=== PATIENT | male | born 1950 | race Caucasian/White ===

== ENCOUNTER 2017-06-29 12:26 | Inpatient (IN) | payer MEDICARE, OTHER ==
[2017-06-29] MEDS: ATORVASTATIN CA 10 MG TABLET (FP) PO SCH
[2017-06-29] MEDS ORDERED: SODIUM CHLORIDE 1,000 ML IV STA ×2 (13:36→14:36)
--- NOTE | 2017-06-29 13:41 | PDOC ---
History of Present Illness - General History Source: Patient - History of Present Illness Timing/Duration: other Associated Symptoms: reports: malaise, weakness. denies: chest pain, cough, diaphoresis, fever/chills, headaches, nausea/vomiting, shortness of breath, syncope <NorborneShanika - Last Filed: 06/29/17 19:02> <Ernestina Cardenas - Last Filed: 06/30/17 17:20> - General Chief Complaint: Syncope/Near Syncope Stated Complaint: SYNCOPE Time Seen by Provider: 06/29/17 13:14 Past History - Past Medical History COPD: Yes Diabetes: Yes GI Disorders: Yes (GERD) Disorders: Yes (HYDROCELE;TESTICULAR CYST) HTN: Yes Hypercholesterolemia: Yes - Surgical History Abdominal Surgery: Yes (HERNIA REPAIR X 2) Appendectomy: Yes - Suicide/Smoking/Psychosocial Hx Smoking History: Never smoked Number of Cigarettes Smoked Daily: 5 'Breaking Loose' booklet given: 08/11/15 Hx Alcohol Use: Yes (1-2 BEERS; 3 SHOTS LIQUOR DAILY) Drug/Substance Use Hx: Yes Substance Use Type: Alcohol, Marijuana <Shanika Calzada - Last Filed: 06/29/17 19:02> <Ernestina Cardenas - Last Filed: 06/30/17 17:20> - Past Medical History Allergies/Adverse Reactions: Allergies Allergy/AdvReac Type Severity Reaction Status Date / Time No Known Drug Allergies Allergy Verified 06/29/17 13:22 Home Medications: Ambulatory Orders Albuterol Sulfate Inhaler - [Ventolin Hfa Inhaler -] 1 - 2 inh PO Q4H 08/11/15 Aspirin [Aspirin EC] 81 mg PO DAILY 08/11/15 Fluticasone/Salmeterol [Advair 250-50 Diskus] 1 each IH BID PRN 08/11/15 Lisinopril [Prinivil -] 20 mg PO DAILY 08/11/15 Omeprazole 20 mg PO DAILY 08/11/15 Simvastatin [Zocor -] 20 mg PO HS 08/11/15 Finasteride 5 mg PO DAILY 06/29/17 Lisinopril [Prinivil] 5 mg PO DAILY 06/29/17 Metformin HCl 500 mg PO DAILY 06/29/17 Review of Systems - Review of Systems Constitutional: Yes: Malaise. No: Chills, Fever Respiratory: No: Cough, Shortness of Breath Cardiac (ROS): No: Chest Pain ABD/GI: No: Diarrhea, Nausea, Vomiting : No: Dysuria Neurological: No: Headache, Dizziness <Prabha CalzadaRomán - Last Filed: 06/29/17 19:02> *Physical Exam - Vital Signs Last Vital Signs Temp Pulse Resp BP Pulse Ox 98.8 F 72 16 101/63 99 06/29/17 12:35 06/29/17 12:35 06/29/17 12:35 06/29/17 12:35 06/29/17 12:40 - Physical Exam General Appearance: Yes: Appropriately Dressed. No: Apparent Distress HEENT: positive: Normal Voice Neck: positive: Supple Respiratory/Chest: positive: Lungs Clear, Normal Breath Sounds. negative: Respiratory Distress Cardiovascular: positive: Regular Rate, S1, S2 Gastrointestinal/Abdominal: positive: Soft. negative: Tender Musculoskeletal: negative: CVA Tenderness Extremity: positive: Normal Inspection Integumentary: positive: Dry, Warm Neurologic: positive: Fully Oriented, Alert, Normal Mood/Affect <Prabha CalzadaNashAbeba - Last Filed: 06/29/17 19:02> - Vital Signs Last Vital Signs Temp Pulse Resp BP Pulse Ox 99.9 F H 80 20 121/67 96 06/30/17 14:40 06/30/17 14:40 06/30/17 14:40 06/30/17 14:40 06/29/17 21:00 <Ernestina Cardenas - Last Filed: 06/30/17 17:20> ED Treatment Course - LABORATORY CBC & Chemistry Diagram: 06/29/17 13:36 06/29/17 13:36 - RADIOLOGY Radiology Studies Ordered: Category Date Time Status CHEST X-RAY PORTABLE* [RAD] Stat Radiology 06/29/17 13:14 Ordered <ElsiPrabhaRomán - Last Filed: 06/29/17 19:02> - LABORATORY CBC & Chemistry Diagram: 06/30/17 06:00 06/30/17 06:00 - ADDITIONAL ORDERS Additional order review: 06/29/17 14:10 Blood Culture - Preliminary Blood - Peripheral Venous NO GROWTH OBTAINED AFTER 24 HOURS, INCUBATION TO CONTINUE FOR 4 DAYS. 06/29/17 13:36 Blood Culture - Preliminary Blood - Peripheral Venous NO GROWTH OBTAINED AFTER 24 HOURS, INCUBATION TO CONTINUE FOR 4 DAYS. 06/29/17 14:10 Urine Culture - Final Urine - Urine Clean Catch 06/29/17 14:30 Influenza Types A,B Antigen (KEL) - Final Nasopharyngeal Swab - Final 06/29/17 13:36 RBC 3.51 L D MCV 97.4 H MCHC 33.0 RDW 13.4 MPV 7.2 L Neutrophils % No Result Required. Lymphocytes % No Result Required. - Medications Given in the ED: ED Medications Discontinued Medications Generic Name Dose Route Start Last Admin Trade Name Freq PRN Reason Stop Dose Admin Sodium Chloride 1,000 mls @ 1,000 mls/hr 06/29/17 13:36 06/29/17 13:51 Normal Saline - IV 06/29/17 14:35 1,000 mls/hr ASDIR STA Administration Sodium Chloride 1,000 mls @ 1,000 mls/hr 06/29/17 14:36 06/29/17 14:39 Normal Saline - IV 06/29/17 15:35 1,000 mls/hr ASDIR STA Administration Vancomycin HCl 1,000 mg/ 250 mls @ 250 mls/hr 06/29/17 14:47 06/29/17 15:02 Dextrose IVPB 06/29/17 15:46 250 mls/hr ONCE ONE Administration Protocol Sodium Chloride 1,000 mls @ 100 mls/hr 06/29/17 23:00 06/30/17 01:20 Normal Saline - IV Not Given ASDIR MORRIS Folic Acid 1 mg/ Thiamine HCl 1,000 mls @ 125 mls/hr 06/29/17 20:50 06/29/17 23 :04 100 mg/ Multivitamins/Minerals IVPB 06/30/17 04:49 125 mls/hr 10 ml/ Sodium Chloride ONCE ONE Administration Piperacillin Sod/Tazobactam 50 mls @ 100 mls/hr 06/30/17 00:05 06/30/17 00:26 Sod 3.375 gm/ Dextrose IVPB 06/30/17 00:34 100 mls/hr ONCE ONE Administration Protocol Piperacillin Sod/Tazobactam Sod 3.375 gm 06/29/17 14:47 06/29/17 15:50 Zosyn 3.375gm Ivpb (Pre-Docked) IV 06/29/17 14:48 3.375 gm ONCE ONE Administration Protocol Polyethylene Glycol 17 gm 06/30/17 09:42 06/30/17 10:23 Miralax (For Daily Use) - PO 06/30/17 09:43 Not Given ONCE ONE <Ernestina Cardenas - Last Filed: 06/30/17 17:20> Medical Decision Making - Medical Decision Making 06/29/17 13:57 66 yo M, h/o HTN, COPD, DM, sent in by his PMD, Dr Cordero for abnormal labs. Pt states he had labs drawn in office yesterday and received call this am "that I have big infection in my blood". Pt reports feeling unwell at this time but denies syncope as documented at triage. States he was admitted to [facility] recently for 10 days after c/o generalized body aches. States he was discharged home 3 days ago w/ Tylenol and tramadol but continues to have pain. States work up at [facility] did not reveal etiology of pain. Pt denies uri sxs, f/c CP, sob, abd pain, change in BM, dysuria, PARKER, dizziness or neck stiffness After patient was evaluated, I spoke to Dr. Cordero, who informed me that patient has been admitted twice in the past month to [facility]. Initially was admitted for COPD flare and most recently unclear as to why patient was admitted, but states she saw patient in office yesterday and patient was hypotensive to 80s over 50s and tachycardic to 106 and recommended that patient go to the ER. For unclear reasons, patient did not come in yesterday. M.D. states she contacted pt this am to inform him that his white blood count was 33, 000. Was previously 13. Pt not on steroids. Recommend that I called [facility] to get information regarding recent admission. States when patient admitted today, to go to the hospitalist service See exam Leukocytosis w/ transient hypotension and tachycardia in pmd's office yesterday S/p recent 10 days admission to [facility] (will call for info as pt very poor historian) Pt stable in ED w/ no focal symptoms R/o sepsis -labs -estrada-cx -ekg -cxr -IVF -abx -admission 06/29/17 14:07 06/29/17 14:37 At this point, white count is 23 with lactate of 4.3, chest x-ray read as no acute pathology. UA and influenza still pending at this time. Unclear source of infection at this time. IV fluids in progress with broad-spectrum antibiotics as discussed with ED attending. I have tried calling the ER at [facility] several times in order to get records from pt's recent admission but number either busy, rings without answer or I am placed on hold for extended periods of time. 06/29/17 14:47 06/29/17 14:48 06/29/17 16:51 Rpt lactate 1.8. Pt currently in CT. Of note, ua and influenza neg. Pt to be admitted to hospitalist as d/w Dr Cordero 06/29/17 16:51 06/29/17 18:04 CT neg for acute pathology. Source of sepsis unclear at this time and no e/o meningismus. Pt's only complaint is generalized body aches. Pt remains stable. Will discuss w/ hospitalist and admit 06/29/17 18:16 06/29/17 18:56 06/29/17 19:02 Case discussed with hospitalist and patient admitted <Shanika Calzada - Last Filed: 06/29/17 19:02> *DC/Admit/Observation/Transfer - Discharge Dispostion Admit: Yes <Shanika Calzada - Last Filed: 06/29/17 19:02> - Attestations Physician Attestion: I reviewed the case with the mid-level practitioner and agree with the mid- level practitioner's assessment, diagnosis and disposition. <Ernestina Cardenas - Last Filed: 06/30/17 17:20> Diagnosis at time of Disposition: Sepsis Qualifiers: Sepsis type: sepsis due to unspecified organism Qualified Code(s): A41.9 - Sepsis, unspecified organism - Discharge Dispostion Condition at time of disposition: Fair - Referrals
[2017-06-29 13:45] LABS: MCH 32.1 pg (25.7-33.7); MEAN CELL VOLUME 97.4 fl (80-96); MEAN PLT VOLUME 7.2 fl (7.5-11.1); PLATELET COUNT 529 K/MM3 (134-434); RDW 13.4 % (11.9-15.9); WHITE BLOOD COUNT 23.3 K/mm3 (4.0-10.0)
[2017-06-29 14:16] LABS: ANION GAP 12 (8-16); BILIRUBIN,TOTAL 0.4 mg/dL (0.2-1.0); CALCIUM 9.8 mg/dL (8.5-10.1); CO2 28 mmol/L (21-32); CREATININE 0.9 mg/dL (0.7-1.3); GLUCOSE,RANDOM 171 mg/dL (74-106)
[2017-06-29 14:24] LABS: ALK PHOS 134 U/L (45-117); CPK 26 IU/L (39-308); SGOT/AST 14 U/L (15-37); SGPT/ALT 30 U/L (12-78); TROPONIN I < 0.02 ng/ml (0.00-0.05)
[2017-06-29] MEDS ORDERED: PIPERACILLIN/TAZOB 3.375 GM/50 ML PRE-DOCKED IV ONE (14:47)
[2017-06-29] MEDS ORDERED: VANCOMYCIN 1,000 MG in DEXTROSE 5%-WATER - 250 ML IVPB ONE (14:47)
[2017-06-29 15:12] LABS: URINE APPEARANCE CLEAR; URINE BILIRUBIN 1+ (NEGATIVE); URINE BLOOD NEGATIVE (NEGATIVE); URINE COLOR LT. YELLOW; URINE GLUCOSE (UA) NEGATIVE (NEGATIVE); URINE KETONE NEGATIVE (NEGATIVE); URINE LEUK ESTERASE NEGATIVE (NEGATIVE); URINE NITRITE NEGATIVE (NEGATIVE); URINE PROTEIN NEGATIVE (NEGATIVE); URINE UROBILINOGEN 0.2 mg/dL (0.2-1.0)
[2017-06-29] MEDS ORDERED: VANCOMYCIN 1 GRAM (PRE-DOCKED) 250 ML IVPB ONE (15:18)
[2017-06-29 15:54] LABS: BASOPHIL (MANUAL) 1 % (0-2.0); PLATELET ESTIMATE INCREASED (NORMAL); TOTAL CELLS COUNTED 100
[2017-06-29] MEDS ORDERED: PIPERACILLIN/TAZOB 3.375 GM 50 ML IVPB ONE (15:56)
--- NOTE | 2017-06-29 18:47 | HP ---
CHIEF COMPLAINT: Generalized weakness, fatigue, sweating, body ache PCP:Dr Cordero HISTORY OF PRESENT ILLNESS: 66 yo M, h/o HTN, COPD, asthma,DM2, HLD,prostate cancer? who presented to the ED with 2 weeks history of generalized weakness, body ache, diaphoresis. He was admitted for 12days at [facility] for same symptoms and was discharged with no clear etiology. His PCP sent him to ED today for abnormal lab work that was done yesterday(wbc 33,000). Patient denies any headache, fever, chills, N/V/D/C, he reports diaphoresis, generalized body ache starts with his leg and go all over his body. He denies chest pain, SOB, palpitation, abdominal pain, dysuria, hematuria. ER course was notable for: (1) WBC 23.3, H/H 11.3/34.2, plt 529, LA 4.3 trend to 1.8. (2)IV fluids 2 L NS bolus, Vanco zosyn (3) CT , UA, Blood culture, urine culture pending Recent Travel:No PAST MEDICAL HISTORY:HTN, HLD, DM2, Asthma, COPD,GERD, PAST SURGICAL HISTORY: inguinal hernia Social History: Smokinback/year quit 2 years ago Alcohol: 2-3 lickers multiple time aweek, last drink 20 days ago. Drugs: smoke coccine smoking, no IV drug abuse Family History: Prostate cancer , colon cancer (grandfather, uncle ) Allergies No Known Drug Allergies Allergy (Verified 06/29/17 13:22) HOME MEDICATIONS: Home Medications Medication Instructions Recorded Albuterol Sulfate Inhaler - 1 - 2 inh PO Q4H 08/11/15 [Ventolin Hfa Inhaler -] Aspirin [Aspirin EC] 81 mg PO DAILY 08/11/15 Fluticasone/Salmeterol [Advair 1 each IH BID PRN 08/11/15 250-50 Diskus] Lisinopril [Prinivil -] 20 mg PO DAILY 08/11/15 Omeprazole 20 mg PO DAILY 08/11/15 Simvastatin [Zocor -] 20 mg PO HS 08/11/15 Finasteride 5 mg PO DAILY 06/29/17 Lisinopril [Prinivil] 5 mg PO DAILY 06/29/17 Metformin HCl 500 mg PO DAILY 06/29/17 REVIEW OF SYSTEMS CONSTITUTIONAL: Absent: fever, chills, diaphoresis, generalized weakness, malaise, loss of appetite, weight change HEENT: Absent: rhinorrhea, nasal congestion, throat pain, throat swelling, difficulty swallowing, mouth swelling, ear pain, eye pain, visual changes CARDIOVASCULAR: Absent: chest pain, syncope, palpitations, irregular heart rate, lightheadedness , peripheral edema RESPIRATORY: Absent: cough, shortness of breath, dyspnea with exertion, orthopnea, wheezing, stridor, hemoptysis GASTROINTESTINAL: Absent: abdominal pain, abdominal distension, nausea, vomiting, diarrhea, constipation, melena, hematochezia GENITOURINARY: Absent: dysuria, frequency, urgency, hesitancy, hematuria, flank pain, genital pain MUSCULOSKELETAL: Absent: myalgia, arthralgia, joint swelling, back pain, neck pain SKIN: Absent: rash, itching, pallor HEMATOLOGIC/IMMUNOLOGIC: Absent: easy bleeding, easy bruising, lymphadenopathy, frequent infections ENDOCRINE: Absent: unexplained weight gain, unexplained weight loss, heat intolerance, cold intolerance NEUROLOGIC: Absent: headache, focal weakness or paresthesias, dizziness, unsteady gait, seizure, mental status changes, bladder or bowel incontinence PSYCHIATRIC: Absent: anxiety, depression, suicidal or homicidal ideation, hallucinations. Current Medications Generic Name Dose Route Start Last Admin Trade Name Sheldonq PRN Reason Stop Dose Admin Enoxaparin Sodium 40 mg 06/29/17 20:45 Lovenox - SQ DAILY [facility] Folic Acid 1 mg 06/30/17 10:00 Folic Acid - PO DAILY [facility] Sodium Chloride 1,000 mls @ 100 mls/hr 06/29/17 23:00 Normal Saline - IV ASDIR MORRIS Folic Acid 1 mg/ Thiamine HCl 1,000 mls @ 125 mls/hr 06/29/17 20:50 100 mg/ Multivitamins/Minerals IVPB 06/30/17 04:49 10 ml/ Sodium Chloride ONCE ONE Piperacillin Sod/Tazobactam 50 mls @ 100 mls/hr 06/30/17 00:05 Sod 3.375 gm/ Dextrose IVPB 06/30/17 00:34 ONCE ONE Protocol Insulin Aspart 0 vial 06/29/17 22:00 Novolog Vial Sliding Scale - SQ ACHS [facility] Protocol Thiamine HCl 100 mg 06/30/17 10:00 Vitamin B1 - PO DAILY MORRIS PHYSICAL EXAMINATION Vital Signs - 24 hr 06/29/17 06/29/17 06/29/17 12:35 12:40 14:33 Temperature 98.8 F 98.4 F Pulse Rate 72 Pulse Rate [ 85 Apical] Respiratory 16 16 Rate Blood Pressure 101/63 Blood Pressure 106/70 [Right Arm] O2 Sat by Pulse 99 99 99 Oximetry (%) 06/29/17 06/29/17 15:03 16:00 Temperature 99 F Pulse Rate Pulse Rate [ 84 72 Apical] Respiratory 20 16 Rate Blood Pressure Blood Pressure 105/63 110/72 [Right Arm] O2 Sat by Pulse 97 99 Oximetry (%) GENERAL: Awake, alert, and fully oriented, in no acute distress. HEAD: Normal with no signs of trauma. EYES: sclera icteric, conjunctiva pallor. EARS, Moist mucous membranes. LUNGS: Breath sounds equal, ispiratory wheezes on left side, and no crackles. No accessory muscle use. HEART: distant heart sound,regular rate and rhythm, normal S1 and S2 without murmur, rub or gallop. ABDOMEN: Soft, nontender, not distended, normoactive bowel sounds, no guarding, no rebound. MUSCULOSKELETAL: Normal range of motion at all joints. No bony deformities or tenderness. No CVA tenderness. LOWER EXTREMITIES: 2+ pulses, warm, well-perfused. No calf tenderness. No peripheral edema. NEUROLOGICAL: Normal speech. Normal gait. PSYCHIATRIC: Cooperative. Good eye contact. Appropriate mood and affect. SKIN: Warm, dry, no rashes or lesions noted, normal capillary refill. Laboratory Results - last 24 hr 06/29/17 06/29/17 06/29/17 13:36 13:36 13:36 WBC 23.3 H D RBC 3.51 L D Hgb 11.3 L D Hct 34.2 L D MCV 97.4 H MCH 32.1 MCHC 33.0 RDW 13.4 Plt Count 529 H D MPV 7.2 L Total Counted 100 Neutrophils % No Result Required. Neutrophils % (Manual) 87 H Lymphocytes % No Result Required. Lymphocytes % (Manual) 8 Monocytes % (Manual) 3 L Eosinophils % (Manual) 1 Basophils % (Manual) 1 Platelet Estimate Increased Sodium 137 Potassium 4.5 Chloride 97 L Carbon Dioxide 28 Anion Gap 12 BUN 23 H D Creatinine 0.9 Creat Clearance w eGFR > 60 Random Glucose 171 H D Lactic Acid 4.3 H* Calcium 9.8 Total Bilirubin 0.4 D AST 14 L ALT 30 Alkaline Phosphatase 134 H D Creatine Kinase 26 L Troponin I < 0.02 Total Protein 6.0 L D Albumin 2.0 L D Urine Color Urine Appearance Urine pH Ur Specific [place] Urine Protein Urine Glucose (UA) Urine Ketones Urine Blood Urine Nitrite Urine Bilirubin Urine Urobilinogen 06/29/17 06/29/17 14:10 15:52 WBC RBC Hgb Hct MCV MCH MCHC RDW Plt Count MPV Total Counted Neutrophils % Neutrophils % (Manual) Lymphocytes % Lymphocytes % (Manual) Monocytes % (Manual) Eosinophils % (Manual) Basophils % (Manual) Platelet Estimate Sodium Potassium Chloride Carbon Dioxide Anion Gap BUN Creatinine Creat Clearance w eGFR Random Glucose Lactic Acid 1.8 Calcium Total Bilirubin AST ALT Alkaline Phosphatase Creatine Kinase Troponin I Total Protein Albumin Urine Color Lt. yellow Urine Appearance Clear Urine pH 6.0 Ur Specific [place] 1.015 Urine Protein Negative Urine Glucose (UA) Negative Urine Ketones Negative Urine Blood Negative Urine Nitrite Negative Urine Bilirubin 1+ H Urine Urobilinogen 0.2 CXR on 04/17: No acute pathology CT abd on 04/17: fecal retention but no acute pathology ASSESSMENT/PLAN: 66 yo M, h/o HTN,HLD,DM2 COPD, asthma,prostate cancer? , recent hospitalization , who presented to the ED with 2 weeks history of generalized weakness, body ache, diaphoresis was sent by his PCP due to abnormal lab, he was found to have Leckocytosis of 23.3 and lactic acidosis of 4.3 with hypotension and was admitted for further evaluation. #Leckocytosis with neutrophilic, unspecified with thrombocytosis, likely 2/2 unknown infection vs malignancy (B symptoms ) vs connective tissue disease * WBC 23.3 on admission, H/O weight loss, H/O prostate biopsy * LA 4.3 trend to 1.8 with fluids * does not meet Sepsis criteria ,per SIRS , neither Qsofa criteria * IV fluids NS 2L boluses, vanco/zosyn given in the ED, will continue * repeat CBC, CMP in AM * UA negative * Blood culture, urine culture pending * CXR negative for acute pathology, CT abdomen negative for acute path * Lyme titers , serology for anaplasomis, babesiosis * ID consult * Hemonc consult * PPD to R/o TB * HIV screening , ESR,CRP # Lactic acidosis, corrected, likely 2/2 infection vs metformin vs dehydration * LA 4.3 on admission improved to 1.8 after 2L NS boluses * most likely secondary to dehydration # hypercalcemia with hypoalbuminemia, rigoley 2/2 malignancy vs PTH vs hyperthyroidism vs dehydration * corrected Ca 11.4 on admission * TSH, Parathyroid hormone * malignancy work up * consult hematology * IV fluids NS @100cc/hr * repeat CA in AM , Phosphorus # Normocytic anemia likely 2/2 chronic disease vs low oral intake vs alcoholic * H/H 11.3/34.2 * IRON studies, B12 Floate * Thiamin ,folic acid * repeat CBC in AM * peripheral smear in am to exclude chronic myeloproliferative disorders #Alcohol dependence * Banana bag x 1 * PO folate and thiamine tomorrow # COPD, * duoneb * Albuterol inhaler * 2L O2 NC * # constipation , * fecal incarceration on CT , asymptomatic * start stool softeners # DM2, * on mentformin 500 mg PO at home * Hold metformin * ISS, BGM * monitor * patient education * Diabetic low sodium diet * #HTN, * normotensive * on no medication #HLD , * continue home med lipitor * # prostate ca s/p prostectomy * continue Fenastrid 5 mg po daily * #FEN * F: 2L NS bolus recieved in ED, will give 1 L @ 100 cc/Hr * E:hypercalcemia, will continue hydration * N: low sodium, diabetic diet # Proph: * DVT : Moderate risk, Lovenox 40 SQ daily * GI: Protonix 20 mg PO daily # Dispo : * Orlin to med surg for further eval * will collect medical record [facility] Visit type - Emergency Visit Emergency Visit: Yes ED Registration Date: 06/29/17 Care time: The patient presented to the Emergency Department on the above date and was hospitalized for further evaluation of their emergent condition. - New Patient This patient is new to me today: Yes Date on this admission: 06/30/17 - Critical Care Critical Care patient: No
--- NOTE | 2017-06-29 19:11 | HP ---
CHIEF COMPLAINT: PCP: Dr. Cordero HISTORY OF PRESENT ILLNESS: Briefly, 66 yo M h/o HTN, asthma, COPD not on home O2 and non-steroid dependent , NIDDM sent by his PMD for elevated WBC count. Patient recalls that he's been having intermittent diffuse body aches x 10 days with 20lbs unintentional weight loss within the past few weeks. He was admitted to [facility] for 12 days and discharged 2 days ago but all workups were negative. Yesterday he saw his PMD and had blood work done. Today his PMD informed him of the elevated WBC and instructed him to come in to [facility] ED. He denies fever, chills, sick contact, recent travel, [place] in [place], diarrhea, constipation, chest pain , abd pain, n/v, urinary or bowel symptom. ER course was notable for: (1) Received NS x 2 L and Vanc+zosyn (2) Negative CT, CXR and Urinalysis Recent Travel: Denies PAST MEDICAL HISTORY: As above PAST SURGICAL HISTORY: Testicular hernia repair, Appendectomy, Prostate biospy Social History: Smokinppd, quit 2 yrs ago Alcohol: 2-3 shots of hard liquor, last drink 20 days ago Drugs: Cocaine, last use 2 years, denies IVDU Family History: Non-contributory Allergies No Known Drug Allergies Allergy (Verified 06/29/17 13:22) HOME MEDICATIONS: Home Medications Medication Instructions Recorded Albuterol Sulfate Inhaler - 1 - 2 inh PO Q4H 08/11/15 [Ventolin Hfa Inhaler -] Aspirin [Aspirin EC] 81 mg PO DAILY 08/11/15 Fluticasone/Salmeterol [Advair 1 each IH BID PRN 08/11/15 250-50 Diskus] Lisinopril [Prinivil -] 20 mg PO DAILY 08/11/15 Omeprazole 20 mg PO DAILY 08/11/15 Simvastatin [Zocor -] 20 mg PO HS 08/11/15 Finasteride 5 mg PO DAILY 06/29/17 Lisinopril [Prinivil] 5 mg PO DAILY 06/29/17 Metformin HCl 500 mg PO DAILY 06/29/17 REVIEW OF SYSTEMS CONSTITUTIONAL: diffuse body aches Absent: fever, chills, diaphoresis, generalized weakness, malaise, loss of appetite, weight change HEENT: Absent: rhinorrhea, nasal congestion, throat pain, throat swelling, difficulty swallowing, mouth swelling, ear pain, eye pain, visual changes CARDIOVASCULAR: Absent: chest pain, syncope, palpitations, irregular heart rate, lightheadedness , peripheral edema RESPIRATORY: Absent: cough, shortness of breath, dyspnea with exertion, orthopnea, wheezing, stridor, hemoptysis GASTROINTESTINAL: Absent: abdominal pain, abdominal distension, nausea, vomiting, diarrhea, constipation, melena, hematochezia GENITOURINARY: Absent: dysuria, frequency, urgency, hesitancy, hematuria, flank pain, genital pain MUSCULOSKELETAL: Absent: myalgia, arthralgia, joint swelling, back pain, neck pain SKIN: Absent: rash, itching, pallor HEMATOLOGIC/IMMUNOLOGIC: Absent: easy bleeding, easy bruising, lymphadenopathy, frequent infections ENDOCRINE:unexplained weight loss Absent:, heat intolerance, cold intolerance NEUROLOGIC: headache, Absent: focal weakness or paresthesias, dizziness, unsteady gait, seizure, mental status changes, bladder or bowel incontinence PSYCHIATRIC: Absent: anxiety, depression, suicidal or homicidal ideation, hallucinations. PHYSICAL EXAMINATION Last Vital Signs Temp Pulse Resp BP Pulse Ox 99 F 72 16 110/72 99 06/29/17 16:00 06/29/17 16:00 06/29/17 16:00 06/29/17 16:06/29/17 16:00 GENERAL:AAO x 3, looks appropriate to stated age, laying quietly in bed, speak in full sentences, in no acute distress. NECK: supple without lymphadenopathy LUNGS: CTAB HEART: RRRR, normal S1 and S2 without murmur, rub or gallop. ABDOMEN: Soft, nontender, not distended, normoactive bowel sounds, no guarding, no rebound, no masses . EXTREMITIES: 2+ pulses, warm, well-perfused. No peripheral edema. CBCD WBC 23.3 K/mm3 (4.0-10.0) H D 06/29/17 13:36 RBC 3.51 M/mm3 (4.00-5.60) L D 06/29/17 13:36 Hgb 11.3 GM/dL (11.7-16.9) L D 06/29/17 13:36 Hct 34.2 % (35.4-49) L D 06/29/17 13:36 MCV 97.4 fl (80-96) H 06/29/17 13:36 MCHC 33.0 g/dl (32.0-35.9) 06/29/17 13:36 RDW 13.4 % (11.9-15.9) 06/29/17 13:36 Plt Count 529 K/MM3 (134-434) H D 06/29/17 13:36 MPV 7.2 fl (7.5-11.1) L 06/29/17 13:36 CMP Sodium 137 mmol/L (136-145) 06/29/17 13:36 Potassium 4.5 mmol/L (3.5-5.1) 06/29/17 13:36 Chloride 97 mmol/L (98-107) L 06/29/17 13:36 Carbon Dioxide 28 mmol/L (21-32) 06/29/17 13:36 Anion Gap 12 (8-16) 06/29/17 13:36 BUN 23 mg/dL (7-18) H D 06/29/17 13:36 Creatinine 0.9 mg/dL (0.7-1.3) 06/29/17 13:36 Creat Clearance w eGFR > 60 (>60) 06/29/17 13:36 Calcium 9.8 mg/dL (8.5-10.1) 06/29/17 13:36 Total Bilirubin 0.4 mg/dL (0.2-1.0) D 06/29/17 13:36 AST 14 U/L (15-37) L 06/29/17 13:36 ALT 30 U/L (12-78) 06/29/17 13:36 Alkaline Phosphatase 134 U/L (45-117) H D 06/29/17 13:36 Total Protein 6.0 g/dl (6.4-8.2) L D 06/29/17 13:36 Albumin 2.0 g/dl (3.4-5.0) L D 06/29/17 13:36 Urine Test Results Urine Color Lt. yellow 06/29/17 14:10 Urine Appearance Clear 06/29/17 14:10 Urine pH 6.0 (5.0-8.0) 06/29/17 14:10 Ur Specific [place] 1.015 (1.005-1.025) 06/29/17 14:10 Urine Protein Negative (NEGATIVE) 06/29/17 14:10 Urine Glucose (UA) Negative (NEGATIVE) 06/29/17 14:10 Urine Ketones Negative (NEGATIVE) 06/29/17 14:10 Urine Blood Negative (NEGATIVE) 06/29/17 14:10 Urine Nitrite Negative (NEGATIVE) 06/29/17 14:10 Urine Bilirubin 1+ (NEGATIVE) H 06/29/17 14:10 IMAGING CXR on 04/17: No acute pathology CT abd on 04/17: fecal retention but no acute pathology ASSESSMENT/PLAN: 66 yo M h/o HTN, asthma, COPD not on home O2 and non-steroid dependent, NIDDM admitted for abnormal hematologic findings pending workup. Leukocytosis and Thrombocytosis - Primary vs. secondary (likely) - Primary: ?lymphoma w/ B-symptoms * hemonc consult - Secondary: infection vs. reactive to prostate malignancy * Lyme abs, babesia abs, rapid HIV, erhlichia abs, PPD * Elevated Ca2+ level, unintentional weight loss, hx prostate biopsy Hypercalcemia - Malignancy vs. Hyperthyroidism vs. hyperparathyroidism - Corrected Ca2+ 11.4 - Cont. hydration and monitor - f/u TSH, parathyroid hormone level, and phosphorus Lactic acidosis - Malignancy vs. infection vs. dehydration vs. Metformin - Resolved Macrocytic anemia - Likely 2/2 alcohol use - f/u B12 and folate level Alcohol dependence - Banana bag x 1 - PO folate and thiamine tomorrow COPD and asthma - Stable - Cont. advair and ventolin ?h/o prostate cancer - Cont. finasteride DM - BGM and SSI HTN - Controlled off med HLD - Cont. zocor FEN - IVF 100cc/hr - Hypercalcemia, cont. hydration - DM and Sodium diet Prophylaxis - DVT: lovenox - GI: on home PPI Dispo - Need to obtain past medical record regarding h/o malignancy from PCP - Cont. to monitor on med-surg Ramin Adair [facility] PGY2 Pager: [phone] Visit type - Emergency Visit Emergency Visit: Yes ED Registration Date: 06/29/17 Care time: The patient presented to the Emergency Department on the above date and was hospitalized for further evaluation of their emergent condition. - New Patient This patient is new to me today: Yes Date on this admission: 06/30/17 - Critical Care Critical Care patient: No
--- NOTE | 2017-06-29 19:16 | PN ---
Teaching Attending Note Name of Resident: Ramin Adair ATTENDING PHYSICIAN STATEMENT I saw and evaluated the patient. I reviewed the resident's note and discussed the case with the resident. I agree with the resident's findings and plan as documented. OBJECTIVE: Last Vital Signs Temp Pulse Resp BP Pulse Ox 99 F 72 16 110/72 99 06/29/17 16:00 06/29/17 16:00 06/29/17 16:00 06/29/17 16:00 06/29/17 16:00 ASSESSMENT AND PLAN: The patient is a 66 year old male with a significant past medical history of HTN , HLD, DM2, COPD, ? prostate cancer (? s/p prostatectomy), s/p two admissions to an outside facility within the past month (details unclear), seen by PCP yesterday for complaints of generalized body pain and noted to have mild hypotension with WBC of 33K, now being admitted to inpatient services for leukocytosis and lactic acidosis that resolved in the ED after fluids. He provides a somewhat limited history but reports several weeks of unintentional weight loss, diffuse myalgia, generalized weakness, disphoresis. He does NOT meet diagnostic criteria for sepsis, either by SIRS spectrum or qSOFA. He received 2L of NS in the ED as well as Zosyn/Vanco. He is hemodynamically stable and euvolemic without any overt source of infection #Leukocytosis Neutrophilic leukocytosis Possibly infectious Possibly due to malignancy Source unclear if infectious Must consider tick borne illness given our location, though he has no other risk factors Lack of transaminitis and normal platelets point away from Anaplasmosis/ Babesiosis No stigmata of endocarditis Will continue Vancomycin /Zosyn for now Follow cultures Obtain Lyme titers, serology for anaplasomis, babesiosis HIV test PPD ID consult He is slightly anemic and has a slight thrombocytosis Both are new from last labs at this facility which were in 2015 He is also quite hypoalbuminemic and has had significant weight loss He has hypercalcemia when corrected for hypoalbuminemia These findings are concerning for malignancy Will need old records from PCP in am Will ask lab to examine peripheral smear in am to exclude chronic myeloproliferative disorders Will need malignancy work-up Will consult Heme/Onc #Hypercalcemia Ca 11.4 when corrected for hypoalbuminemia Check TSH, Parathydroid levels Malignancy work-up as above Heme-Onc consult as above Continue rehydration and recheck in am #Lactic acidosis Suspect was Type A due to dehydration It resolved after fluids Doubt Type B but hold Metformin for now See resident note for full details
[2017-06-29] MEDS ORDERED: FOLIC ACID INJECTION - 1 MG, THIAMINE HCL 100 MG, MULTIVIT INJECTION ADULT 10 ML in SOD... IVPB ONE (20:50)
[2017-06-29] MEDS: ENOXAPARIN NA (PORCINE) 40 MG/0.4 ML DISP.SYRIN SQ SCH (22:00)
[2017-06-29] MEDS ORDERED: ALBUTEROL SO4 6.7 GM HFA INHALER IH PRN (22:00)
[2017-06-29] MEDS: INSULIN SLIDING SCALE (NOVOLOG) 1 VIAL SQ SCH ×2 (23:00→23:06)
[2017-06-29] MEDS: SODIUM CHLORIDE 1,000 ML IV SCH (23:05)
[2017-06-30] MEDS ORDERED: PIPERACILLIN/TAZOB 3.375 GM 3.375 GM in DEXTROSE 5%-WATER - 50 ML IVPB ONE (00:05)
[2017-06-30] MEDS ORDERED: DEXTROSE 5%-WATER - 50 ML IVPB ONE (00:14)
[2017-06-30] MEDS ORDERED: PIPERACILLIN/TAZOBACTAM 3.375 GM VIAL IVPB ONE (00:14)
[2017-06-30] MEDS: SODIUM CHLORIDE 1,000 ML IV SCH (01:20)
[2017-06-30 03:29] VITALS: BMI 23.5
[2017-06-30] MEDS: INSULIN SLIDING SCALE (NOVOLOG) 1 VIAL SQ SCH ×4 (06:50→22:14)
[2017-06-30 07:21] LABS: BASOPHIL 0.4 % (0-2.0); EOSINOPHIL 2.1 % (0-4.5); MCH 31.9 pg (25.7-33.7); MCHC 33.1 g/dl (32.0-35.9); MEAN CELL VOLUME 96.4 fl (80-96); PLATELET COUNT 447 K/MM3 (134-434); RDW 13.4 % (11.9-15.9); WHITE BLOOD COUNT 19.5 K/mm3 (4.0-10.0)
[2017-06-30] MEDS: ACETAMINOPHEN 325 MG TABLET (FP) PO PRN ×3 (08:18→21:26)
[2017-06-30 08:26] LABS: ALBUMIN 1.6 g/dl (3.4-5.0); ANION GAP 10 (8-16); BILIRUBIN,TOTAL 0.4 mg/dL (0.2-1.0); CALCIUM 8.5 mg/dL (8.5-10.1); CO2 28 mmol/L (21-32); CREATININE 0.7 mg/dL (0.7-1.3); GLUCOSE,RANDOM 131 mg/dL (74-106); MAGNESIUM 1.8 mg/dL (1.8-2.4); PHOSPHOROUS 2.6 mg/dL (2.5-4.9); SGOT/AST 13 U/L (15-37); SGPT/ALT 23 U/L (12-78)
[2017-06-30 08:34] LABS: THYROID STIMULATING HORMONE 0.62 uIU/ml (0.358-3.74)
[2017-06-30 08:38] LABS: ALK PHOS 121 U/L (45-117)
--- NOTE | 2017-06-30 08:59 | PN ---
Progress Note (short form) - Note Progress Note: ID This 66 year old male from [place] presents from his PMD for elevated WBC count. Known asthma DIDDM prostate surgery in past not feeling ell since beginning of this Jun. Complains of mostly generalized lower extremity body pains intermittent but not joint pains. He denies fevers rash travel headaches or visual complaints. He lives with a female friend and admits to drinking a good bit of alcohol on regular basis. HE has had 2 admissions to [facility] for 12 days and 3 days in Jun with no diagnosis but I have no records currently . He does not say he had an infection or a diagnosis. When he saw his PMD she did CBC and found WBC to be elevated so admitted. Denies couph abd pain HARI or night sweats. Former smoker. CT abd no organomegaly abscess Microbiology 06/29/17 14:30 Nasopharyngeal Swab Influenza Types A,B Antigen (KEL) - Final 06/29/17 14:30 Nasopharyngeal Swab - Final 06/29/17 14:10 Urine - Urine Clean Catch Urine Culture - Final Laboratory Tests 06/29/17 06/29/17 06/29/17 13:36 13:36 14:10 WBC 23.3 H D Hgb 11.3 L D Hct 34.2 L D Plt Count 529 H D Neutrophils % (Manual) 87 H Lymphocytes % (Manual) 8 Monocytes % (Manual) 3 L Eosinophils % (Manual) 1 Basophils % (Manual) 1 Sodium 137 Potassium 4.5 BUN 23 H D Creatinine 0.9 Random Glucose 171 H D AST 14 L ALT 30 Alkaline Phosphatase 134 H D Troponin I < 0.02 Total Protein 6.0 L D Albumin 2.0 L D Urine Bilirubin 1+ H Selected Entries 06/29/17 19:19 Temperature 98.8 F Pulse Rate 81 Respiratory 16 Rate Blood Pressure 114/60 HEENT NO petechiae Dentition intact Neck supple no adenopathy Lung Clear Cor S1 S2 RR no murmur Abd Soft no organomegaly nontender Ext NO CCE NO swelling Assessment Nonspecific complaints of body pain LE unclear etiology. Given the Elevated WBC infection considered though no obvious source and he has no fever. This raises the possibility of a a myeloproliferative disease. Tick related illness would not give this type of CBC profile so unlikely. Will cancel serology for this. Given he looks stable with no fever or symptoms related to infection I would not treat with antibiotics though agree cultures as ordered. It would be important to find out what exactly was done at [facility] over 12 days !! ESR CRP should be ordered with HIV testing. Also observe for sings of alcohol withdrawal. Lastsy hematology evalation with markers for leukemia ? marrow. Lastly could we be dealing wit a connective tissue disease PMR? Problem List - Problems (1) Leukocytosis Code(s): D72.829 - ELEVATED WHITE BLOOD CELL COUNT, UNSPECIFIED
--- NOTE | 2017-06-30 09:44 | PN ---
Progress Note (short form) - Note Progress Note: complaining of diffuse body aches and night sweats. assoc with anorexia and 10 lb weight loss. states he was discharged from [facility] 3 days ago after being there for 2 weeks for the same symptoms. according to him they didnt give him any medication except tylenol and just kept taking his blood. denies going for any test or scans denies taking steroids. states he saw his PMD Dr Cordero who checked his blood and told him to go to the hospital that he had an infection. denies CP, SOB, cough, fever, chills, dysuria, abdominal pain , rashes, swellings, dysphagia or odynophagia. does not walk in heavily wooded areas, no tick bites. pt is a poor historian is unable to confirm if he had prostate cancer however in records reports he has prostate ca s/p prostectomy and has been treated for hypercalcemia in the past. Current Medications Generic Name Dose Route Start Last Admin Trade Name Freq PRN Reason Stop Dose Admin Acetaminophen 650 mg 06/30/17 00:31 06/30/17 08:18 Tylenol - PO 650 mg Q6H PRN Administration FEVER OR PAIN Albuterol Sulfate 1 - 2 puff 06/29/17 22:00 Ventolin Hfa Inhaler - IH Q4H PRN Aspirin 81 mg 06/30/17 10:00 Ecotrin - PO DAILY MORRIS Atorvastatin Calcium 10 mg 06/29/17 22:00 06/29/17 00:00 Lipitor - PO 10 mg HS MORRIS Administration Budesonide/Formoterol Fumarate 2 puff 06/30/17 10:00 Symbicort 80/4.5mcg - IH BID MORRIS Enoxaparin Sodium 40 mg 06/29/17 20:45 06/29/17 22:00 Lovenox - SQ 40 mg DAILY MORRIS Administration Finasteride 5 mg 06/30/17 10:00 Proscar - PO DAILY MORRIS Folic Acid 1 mg 06/30/17 10:00 Folic Acid - PO DAILY MORRIS Sodium Chloride 1,000 mls @ 100 mls/hr 06/29/17 23:00 06/30/17 01:20 Normal Saline - IV Not Given ASDIR MORRIS Insulin Aspart 0 vial 06/29/17 22:00 06/30/17 06:50 Novolog Vial Sliding Scale - SQ Not Given ACHS [facility] Protocol Pantoprazole Sodium 20 mg 06/30/17 10:00 Protonix - PO DAILY [facility] Thiamine HCl 100 mg 06/30/17 10:00 Vitamin B1 - PO DAILY [facility] Last Vital Signs Temp Pulse Resp BP Pulse Ox 98.8 F 76 20 110/65 96 06/30/17 02:46 06/30/17 02:46 06/30/17 02:46 06/30/17 02:46 06/29/17 21:00 General NAD HEENT no oral ulcers, no LN axillae, cervical, or groin, +conjunctival pallor CV S1 S2 RRR no murmur/rub/gallop Lungs CTA B/L no wheezing/rales/rhonchi Abdomen soft NT/ND Extremities no pedal edema no rashes CBCD WBC 19.5 K/mm3 (4.0-10.0) H 06/30/17 06:00 RBC 3.17 M/mm3 (4.00-5.60) L 06/30/17 06:00 Hgb 10.1 GM/dL (11.7-16.9) L D 06/30/17 06:00 Hct 30.6 % (35.4-49) L 06/30/17 06:00 MCV 96.4 fl (80-96) H 06/30/17 06:00 MCHC 33.1 g/dl (32.0-35.9) 06/30/17 06:00 RDW 13.4 % (11.9-15.9) 06/30/17 06:00 Plt Count 447 K/MM3 (134-434) H 06/30/17 06:00 MPV 7.0 fl (7.5-11.1) L 06/30/17 06:00 CMP Sodium 140 mmol/L (136-145) 06/30/17 06:00 Potassium 4.1 mmol/L (3.5-5.1) 06/30/17 06:00 Chloride 102 mmol/L (98-107) 06/30/17 06:00 Carbon Dioxide 28 mmol/L (21-32) 06/30/17 06:00 Anion Gap 10 (8-16) 06/30/17 06:00 BUN 14 mg/dL (7-18) D 06/30/17 06:00 Creatinine 0.7 mg/dL (0.7-1.3) D 06/30/17 06:00 Creat Clearance w eGFR > 60 (>60) 06/30/17 06:00 Calcium 8.5 mg/dL (8.5-10.1) 06/30/17 06:00 Total Bilirubin 0.4 mg/dL (0.2-1.0) 06/30/17 06:00 AST 13 U/L (15-37) L 06/30/17 06:00 ALT 23 U/L (12-78) D 06/30/17 06:00 Alkaline Phosphatase 121 U/L (45-117) H 06/30/17 06:00 Total Protein 5.0 g/dl (6.4-8.2) L 06/30/17 06:00 Albumin 1.6 g/dl (3.4-5.0) L 06/30/17 06:00 A/P 66yo M with PMH HTN, Dyslipidemia, DM, COPD not on home O2, prostate ca s/p prostectomy prompted to the ER by PMD for leukocytosis and complaints of generalized aches 1. Leukocytosis- with vague symptoms of diffuse generalized aches, weight loss. doubtful this is infectious process (no symptoms suggestive of source no fevers) . abdominal CT and CXR negative for infection. UA negative. no risk factors for tick borne illness and labs are not supportive of this. high concern for myeloproliferative disorder or malignancy. unclear of workup done at other facility and paperwork sent to obtain records to see workup already completed and possibly if steroids were given there which can induce leukocytosis. received abx in the ER, which agree with ID to hold at this time. check HIV. TSH WNL. tick borne illness titers pending. Hematology consulted 2. Normocytic anemia- no signs of bleeding. check iron studies. no indication for transfusion 3. Hypercalcemia- Corrected Ca 10.4. improved with hydration. was seen last year for similar labs but nothing was done as appears pt refused. cont to monitor 4. Lactic acidosis- resolved 5. Fecal retention- does not seem symptomatic but indication for CT abdominal pain. seen on ct scan. start stool softeners 6. HTN- normotensive off medications. cont to hold 7. DM- hold oral agents. iss, bgm 8. prostate ca s/p prostectomy 9. DVT ppx- lovenox Visit type - Emergency Visit Emergency Visit: Yes ED Registration Date: 06/29/17 Care time: The patient presented to the Emergency Department on the above date and was hospitalized for further evaluation of their emergent condition. - New Patient This patient is new to me today: Yes Date on this admission: 06/30/17 - Critical Care Critical Care patient: No - Discharge Referral Referred to [facility] Med P.C.: No
--- NOTE | 2017-06-30 09:46 | EKG ---
Test Reason : Blood Pressure : / mmHG Vent. Rate : 092 BPM Atrial Rate : 092 BPM P-R Int : 138 ms QRS Dur : 102 ms QT Int : 348 ms P-R-T Axes : 062 082 049 degrees QTc Int : 430 ms SINUS RHYTHM WITH PREMATURE ATRIAL COMPLEXES OTHERWISE NORMAL ECG Confirmed by MD ABEBY, KEITH ([id number]) on 06/30/2017 9:46:02 AM Referred By: Confirmed By:KEITH POTTER MD
[2017-06-30] MEDS: THIAMINE HCL 100 MG TABLET (FP) PO SCH (10:14)
[2017-06-30] MEDS: ENOXAPARIN NA (PORCINE) 40 MG/0.4 ML DISP.SYRIN SQ SCH (10:14)
[2017-06-30] MEDS: ASPIRIN COATED 81 MG TABLET.EC PO SCH (10:14)
[2017-06-30] MEDS: FINASTERIDE 5 MG TABLET (FP) PO SCH (10:15)
[2017-06-30] MEDS: POLYETHYLENE GLYCOL 3350 119 GM BTL PO ONE ×2 (10:15→10:23)
[2017-06-30] MEDS: FOLIC ACID 1 MG TABLET (FP) PO SCH (10:15)
[2017-06-30] MEDS: PANTOPRAZOLE 20 MG TABLET (FP) PO SCH (10:15)
[2017-06-30] MEDS: BUDESONIDE/FORMETEROL FUMARATE 80/4.5 mcg INHALER IH SCH ×2 (10:18→21:25)
[2017-06-30] MEDS ORDERED: PT OWN MED DRAWER 7, Y5N ONE (10:48)
--- NOTE | 2017-06-30 11:09 | CONSULT ---
Consult Consult Specialty:: hematology/Oncology Reason for Consultation:: Leucocytosis/Thrombocytosis - History of Present Illness History of Present Illness: Chart revised in detail, Patient seen and examined. Mr. Padilla is a 66 year old male h/o HTN, asthma, COPD not on home O2 and non-steroid dependent, NIDDM sent by his PMD for elevated WBC count. He was just discharged from [facility] and as per him he also has seen ( Heme /Onc) there as an inpatient and he has an appt with on Sunday. He was seen by his PMD and was hypotensive, [place] [id number] and was sent to the ER. Presently, he denies any complains. ROS is documented. - History Source History Provided By: Patient, Medical Record - Alcohol/Substance Use Hx Alcohol Use: Yes (1-2 BEERS; 3 SHOTS LIQUOR DAILY) - Smoking History Smoking history: Never smoked Aproximately how many cigarettes per day: 5 Home Medications - Allergies Allergies/Adverse Reactions: Allergies Allergy/AdvReac Type Severity Reaction Status Date / Time No Known Drug Allergies Allergy Verified 06/29/17 13:22 - Home Medications Home Medications: Ambulatory Orders Albuterol Sulfate Inhaler - [Ventolin Hfa Inhaler -] 1 - 2 inh PO Q4H 08/11/15 Aspirin [Aspirin EC] 81 mg PO DAILY 08/11/15 Fluticasone/Salmeterol [Advair 250-50 Diskus] 1 each IH BID PRN 08/11/15 Lisinopril [Prinivil -] 20 mg PO DAILY 08/11/15 Omeprazole 20 mg PO DAILY 08/11/15 Simvastatin [Zocor -] 20 mg PO HS 08/11/15 Finasteride 5 mg PO DAILY 06/29/17 Lisinopril [Prinivil] 5 mg PO DAILY 06/29/17 Metformin HCl 500 mg PO DAILY 06/29/17 Family Disease History - Family Disease History Family History: Denies Review of Systems - Review of Systems Constitutional: reports: Loss of Appetite, Night Sweats, Unintentional Wgt. Loss , Weakness Eyes: denies: Blurred Vision, Double Vision, Recent Change in Vision HENT: denies: Difficult Swallowing, Hearing Loss, Throat Pain, Ringing in Ears Neck: denies: Decreased ROM, Lumps, Pain on Movement, Stiffness Cardiovascular: denies: Chest Pain, Edema, Palpitations, Shortness of Breath Respiratory: denies: Cough, Exercise Intolerance, Hemoptysis, Orthopnea, SOB, SOB on Exertion Gastrointestinal: denies: Abdominal Pain Musculoskeletal: reports: Extremity Pain, Joint Pain, Muscle Pain Neurological: reports: Weakness Hematology/Lymphatic: denies: Easily Bruised, Excessive Bleeding, Swollen Glands Psychiatric: denies: Altered Sleep Pattern, Anxiety, Depression Physical Exam Vital Signs: Vital Signs Temperature 98 F 06/30/17 10:24 Pulse Rate 82 06/30/17 10:24 Respiratory Rate 18 06/30/17 10:24 Blood Pressure 100/65 06/30/17 10:24 O2 Sat by Pulse Oximetry (%) 96 06/29/17 21:00 Constitutional: Yes: No Distress, Calm Eyes: Yes: Conjunctiva Clear, EOM Intact HENT: Yes: Atraumatic, Normocephalic Neck: Yes: Supple Cardiovascular: Yes: Regular Rate and Rhythm Respiratory: Yes: Regular, CTA Bilaterally. No: Accessory Muscle Use Gastrointestinal: Yes: Normal Bowel Sounds, Soft. No: Hepatomegaly, Splenomegaly Musculoskeletal: No: Joint Stiffness, Joint Swelling, Muscle Pain, Muscle Weakness Edema: No Integumentary: No: Jaundice, Petechiae, Venous Stasis Changes Neurological: Yes: Alert, Oriented Psychiatric: Yes: Alert, Oriented Labs: CBC, BMP 06/30/17 06:00 06/30/17 06:00 Imaging - Results Cat Scan: Report Reviewed, Image Reviewed Problem List - Problems (1) Leukocytosis Code(s): D72.829 - ELEVATED WHITE BLOOD CELL COUNT, UNSPECIFIED (2) Thrombocytosis Code(s): D47.3 - ESSENTIAL (HEMORRHAGIC) THROMBOCYTHEMIA (3) Hypercalcemia Code(s): E83.52 - HYPERCALCEMIA (4) Anemia Code(s): D64.9 - ANEMIA, UNSPECIFIED Qualifiers: Anemia type: unspecified type Qualified Code(s): D64.9 - Anemia, unspecified Assessment/Plan Unknown etiology of the leucocytosis/Thrombocytosis ( diff was mostly neutrophils) Primary vs Secondary. for blood work Will need collateral information from [facility] which is underway r/o cryo CT a/p, no acute pathology Molecular tests to be sent on Sunday. ?prostate ca, pt denies, and he also states that he did not undergo a prostatectomy , ?BPH on finasteride will follow d/w
[2017-06-30] MEDS: DOCUSATE SODIUM 100 MG CAPSULE (FP) PO SCH (21:18)
[2017-06-30] MEDS: ATORVASTATIN CA 10 MG TABLET (FP) PO SCH (21:19)
[2017-06-30] MEDS ORDERED: INSULIN (NOVOLOG) ASPART 100 UNITS/ML 10ML VIAL ONE ×2 (21:23→21:39)
[2017-07-01] MEDS: INSULIN SLIDING SCALE (NOVOLOG) 1 VIAL SQ SCH ×4 (06:02→22:05)
[2017-07-01 07:40] LABS: BASOPHIL 0.8 % (0-2.0); EOSINOPHIL 2.6 % (0-4.5); MCH 32.8 pg (25.7-33.7); MEAN CELL VOLUME 96.5 fl (80-96); NEUTROPHILS 77.8 % (42.8-82.8); PLATELET COUNT 500 K/MM3 (134-434); WHITE BLOOD COUNT 17.9 K/mm3 (4.0-10.0)
[2017-07-01] MEDS: ACETAMINOPHEN 325 MG TABLET (FP) PO PRN ×3 (08:11→21:58)
[2017-07-01 08:14] LABS: ALBUMIN 1.4 g/dl (3.4-5.0); ALK PHOS 106 U/L (45-117); ANION GAP 8 (8-16); BILIRUBIN,TOTAL 0.4 mg/dL (0.2-1.0); CALCIUM 8.4 mg/dL (8.5-10.1); CO2 28 mmol/L (21-32); CREATININE 0.6 mg/dL (0.7-1.3); FERRITIN 859.604 ng/ml (16.4-293.9); GLUCOSE,RANDOM 122 mg/dL (74-106); LDH 105 U/L (87-241); SGOT/AST 14 U/L (15-37); SGPT/ALT 22 U/L (12-78); TOT PROT 4.9 g/dl (6.4-8.2)
[2017-07-01] MEDS ORDERED: PT OWN MED DRAWER 7, Y5N ONE (10:02)
[2017-07-01] MEDS: FINASTERIDE 5 MG TABLET (FP) PO SCH (10:05)
[2017-07-01] MEDS: THIAMINE HCL 100 MG TABLET (FP) PO SCH (10:05)
[2017-07-01] MEDS: FOLIC ACID 1 MG TABLET (FP) PO SCH (10:06)
[2017-07-01] MEDS: PANTOPRAZOLE 20 MG TABLET (FP) PO SCH (10:06)
[2017-07-01] MEDS: ASPIRIN COATED 81 MG TABLET.EC PO SCH (10:06)
[2017-07-01] MEDS: ENOXAPARIN NA (PORCINE) 40 MG/0.4 ML DISP.SYRIN SQ SCH (10:06)
[2017-07-01] MEDS: BUDESONIDE/FORMETEROL FUMARATE 80/4.5 mcg INHALER IH SCH ×3 (10:07→21:58)
[2017-07-01 11:01] LABS: HIV 1 & 2 AB NEGATIVE; HIV 1 AGp24 NEGATIVE
--- NOTE | 2017-07-01 12:03 | PN ---
Progress Note (short form) - Note Progress Note: Patient seen and examined. Pt mentioned that he feels well. His pain is well controlled. He has no specific complains. O/E: Constitutional: Yes: No Distress, Calm Eyes: Yes: Conjunctiva Clear, EOM Intact HENT: Yes: Atraumatic, Normocephalic Neck: Yes: Supple Cardiovascular: Yes: Regular Rate and Rhythm Respiratory: Yes: Regular, CTA Bilaterally. No: Accessory Muscle Use Gastrointestinal: Yes: Normal Bowel Sounds, Soft. No: Hepatomegaly, Splenomegaly Musculoskeletal: No: Joint Stiffness, Joint Swelling, Muscle Pain, Muscle Weakness Edema: No Integumentary: No: Jaundice, Petechiae, Venous Stasis Changes Neurological: Yes: Alert, Oriented Psychiatric: Yes: Alert, Oriented Temp Pulse Resp BP Pulse Ox 99.1 F 80 20 114/61 97 07/01/17 09:00 07/01/17 09:00 07/01/17 09:00 07/01/17 09:00 06/30/17 20:40 Current Medications Generic Name Dose Route Start Last Admin Trade Name Freq PRN Reason Stop Dose Admin Acetaminophen 650 mg 06/30/17 00:31 07/01/17 08:11 Tylenol - PO 650 mg Q6H PRN Administration FEVER OR PAIN Albuterol Sulfate 1 - 2 puff 06/29/17 22:00 Ventolin Hfa Inhaler - IH Q4H PRN Aspirin 81 mg 06/30/17 10:00 07/01/17 10:06 Ecotrin - PO 81 mg DAILY [facility] Administration Atorvastatin Calcium 10 mg 06/29/17 22:00 06/30/17 21:19 Lipitor - PO 10 mg HS [facility] Administration Budesonide/Formoterol Fumarate 2 puff 06/30/17 10:00 07/01/17 10:10 Symbicort 80/4.5mcg - IH Not Given BID [facility] Docusate Sodium 300 mg 06/30/17 22:00 06/30/17 21:18 Colace - PO Not Given HS [facility] Enoxaparin Sodium 40 mg 06/29/17 20:45 07/01/17 10:06 Lovenox - SQ 40 mg DAILY [facility] Administration Finasteride 5 mg 06/30/17 10:00 07/01/17 10:05 Proscar - PO 5 mg DAILY [facility] Administration Folic Acid 1 mg 06/30/17 10:00 07/01/17 10:06 Folic Acid - PO 1 mg DAILY [facility] Administration Insulin Aspart 0 vial 06/29/17 22:00 07/01/17 10:57 Novolog Vial Sliding Scale - SQ Not Given ACHS [facility] Protocol Pantoprazole Sodium 20 mg 06/30/17 10:00 07/01/17 10:06 Protonix - PO 20 mg DAILY [facility] Administration Thiamine HCl 100 mg 06/30/17 10:00 07/01/17 10:05 Vitamin B1 - PO 100 mg DAILY [facility] Administration CBC, BMP 07/01/17 06:20 07/01/17 06:20 Assessment/Plan Unknown etiology of the leucocytosis/Thrombocytosis (diff was mostly neutrophils ), not in a acute hematological malignancy states Primary vs Secondary. suspect that it could be a MPD. Out pt work-up recommended, including flow, molecular tests +/_ a bone marrow biopsy ( to be sent from inhouse need to wait until tomorrow). No indication for transfusion for now, No splenomegaly in CT scan . I did call [facility] ER initially, but unable to get in touch with anyone. I am awaiting a call back from Dr.Dav Cardenas at [facility] , Heme/ Onc who is project control officer today to get a summary of the hospitalization. no TLS. Pt mentioned to me that he has an office appt with Dr.Mark Hart tomorrow on . d/w Problem List - Problems (1) Leukocytosis Code(s): D72.829 - ELEVATED WHITE BLOOD CELL COUNT, UNSPECIFIED (2) Thrombocytosis Code(s): D47.3 - ESSENTIAL (HEMORRHAGIC) THROMBOCYTHEMIA (3) Hypercalcemia Code(s): E83.52 - HYPERCALCEMIA (4) Anemia Code(s): D64.9 - ANEMIA, UNSPECIFIED Qualifiers: Anemia type: unspecified type Qualified Code(s): D64.9 - Anemia, unspecified
--- NOTE | 2017-07-01 12:05 | PN ---
Progress Note, Physician History of Present Illness: Awake, alert C/O generalized body pain relieved with tylenol Afebrile WBC trending downward - Current Medication List Current Medications: Active Medications Acetaminophen (Tylenol -) 650 mg PO Q6H PRN PRN Reason: FEVER OR PAIN Last Admin: 07/01/17 08:11 Dose: 650 mg Albuterol Sulfate (Ventolin Hfa Inhaler -) 1 - 2 puff IH Q4H PRN Aspirin (Ecotrin -) 81 mg PO DAILY [facility] Last Admin: 07/01/17 10:06 Dose: 81 mg Atorvastatin Calcium (Lipitor -) 10 mg PO HS [facility] Last Admin: 06/30/17 21:19 Dose: 10 mg Budesonide/Formoterol Fumarate (Symbicort 80/4.5mcg -) 2 puff IH BID [facility] Last Admin: 07/01/17 10:10 Dose: Not Given Docusate Sodium (Colace -) 300 mg PO HS [facility] Last Admin: 06/30/17 21:18 Dose: Not Given Enoxaparin Sodium (Lovenox -) 40 mg SQ DAILY [facility] Last Admin: 07/01/17 10:06 Dose: 40 mg Finasteride (Proscar -) 5 mg PO DAILY [facility] Last Admin: 07/01/17 10:05 Dose: 5 mg Folic Acid (Folic Acid -) 1 mg PO DAILY [facility] Last Admin: 07/01/17 10:06 Dose: 1 mg Insulin Aspart (Novolog Vial Sliding Scale -) 0 vial SQ ACHS [facility] PRN Reason: Protocol Last Admin: 07/01/17 10:57 Dose: Not Given Pantoprazole Sodium (Protonix -) 20 mg PO DAILY [facility] Last Admin: 07/01/17 10:06 Dose: 20 mg Thiamine HCl (Vitamin B1 -) 100 mg PO DAILY [facility] Last Admin: 07/01/17 10:05 Dose: 100 mg - Objective Vital Signs: Vital Signs Temperature 99.1 F 07/01/17 09:00 Pulse Rate 80 07/01/17 09:00 Respiratory Rate 20 07/01/17 09:00 Blood Pressure 114/61 07/01/17 09:00 O2 Sat by Pulse Oximetry (%) 97 06/30/17 20:40 Constitutional: Yes: No Distress Eyes: Yes: Conjunctiva Clear Cardiovascular: Yes: Regular Rate and Rhythm, S1, S2 Respiratory: Yes: CTA Bilaterally Gastrointestinal: Yes: Normal Bowel Sounds, Soft. No: Tenderness Edema: No Labs: CBC, BMP 07/01/17 06:20 07/01/17 06:20 Assessment/Plan Leukocytosis ? source Await cultures and summary of recent [facility] admission Observe off antibiotics
--- NOTE | 2017-07-01 17:27 | PN ---
Physical Exam: SUBJECTIVE: Patient seen and examined OBJECTIVE: Vital Signs Period Temp Pulse Resp BP Sys/Guerrier Pulse Ox Last 24 Hr 98.6 F-102.1 F 74-87 18-20 102-130/51-70 97-97 Neck: Yes: Supple Cardiovascular: Yes: Regular Rate and Rhythm Respiratory: Yes: Regular, CTA Bilaterally. No: Accessory Muscle Use Gastrointestinal: Yes: Normal Bowel Sounds, Soft. No: Hepatomegaly, Splenomegaly Musculoskeletal: No: Joint Stiffness, Joint Swelling, Muscle Pain, Muscle Weakness Edema: No Integumentary: No: Jaundice, Petechiae, Venous Stasis Changes Neurological: Yes: Alert, Oriented Laboratory Results - last 24 hr 06/30/17 07/01/17 07/01/17 21:20 06:01 06:20 WBC 17.9 H RBC 3.02 L Hgb 9.9 L Hct 29.1 L MCV 96.5 H MCH 32.8 MCHC 34.0 RDW 13.0 Plt Count 500 H MPV 7.0 L Neutrophils % 77.8 Lymphocytes % 13.1 Monocytes % 5.7 Eosinophils % 2.6 Basophils % 0.8 Retic Count Sodium Potassium Chloride Carbon Dioxide Anion Gap BUN Creatinine Creat Clearance w eGFR POC Glucometer 179 147 Random Glucose Calcium Ferritin Total Bilirubin AST ALT Alkaline Phosphatase LD Total Total Protein Albumin Vitamin B12 Rheumatoid Factor Direct Antiglob Test 07/01/17 07/01/17 07/01/17 06:20 06:20 06:20 WBC RBC Hgb Hct MCV MCH MCHC RDW Plt Count MPV Neutrophils % Lymphocytes % Monocytes % Eosinophils % Basophils % Retic Count Sodium 137 Potassium 4.1 Chloride 101 Carbon Dioxide 28 Anion Gap 8 BUN 14 Creatinine 0.6 L Creat Clearance w eGFR > 60 POC Glucometer Random Glucose 122 H Calcium 8.4 L Ferritin 859.604 H Total Bilirubin 0.4 AST 14 L ALT 22 Alkaline Phosphatase 106 LD Total 105 Total Protein 4.9 L Albumin 1.4 L Vitamin B12 635 D Rheumatoid Factor < 10.0 Direct Antiglob Test Negative 07/01/17 07/01/17 07/01/17 07:15 10:56 16:07 WBC RBC Hgb Hct MCV MCH MCHC RDW Plt Count MPV Neutrophils % Lymphocytes % Monocytes % Eosinophils % Basophils % Retic Count 1.48 Sodium Potassium Chloride Carbon Dioxide Anion Gap BUN Creatinine Creat Clearance w eGFR POC Glucometer 212 155 Random Glucose Calcium Ferritin Total Bilirubin AST ALT Alkaline Phosphatase LD Total Total Protein Albumin Vitamin B12 Rheumatoid Factor Direct Antiglob Test Active Medications Generic Name Dose Route Start Last Admin Trade Name Josefina PRN Reason Stop Dose Admin Acetaminophen 650 mg 06/30/17 00:31 07/01/17 16:02 Tylenol - PO 650 mg Q6H PRN Administration FEVER OR PAIN Albuterol Sulfate 1 - 2 puff 06/29/17 22:00 Ventolin Hfa Inhaler - IH Q4H PRN Aspirin 81 mg 06/30/17 10:00 07/01/17 10:06 Ecotrin - PO 81 mg DAILY [facility] Administration Atorvastatin Calcium 10 mg 06/29/17 22:00 06/30/17 21:19 Lipitor - PO 10 mg HS [facility] Administration Budesonide/Formoterol Fumarate 2 puff 06/30/17 10:00 07/01/17 10:10 Symbicort 80/4.5mcg - IH Not Given BID [facility] Docusate Sodium 300 mg 06/30/17 22:00 06/30/17 21:18 Colace - PO Not Given HS [facility] Enoxaparin Sodium 40 mg 06/29/17 20:45 07/01/17 10:06 Lovenox - SQ 40 mg DAILY [facility] Administration Finasteride 5 mg 06/30/17 10:00 07/01/17 10:05 Proscar - PO 5 mg DAILY [facility] Administration Folic Acid 1 mg 06/30/17 10:00 07/01/17 10:06 Folic Acid - PO 1 mg DAILY [facility] Administration Insulin Aspart 0 vial 06/29/17 22:00 07/01/17 16:08 Novolog Vial Sliding Scale - SQ Not Given ACHS [facility] Protocol Pantoprazole Sodium 20 mg 06/30/17 10:00 07/01/17 10:06 Protonix - PO 20 mg DAILY [facility] Administration Thiamine HCl 100 mg 06/30/17 10:00 07/01/17 10:05 Vitamin B1 - PO 100 mg DAILY [facility] Administration ASSESSMENT/PLAN: 1. Fatigue, fever ,generalized weakness ,leukocytosis and weight loss - no sourse of infection identified so far . Concern for myeloprolipherative disorder . Discussed with Dr Scott , outpatient follow up with heme/onc for further workup 2. Fever of 102 today - r/o sepsis -CXR -UA -Blood cultures -tylenol - start fluids - will r/o DVT 3. Hypercalcemia- improved Visit type - Emergency Visit Emergency Visit: No - New Patient This patient is new to me today: Yes Date on this admission: 07/01/17 - Critical Care Critical Care patient: No - Discharge Referral Referred to [facility] Med P.C.: No
[2017-07-01] MEDS: DOCUSATE SODIUM 100 MG CAPSULE (FP) PO SCH (21:57)
[2017-07-01] MEDS: ATORVASTATIN CA 10 MG TABLET (FP) PO SCH (21:57)
[2017-07-01] MEDS ORDERED: INSULIN (NOVOLOG) ASPART 100 UNITS/ML 10ML VIAL ONE (22:03)
[2017-07-02] MEDS: ACETAMINOPHEN 325 MG TABLET (FP) PO PRN ×4 (03:59→22:11)
[2017-07-02] MEDS: INSULIN SLIDING SCALE (NOVOLOG) 1 VIAL SQ SCH ×4 (05:59→21:36)
[2017-07-02 09:18] LABS: BASOPHIL 0.7 % (0-2.0); MCH 31.5 pg (25.7-33.7); MCHC 32.4 g/dl (32.0-35.9); MEAN CELL VOLUME 97.3 fl (80-96); MEAN PLT VOLUME 7.1 fl (7.5-11.1); NEUTROPHILS 72.4 % (42.8-82.8); PLATELET COUNT 548 K/MM3 (134-434); RDW 13.8 % (11.9-15.9); WHITE BLOOD COUNT 15.9 K/mm3 (4.0-10.0)
[2017-07-02] MEDS ORDERED: PT OWN MED DRAWER 7, Y5N ONE ×2 (09:39→20:51)
[2017-07-02] MEDS: FOLIC ACID 1 MG TABLET (FP) PO SCH (09:56)
[2017-07-02] MEDS: ENOXAPARIN NA (PORCINE) 40 MG/0.4 ML DISP.SYRIN SQ SCH (09:56)
[2017-07-02] MEDS: PANTOPRAZOLE 20 MG TABLET (FP) PO SCH (09:57)
[2017-07-02] MEDS: ASPIRIN COATED 81 MG TABLET.EC PO SCH (09:57)
[2017-07-02] MEDS: FINASTERIDE 5 MG TABLET (FP) PO SCH (09:58)
[2017-07-02] MEDS: THIAMINE HCL 100 MG TABLET (FP) PO SCH (09:58)
[2017-07-02] MEDS: BUDESONIDE/FORMETEROL FUMARATE 80/4.5 mcg INHALER IH SCH ×2 (09:58→22:14)
--- NOTE | 2017-07-02 11:55 | PN ---
Progress Note, Physician Chief Complaint: ID Patient had fever 102 overnight for first time ! Low grade usually He still complains of severe diffuse upper and lower leg paisn whcih he says goes to his head. Otherwise not acutely ill appearing - Current Medication List Current Medications: Active Medications Acetaminophen (Tylenol -) 650 mg PO Q6H PRN PRN Reason: FEVER OR PAIN Last Admin: 07/02/17 09:56 Dose: 650 mg Albuterol Sulfate (Ventolin Hfa Inhaler -) 1 - 2 puff IH Q4H PRN Aspirin (Ecotrin -) 81 mg PO DAILY [facility] Last Admin: 07/02/17 09:57 Dose: 81 mg Atorvastatin Calcium (Lipitor -) 10 mg PO HS [facility] Last Admin: 07/01/17 21:57 Dose: 10 mg Budesonide/Formoterol Fumarate (Symbicort 80/4.5mcg -) 2 puff IH BID [facility] Last Admin: 07/02/17 09:58 Dose: Not Given Docusate Sodium (Colace -) 300 mg PO HS [facility] Last Admin: 07/01/17 21:57 Dose: 300 mg Enoxaparin Sodium (Lovenox -) 40 mg SQ DAILY [facility] Last Admin: 07/02/17 09:56 Dose: 40 mg Finasteride (Proscar -) 5 mg PO DAILY [facility] Last Admin: 07/02/17 09:58 Dose: 5 mg Folic Acid (Folic Acid -) 1 mg PO DAILY [facility] Last Admin: 07/02/17 09:56 Dose: 1 mg Insulin Aspart (Novolog Vial Sliding Scale -) 0 vial SQ ACHS [facility] PRN Reason: Protocol Last Admin: 07/02/17 05:59 Dose: Not Given Pantoprazole Sodium (Protonix -) 20 mg PO DAILY [facility] Last Admin: 07/02/17 09:57 Dose: 20 mg Thiamine HCl (Vitamin B1 -) 100 mg PO DAILY [facility] Last Admin: 07/02/17 09:58 Dose: 100 mg - Objective Vital Signs: Vital Signs Temperature 99 F 07/02/17 05:37 Pulse Rate 74 07/02/17 05:37 Respiratory Rate 20 07/02/17 05:37 Blood Pressure 103/74 07/02/17 05:37 O2 Sat by Pulse Oximetry (%) 98 07/01/17 20:01 Constitutional: Yes: Well Nourished, No Distress HENT: Yes: WNL, Atraumatic Neck: Yes: WNL, Supple Cardiovascular: Yes: Regular Rate and Rhythm, S1, S2. No: Murmur Respiratory: Yes: WNL, Regular, CTA Bilaterally Gastrointestinal: Yes: WNL, Normal Bowel Sounds, Soft. No: Tenderness Edema: No Labs: CBC, BMP 07/02/17 08:26 07/01/17 06:20 Problem List - Problems (1) Leukocytosis Code(s): D72.829 - ELEVATED WHITE BLOOD CELL COUNT, UNSPECIFIED Assessment/Plan Laboratory Tests 07/01/17 07/01/17 07/01/17 06:20 06:20 06:20 WBC Hgb Hct Plt Count Creat Clearance w eGFR > 60 Ferritin 859.604 H Total Bilirubin 0.4 AST 14 L ALT 22 LD Total 105 Albumin 1.4 L Rheumatoid Factor < 10.0 WILLIAM Screen Pending 07/02/17 08:26 WBC 15.9 H Hgb 10.5 L Hct 32.4 L Plt Count 548 H Creat Clearance w eGFR Ferritin Total Bilirubin AST ALT LD Total Albumin Rheumatoid Factor WILLIAM Screen Assessment Severe pain referable to the muscles in his LE. Fever last night though not toxic looking and cultures no growth. Exam negative. Could he have a collagen disease such as polymyositis causing fever and WBC elevation ??? Note ferritin very high Plan Rheumatology evaluation Dr Chisholm No antibiotics ESR CRP CPK Aldolase U/A complete
[2017-07-02 12:56] LABS: C-REACTIVE PROTEIN 17.8 MG/DL (0.00-0.3)
--- NOTE | 2017-07-02 13:48 | PN ---
Teaching Attending Note Name of Resident: Jonathan Nobles ATTENDING PHYSICIAN STATEMENT I saw and evaluated the patient. I reviewed the resident's note and discussed the case with the resident. I agree with the resident's findings and plan as documented. SUBJECTIVE:c/o PARKER and B/L LE pain. +dipahoresis. denies CP, SOB, chills, night sweats, OBJECTIVE: Last Vital Signs Temp Pulse Resp BP Pulse Ox 99 F 74 20 103/74 98 07/02/17 05:37 07/02/17 05:37 07/02/17 05:37 07/02/17 05:37 07/01/17 20:01 General Diaphoretic Lungs CTA B/L no wheezing/rales/rhonchi ASSESSMENT AND PLAN: 66yo M with PMH HTN, Dyslipidemia, DM, COPD not on home O2, prostate ca s/p prostectomy prompted to the ER by PMD for leukocytosis and complaints of generalized aches 1. Leukocytosis-Tm 102.1. only fever recorded, however leukocytosis improving without any treatment. spoke with ID, whom we called Dr Moisés Hart together and discussed previous workup done and that he had appt today for more labwork. he states that his WBC trended 20-28 with neutrophil predominance and that he has not been treated with abx. he agrees concern for rheumatology workup which he recomended in the past. will consult rheum. will cont to hold abx at this time. sepsis workup sent and negative at this point. doppler negative for DVT. HIV negative. (as per private housing court judge WILLIAM was positive in the past) 2. Normocytic anemia- no signs of bleeding. iron studies pending. no indication for transfusion 3. Hypercalcemia- Corrected Ca 10.4. 4. Lactic acidosis- resolved 5. Fecal retention-no BM. give miralax 6. HTN- normotensive off medications. cont to hold 7. DM- hold oral agents. iss, bgm 8. BPH- on flomax (pt does NOT have hx of prostate ca, had TURP in the past) 9. DVT ppx- lovenox
[2017-07-02 13:56] LABS: URINE APPEARANCE CLEAR; URINE BILIRUBIN NEGATIVE (NEGATIVE); URINE BLOOD NEGATIVE (NEGATIVE); URINE COLOR STRAW; URINE GLUCOSE (UA) NEGATIVE (NEGATIVE); URINE KETONE NEGATIVE (NEGATIVE); URINE LEUK ESTERASE NEGATIVE (NEGATIVE); URINE NITRITE NEGATIVE (NEGATIVE); URINE PROTEIN NEGATIVE (NEGATIVE); URINE UROBILINOGEN NEGATIVE mg/dL (0.2-1.0)
[2017-07-02] MEDS ORDERED: POLYETHYLENE GLYCOL 3350 119 GM BTL PO ONE (14:00)
--- NOTE | 2017-07-02 14:32 | PN ---
Progress Note (short form) - Note Progress Note: Patient seen and examined Denies any symptoms Last Vital Signs Temp Pulse Resp BP Pulse Ox 99 F 72 20 103/74 97 07/02/17 05:37 07/02/17 14:15 07/02/17 05:37 07/02/17 05:37 07/02/17 14:15 Cor: RSR, No murmurs, No gallops Lungs: Clear to P&A Abd: Soft, Normal bowel sounds, No organomegaly Ext:No significant edema Skin: No rashes, Integument intact Abnormal Lab Results 07/01/17 07/02/17 07/02/17 06:20 08:26 08:26 WBC 15.9 H RBC 3.33 L Hgb 10.5 L Hct 32.4 L MCV 97.3 H Plt Count 548 H MPV 7.1 L Iron 10 L TIBC 125 L Iron Saturation 8 L Creatine Kinase 18 L C-Reactive Protein 17.8 H Active Medications Acetaminophen (Tylenol -) 650 mg PO Q6H PRN PRN Reason: FEVER OR PAIN Last Admin: 07/02/17 09:56 Dose: 650 mg Albuterol Sulfate (Ventolin Hfa Inhaler -) 1 - 2 puff IH Q4H PRN Aspirin (Ecotrin -) 81 mg PO DAILY [facility] Last Admin: 07/02/17 09:57 Dose: 81 mg Atorvastatin Calcium (Lipitor -) 10 mg PO HS [facility] Last Admin: 07/01/17 21:57 Dose: 10 mg Budesonide/Formoterol Fumarate (Symbicort 80/4.5mcg -) 2 puff IH BID [facility] Last Admin: 07/02/17 09:58 Dose: Not Given Docusate Sodium (Colace -) 300 mg PO HS [facility] Last Admin: 07/01/17 21:57 Dose: 300 mg Enoxaparin Sodium (Lovenox -) 40 mg SQ DAILY [facility] Last Admin: 07/02/17 09:56 Dose: 40 mg Finasteride (Proscar -) 5 mg PO DAILY [facility] Last Admin: 07/02/17 09:58 Dose: 5 mg Folic Acid (Folic Acid -) 1 mg PO DAILY [facility] Last Admin: 07/02/17 09:56 Dose: 1 mg Insulin Aspart (Novolog Vial Sliding Scale -) 0 vial SQ ACHS [facility] PRN Reason: Protocol Last Admin: 07/02/17 12:05 Dose: Not Given Pantoprazole Sodium (Protonix -) 20 mg PO DAILY [facility] Last Admin: 07/02/17 09:57 Dose: 20 mg Thiamine HCl (Vitamin B1 -) 100 mg PO DAILY [facility] Last Admin: 07/02/17 09:58 Dose: 100 mg A/P 67 y/o patient with fevers/leukocytosis/thrombocytosis Suspect rheumatologic etiology with myalgias flow/JAK2/bcr;abl
--- NOTE | 2017-07-02 19:39 | PN ---
Physical Exam: SUBJECTIVE: Patient seen and examined at bedside. he complains of sweating over night associated with body ache started from his legs and goes up to upper body. He denies cp, sob, abdominal pain, N/V/D/C or any urinary symptoms. OBJECTIVE: Vital Signs Period Temp Pulse Resp BP Sys/Guerrier Pulse Ox Last 24 Hr 98.2 F-99.8 F 72-87 18-80 103-133/58-79 97-98 GENERAL: The patient is awake, alert, and fully oriented, in no acute distress. HEAD: Normal with no signs of trauma. EYES: sclera anicteric, conjunctiva pallor. ENT: moist mucous membranes. NECK: Trachea midline, full range of motion, supple. LUNGS: Breath sounds equal, clear to auscultation bilaterally, no wheezes, no crackles, no accessory muscle use. HEART: Regular rate and rhythm, S1, S2 without murmur, rub or gallop. ABDOMEN: Soft, non tender, non distended, normoactive bowel sounds, no guarding , no rebound tenderness. EXTREMITIES: warm, well-perfused, no edema. NEUROLOGICAL: Cranial nerves II through XII grossly intact. Normal speech, gait not observed. PSYCH: Normal mood, normal affect. SKIN: Warm, dry, no rashes or lesions noted Laboratory Results - last 24 hr 07/01/17 07/01/17 07/01/17 06:20 06:20 22:00 WBC RBC Hgb Hct MCV MCH MCHC RDW Plt Count MPV Neutrophils % Lymphocytes % Monocytes % Eosinophils % Basophils % POC Glucometer 210 Iron 10 L TIBC 125 L Iron Saturation 8 L Creatine Kinase C-Reactive Protein Urine Color Urine Appearance Urine pH Ur Specific [place] Urine Protein Urine Glucose (UA) Urine Ketones Urine Blood Urine Nitrite Urine Bilirubin Urine Urobilinogen Hepatitis C Antibody <0.1 07/02/17 07/02/17 07/02/17 05:19 08:26 08:26 WBC 15.9 H RBC 3.33 L Hgb 10.5 L Hct 32.4 L MCV 97.3 H MCH 31.5 MCHC 32.4 RDW 13.8 Plt Count 548 H MPV 7.1 L Neutrophils % 72.4 Lymphocytes % 17.6 D Monocytes % 7.3 Eosinophils % 2.0 Basophils % 0.7 POC Glucometer 138 Iron TIBC Iron Saturation Creatine Kinase C-Reactive Protein Cancelled Urine Color Urine Appearance Urine pH Ur Specific [place] Urine Protein Urine Glucose (UA) Urine Ketones Urine Blood Urine Nitrite Urine Bilirubin Urine Urobilinogen Hepatitis C Antibody 07/02/17 07/02/17 07/02/17 08:26 11:50 13:00 WBC RBC Hgb Hct MCV MCH MCHC RDW Plt Count MPV Neutrophils % Lymphocytes % Monocytes % Eosinophils % Basophils % POC Glucometer 177 Iron TIBC Iron Saturation Creatine Kinase 18 L C-Reactive Protein 17.8 H Urine Color Straw Urine Appearance Clear Urine pH 6.0 Ur Specific [place] <= 1.005 Urine Protein Negative Urine Glucose (UA) Negative Urine Ketones Negative Urine Blood Negative Urine Nitrite Negative Urine Bilirubin Negative Urine Urobilinogen Negative Hepatitis C Antibody 07/02/17 16:09 WBC RBC Hgb Hct MCV MCH MCHC RDW Plt Count MPV Neutrophils % Lymphocytes % Monocytes % Eosinophils % Basophils % POC Glucometer 180 Iron TIBC Iron Saturation Creatine Kinase C-Reactive Protein Urine Color Urine Appearance Urine pH Ur Specific [place] Urine Protein Urine Glucose (UA) Urine Ketones Urine Blood Urine Nitrite Urine Bilirubin Urine Urobilinogen Hepatitis C Antibody Active Medications Generic Name Dose Route Start Last Admin Trade Name Freq PRN Reason Stop Dose Admin Acetaminophen 650 mg 06/30/17 00:31 07/02/17 16:11 Tylenol - PO 650 mg Q6H PRN Administration FEVER OR PAIN Albuterol Sulfate 1 - 2 puff 06/29/17 22:00 Ventolin Hfa Inhaler - IH Q4H PRN Aspirin 81 mg 06/30/17 10:00 07/02/17 09:57 Ecotrin - PO 81 mg DAILY MORRIS Administration Atorvastatin Calcium 10 mg 06/29/17 22:00 07/01/17 21:57 Lipitor - PO 10 mg HS MORRIS Administration Budesonide/Formoterol Fumarate 2 puff 06/30/17 10:00 07/02/17 09:58 Symbicort 80/4.5mcg - IH Not Given BID MORRIS Docusate Sodium 300 mg 06/30/17 22:00 07/01/17 21:57 Colace - PO 300 mg HS MORRIS Administration Enoxaparin Sodium 40 mg 06/29/17 20:45 07/02/17 09:56 Lovenox - SQ 40 mg DAILY MORRIS Administration Finasteride 5 mg 06/30/17 10:00 07/02/17 09:58 Proscar - PO 5 mg DAILY MORRIS Administration Folic Acid 1 mg 06/30/17 10:00 07/02/17 09:56 Folic Acid - PO 1 mg DAILY MORRIS Administration Insulin Aspart 0 vial 06/29/17 22:00 07/02/17 16:13 Novolog Vial Sliding Scale - SQ Not Given ACHS MORRIS Protocol Pantoprazole Sodium 20 mg 06/30/17 10:00 07/02/17 09:57 Protonix - PO 20 mg DAILY MORRIS Administration Thiamine HCl 100 mg 06/30/17 10:00 07/02/17 09:58 Vitamin B1 - PO 100 mg DAILY MORRIS Administration CBC, BMP 07/02/17 08:26 07/01/17 06:20 ASSESSMENT/PLAN: 66 yo M, h/o HTN,HLD,DM2 COPD, asthma,prostate cancer? , recent hospitalization , who presented to the ED with 2 weeks history of generalized weakness, body ache, diaphoresis was sent by his PCP due to abnormal lab, he was found to have Leckocytosis of 23.3 and lactic acidosis of 4.3 with hypotension and was admitted for further evaluation. #Leckocytosis with neutrophilic, unspecified with thrombocytosis, likely 2/2 unknown infection vs malignancy (B symptoms ) vs connective tissue disease * WBC 23.3 on admission, H/O weight loss, WBC around 20,000 on his base line per DR Pantoja (his plant breeder @ [facility]) * LA 4.3 trend to 1.8 with fluids * does not meet Sepsis criteria ,per SIRS , neither Qsofa criteria * IV fluids NS 2L boluses, vanco/zosyn given in the ED, * repeat CBC, CMP in AM * UA negative * Blood culture, urine culture pending * CXR negative for acute pathology, CT abdomen negative for acute path * Lyme titers , serology for anaplasomis, babesiosis * ID consulted and decide to hold abx * Hemonc consult * Rheumatology consult * PPD to R/o TB * HIV negative , * ESR,CRP * Doppler negative for DVT * # Lactic acidosis, corrected, likely 2/2 infection vs metformin vs dehydration * LA 4.3 on admission improved to 1.8 after 2L NS boluses * most likely secondary to dehydration # hypercalcemia with hypoalbuminemia, aura 2/2 malignancy vs PTH vs hyperthyroidism vs dehydration * corrected Ca 11.4 on admission * TSH, Parathyroid hormone * malignancy work up * consult hematology * IV fluids NS @100cc/hr * repeat CA in AM , Phosphorus # Normocytic anemia likely 2/2 chronic disease vs low oral intake vs alcoholic * H/H 11.3/34.2 * IRON studies, B12 Floate * Thiamin ,folic acid * repeat CBC in AM * peripheral smear in am to exclude chronic myeloproliferative disorders #Alcohol dependence * Banana bag x 1 * PO folate and thiamine tomorrow # COPD, * duoneb * Albuterol inhaler * 2L O2 NC * # constipation , * fecal incarceration on CT , asymptomatic * start stool softeners # DM2, * on Metformin 500 mg PO at home * Hold metformin * ISS, BGM * monitor * patient education * Diabetic low sodium diet * #HTN, * Normotensive * On no medication #HLD , * continue home med Lipitor * # BPH * continue Fenastrid 5 mg po daily * had TURP in the past #FEN * F: 2L NS bolus recieved in ED, will give 1 L @ 100 cc/Hr * E:Hypercalcemia, will continue hydration * N: low sodium, diabetic diet # Proph: * DVT : Moderate risk, Lovenox 40 SQ daily * GI: Protonix 20 mg PO daily # Dispo : * Orlin to med surg for further eval * Visit type - Emergency Visit Emergency Visit: Yes ED Registration Date: 06/29/17 Care time: The patient presented to the Emergency Department on the above date and was hospitalized for further evaluation of their emergent condition. - New Patient This patient is new to me today: No - Critical Care Critical Care patient: No
[2017-07-02] MEDS: DOCUSATE SODIUM 100 MG CAPSULE (FP) PO SCH (22:14)
[2017-07-02] MEDS: ATORVASTATIN CA 10 MG TABLET (FP) PO SCH (22:14)
[2017-07-03 00:06] LABS: PROSTATE SPECIFIC ANTIGEN 0.5 ng/mL (0.0-4.0)
[2017-07-03 00:06] LABS: BABESIA MICROTI ANTIBODY IGG <1:10 (Neg:<1:10)
[2017-07-03] MEDS: ACETAMINOPHEN 325 MG TABLET (FP) PO PRN ×4 (04:12→22:14)
[2017-07-03] MEDS: INSULIN SLIDING SCALE (NOVOLOG) 1 VIAL SQ SCH ×4 (06:00→21:19)
[2017-07-03 08:07] LABS: HEMATOCRIT 29.3 % (37.5-51.0)
[2017-07-03] MEDS: ENOXAPARIN NA (PORCINE) 40 MG/0.4 ML DISP.SYRIN SQ SCH (10:10)
[2017-07-03] MEDS: PANTOPRAZOLE 20 MG TABLET (FP) PO SCH (10:10)
[2017-07-03] MEDS: ASPIRIN COATED 81 MG TABLET.EC PO SCH (10:10)
[2017-07-03] MEDS: FINASTERIDE 5 MG TABLET (FP) PO SCH (10:11)
[2017-07-03] MEDS: THIAMINE HCL 100 MG TABLET (FP) PO SCH (10:12)
[2017-07-03] MEDS: FOLIC ACID 1 MG TABLET (FP) PO SCH (10:12)
[2017-07-03] MEDS: BUDESONIDE/FORMETEROL FUMARATE 80/4.5 mcg INHALER IH SCH ×2 (11:26→22:16)
[2017-07-03 12:12] LABS: MCH 31.6 pg (25.7-33.7); MCHC 32.9 g/dl (32.0-35.9); MEAN CELL VOLUME 96.1 fl (80-96); MEAN PLT VOLUME 7.2 fl (7.5-11.1); PLATELET COUNT 555 K/MM3 (134-434); RDW 13.9 % (11.9-15.9); WHITE BLOOD COUNT 14.3 K/mm3 (4.0-10.0)
[2017-07-03 12:47] LABS: ALBUMIN 1.5 g/dl (3.4-5.0); ANION GAP 8 (8-16); BILIRUBIN,TOTAL 0.2 mg/dL (0.2-1.0); CALCIUM 8.2 mg/dL (8.5-10.1); CO2 28 mmol/L (21-32); CREATININE 0.6 mg/dL (0.7-1.3); GLUCOSE,RANDOM 192 mg/dL (74-106); SGOT/AST 30 U/L (15-37); SGPT/ALT 35 U/L (12-78); TOT PROT 5.1 g/dl (6.4-8.2)
[2017-07-03 12:48] LABS: ALK PHOS 125 U/L (45-117)
--- NOTE | 2017-07-03 15:11 | PN ---
Progress Note (short form) - Note Progress Note: feels the same resting comfortably no fever today still notes leg pains that occur in the afternoon only Vital Signs Period Temp Pulse Resp BP Sys/Guerrier Pulse Ox Last 24 Hr 98.1 F-100.8 F 69-87 18-20 105-132/61-73 96-98 cor-rrr lungs clear abd soft,nt ext no edema no rash CBC, BMP 07/03/17 11:45 07/03/17 11:45 crp-17 HIV negative Microbiology 06/29/17 14:10 Blood - Peripheral Venous Blood Culture - Preliminary NO GROWTH OBTAINED AFTER 96 HOURS, INCUBATION TO CONTINUE FOR 1 DAYS. 06/29/17 13:36 Blood - Peripheral Venous Blood Culture - Preliminary NO GROWTH OBTAINED AFTER 96 HOURS, INCUBATION TO CONTINUE FOR 1 DAYS. 07/01/17 17:20 Urine - Urine Clean Catch Urine Culture - Final NO GROWTH OBTAINED 07/01/17 17:05 Blood - Peripheral Venous Blood Culture - Preliminary NO GROWTH OBTAINED AFTER 24 HOURS, INCUBATION TO CONTINUE FOR 4 DAYS. 07/01/17 16:55 Blood - Peripheral Venous Blood Culture - Preliminary NO GROWTH OBTAINED AFTER 24 HOURS, INCUBATION TO CONTINUE FOR 4 DAYS. 06/30/17 06:00 Blood - Peripheral Venous Blood Parasites Smear (KEL) - Final No growth. 06/29/17 14:10 Urine - Urine Clean Catch Urine Culture - Final 06/29/17 14:30 Nasopharyngeal Swab Influenza Types A,B Antigen (KEL) - Final 06/29/17 14:30 Nasopharyngeal Swab - Final chest ct - no masses, no adenopathy a/p leukocytosis/anemia/thrombocytosis- fevers resolving awaiting rheum evaluation observe off antiibotics
--- NOTE | 2017-07-03 17:37 | PN ---
Progress Note (short form) - Note Progress Note: Patient seen and examined. febrile episodes Walking in hallway O/E: Constitutional: Yes: No Distress, Calm Eyes: Yes: Conjunctiva Clear, EOM Intact HENT: Yes: Atraumatic, Normocephalic Neck: Yes: Supple Cardiovascular: Yes: Regular Rate and Rhythm Respiratory: Yes: Regular, CTA Bilaterally. No: Accessory Muscle Use Gastrointestinal: Yes: Normal Bowel Sounds, Soft. No: Hepatomegaly, Splenomegaly Musculoskeletal: No: Joint Stiffness, Joint Swelling, Muscle Pain, Muscle Weakness Edema: No Integumentary: No: Jaundice, Petechiae, Venous Stasis Changes Neurological: Yes: Alert, Oriented Psychiatric: Yes: Alert, Oriented Last Vital Signs Temp Pulse Resp BP Pulse Ox 98.1 F 69 20 105/64 98 07/03/17 13:53 07/03/17 13:53 07/03/17 13:53 07/03/17 13:53 07/03/17 10:45 CBC, BMP 07/03/17 11:45 07/03/17 11:45 Current Medications Generic Name Dose Route Start Last Admin Trade Name Freq PRN Reason Stop Dose Admin Acetaminophen 650 mg 06/30/17 00:31 07/03/17 16:14 Tylenol - PO 650 mg Q6H PRN Administration FEVER OR PAIN Albuterol Sulfate 1 - 2 puff 06/29/17 22:00 Ventolin Hfa Inhaler - IH Q4H PRN Aspirin 81 mg 06/30/17 10:00 07/03/17 10:10 Ecotrin - PO 81 mg DAILY MORRIS Administration Atorvastatin Calcium 10 mg 06/29/17 22:00 07/02/17 22:14 Lipitor - PO 10 mg HS MORRIS Administration Budesonide/Formoterol Fumarate 2 puff 06/30/17 10:00 07/03/17 11:26 Symbicort 80/4.5mcg - IH 2 puff BID MORRIS Administration Docusate Sodium 300 mg 06/30/17 22:00 07/02/17 22:14 Colace - PO 300 mg HS MORRIS Administration Enoxaparin Sodium 40 mg 06/29/17 20:45 07/03/17 10:10 Lovenox - SQ Not Given DAILY MORRIS Finasteride 5 mg 06/30/17 10:00 07/03/17 10:11 Proscar - PO 5 mg DAILY MORRIS Administration Folic Acid 1 mg 06/30/17 10:00 07/03/17 10:12 Folic Acid - PO 1 mg DAILY MORRIS Administration Insulin Aspart 0 vial 06/29/17 22:00 07/03/17 17:35 Novolog Vial Sliding Scale - SQ 2 units ACHS MORRIS Administration Protocol Pantoprazole Sodium 20 mg 06/30/17 10:00 07/03/17 10:10 Protonix - PO 20 mg DAILY MORRIS Administration Thiamine HCl 100 mg 06/30/17 10:00 07/03/17 10:12 Vitamin B1 - PO 100 mg DAILY MORRIS Administration Assessment/Plan will f.u on rheum eval will f/u on flow/molecular studies ID f/u noted Problem List - Problems (1) Leukocytosis Code(s): D72.829 - ELEVATED WHITE BLOOD CELL COUNT, UNSPECIFIED (2) Thrombocytosis Code(s): D47.3 - ESSENTIAL (HEMORRHAGIC) THROMBOCYTHEMIA (3) Hypercalcemia Code(s): E83.52 - HYPERCALCEMIA (4) Anemia Code(s): D64.9 - ANEMIA, UNSPECIFIED Qualifiers: Qualified Code(s): D64.9 - Anemia, unspecified
--- NOTE | 2017-07-03 17:41 | CONSULT ---
Consult Consult Specialty:: Rheumatology - History of Present Illness History of Present Illness: 66 year old male with history of HTN, COPD, diabetes type II, asthma, hyperlipidemia, prostate cancer? Admitted with episodes of diffuse aches and pains. The patient reports a one month history of episodes of severe aches and pains. The pain is localized to muscles and joints, it is severe, and resolves with Acetaminophen. He reports relapse of the pain every 6 hours and after taking Acetaminophen he is asymptomatic. He denies skin rash, oral ulcers, weakness, shortness of breath or chest pain. He was admitted to [facility] for 10 days and apparently no diagnosis was reached and after discharge he continued having the same symptoms. On 06/29/17 WBC was 23.3 and platelets 529. Today WBC 14.3 and platelets 555. CRP 17.8. Liver function tests and urinalysis were normal. C K was 18. On 07/01/17 T max was 102.1 and today he has not have fever. - History Source History Provided By: Patient, Medical Record Limitations to Obtaining History: No Limitations - Past Medical History Cardio/Vascular: Yes: HTN, Hyperlipdemia Pulmonary: Yes: Asthma, COPD Endocrine: Yes: Diabetes Mellitus - Alcohol/Substance Use Hx Alcohol Use: Yes (1-2 BEERS; 3 SHOTS LIQUOR DAILY) - Smoking History Smoking history: Never smoked Aproximately how many cigarettes per day: 5 Home Medications - Allergies Allergies/Adverse Reactions: Allergies Allergy/AdvReac Type Severity Reaction Status Date / Time No Known Drug Allergies Allergy Verified 06/29/17 13:22 - Home Medications Home Medications: Ambulatory Orders Albuterol Sulfate Inhaler - [Ventolin Hfa Inhaler -] 1 - 2 inh PO Q4H 08/11/15 Aspirin [Aspirin EC] 81 mg PO DAILY 08/11/15 Fluticasone/Salmeterol [Advair 250-50 Diskus] 1 each IH BID PRN 08/11/15 Lisinopril [Prinivil -] 20 mg PO DAILY 08/11/15 Omeprazole 20 mg PO DAILY 08/11/15 Simvastatin [Zocor -] 20 mg PO HS 08/11/15 Finasteride 5 mg PO DAILY 06/29/17 Lisinopril [Prinivil] 5 mg PO DAILY 06/29/17 Metformin HCl 500 mg PO DAILY 06/29/17 Review of Systems - Review of Systems Constitutional: reports: No Symptoms Eyes: reports: No Symptoms HENT: reports: No Symptoms Neck: reports: No Symptoms Cardiovascular: reports: No Symptoms Respiratory: reports: No Symptoms Gastrointestinal: reports: No Symptoms Genitourinary: reports: No Symptoms Musculoskeletal: reports: Other (See HPI) Endocrine: reports: No Symptoms Physical Exam Vital Signs: Vital Signs Temperature 98.1 F 07/03/17 13:53 Pulse Rate 69 07/03/17 13:53 Respiratory Rate 20 07/03/17 13:53 Blood Pressure 105/64 07/03/17 13:53 O2 Sat by Pulse Oximetry (%) 98 07/03/17 10:45 Constitutional: Yes: No Distress Eyes: Yes: WNL HENT: Yes: WNL Neck: Yes: WNL Cardiovascular: Yes: WNL Respiratory: Yes: WNL Gastrointestinal: Yes: WNL Musculoskeletal: Yes: Other (No tender or swollen joints and no tenderness ove fibrositic tender points or muscles. Muscle strength was normal.) Labs: CBC, BMP 07/03/17 11:45 07/03/17 11:45 Laboratory Tests 06/29/17 07/01/17 07/01/17 13:36 06:20 06:20 Retic Count AST 14 L ALT 22 Alkaline Phosphatase 106 LD Total 105 Creatine Kinase 26 L C-Reactive Protein Urine Color Urine Appearance Urine pH Ur Specific [place] Urine Protein Urine Glucose (UA) Urine Ketones Urine Blood Urine Nitrite Urine Bilirubin Urine Urobilinogen Rheumatoid Factor WILLIAM Screen Positive H Hepatitis C Antibody <0.1 07/01/17 07/01/17 07/02/17 06:20 07:15 08:26 Retic Count 1.48 AST ALT Alkaline Phosphatase LD Total Creatine Kinase 18 L C-Reactive Protein 17.8 H Urine Color Urine Appearance Urine pH Ur Specific [place] Urine Protein Urine Glucose (UA) Urine Ketones Urine Blood Urine Nitrite Urine Bilirubin Urine Urobilinogen Rheumatoid Factor < 10.0 WILLIAM Screen Hepatitis C Antibody 07/02/17 13:00 Retic Count AST ALT Alkaline Phosphatase LD Total Creatine Kinase C-Reactive Protein Urine Color Straw Urine Appearance Clear Urine pH 6.0 Ur Specific [place] <= 1.005 Urine Protein Negative Urine Glucose (UA) Negative Urine Ketones Negative Urine Blood Negative Urine Nitrite Negative Urine Bilirubin Negative Urine Urobilinogen Negative Rheumatoid Factor WILLIAM Screen Hepatitis C Antibody Problem List - Problems (1) Myalgia Assessment/Plan: Episodes of diffuse mialgia, intermittent and no inflammatory arthritis or myositis. Etiology to be detemined. It is unlikley to have a connective tissue disease. Plan: ferritin. F/.U hematology Code(s): M79.1 - MYALGIA
--- NOTE | 2017-07-03 18:09 | PN ---
Teaching Attending Note Name of Resident: Jonathan Nobles ATTENDING PHYSICIAN STATEMENT I saw and evaluated the patient. I reviewed the resident's note and discussed the case with the resident. I agree with the resident's findings and plan as documented. SUBJECTIVE: Patient has no complaints. Had temp 100.8 last night. OBJECTIVE: Vital Signs Period Temp Pulse Resp BP Sys/Guerrier Pulse Ox Last 24 Hr 98.1 F-100.8 F 69-87 18-20 105-132/61-73 96-98 HEART: S1S2, RRR LUNGS: Bilateral rhonchi ABDOMEN: Soft, non-tender, non-distended, normal BS EXTREMITIES: No edema Current Medications Generic Name Dose Route Start Last Admin Trade Name Freq PRN Reason Stop Dose Admin Acetaminophen 650 mg 06/30/17 00:31 07/03/17 16:14 Tylenol - PO 650 mg Q6H PRN Administration FEVER OR PAIN Albuterol Sulfate 1 - 2 puff 06/29/17 22:00 Ventolin Hfa Inhaler - IH Q4H PRN Aspirin 81 mg 06/30/17 10:00 07/03/17 10:10 Ecotrin - PO 81 mg DAILY MORRIS Administration Atorvastatin Calcium 10 mg 06/29/17 22:00 07/02/17 22:14 Lipitor - PO 10 mg HS MORRIS Administration Budesonide/Formoterol Fumarate 2 puff 06/30/17 10:00 07/03/17 11:26 Symbicort 80/4.5mcg - IH 2 puff BID MORRIS Administration Docusate Sodium 300 mg 06/30/17 22:00 07/02/17 22:14 Colace - PO 300 mg HS MORRIS Administration Enoxaparin Sodium 40 mg 06/29/17 20:45 07/03/17 10:10 Lovenox - SQ Not Given DAILY MORRIS Finasteride 5 mg 06/30/17 10:00 07/03/17 10:11 Proscar - PO 5 mg DAILY MORRIS Administration Folic Acid 1 mg 06/30/17 10:00 07/03/17 10:12 Folic Acid - PO 1 mg DAILY MORRIS Administration Insulin Aspart 0 vial 06/29/17 22:00 07/03/17 17:35 Novolog Vial Sliding Scale - SQ 2 units ACHS MORRIS Administration Protocol Pantoprazole Sodium 20 mg 06/30/17 10:00 07/03/17 10:10 Protonix - PO 20 mg DAILY MORRIS Administration Thiamine HCl 100 mg 06/30/17 10:00 07/03/17 10:12 Vitamin B1 - PO 100 mg DAILY MORRIS Administration ASSESSMENT AND PLAN: 66yo M with PMH HTN, Dyslipidemia, DM, COPD not on home O2, prostate ca s/p prostectomy prompted to the ER by PMD for leukocytosis and complaints of generalized aches 1. Leukocytosis-Tm 102.1. only fever recorded, however leukocytosis improving without any treatment. spoke with ID, whom we called Dr Moisés Hart together and discussed previous workup done and that he had appt today for more labwork. he states that his WBC trended 20-28 with neutrophil predominance and that he has not been treated with abx. he agrees concern for rheumatology workup which he recomended in the past. will consult rheum. will cont to hold abx at this time. sepsis workup sent and negative at this point. doppler negative for DVT. HIV negative. (as per private sql developer WILLIAM was positive in the past) 2. Normocytic anemia- no signs of bleeding. iron studies pending. no indication for transfusion 3. Hypercalcemia- Corrected Ca 10.4. 4. Lactic acidosis- resolved 5. Fecal retention-no BM. give miralax 6. HTN- normotensive off medications. cont to hold 7. DM- hold oral agents. iss, bgm 8. BPH- on flomax (pt does NOT have hx of prostate ca, had TURP in the past) 9. DVT ppx- lovenox
--- NOTE | 2017-07-03 20:48 | PN ---
Physical Exam: SUBJECTIVE: Patient seen and examined at bedside. he complains of sweating over night associated with body ache started from his legs and goes up to upper body. He denies cp, sob, abdominal pain, N/V/D/C or any urinary symptoms. OBJECTIVE: Vital Signs Period Temp Pulse Resp BP Sys/Guerrier Pulse Ox Last 24 Hr 98.1 F-100.8 F 69-87 18-20 101-132/54-73 96-98 GENERAL: The patient is awake, alert, and fully oriented, in no acute distress. HEAD: Normal with no signs of trauma. EYES: sclera anicteric, conjunctiva pallor. ENT: moist mucous membranes. NECK: Trachea midline, full range of motion, supple. LUNGS: diffuse wheezing on the right lung, wheezes, no crackles, no accessory muscle use. HEART: Regular rate and rhythm, S1, S2 without murmur, rub or gallop. ABDOMEN: Soft, non tender, non distended, normoactive bowel sounds, no guarding , no rebound tenderness. EXTREMITIES: warm, well-perfused, no edema. NEUROLOGICAL: Cranial nerves II through XII grossly intact. Normal speech, gait not observed. PSYCH: Normal mood, normal affect. SKIN: Warm, dry, no rashes or lesions noted Laboratory Results - last 24 hr 06/30/17 06/30/17 07/01/17 06:00 06:00 06:20 WBC RBC Hgb Hct MCV MCH MCHC RDW Plt Count MPV Sodium Potassium Chloride Carbon Dioxide Anion Gap BUN Creatinine Creat Clearance w eGFR POC Glucometer Random Glucose Calcium Iron 10 L TIBC 125 L Iron Saturation 8 L Total Bilirubin Direct Bilirubin AST ALT Alkaline Phosphatase Total Protein Albumin Prostate Specific Ag 0.50 Folate Folate Hemolysate PTH Intact 30 WILLIAM Screen WILLIAM Homogeneous Pattern WILLIAM Nucleolar Pattern WILLIAM Speckled Pattern WILLIAM Centromere Pattern Babesia microti IgG Ab <1:10 Babesia microti IgM Ab <1:10 Lyme Disease IgG/IgM 1.07 H Hepatitis C Antibody 07/01/17 07/02/17 07/03/17 06:20 21:36 05:59 WBC RBC Hgb Hct 29.3 L MCV MCH MCHC RDW Plt Count MPV Sodium Potassium Chloride Carbon Dioxide Anion Gap BUN Creatinine Creat Clearance w eGFR POC Glucometer 161 139 Random Glucose Calcium Iron TIBC Iron Saturation Total Bilirubin Direct Bilirubin AST ALT Alkaline Phosphatase Total Protein Albumin Prostate Specific Ag Folate 1029 Folate Hemolysate 301.4 PTH Intact WILLIAM Screen Positive H WILLIAM Homogeneous Pattern TNP WILLIAM Nucleolar Pattern TNP WILLIAM Speckled Pattern TNP WILLIAM Centromere Pattern TNP Babesia microti IgG Ab Babesia microti IgM Ab Lyme Disease IgG/IgM Hepatitis C Antibody <0.1 07/03/17 07/03/17 07/03/17 11:45 11:45 11:47 WBC 14.3 H RBC 3.10 L Hgb 9.8 L Hct 29.8 L MCV 96.1 H MCH 31.6 MCHC 32.9 RDW 13.9 Plt Count 555 H MPV 7.2 L Sodium 135 L Potassium 4.2 Chloride 99 Carbon Dioxide 28 Anion Gap 8 BUN 14 Creatinine 0.6 L Creat Clearance w eGFR > 60 POC Glucometer 201 Random Glucose 192 H D Calcium 8.2 L Iron TIBC Iron Saturation Total Bilirubin 0.2 D Direct Bilirubin AST 30 D ALT 35 D Alkaline Phosphatase 125 H Total Protein 5.1 L Albumin 1.5 L Prostate Specific Ag Folate Folate Hemolysate PTH Intact WILLIAM Screen WILLIAM Homogeneous Pattern WILLIAM Nucleolar Pattern WILLIAM Speckled Pattern WILLIAM Centromere Pattern Babesia microti IgG Ab Babesia microti IgM Ab Lyme Disease IgG/IgM Hepatitis C Antibody 07/03/17 07/03/17 14:05 17:15 WBC RBC Hgb Hct MCV MCH MCHC RDW Plt Count MPV Sodium Potassium Chloride Carbon Dioxide Anion Gap BUN Creatinine Creat Clearance w eGFR POC Glucometer 199 Random Glucose Calcium Iron TIBC Iron Saturation Total Bilirubin Direct Bilirubin < 0.1 AST ALT Alkaline Phosphatase Total Protein Albumin Prostate Specific Ag Folate Folate Hemolysate PTH Intact WILLIAM Screen WILLIAM Homogeneous Pattern WILLIAM Nucleolar Pattern WILLIAM Speckled Pattern WILLIAM Centromere Pattern Babesia microti IgG Ab Babesia microti IgM Ab Lyme Disease IgG/IgM Hepatitis C Antibody Active Medications Generic Name Dose Route Start Last Admin Trade Name Freq PRN Reason Stop Dose Admin Acetaminophen 650 mg 06/30/17 00:31 07/03/17 16:14 Tylenol - PO 650 mg Q6H PRN Administration FEVER OR PAIN Albuterol Sulfate 1 - 2 puff 06/29/17 22:00 Ventolin Hfa Inhaler - IH Q4H PRN Aspirin 81 mg 06/30/17 10:00 07/03/17 10:10 Ecotrin - PO 81 mg DAILY [facility] Administration Atorvastatin Calcium 10 mg 06/29/17 22:00 07/02/17 22:14 Lipitor - PO 10 mg HS [facility] Administration Budesonide/Formoterol Fumarate 2 puff 06/30/17 10:00 07/03/17 11:26 Symbicort 80/4.5mcg - IH 2 puff BID [facility] Administration Docusate Sodium 300 mg 06/30/17 22:00 07/02/17 22:14 Colace - PO 300 mg HS [facility] Administration Enoxaparin Sodium 40 mg 06/29/17 20:45 07/03/17 10:10 Lovenox - SQ Not Given DAILY [facility] Finasteride 5 mg 06/30/17 10:00 07/03/17 10:11 Proscar - PO 5 mg DAILY [facility] Administration Folic Acid 1 mg 06/30/17 10:00 07/03/17 10:12 Folic Acid - PO 1 mg DAILY [facility] Administration Insulin Aspart 0 vial 06/29/17 22:00 07/03/17 17:35 Novolog Vial Sliding Scale - SQ 2 units ACHS [facility] Administration Protocol Pantoprazole Sodium 20 mg 06/30/17 10:00 07/03/17 10:10 Protonix - PO 20 mg DAILY [facility] Administration Thiamine HCl 100 mg 06/30/17 10:00 07/03/17 10:12 Vitamin B1 - PO 100 mg DAILY [facility] Administration CBC, BMP 07/03/17 11:45 07/03/17 11:45 ASSESSMENT/PLAN: 66 yo M, h/o HTN,HLD,DM2 COPD, asthma,prostate cancer? , recent hospitalization , who presented to the ED with 2 weeks history of generalized weakness, body ache, diaphoresis was sent by his PCP due to abnormal lab, he was found to have Leckocytosis of 23.3 and lactic acidosis of 4.3 with hypotension and was admitted for further evaluation. 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[employer]) * LA 4.3 trend to 1.8 with fluids * does not meet Sepsis criteria ,per SIRS , neither Qsofa criteria * IV fluids NS 2L boluses, vanco/zosyn given in the ED, * repeat CBC, CMP in AM * UA negative * Blood culture, urine culture pending * CXR negative for acute pathology, CT abdomen negative for acute path * Lyme titers , serology for anaplasomis, babesiosis * ID consulted and decide to hold abx * Hemonc consult * Rheumatology consult * PPD to R/o TB * HIV negative , * ESR,CRP * Doppler negative for DVT * Chest CT negative for acute pathology * Total and direct bilirubin ordered # Lactic acidosis, corrected, likely 2/2 infection vs metformin vs dehydration * LA 4.3 on admission improved to 1.8 after 2L NS boluses * most likely secondary to dehydration # hypercalcemia with hypoalbuminemia, likley 2/2 malignancy vs PTH vs hyperthyroidism vs dehydration * corrected Ca 11.4 on admission * TSH, Parathyroid hormone * malignancy work up * consult hematology * IV fluids NS @100cc/hr * repeat CA in AM , Phosphorus # Normocytic anemia likely 2/2 chronic disease vs low oral intake vs alcoholic * H/H 11.3/34.2 * IRON studies, B12 Floate * Thiamin ,folic acid * repeat CBC in AM * peripheral smear in am to exclude chronic myeloproliferative disorders #Alcohol dependence * Banana bag x 1 * PO folate and thiamine tomorrow # COPD, * duoneb * Albuterol inhaler * 2L O2 NC * # constipation , * fecal incarceration on CT , asymptomatic * start stool softeners # DM2, * on Metformin 500 mg PO at home * Hold metformin * ISS, BGM * monitor * patient education * Diabetic low sodium diet * #HTN, * Normotensive * On no medication #HLD , * continue home med Lipitor * # BPH * continue Fenastrid 5 mg po daily * had TURP in the past #FEN * F: 2L NS bolus recieved in ED, will give 1 L @ 100 cc/Hr * E:Hypercalcemia, will continue hydration * N: low sodium, diabetic diet # Proph: * DVT : Moderate risk, Lovenox 40 SQ daily * GI: Protonix 20 mg PO daily # Dispo : * Orlin to med surg for further eval * Visit type - Emergency Visit Emergency Visit: Yes ED Registration Date: 06/29/17 Care time: The patient presented to the Emergency Department on the above date and was hospitalized for further evaluation of their emergent condition. - New Patient This patient is new to me today: No - Critical Care Critical Care patient: No - Discharge Referral Referred to [facility] Med P.C.: No
[2017-07-03] MEDS: ATORVASTATIN CA 10 MG TABLET (FP) PO SCH (21:59)
[2017-07-03] MEDS: DOCUSATE SODIUM 100 MG CAPSULE (FP) PO SCH (21:59)
[2017-07-04 00:06] LABS: A/G RATIO 0.6 (0.7-1.7); ALBUMIN 1.6 g/dL (2.9-4.4); ALPHA-1-GLOBULIN 0.6 g/dL (0.0-0.4); BETA GLOBULIN 0.8 g/dL (0.7-1.3); GAMMA GLOBULIN 0.6 g/dL (0.4-1.8); GLOBULIN, TOTAL 3.1 g/dL (2.2-3.9); HEP B SURFACE AB Non Reactive (.); M-SPIKE Not Observed g/dL (Not Observed); TOTAL PROTEIN 4.7 g/dL (6.0-8.5)
[2017-07-04] MEDS: INSULIN SLIDING SCALE (NOVOLOG) 1 VIAL SQ SCH ×4 (06:13→22:32)
[2017-07-04] MEDS ORDERED: PT OWN MED DRAWER 7, Y5N ONE ×2 (09:02→21:10)
[2017-07-04] MEDS: ACETAMINOPHEN 325 MG TABLET (FP) PO PRN ×3 (09:09→21:25)
[2017-07-04] MEDS: ENOXAPARIN NA (PORCINE) 40 MG/0.4 ML DISP.SYRIN SQ SCH (09:10)
[2017-07-04] MEDS: PANTOPRAZOLE 20 MG TABLET (FP) PO SCH (09:10)
[2017-07-04] MEDS: FINASTERIDE 5 MG TABLET (FP) PO SCH (09:10)
[2017-07-04] MEDS: FOLIC ACID 1 MG TABLET (FP) PO SCH (09:10)
[2017-07-04] MEDS: ASPIRIN COATED 81 MG TABLET.EC PO SCH (09:10)
[2017-07-04] MEDS: THIAMINE HCL 100 MG TABLET (FP) PO SCH (09:10)
--- NOTE | 2017-07-04 10:52 | PN ---
Physical Exam: SUBJECTIVE: Patient seen and examined at bedside. he complains of sweating over night associated with body ache started from his legs and goes up to upper body. He denies cp, sob, abdominal pain, N/V/D/C or any urinary symptoms. Patient is asking to go home. OBJECTIVE: Vital Signs Period Temp Pulse Resp BP Sys/Guerrier Pulse Ox Last 24 Hr 98.1 F-100.2 F 67-77 20-20 101-148/54-72 97-97 GENERAL: The patient is awake, alert, and fully oriented, in no acute distress. HEAD: Normal with no signs of trauma. EYES: sclera anicteric, conjunctiva pallor. ENT: moist mucous membranes. NECK: Trachea midline, full range of motion, supple. LUNGS: clear to auscultation, no wheezes, no crackles, no accessory muscle use. HEART: Regular rate and rhythm, S1, S2 without murmur, rub or gallop. ABDOMEN: Soft, non tender, non distended, normoactive bowel sounds, no guarding , no rebound tenderness. EXTREMITIES: warm, well-perfused, no edema. NEUROLOGICAL: Cranial nerves II through XII grossly intact. Normal speech, gait not observed. PSYCH: Normal mood, normal affect. SKIN: Warm, dry, no rashes or lesions noted Laboratory Results - last 24 hr 06/30/17 06/30/17 07/01/17 06:00 06:00 06:20 WBC RBC Hgb Hct 29.3 L MCV MCH MCHC RDW Plt Count MPV Sodium Potassium Chloride Carbon Dioxide Anion Gap BUN Creatinine Creat Clearance w eGFR POC Glucometer Random Glucose Calcium Total Bilirubin Direct Bilirubin AST ALT Alkaline Phosphatase Serum Total Protein 4.7 L Total Protein Albumin 1.6 L Globulin 3.1 Albumin/Globulin Ratio 0.6 L Apmrz-7-Zoedeglbr 0.6 H Shdqx-7-Suqurumsw 1.1 H Beta Globulins 0.8 Gamma Globulins 0.6 Folate 1029 Folate Hemolysate 301.4 PTH Intact 30 IgG 583 L IgA 261 IgM 57 SMITA M-Jared Not observed SMITA Comments Serum SMITA Interpret WILLIAM Screen Positive H WILLIAM Homogeneous Pattern TNP WILLIAM Nucleolar Pattern TNP WILLIAM Speckled Pattern TNP WILLIAM Centromere Pattern TNP Babesia Performed By No Result Required. Babesia microti IgG Ab <1:10 Babesia microti IgM Ab <1:10 Lyme Disease IgG/IgM 1.07 H Hep A IgM Ab Confirm Negative Hepatitis A Ab Total Positive H Hep Bs Antigen Negative Hep Bs Antibody Non reactive Hep B Core Total Ab Positive H Hepatitis C Antibody <0.1 07/03/17 07/03/17 07/03/17 11:45 11:45 11:47 WBC 14.3 H RBC 3.10 L Hgb 9.8 L Hct 29.8 L MCV 96.1 H MCH 31.6 MCHC 32.9 RDW 13.9 Plt Count 555 H MPV 7.2 L Sodium 135 L Potassium 4.2 Chloride 99 Carbon Dioxide 28 Anion Gap 8 BUN 14 Creatinine 0.6 L Creat Clearance w eGFR > 60 POC Glucometer 201 Random Glucose 192 H D Calcium 8.2 L Total Bilirubin 0.2 D Direct Bilirubin AST 30 D ALT 35 D Alkaline Phosphatase 125 H Serum Total Protein Total Protein 5.1 L Albumin 1.5 L Globulin Albumin/Globulin Ratio Fybvg-9-Zdpnxbwdt Uqlne-0-Wsbslkjab Beta Globulins Gamma Globulins Folate Folate Hemolysate PTH Intact IgG IgA IgM SMITA M-Jared SMITA Comments Serum SMITA Interpret WILLIAM Screen WILLIAM Homogeneous Pattern WILLIAM Nucleolar Pattern WILLIAM Speckled Pattern WILLIAM Centromere Pattern Babesia Performed By Babesia microti IgG Ab Babesia microti IgM Ab Lyme Disease IgG/IgM Hep A IgM Ab Confirm Hepatitis A Ab Total Hep Bs Antigen Hep Bs Antibody Hep B Core Total Ab Hepatitis C Antibody 07/03/17 07/03/17 07/03/17 14:05 17:15 21:18 WBC RBC Hgb Hct MCV MCH MCHC RDW Plt Count MPV Sodium Potassium Chloride Carbon Dioxide Anion Gap BUN Creatinine Creat Clearance w eGFR POC Glucometer 199 217 Random Glucose Calcium Total Bilirubin Direct Bilirubin < 0.1 AST ALT Alkaline Phosphatase Serum Total Protein Total Protein Albumin Globulin Albumin/Globulin Ratio Nsggp-3-Sdpgujtlf Gntth-0-Gyzxnzfvw Beta Globulins Gamma Globulins Folate Folate Hemolysate PTH Intact IgG IgA IgM SMITA M-Jared SMITA Comments Serum SMITA Interpret WILLIAM Screen WILLIAM Homogeneous Pattern WILLIAM Nucleolar Pattern WILLIAM Speckled Pattern WILLIAM Centromere Pattern Babesia Performed By Babesia microti IgG Ab Babesia microti IgM Ab Lyme Disease IgG/IgM Hep A IgM Ab Confirm Hepatitis A Ab Total Hep Bs Antigen Hep Bs Antibody Hep B Core Total Ab Hepatitis C Antibody Active Medications Generic Name Dose Route Start Last Admin Trade Name Freq PRN Reason Stop Dose Admin Acetaminophen 650 mg 06/30/17 00:31 07/04/17 09:09 Tylenol - PO 650 mg Q6H PRN Administration FEVER OR PAIN Albuterol Sulfate 1 - 2 puff 06/29/17 22:00 Ventolin Hfa Inhaler - IH Q4H PRN Aspirin 81 mg 06/30/17 10:00 07/04/17 09:10 Ecotrin - PO 81 mg DAILY [facility] Administration Atorvastatin Calcium 10 mg 06/29/17 22:00 07/03/17 21:59 Lipitor - PO 10 mg HS [facility] Administration Budesonide/Formoterol Fumarate 2 puff 06/30/17 10:00 07/03/17 22:16 Symbicort 80/4.5mcg - IH Not Given BID [facility] Docusate Sodium 300 mg 06/30/17 22:00 07/03/17 21:59 Colace - PO 300 mg HS [facility] Administration Enoxaparin Sodium 40 mg 06/29/17 20:45 07/04/17 09:10 Lovenox - SQ 40 mg DAILY [facility] Administration Finasteride 5 mg 06/30/17 10:00 07/04/17 09:10 Proscar - PO 5 mg DAILY [facility] Administration Folic Acid 1 mg 06/30/17 10:00 07/04/17 09:10 Folic Acid - PO 1 mg DAILY [facility] Administration Insulin Aspart 0 vial 06/29/17 22:00 07/04/17 06:13 Novolog Vial Sliding Scale - SQ Not Given ACHS [facility] Protocol Pantoprazole Sodium 20 mg 06/30/17 10:00 07/04/17 09:10 Protonix - PO 20 mg DAILY [facility] Administration Thiamine HCl 100 mg 06/30/17 10:00 07/04/17 09:10 Vitamin B1 - PO 100 mg DAILY [facility] Administration Microbiology 07/01/17 17:05 Blood - Peripheral Venous Blood Culture - Preliminary NO GROWTH OBTAINED AFTER 48 HOURS, INCUBATION TO CONTINUE FOR 3 DAYS. 07/01/17 16:55 Blood - Peripheral Venous Blood Culture - Preliminary NO GROWTH OBTAINED AFTER 48 HOURS, INCUBATION TO CONTINUE FOR 3 DAYS. 06/29/17 14:10 Blood - Peripheral Venous Blood Culture - Preliminary NO GROWTH OBTAINED AFTER 96 HOURS, INCUBATION TO CONTINUE FOR 1 DAYS. 06/29/17 13:36 Blood - Peripheral Venous Blood Culture - Preliminary NO GROWTH OBTAINED AFTER 96 HOURS, INCUBATION TO CONTINUE FOR 1 DAYS. 07/01/17 17:20 Urine - Urine Clean Catch Urine Culture - Final NO GROWTH OBTAINED 06/30/17 06:00 Blood - Peripheral Venous Blood Parasites Smear (KEL) - Final No growth. 06/29/17 14:10 Urine - Urine Clean Catch Urine Culture - Final 06/29/17 14:30 Nasopharyngeal Swab Influenza Types A,B Antigen (KEL) - Final 06/29/17 14:30 Nasopharyngeal Swab - Final CBC, BMP 07/03/17 11:45 07/03/17 11:45 ASSESSMENT/PLAN: 66 yo M, h/o HTN,HLD,DM2 COPD, asthma,PBH , recent hospitalization, who presented to the ED with 2 weeks history of generalized weakness, body ache, diaphoresis was sent by his PCP due to abnormal lab, he was found to have Leckocytosis of 23.3 and lactic acidosis of 4.3 with hypotension and was admitted for further evaluation. #Leckocytosis with neutrophilic, unspecified with thrombocytosis, likely 2/2 unknown infection vs malignancy (B symptoms ) vs connective tissue disease * WBC 23.3 on admission, trending down to 14.3 * LA 4.3 trend to 1.8 with fluids * does not meet Sepsis criteria ,per SIRS , neither Qsofa criteria * IV fluids NS 2L boluses, vanco/zosyn given in the ED, * repeat CBC, CMP in AM * UA negative * Blood culture, urine culture negative * CXR, negative for acute pathology, CT abdomen negative for acute path * Lyme titers positive IgG, serology for anaplasomis, babesiosis negative * ID consulted and decide to hold abx , unlikely lyme disease,check quant gold * Hemonc consult , bone marrow tomorrow , blood flow shows some small B cell lymphocytosis * Rheumatology consulted: no active connective tissue disease * PPD to R/o TB * HIV negative , * ESR,CRP * Doppler negative for DVT * Chest CT negative for acute pathology * Total and direct bilirubin WNL # Lactic acidosis, corrected, likely 2/2 infection vs metformin vs dehydration * LA 4.3 on admission improved to 1.8 after 2L NS boluses * most likely secondary to dehydration # hypercalcemia with hypoalbuminemia, aura 2/2 malignancy vs PTH vs hyperthyroidism vs dehydration * corrected Ca 11.4 on admission * TSH, Parathyroid hormone, WNL * malignancy work up , bone marrow tomorrow * consult hematology * repeat CA in AM , Phosphorus # Normocytic anemia likely 2/2 chronic disease vs low oral intake vs alcoholic * H/H 11.3/34.2 , today 9.8/29.8 * IRON studies, B12, Folate * Thiamin ,folic acid * repeat CBC in AM * peripheral smear in am to exclude chronic myeloproliferative disorders #Alcohol dependence * Banana bag x 1 * PO folate and thiamine tomorrow # COPD, * duoneb * Albuterol inhaler * 2L O2 NC * # constipation , * fecal impaction on CT , asymptomatic * start stool softeners # DM2, * on Metformin 500 mg PO at home * Hold metformin * ISS, BGM * monitor * patient education * Diabetic low sodium diet * #HTN, * Normotensive * On no medication #HLD , * continue home med Lipitor 10 mg PO SH daily * # BPH * continue Fenastrid 5 mg po daily * had TURP in the past #FEN * F: 2L NS bolus recieved in ED, Hold on fluids now * E:Hypercalcemia, improved with hydration * N: low sodium, diabetic diet # Proph: * DVT : Moderate risk, Lovenox 40 SQ daily * GI: Protonix 20 mg PO daily # Dispo : * Orlin to med surg for further eval * Patient might sign AMA Visit type - Emergency Visit Emergency Visit: Yes ED Registration Date: 06/29/17 Care time: The patient presented to the Emergency Department on the above date and was hospitalized for further evaluation of their emergent condition. - New Patient This patient is new to me today: No - Critical Care Critical Care patient: No
--- NOTE | 2017-07-04 12:49 | PATH ---
Surgical Pathology Report Patient Name: CONRADO FLOR [facility]. Rec. #: [id number] /Age/Gender: 1950 (Age: 67) / M Account: [id number] Location: [facility] MED/SURG Taken: 07/03/2017 Received: 07/03/2017 Reported: 07/04/2017 Physicians: Bernadette Recinos M.D. Specimen(s) Received PERIPHERAL BLOOD Clinical History Increased white blood count, increased platelets Final Diagnosis PERIPHERAL BLOOD: FL[facility] [place] [place] ([id number]) shows the following: INTERPRETATION: Small (2% of total events) clonal B-cell population with nonspecific immunotype is detected, see comment. Slightly left-shifted granulocytes. No increase of myeloblasts. Comment: The significance of the small clonal B-cell population is uncertain. .The differential diagnosis includes monoclonal B-lymphocytosis (MBL) and low-level peripheral blood involvement by a B-cell lymphoproliferative process with nonspecific immunophenotype. Clinical, imaging, and laboratory correlation is essential. Correlation with the results of the molecular studies is needed in order to assess for involvement by a myeloproliferative process. Phenotype: Clonal (Cohoe, moderate-bright) B-cell population with dim-moderate CD19, and bright CD20 and FMC7 expression, negative for CD5, CD10, and CD11c, 2% of total events, is detected. The CD34+ myeloblasts are less than 0.1%. Granulocytes are 81% of total cells and show a slight left shift. Monocytes are 6% of total cells. There is no overt abnormal myeloid antigen expression. .The T-cells (9% of total) show no estrada Tcell antigenic deletion. Additional molecular tests are pending, and a report will follow. Electronically Signed Jonel Dunn M.D. Addendum Reported: 07/10/2017 Addendum Diagnosis Molecular Pathology Reports received from [facility] in [place], [place] ([id number] and [id number]) show the following: BCR/ABL GENE REARRANGEMENT (IS) ANALYSIS RESULTS: NEGATIVE BCR/ABL Major Breakpoints (b2a2 and b3a2): NOT DETECTED BCR/ABL Minor Breakpoint (e1a2): NOT DETECTED INTERPRETATION: No BCR-ABL translocation was detected in this sample. JAK2 [id number] MUTATION ANALYSIS BY PCR RESULTS: Only the wild-type JAK2 sequence was detected. INTERPRETATION: Negative for JAK2 (V617F) mutation Jonel Dunn M.D. Gross Description Received labelled with the patient's name are 2 lavender top tubes and 2 green top tubes of peripheral blood which are forwarded to [facility] for ancillary testing. [facility]2017 [facility]/07/03/2017
--- NOTE | 2017-07-04 15:40 | PN ---
Progress Note (short form) - Note Progress Note: feels the same resting comfortably no fever today reports generalized body pain for last one month no headaches lives with girlfriend Vital Signs Period Temp Pulse Resp BP Sys/Guerrier Pulse Ox Last 24 Hr 97.9 F-100.2 F 67-77 20-20 101-148/54-72 97-97 cor-rrr lungs clear abd soft,nt no rash no joint swellings CBC, BMP 07/03/17 11:45 07/03/17 11:45 [id number] HIV negative Microbiology 06/29/17 14:10 Blood - Peripheral Venous Blood Culture - Final NO GROWTH AFTER 5 DAYS INCUBATION 06/29/17 13:36 Blood - Peripheral Venous Blood Culture - Final NO GROWTH AFTER 5 DAYS INCUBATION 07/01/17 17:05 Blood - Peripheral Venous Blood Culture - Preliminary NO GROWTH OBTAINED AFTER 48 HOURS, INCUBATION TO CONTINUE FOR 3 DAYS. 07/01/17 16:55 Blood - Peripheral Venous Blood Culture - Preliminary NO GROWTH OBTAINED AFTER 48 HOURS, INCUBATION TO CONTINUE FOR 3 DAYS. 07/01/17 17:20 Urine - Urine Clean Catch Urine Culture - Final NO GROWTH OBTAINED 06/30/17 06:00 Blood - Peripheral Venous Blood Parasites Smear (KEL) - Final No growth. 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
[2017-07-04] MEDS: BUDESONIDE/FORMETEROL FUMARATE 80/4.5 mcg INHALER IH SCH ×2 (17:16→21:28)
--- NOTE | 2017-07-04 17:44 | PN ---
Teaching Attending Note Name of Resident: Jonathan Nobles ATTENDING PHYSICIAN STATEMENT I saw and evaluated the patient. I reviewed the resident's note and discussed the case with the resident. I agree with the resident's findings and plan as documented. SUBJECTIVE: OBJECTIVE: Vital Signs Period Temp Pulse Resp BP Sys/Guerrier Pulse Ox Last 24 Hr 97.9 F-99.8 F 67-77 20-20 110-148/57-72 97-97 Current Medications Generic Name Dose Route Start Last Admin Trade Name Freq PRN Reason Stop Dose Admin Acetaminophen 650 mg 06/30/17 00:31 07/04/17 15:20 Tylenol - PO 650 mg Q6H PRN Administration FEVER OR PAIN Albuterol Sulfate 1 - 2 puff 06/29/17 22:00 Ventolin Hfa Inhaler - IH Q4H PRN Aspirin 81 mg 06/30/17 10:00 07/04/17 09:10 Ecotrin - PO 81 mg DAILY [facility] Administration Atorvastatin Calcium 10 mg 06/29/17 22:00 07/03/17 21:59 Lipitor - PO 10 mg HS [facility] Administration Budesonide/Formoterol Fumarate 2 puff 06/30/17 10:00 07/04/17 17:16 Symbicort 80/4.5mcg - IH Not Given BID [facility] Docusate Sodium 300 mg 06/30/17 22:00 07/03/17 21:59 Colace - PO 300 mg HS [facility] Administration Enoxaparin Sodium 40 mg 06/29/17 20:45 07/04/17 09:10 Lovenox - SQ 40 mg DAILY [facility] Administration Finasteride 5 mg 06/30/17 10:00 07/04/17 09:10 Proscar - PO 5 mg DAILY [facility] Administration Folic Acid 1 mg 06/30/17 10:00 07/04/17 09:10 Folic Acid - PO 1 mg DAILY [facility] Administration Insulin Aspart 0 vial 06/29/17 22:00 07/04/17 17:14 Novolog Vial Sliding Scale - SQ 2 units ACHS [facility] Administration Protocol Pantoprazole Sodium 20 mg 06/30/17 10:00 07/04/17 09:10 Protonix - PO 20 mg DAILY [facility] Administration Thiamine HCl 100 mg 06/30/17 10:00 07/04/17 09:10 Vitamin B1 - PO 100 mg DAILY [facility] Administration ASSESSMENT AND PLAN:
[2017-07-04] MEDS: ATORVASTATIN CA 10 MG TABLET (FP) PO SCH (21:26)
[2017-07-04] MEDS: DOCUSATE SODIUM 100 MG CAPSULE (FP) PO SCH (21:26)
[2017-07-04] MEDS ORDERED: INSULIN (NOVOLOG) ASPART 100 UNITS/ML 10ML VIAL ONE (21:30)
[2017-07-05] MEDS: ACETAMINOPHEN 325 MG TABLET (FP) PO PRN ×2 (03:29→09:29)
[2017-07-05] MEDS: INSULIN SLIDING SCALE (NOVOLOG) 1 VIAL SQ SCH ×4 (06:48→22:16)
[2017-07-05 07:26] LABS: BASOPHIL 0.4 % (0-2.0); EOSINOPHIL 3.1 % (0-4.5); MCH 31.1 pg (25.7-33.7); MCHC 32.8 g/dl (32.0-35.9); MEAN CELL VOLUME 94.8 fl (80-96); NEUTROPHILS 75.8 % (42.8-82.8); PLATELET COUNT 693 K/MM3 (134-434); RDW 13.8 % (11.9-15.9); WHITE BLOOD COUNT 16.3 K/mm3 (4.0-10.0)
[2017-07-05 08:01] LABS: ALBUMIN 1.6 g/dl (3.4-5.0); ANION GAP 10 (8-16); CALCIUM 8.8 mg/dL (8.5-10.1); CO2 28 mmol/L (21-32); GLUCOSE,RANDOM 118 mg/dL (74-106); SGPT/ALT 49 U/L (12-78)
[2017-07-05 08:03] LABS: ALK PHOS 147 U/L (45-117); BILIRUBIN,TOTAL 0.3 mg/dL (0.2-1.0); CREATININE 0.6 mg/dL (0.7-1.3); SGOT/AST 33 U/L (15-37); TOT PROT 5.2 g/dl (6.4-8.2)
[2017-07-05] MEDS: ASPIRIN COATED 81 MG TABLET.EC PO SCH (09:35)
[2017-07-05] MEDS: THIAMINE HCL 100 MG TABLET (FP) PO SCH (09:35)
[2017-07-05] MEDS: PANTOPRAZOLE 20 MG TABLET (FP) PO SCH (09:35)
[2017-07-05] MEDS: FOLIC ACID 1 MG TABLET (FP) PO SCH (09:35)
[2017-07-05] MEDS: ENOXAPARIN NA (PORCINE) 40 MG/0.4 ML DISP.SYRIN SQ SCH (09:41)
[2017-07-05] MEDS: BUDESONIDE/FORMETEROL FUMARATE 80/4.5 mcg INHALER IH SCH ×2 (09:41→22:13)
[2017-07-05] MEDS: FINASTERIDE 5 MG TABLET (FP) PO SCH (09:59)
[2017-07-05] MEDS ORDERED: LIDOCAINE HCL 1%, 10 MG/ML (20ML VIAL) ONE (12:40)
--- NOTE | 2017-07-05 13:32 | PN ---
Progress Note, Physician Chief Complaint: ID Patient continues to complain of lower extremity pains on off low grade fevers - Current Medication List Current Medications: Active Medications Acetaminophen (Tylenol -) 650 mg PO Q6H PRN PRN Reason: FEVER OR PAIN Last Admin: 07/05/17 09:29 Dose: 650 mg Albuterol Sulfate (Ventolin Hfa Inhaler -) 1 - 2 puff IH Q4H PRN Aspirin (Ecotrin -) 81 mg PO DAILY [facility] Last Admin: 07/05/17 09:35 Dose: 81 mg Atorvastatin Calcium (Lipitor -) 10 mg PO HS [facility] Last Admin: 07/04/17 21:26 Dose: 10 mg Budesonide/Formoterol Fumarate (Symbicort 80/4.5mcg -) 2 puff IH BID [facility] Last Admin: 07/05/17 09:41 Dose: Not Given Docusate Sodium (Colace -) 300 mg PO HS [facility] Last Admin: 07/04/17 21:26 Dose: 300 mg Enoxaparin Sodium (Lovenox -) 40 mg SQ DAILY [facility] Last Admin: 07/05/17 09:41 Dose: Not Given Finasteride (Proscar -) 5 mg PO DAILY [facility] Last Admin: 07/05/17 09:59 Dose: 5 mg Folic Acid (Folic Acid -) 1 mg PO DAILY [facility] Last Admin: 07/05/17 09:35 Dose: 1 mg Insulin Aspart (Novolog Vial Sliding Scale -) 0 vial SQ ACHS [facility] PRN Reason: Protocol Last Admin: 07/05/17 12:12 Dose: 2 units Pantoprazole Sodium (Protonix -) 20 mg PO DAILY [facility] Last Admin: 07/05/17 09:35 Dose: 20 mg Thiamine HCl (Vitamin B1 -) 100 mg PO DAILY [facility] Last Admin: 07/05/17 09:35 Dose: 100 mg - Objective Vital Signs: Vital Signs Temperature 98.2 F 07/05/17 09:39 Pulse Rate 82 07/05/17 09:39 Respiratory Rate 20 07/05/17 09:39 Blood Pressure 139/78 07/05/17 09:39 O2 Sat by Pulse Oximetry (%) 97 07/04/17 21:00 Constitutional: Yes: No Distress Neck: Yes: WNL, Supple Cardiovascular: Yes: S1, S2. No: Murmur Respiratory: Yes: WNL, Regular, CTA Bilaterally Gastrointestinal: Yes: WNL, Normal Bowel Sounds, Soft. No: Tenderness, Tenderness, Epigastrium Labs: CBC, BMP 07/05/17 06:00 07/05/17 06:00 Problem List - Problems (1) Leukocytosis Code(s): D72.829 - ELEVATED WHITE BLOOD CELL COUNT, UNSPECIFIED Assessment/Plan Microbiology 07/01/17 17:20 Urine - Urine Clean Catch Urine Culture - Final NO GROWTH OBTAINED 06/30/17 06:00 Blood - Peripheral Venous Blood Parasites Smear (KEL) - Final No growth. 06/29/17 14:30 Nasopharyngeal Swab Influenza Types A,B Antigen (KEL) - Final 06/29/17 14:30 Nasopharyngeal Swab - Final 06/29/17 14:10 Urine - Urine Clean Catch Urine Culture - Final 06/29/17 14:10 Blood - Peripheral Venous Blood Culture - Final NO GROWTH AFTER 5 DAYS INCUBATION 06/29/17 13:36 Blood - Peripheral Venous Blood Culture - Final NO GROWTH AFTER 5 DAYS INCUBATION 07/01/17 17:05 Blood - Peripheral Venous Blood Culture - Preliminary NO GROWTH OBTAINED AFTER 72 HOURS, INCUBATION TO CONTINUE FOR 2 DAYS. 07/01/17 16:55 Blood - Peripheral Venous Blood Culture - Preliminary NO GROWTH OBTAINED AFTER 72 HOURS, INCUBATION TO CONTINUE FOR 2 DAYS. Laboratory Tests 06/29/17 07/01/17 07/05/17 10:00 06:20 06:00 WBC 16.3 H Hgb 10.0 L Hct 30.5 L Plt Count 693 H D ESR BUN AST ALT Alkaline Phosphatase Serum Cryoglobulins Pending WILLIAM Screen Positive H HIV 1&2 Antibody Screen Negative HIV P24 Antigen Negative 07/05/17 07/05/17 06:00 06:00 WBC Hgb Hct Plt Count ESR 122 H BUN 13 AST 33 ALT 49 D Alkaline Phosphatase 147 H Serum Cryoglobulins WILLIAM Screen HIV 1&2 Antibody Screen HIV P24 Antigen Assessment Suspect connective tissue disease rather then leukemia Plan Trial of steroids Prednisone 60 mg daily Lyla ROSS
[2017-07-05 14:17] LABS: INR 1.4 (0.82-1.09); PROTHROMBIN TIME (PATIENT) 15.5 SEC (9.98-11.88)
[2017-07-05 14:20] LABS: ACTIVATED PTT 29.2 SECONDS (26.9-34.4)
[2017-07-05] MEDS ORDERED: predniSONE 20 MG TABLET (UD) PO ONE (15:02)
[2017-07-05] MEDS ORDERED: ACETAMINOPHEN 325 MG TABLET (FP) PO ONE ×2 (16:33→16:35)
--- NOTE | 2017-07-05 17:52 | PN ---
Physical Exam: SUBJECTIVE: Patient seen and examined at bedside. no fever,or diaphoresis last night. He denies cp, sob, abdominal pain, N/V/D/C or any urinary symptoms. Patient is asking to go home. OBJECTIVE: Vital Signs Period Temp Pulse Resp BP Sys/Guerrier Pulse Ox Last 24 Hr 98.2 F-99.1 F 71-82 20-20 115-139/61-78 97-98 GENERAL: The patient is awake, alert, and fully oriented, in no acute distress. HEAD: Normal with no signs of trauma. EYES: sclera anicteric, conjunctiva pallor. ENT: moist mucous membranes. NECK: Trachea midline, full range of motion, supple. LUNGS: wheezes on the base of right lung, no crackles, no accessory muscle use. HEART: Regular rate and rhythm, S1, S2 without murmur, rub or gallop. ABDOMEN: Soft, non tender, non distended, normoactive bowel sounds, no guarding , no rebound tenderness. EXTREMITIES: warm, well-perfused, no edema. NEUROLOGICAL: Cranial nerves II through XII grossly intact. Normal speech, gait not observed. PSYCH: Normal mood, normal affect. SKIN: Warm, dry, no rashes or lesions noted Laboratory Results - last 24 hr 07/04/17 07/05/17 07/05/17 21:40 06:00 06:00 WBC 16.3 H RBC 3.22 L Hgb 10.0 L Hct 30.5 L MCV 94.8 MCH 31.1 MCHC 32.8 RDW 13.8 Plt Count 693 H D MPV 7.0 L Neutrophils % 75.8 Lymphocytes % 15.5 Monocytes % 5.2 Eosinophils % 3.1 Basophils % 0.4 ESR PT with INR INR PTT (Actin FS) Sodium 137 Potassium 4.5 Chloride 99 Carbon Dioxide 28 Anion Gap 10 BUN 13 Creatinine 0.6 L Creat Clearance w eGFR > 60 POC Glucometer 194 Random Glucose 118 H D Calcium 8.8 Total Bilirubin 0.3 D AST 33 ALT 49 D Alkaline Phosphatase 147 H Total Protein 5.2 L Albumin 1.6 L RPR Titer 07/05/17 07/05/17 07/05/17 06:00 06:00 06:48 WBC RBC Hgb Hct MCV MCH MCHC RDW Plt Count MPV Neutrophils % Lymphocytes % Monocytes % Eosinophils % Basophils % ESR 122 H PT with INR INR PTT (Actin FS) Sodium Potassium Chloride Carbon Dioxide Anion Gap BUN Creatinine Creat Clearance w eGFR POC Glucometer 133 Random Glucose Calcium Total Bilirubin AST ALT Alkaline Phosphatase Total Protein Albumin RPR Titer Nonreactive 07/05/17 07/05/17 07/05/17 11:56 13:40 16:45 WBC RBC Hgb Hct MCV MCH MCHC RDW Plt Count MPV Neutrophils % Lymphocytes % Monocytes % Eosinophils % Basophils % ESR PT with INR 15.50 H INR 1.40 H D PTT (Actin FS) 29.2 Sodium Potassium Chloride Carbon Dioxide Anion Gap BUN Creatinine Creat Clearance w eGFR POC Glucometer 176 170 Random Glucose Calcium Total Bilirubin AST ALT Alkaline Phosphatase Total Protein Albumin RPR Titer Active Medications Generic Name Dose Route Start Last Admin Trade Name Freq PRN Reason Stop Dose Admin Acetaminophen 650 mg 06/30/17 00:31 07/05/17 09:29 Tylenol - PO 650 mg Q6H PRN Administration FEVER OR PAIN Albuterol Sulfate 1 - 2 puff 06/29/17 22:00 Ventolin Hfa Inhaler - IH Q4H PRN Aspirin 81 mg 06/30/17 10:00 07/05/17 09:35 Ecotrin - PO 81 mg DAILY [facility] Administration Atorvastatin Calcium 10 mg 06/29/17 22:00 07/04/17 21:26 Lipitor - PO 10 mg HS [facility] Administration Budesonide/Formoterol Fumarate 2 puff 06/30/17 10:00 07/05/17 09:41 Symbicort 80/4.5mcg - IH Not Given BID [facility] Docusate Sodium 300 mg 06/30/17 22:00 07/04/17 21:26 Colace - PO 300 mg HS [facility] Administration Enoxaparin Sodium 40 mg 06/29/17 20:45 07/05/17 09:41 Lovenox - SQ Not Given DAILY [facility] Finasteride 5 mg 06/30/17 10:00 07/05/17 09:59 Proscar - PO 5 mg DAILY [facility] Administration Folic Acid 1 mg 06/30/17 10:00 07/05/17 09:35 Folic Acid - PO 1 mg DAILY [facility] Administration Insulin Aspart 0 vial 06/29/17 22:00 07/05/17 16:55 Novolog Vial Sliding Scale - SQ 2 units ACHS [facility] Administration Protocol Pantoprazole Sodium 20 mg 06/30/17 10:00 07/05/17 09:35 Protonix - PO 20 mg DAILY [facility] Administration Prednisone 60 mg 07/06/17 10:00 Deltasone - PO DAILY [facility] Thiamine HCl 100 mg 06/30/17 10:00 07/05/17 09:35 Vitamin B1 - PO 100 mg DAILY [facility] Administration Microbiology 07/01/17 17:05 Blood - Peripheral Venous Blood Culture - Preliminary NO GROWTH OBTAINED AFTER 96 HOURS, INCUBATION TO CONTINUE FOR 1 DAYS. 07/01/17 16:55 Blood - Peripheral Venous Blood Culture - Preliminary NO GROWTH OBTAINED AFTER 96 HOURS, INCUBATION TO CONTINUE FOR 1 DAYS. 06/29/17 14:10 Blood - Peripheral Venous Blood Culture - Final NO GROWTH AFTER 5 DAYS INCUBATION 06/29/17 13:36 Blood - Peripheral Venous Blood Culture - Final NO GROWTH AFTER 5 DAYS INCUBATION 07/01/17 17:20 Urine - Urine Clean Catch Urine Culture - Final NO GROWTH OBTAINED 06/30/17 06:00 Blood - Peripheral Venous Blood Parasites Smear (KEL) - Final No growth. 06/29/17 14:10 Urine - Urine Clean Catch Urine Culture - Final 06/29/17 14:30 Nasopharyngeal Swab Influenza Types A,B Antigen (KEL) - Final 06/29/17 14:30 Nasopharyngeal Swab - Final CBC, BMP 07/05/17 06:00 07/05/17 06:00 ASSESSMENT/PLAN: 66 yo M, h/o HTN,HLD,DM2 COPD, asthma,PBH , recent hospitalization, who presented to the ED with 2 weeks history of generalized weakness, body ache, diaphoresis was sent by his PCP due to abnormal lab, he was found to have Leckocytosis of 23.3 and lactic acidosis of 4.3 with hypotension and was admitted for further evaluation. #Leckocytosis with neutrophilic, unspecified with thrombocytosis, likely 2/2 unknown infection vs malignancy (B symptoms ) vs connective tissue disease * WBC 23.3 on admission, trending down to 16.3 * LA 4.3 trend to 1.8 with fluids * does not meet Sepsis criteria ,per SIRS , neither Qsofa criteria * IV fluids NS 2L boluses, vanco/zosyn given in the ED, * repeat CBC, CMP in AM * UA negative * Blood culture, urine culture negative * CXR, negative for acute pathology, CT abdomen negative for acute path * Lyme titers positive IgG, serology for anaplasomis, babesiosis negative * ID consulted and decide to hold abx , unlikely lyme disease,check quant gold * Will start prednisone 60 mg daily per ID , possible connective tissue disease * Hemonc consult , bone marrow today, blood flow shows some small B cell lymphocytosis * Rheumatology consulted: no active connective tissue disease * PPD to R/o TB * HIV negative , * ESR,CRP * Doppler negative for DVT * Chest CT negative for acute pathology * Total and direct bilirubin WNL # Lactic acidosis, corrected, likely 2/2 infection vs metformin vs dehydration * LA 4.3 on admission improved to 1.8 after 2L NS boluses * most likely secondary to dehydration # hypercalcemia with hypoalbuminemia, likley 2/2 malignancy vs PTH vs hyperthyroidism vs dehydration * corrected Ca 11.4 on admission * TSH, Parathyroid hormone, WNL * malignancy work up , bone marrow done today * consult hematology * repeat CA in AM , Phosphorus # Normocytic anemia likely 2/2 chronic disease vs low oral intake vs alcoholic * H/H 11.3/34.2 , today 08/06.5 * IRON studies, B12, Folate * Thiamin ,folic acid * repeat CBC in AM * peripheral smear in am to exclude chronic myeloproliferative disorders #Alcohol dependence * Banana bag x 1 * PO folate and thiamine tomorrow # COPD, * duoneb * Albuterol inhaler * 2L O2 NC * # constipation , improved * fecal impaction on CT , asymptomatic * start stool softeners # DM2, * on Metformin 500 mg PO at home * Hold metformin * ISS, BGM * monitor * patient education * Diabetic low sodium diet * #HTN, * Normotensive * On no medication #HLD , * continue home med Lipitor 10 mg PO SH daily * # BPH * continue Fenastrid 5 mg po daily * had TURP in the past #FEN * F: 2L NS bolus recieved in ED, Hold on fluids now * E:Hypercalcemia, improved with hydration * N: low sodium, diabetic diet # Proph: * DVT : Moderate risk, Lovenox 40 SQ daily * GI: Protonix 20 mg PO daily # Dispo : * [facility] to med surg for further eval * Patient might sign AMA Visit type - Emergency Visit Emergency Visit: Yes ED Registration Date: 06/29/17 Care time: The patient presented to the Emergency Department on the above date and was hospitalized for further evaluation of their emergent condition. - New Patient This patient is new to me today: No - Critical Care Critical Care patient: No - Discharge Referral Referred to [facility] Med P.C.: No
--- NOTE | 2017-07-05 18:11 | PN ---
Teaching Attending Note Name of Resident: Jonathan Nobles ATTENDING PHYSICIAN STATEMENT I saw and evaluated the patient. I reviewed the resident's note and discussed the case with the resident. I agree with the resident's findings and plan as documented. SUBJECTIVE: OBJECTIVE: Vital Signs Period Temp Pulse Resp BP Sys/Guerrier Pulse Ox Last 24 Hr 98.2 F-99.1 F 71-82 20-20 115-139/61-78 97-98 Current Medications Generic Name Dose Route Start Last Admin Trade Name Freq PRN Reason Stop Dose Admin Acetaminophen 650 mg 06/30/17 00:31 07/05/17 09:29 Tylenol - PO 650 mg Q6H PRN Administration FEVER OR PAIN Albuterol Sulfate 1 - 2 puff 06/29/17 22:00 Ventolin Hfa Inhaler - IH Q4H PRN Aspirin 81 mg 06/30/17 10:00 07/05/17 09:35 Ecotrin - PO 81 mg DAILY [facility] Administration Atorvastatin Calcium 10 mg 06/29/17 22:00 07/04/17 21:26 Lipitor - PO 10 mg HS [facility] Administration Budesonide/Formoterol Fumarate 2 puff 06/30/17 10:00 07/05/17 09:41 Symbicort 80/4.5mcg - IH Not Given BID [facility] Docusate Sodium 300 mg 06/30/17 22:00 07/04/17 21:26 Colace - PO 300 mg HS [facility] Administration Enoxaparin Sodium 40 mg 06/29/17 20:45 07/05/17 09:41 Lovenox - SQ Not Given DAILY [facility] Finasteride 5 mg 06/30/17 10:00 07/05/17 09:59 Proscar - PO 5 mg DAILY [facility] Administration Folic Acid 1 mg 06/30/17 10:00 07/05/17 09:35 Folic Acid - PO 1 mg DAILY [facility] Administration Insulin Aspart 0 vial 06/29/17 22:00 07/05/17 16:55 Novolog Vial Sliding Scale - SQ 2 units ACHS [facility] Administration Protocol Pantoprazole Sodium 20 mg 06/30/17 10:00 07/05/17 09:35 Protonix - PO 20 mg DAILY [facility] Administration Prednisone 60 mg 07/06/17 10:00 Deltasone - PO DAILY [facility] Thiamine HCl 100 mg 06/30/17 10:00 07/05/17 09:35 Vitamin B1 - PO 100 mg DAILY [facility] Administration ASSESSMENT AND PLAN:
[2017-07-05] MEDS: DOCUSATE SODIUM 100 MG CAPSULE (FP) PO SCH (22:13)
[2017-07-05] MEDS: ATORVASTATIN CA 10 MG TABLET (FP) PO SCH (22:13)
--- NOTE | 2017-07-05 22:32 | PN ---
Progress Note (short form) - Note Progress Note: Patient seen and examined. low grade febrile episodes O/E: Constitutional: Yes: No Distress, Calm Eyes: Yes: Conjunctiva Clear, EOM Intact HENT: Yes: Atraumatic, Normocephalic Neck: Yes: Supple Cardiovascular: Yes: Regular Rate and Rhythm Respiratory: Yes: Regular, CTA Bilaterally. No: Accessory Muscle Use Gastrointestinal: Yes: Normal Bowel Sounds, Soft. No: Hepatomegaly, Splenomegaly Musculoskeletal: No: Joint Stiffness, Joint Swelling, Muscle Pain, Muscle Weakness Edema: No Integumentary: No: Jaundice, Petechiae, Venous Stasis Changes Neurological: Yes: Alert, Oriented Psychiatric: Yes: Alert, Oriented Last Vital Signs Temp Pulse Resp BP Pulse Ox 97.2 F L 72 20 129/66 98 07/05/17 19:41 07/05/17 19:41 07/05/17 19:41 07/05/17 19:41 07/05/17 09:00 CBC, BMP 07/05/17 06:00 07/05/17 06:00 Current Medications Generic Name Dose Route Start Last Admin Trade Name Freq PRN Reason Stop Dose Admin Acetaminophen 650 mg 06/30/17 00:31 07/05/17 09:29 Tylenol - PO 650 mg Q6H PRN Administration FEVER OR PAIN Albuterol Sulfate 1 - 2 puff 06/29/17 22:00 Ventolin Hfa Inhaler - IH Q4H PRN Aspirin 81 mg 06/30/17 10:00 07/05/17 09:35 Ecotrin - PO 81 mg DAILY [facility] Administration Atorvastatin Calcium 10 mg 06/29/17 22:00 07/05/17 22:13 Lipitor - PO 10 mg HS [facility] Administration Budesonide/Formoterol Fumarate 2 puff 06/30/17 10:00 07/05/17 22:13 Symbicort 80/4.5mcg - IH Not Given BID [facility] Docusate Sodium 300 mg 06/30/17 22:00 07/05/17 22:13 Colace - PO 300 mg HS [facility] Administration Enoxaparin Sodium 40 mg 06/29/17 20:45 07/05/17 09:41 Lovenox - SQ Not Given DAILY [facility] Finasteride 5 mg 06/30/17 10:00 07/05/17 09:59 Proscar - PO 5 mg DAILY [facility] Administration Folic Acid 1 mg 06/30/17 10:00 07/05/17 09:35 Folic Acid - PO 1 mg DAILY [facility] Administration Insulin Aspart 0 vial 06/29/17 22:00 07/05/17 22:16 Novolog Vial Sliding Scale - SQ 6 units ACHS [facility] Administration Protocol Pantoprazole Sodium 20 mg 06/30/17 10:00 07/05/17 09:35 Protonix - PO 20 mg DAILY [facility] Administration Prednisone 60 mg 07/06/17 10:00 Deltasone - PO DAILY [facility] Thiamine HCl 100 mg 06/30/17 10:00 07/05/17 09:35 Vitamin B1 - PO 100 mg DAILY [facility] Administration Assessment/Plan flow noted Bed side Bone marrow, pt was unable to tolerate, less likely MPD, to complete w/ u will request IR guided. ID f/u noted Trial of steroids hopefully will make him feel better. will follow Problem List - Problems (1) Leukocytosis Code(s): D72.829 - ELEVATED WHITE BLOOD CELL COUNT, UNSPECIFIED (2) Thrombocytosis Code(s): D47.3 - ESSENTIAL (HEMORRHAGIC) THROMBOCYTHEMIA (3) Hypercalcemia Code(s): E83.52 - HYPERCALCEMIA (4) Anemia Code(s): D64.9 - ANEMIA, UNSPECIFIED Qualifiers: Anemia type: unspecified type Qualified Code(s): D64.9 - Anemia, unspecified
[2017-07-06] MEDS: INSULIN SLIDING SCALE (NOVOLOG) 1 VIAL SQ SCH ×2 (06:26→11:14)
[2017-07-06 08:36] LABS: MCH 31.8 pg (25.7-33.7); MCHC 33.8 g/dl (32.0-35.9); MEAN CELL VOLUME 94.3 fl (80-96); MEAN PLT VOLUME 6.9 fl (7.5-11.1); PLATELET COUNT 733 K/MM3 (134-434); RDW 13.7 % (11.9-15.9)
[2017-07-06 09:13] LABS: ANION GAP 9 (8-16); CALCIUM 8.9 mg/dL (8.5-10.1); CO2 29 mmol/L (21-32); CREATININE 0.5 mg/dL (0.7-1.3); GLUCOSE,RANDOM 150 mg/dL (74-106)
[2017-07-06] MEDS: BUDESONIDE/FORMETEROL FUMARATE 80/4.5 mcg INHALER IH SCH (09:14)
[2017-07-06] MEDS: FOLIC ACID 1 MG TABLET (FP) PO SCH (09:14)
[2017-07-06] MEDS: ASPIRIN COATED 81 MG TABLET.EC PO SCH (09:14)
[2017-07-06] MEDS: THIAMINE HCL 100 MG TABLET (FP) PO SCH (09:14)
[2017-07-06] MEDS: FINASTERIDE 5 MG TABLET (FP) PO SCH (09:14)
[2017-07-06] MEDS: PANTOPRAZOLE 20 MG TABLET (FP) PO SCH (09:14)
[2017-07-06] MEDS: ENOXAPARIN NA (PORCINE) 40 MG/0.4 ML DISP.SYRIN SQ SCH (09:17)
[2017-07-06] MEDS ORDERED: predniSONE 20 MG TABLET (UD) PO SCH (10:00)
--- NOTE | 2017-07-06 10:24 | PN ---
Progress Note (short form) - Note Progress Note: Patient seen and examined. feels much better. slept through the night without pain O/E: Constitutional: Yes: No Distress, Calm Eyes: Yes: Conjunctiva Clear, EOM Intact HENT: Yes: Atraumatic, Normocephalic Neck: Yes: Supple Cardiovascular: Yes: Regular Rate and Rhythm Respiratory: Yes: Regular, CTA Bilaterally. No: Accessory Muscle Use Gastrointestinal: Yes: Normal Bowel Sounds, Soft. No: Hepatomegaly, Splenomegaly Musculoskeletal: No: Joint Stiffness, Joint Swelling, Muscle Pain, Muscle Weakness Edema: No Integumentary: No: Jaundice, Petechiae, Venous Stasis Changes Neurological: Yes: Alert, Oriented Psychiatric: Yes: Alert, Oriented CBC, BMP 07/06/17 07:35 07/06/17 07:35 Current Medications Generic Name Dose Route Start Last Admin Trade Name Freq PRN Reason Stop Dose Admin Acetaminophen 650 mg 06/30/17 00:31 07/05/17 09:29 Tylenol - PO 650 mg Q6H PRN Administration FEVER OR PAIN Albuterol Sulfate 1 - 2 puff 06/29/17 22:00 Ventolin Hfa Inhaler - IH Q4H PRN Aspirin 81 mg 06/30/17 10:00 07/06/17 09:14 Ecotrin - PO 81 mg DAILY [facility] Administration Atorvastatin Calcium 10 mg 06/29/17 22:00 07/05/17 22:13 Lipitor - PO 10 mg HS [facility] Administration Budesonide/Formoterol Fumarate 2 puff 06/30/17 10:00 07/06/17 09:14 Symbicort 80/4.5mcg - IH Not Given BID [facility] Docusate Sodium 300 mg 06/30/17 22:00 07/05/17 22:13 Colace - PO 300 mg HS [facility] Administration Enoxaparin Sodium 40 mg 06/29/17 20:45 07/06/17 09:17 Lovenox - SQ Not Given DAILY [facility] Finasteride 5 mg 06/30/17 10:00 07/06/17 09:14 Proscar - PO 5 mg DAILY [facility] Administration Folic Acid 1 mg 06/30/17 10:00 07/06/17 09:14 Folic Acid - PO 1 mg DAILY [facility] Administration Insulin Aspart 0 vial 06/29/17 22:00 07/06/17 06:26 Novolog Vial Sliding Scale - SQ 2 units ACHS [facility] Administration Protocol Pantoprazole Sodium 20 mg 06/30/17 10:00 07/06/17 09:14 Protonix - PO 20 mg DAILY [facility] Administration Prednisone 60 mg 07/06/17 10:00 07/06/17 09:13 Deltasone - PO 60 mg DAILY [facility] Administration Thiamine HCl 100 mg 06/30/17 10:00 07/06/17 09:14 Vitamin B1 - PO 100 mg DAILY [facility] Administration Last Vital Signs Temp Pulse Resp BP Pulse Ox 98.3 F 86 20 123/59 98 07/06/17 06:00 07/06/17 06:00 07/06/17 06:00 07/06/17 06:00 07/05/17 21:00 Assessment/Plan flow noted yesterday I discussed about the IR guided, he agreed. But today am, I went to discuss with him about the procedure to be done downstairs in the IR, he absolutely refused, saying that he feels a lot "better" with the pills , steroids and he does not want any procedures done, have explained about the possibility of malignancy , still he continued to refuse. ID f/u noted Prednsione 60mg , did help him , if reactive, counts likely to come down await molecular studies. Counts stable, Platelets going up primary vs secondary. Explained to the pt if discharged can follow-up in our office or office. Problem List - Problems (1) Leukocytosis Code(s): D72.829 - ELEVATED WHITE BLOOD CELL COUNT, UNSPECIFIED (2) Thrombocytosis Code(s): D47.3 - ESSENTIAL (HEMORRHAGIC) THROMBOCYTHEMIA (3) Hypercalcemia Code(s): E83.52 - HYPERCALCEMIA (4) Anemia Code(s): D64.9 - ANEMIA, UNSPECIFIED Qualifiers: Anemia type: unspecified type Qualified Code(s): D64.9 - Anemia, unspecified
[2017-07-06 10:34] VITALS: TEMP 98.1
[2017-07-06] MEDS ORDERED: INSULIN (NOVOLOG) ASPART 100 UNITS/ML 10ML VIAL ONE (11:13)
--- NOTE | 2017-07-06 14:01 | PN ---
Progress Note, Physician Chief Complaint: ID Dramatic improvement today Afebrile Pains better - Current Medication List Current Medications: Active Medications Acetaminophen (Tylenol -) 650 mg PO Q6H PRN PRN Reason: FEVER OR PAIN Last Admin: 07/05/17 09:29 Dose: 650 mg Albuterol Sulfate (Ventolin Hfa Inhaler -) 1 - 2 puff IH Q4H PRN Aspirin (Ecotrin -) 81 mg PO DAILY [facility] Last Admin: 07/06/17 09:14 Dose: 81 mg Atorvastatin Calcium (Lipitor -) 10 mg PO HS [facility] Last Admin: 07/05/17 22:13 Dose: 10 mg Budesonide/Formoterol Fumarate (Symbicort 80/4.5mcg -) 2 puff IH BID [facility] Last Admin: 07/06/17 09:14 Dose: Not Given Docusate Sodium (Colace -) 300 mg PO HS [facility] Last Admin: 07/05/17 22:13 Dose: 300 mg Enoxaparin Sodium (Lovenox -) 40 mg SQ DAILY [facility] Last Admin: 07/06/17 09:17 Dose: Not Given Finasteride (Proscar -) 5 mg PO DAILY [facility] Last Admin: 07/06/17 09:14 Dose: 5 mg Folic Acid (Folic Acid -) 1 mg PO DAILY [facility] Last Admin: 07/06/17 09:14 Dose: 1 mg Insulin Aspart (Novolog Vial Sliding Scale -) 0 vial SQ ACHS [facility] PRN Reason: Protocol Last Admin: 07/06/17 11:14 Dose: 4 units Pantoprazole Sodium (Protonix -) 20 mg PO DAILY [facility] Last Admin: 07/06/17 09:14 Dose: 20 mg Prednisone (Deltasone -) 60 mg PO DAILY [facility] Last Admin: 07/06/17 09:13 Dose: 60 mg Thiamine HCl (Vitamin B1 -) 100 mg PO DAILY [facility] Last Admin: 07/06/17 09:14 Dose: 100 mg - Objective Vital Signs: Vital Signs Temperature 98.1 F 07/06/17 09:00 Pulse Rate 71 07/06/17 11:05 Respiratory Rate 20 07/06/17 09:00 Blood Pressure 117/56 07/06/17 09:00 O2 Sat by Pulse Oximetry (%) 95 07/06/17 11:05 Constitutional: Yes: Well Nourished, No Distress Eyes: Yes: WNL, Conjunctiva Clear HENT: Yes: WNL, Atraumatic Neck: Yes: WNL, Supple Cardiovascular: Yes: Regular Rate and Rhythm, S1, S2. No: Murmur Respiratory: Yes: WNL, Regular, CTA Bilaterally Gastrointestinal: Yes: WNL, Normal Bowel Sounds, Soft. No: Tenderness, Tenderness, Epigastrium Edema: No Labs: CBC, BMP 07/06/17 07:35 07/06/17 07:35 INR, PTT INR 1.40 (0.82-1.09) H D 07/05/17 13:40 Problem List - Problems (1) Leukocytosis Code(s): D72.829 - ELEVATED WHITE BLOOD CELL COUNT, UNSPECIFIED Assessment/Plan Laboratory Tests 07/01/17 07/05/17 07/06/17 06:20 06:00 07:35 WBC 16.0 H Hgb 9.6 L Hct 28.5 L Plt Count 733 H ESR 122 H BUN Creatinine WILLIAM Screen Positive H 07/06/17 07:35 WBC Hgb Hct Plt Count ESR BUN 20 H D Creatinine 0.5 L WILLIAM Screen Assessment Suspect vasculitis WILLIAM positive Dramatic improvement on steroids Plan Discharge Prednisone 60mg daily with taper in office in a weeks Discussed with Dr Chisholm who will see him as well outpt ORder antiDS RONDA Arita MD
[2017-07-06 14:32] VITALS: BP 114/73; PULSE 68
--- NOTE | 2017-07-06 17:15 | PN ---
Teaching Attending Note Name of Resident: Jonathan Nobles ATTENDING PHYSICIAN STATEMENT I saw and evaluated the patient. I reviewed the resident's note and discussed the case with the resident. I agree with the resident's findings and plan as documented. SUBJECTIVE: OBJECTIVE: Vital Signs Period Temp Pulse Resp BP Sys/Guerrier Pulse Ox Last 24 Hr 97.2 F-98.3 F 68-86 18-20 108-129/56-73 95-98 ASSESSMENT AND PLAN:
--- NOTE | 2017-07-07 09:28 | DS ---
Physical Exam: SUBJECTIVE: Patient seen and examined at bedside. No acute events over night. denies fever, chills, diaphoresis, N/V/D/C. He is started on Prednisone 60 mg PO and he is feeling much better, plan to discharge home with another 5 days steroids and follow up with his PCP within 5 days. OBJECTIVE: Vital Signs Period Temp Pulse Resp BP Sys/Guerrier Pulse Ox Last 24 Hr 98.1 F 68-71 18 114/73 95 PHYSICAL EXAM GENERAL: The patient is awake, alert, and fully oriented, in no acute distress. HEAD: Normal with no signs of trauma. EYES: sclera anicteric, conjunctiva clear. ENT: moist mucous membranes. NECK: Trachea midline, full range of motion, supple. LUNGS: Breath sounds equal, clear to auscultation bilaterally, no wheezes, no crackles, no accessory muscle use. HEART: Regular rate and rhythm, S1, S2 without murmur, rub or gallop. ABDOMEN: Soft, nontender, nondistended, normoactive bowel sounds, no guarding. EXTREMITIES: warm, well-perfused, no edema. NEUROLOGICAL: Normal speech, gait not observed. PSYCH: Normal mood, normal affect. SKIN: Warm, dry,, no rashes or lesions noted. LABS Laboratory Results - last 24 hr 07/05/17 07/06/17 06:00 11:09 POC Glucometer 215 Aldolase 6.0 CBC, BMP 07/06/17 07:35 07/06/17 07:35 HOSPITAL COURSE: Date of Admission:06/29/17 Date of Discharge: 07/07/17 Mr Padilla is a 66 yo M, h/o HTN, HLD, DM2, COPD/asthma, BPH s/p TURP, alcohol dependence (given empiric folate/thiamine on admission), who presented with 2 weeks of generalized weakness, night sweats and body aches (normal CK) and fever , recent hospitalization with similar complaints and negative work-up after 10 days hospitalization, presents to our ED 4 days after discharge with identical complaints after lab work from PCP's office showed a WBC of 33k and lactate of 4.3. He was admitted for further evaluation with both WBC count (33k outpt--> 23k on admission-->16k at discharge) and lactate (4.3-->1.8) improving with hydration therapy alone (though he did receive one time dose vanc/zosyn in ED). Urine, sputum and blood cultures, HIV/RPR negative, Hep A/B immune, CXR and CT chest/abdomen unrevealing for cause of symptoms. ID was consulted and other than +IgG lyme titers and pending qunatiferon gold, infectious work up included anaplasmosis and babesiosis was negative. Given concern for autoimmune/ rheumatologic condition (+WILLIAM, ESR >100, CRP 17.8) rheumatology was consulted and did not feel the patient had active connective tissue disease but given continued symptoms with negative infectious work-up plan for empiric 7day prednisone trial, first 2 doses given in house with plan for outpatient follow up. LE Dopplers were negative for DVT as cause of fever. Hematology was also consulted and attempt at bone marrow biopsy unsuccessful given patient intolerance and reattempt under IR guidance refused by patient, but a blood flow was notable for some amount B cell lymphocytosis with low suspicious for myeloproliferative disorder but still a consideration for which outpt follow up is recommended. The patient was also noted to have hypercalcemia 11.4, corrected for hypoalbumenia with normal TSH and parathyroid hormone levels, with improvement in level to wnl after hydration. Patient had constipation and high stool burden on imaging with symptomatic improvement after initiation of bowel regimen. He was found to have normocytic anemia (MCV 94) with normal B12/folate. He was discharged to complete 7 day course of prednisone with plan to follow up with PCP, rheumatology and hematology. Pending labs at time of discharge- dsDNA , WILLIAM subtypes, TB quantiferon Minutes to complete discharge: 30 Discharge Summary Reason For Visit: SEPSIS Condition: Stable - Instructions Diet, Activity, Other Instructions: Please take prednisone 60 mg once daily for 5 days. Please follow up with your primary care physichian within 5 days. Please follow up with Dr Hart within a week. Please resume your home medicine as prescribed please increase your daily activity as tolerated please make sure you move your bowel daily Please take tylenol 650 mg for fever as needed. Please follow up with Dr. Chisholm, a gro[employer] superintendent, to continue to monitor you. if you develop fever, chills, or your symptoms worsen come back to emergency department Referrals: Morgan Chisholm MD [Staff Physician] - Georgia Haynes MD [Primary Care Provider] - 1 Week Greg Hart MD [Staff Physician] - 1 Week Disposition: HOME - Home Medications Comprehensive Discharge Medication List: Ambulatory Orders Albuterol Sulfate Inhaler - [Ventolin Hfa Inhaler -] 1 - 2 inh PO Q4H 08/11/15 Aspirin [Aspirin EC] 81 mg PO DAILY 08/11/15 Fluticasone/Salmeterol [Advair 250-50 Diskus] 1 each IH BID PRN 08/11/15 Lisinopril [Prinivil -] 20 mg PO DAILY 08/11/15 Omeprazole 20 mg PO DAILY 08/11/15 Simvastatin [Zocor -] 20 mg PO HS 08/11/15 Finasteride 5 mg PO DAILY 06/29/17 Lisinopril [Prinivil] 5 mg PO DAILY 06/29/17 Metformin HCl 500 mg PO DAILY 06/29/17 Acetaminophen [Tylenol .Regular Strength -] 650 mg PO Q6H PRN #30 tablet Folic Acid - 1 mg PO DAILY #30 tablet 07/06/17 Prednisone [Deltasone -] 60 mg PO DAILY #5 tablet 07/06/17 Thiamine HCl [Vitamin B1 -] 100 mg PO DAILY #30 tablet 07/06/17 This patient is new to me today: No Emergency Visit: Yes ED Registration Date: 06/29/17 Care time: The patient presented to the Emergency Department on the above date and was hospitalized for further evaluation of their emergent condition. Critical Care patient: No - Discharge Referral Referred to [facility] No
[2017-07-07 14:11] LABS: QFT TB AG - NIL VALUE 0.04 IU/mL (.); QUANT MITOGEN VALUE 3.77 IU/mL (.); QUANT NIL VALUE 0.04 IU/mL (.); QUANT TB AG VALUE 0.08 IU/mL (.); QUANTIFERON GOLD Negative (Negative)
== END 2017-07-06 15:44 | disposition home or self-care (01) | DRG 546 ==
LOC: JER 12:26 → JERBED 19:19 → J7W 21:57
PROVIDERS: ADMIT Internal Medicine; ATTEND Internal Medicine
DX: I77.6 Arteritis, unspecified (principal); E87.2 Acidosis; D72.829 Elevated white blood cell count, unspecified; E83.52 Hypercalcemia; E88.09 Other disorders of plasma-protein metabolism, not elsewhere classified; D64.9 Anemia, unspecified; F10.20 Alcohol dependence, uncomplicated; J44.9 Chronic obstructive pulmonary disease, unspecified; K59.00 Constipation, unspecified; E11.9 Type 2 diabetes mellitus without complications; I10 Essential (primary) hypertension; E78.5 Hyperlipidemia, unspecified; Z85.46 Personal history of malignant neoplasm of prostate; N40.0 Benign prostatic hyperplasia without lower urinary tract symptoms; D47.3 Essential (hemorrhagic) thrombocythemia; M79.1 Myalgia
CPT/HCPCS: 36415; 71010-TC; 71250-TC; 74177-TC; 80048; 80053; 81003; 82085; 82248; 82595; 82607; 82728; 82746; 82747; 82784; 83540; 83550; 83605; 83615; 83735; 83970; 84100; 84153; 84155; 84165; 84443; 84484; 85014; 85025; 85027; 85044; 85610; 85651; 85730; 86038; 86140; 86225; 86334; 86431; 86480; 86593; 86666; 86704; 86706; 86708; 86753; 86803; 86880; 87040; 87086; 87207; 87340; 87389; 87804; 88300-TC; 93005; 93010; 93306-TC; 93970-TC; 99285-25

== ENCOUNTER 2017-07-30 09:32 | Inpatient (IN) | payer MEDICARE, OTHER ==
[2017-07-30] MEDS ORDERED: SODIUM CHLORIDE 1,000 ML IV STA (11:01)
[2017-07-30] MEDS ORDERED: ACETAMINOPHEN 1000 MG/100 ML VIAL (NON FORMULARY) IVPB ONE (11:01)
[2017-07-30 11:02] LABS: MCHC 33.9 g/dl (32.0-35.9); MEAN CELL VOLUME 88.5 fl (80-96); MEAN PLT VOLUME 6.6 fl (7.5-11.1); PLATELET COUNT 462 K/MM3 (134-434); RDW 15.7 % (11.9-15.9); WHITE BLOOD COUNT 21.4 K/mm3 (4.0-10.0)
[2017-07-30] MEDS ORDERED: ACETAMINOPHEN INJECTION 100 ML IVPB ONE (11:02)
[2017-07-30 11:05] LABS: URINE APPEARANCE CLOUDY; URINE BILIRUBIN NEGATIVE (NEGATIVE); URINE BLOOD 2+ (NEGATIVE); URINE COLOR DKYELLOW; URINE GLUCOSE (UA) NEGATIVE (NEGATIVE); URINE KETONE NEGATIVE (NEGATIVE); URINE NITRITE NEGATIVE (NEGATIVE); URINE UROBILINOGEN NEGATIVE mg/dL (0.2-1.0)
[2017-07-30 11:07] LABS: URINE PROTEIN 2+ (NEGATIVE)
[2017-07-30 11:16] LABS: INR 1.24 (0.82-1.09)
[2017-07-30 11:23] LABS: URINE HYALINE CAST 20 /lpf; URINE MUCUS RARE; URINE RBC 43 /hpf (0-3); URINE WBC 1453 /hpf (3-5)
[2017-07-30 11:26] LABS: ALBUMIN 2.3 g/dl (3.4-5.0); ALK PHOS 110 U/L (45-117); ANION GAP 14 (8-16); BILIRUBIN,TOTAL 0.3 mg/dL (0.2-1.0); C-REACTIVE PROTEIN 15.2 MG/DL (0.00-0.3); CALCIUM 8.7 mg/dL (8.5-10.1); CO2 25 mmol/L (21-32); CREATININE 1.2 mg/dL (0.7-1.3); GLUCOSE,RANDOM 257 mg/dL (74-106); SGOT/AST 11 U/L (15-37); SGPT/ALT 23 U/L (12-78); TOT PROT 6.2 g/dl (6.4-8.2)
[2017-07-30 11:27] LABS: MYELOCYTE 1 % (0-2); PLATELET ESTIMATE ADEQUATE (NORMAL); REACTIVE LYMPHOCYTES 1 % (0-80); TOTAL CELLS COUNTED 100
[2017-07-30 11:29] LABS: CPK 13 IU/L (39-308); TROPONIN I < 0.02 ng/ml (0.00-0.05)
--- NOTE | 2017-07-30 11:39 | PDOC ---
History of Present Illness - History of Present Illness Initial Comments: 07/30/17 11:32 "67 y/o M with a PMHx of DM, COPD, HTN, HLD, BPH presents to the ED with low abdominal and testicular pain for 2 days. Patient reports the pain is constant and rates it a 10/10, radiating from his L testicle to his abdomen. Pt notes swelling in his scrotum as well as white discharge in his urine and increased urinary frequency. He also reports associated subjective fever, chills. He also reports that he has had generalized pain and weakness for the past 2 months, for which he was admitted a month ago, 06/29/17, and found to have elevated WBCs. Pt was diagnosed with vasculitis and discharged on prednisone taper, which he is currently taking. Pt also reports that 2 weeks ago, he had a "prostate procedure" done by his urologist. He denies dysuria, hematuria. He denies nausea, vomiting, diarrhea, constipation. He denies dizziness, LOC. Denies SOB, cough. PCP: Dr. Georgia Giraldo Urologist: Dr. Elizabeth Lennon SHx: former smoker, former alcoholic (last drink was 2 months ago) " <Lorne De La Torre - Last Filed: 07/30/17 13:36> <Johnna Bose - Last Filed: 07/30/17 14:29> - General Chief Complaint: Chest Pain Stated Complaint: CHEST PAIN/Abd pain/leg pain Time Seen by Provider: 07/30/17 09:47 Past History - Past Medical History Anemia: No COPD: Yes Diabetes: Yes GI Disorders: Yes (GERD) Disorders: Yes (HYDROCELE;TESTICULAR CYST) HTN: Yes Hypercholesterolemia: Yes - Surgical History Abdominal Surgery: Yes (HERNIA REPAIR X 2) Appendectomy: Yes - Suicide/Smoking/Psychosocial Hx Smoking History: Never smoked Have you smoked in the past 12 months: No Number of Cigarettes Smoked Daily: 5 If you are a former smoker, when did you quit?: 2014 Information on smoking cessation initiated: No 'Breaking Loose' booklet given: 08/11/15 Hx Alcohol Use: No Drug/Substance Use Hx: No Substance Use Type: None <Lorne De La Torre - Last Filed: 07/30/17 13:36> <Johnna Bose - Last Filed: 07/30/17 14:29> - Past Medical History Allergies/Adverse Reactions: Allergies Allergy/AdvReac Type Severity Reaction Status Date / Time No Known Drug Allergies Allergy Verified 07/30/17 09:39 Home Medications: Ambulatory Orders Albuterol Sulfate Inhaler - [Ventolin Hfa Inhaler -] 1 - 2 inh PO Q4H 08/11/15 Aspirin [Aspirin EC] 81 mg PO DAILY 08/11/15 Fluticasone/Salmeterol [Advair 250-50 Diskus] 1 each IH BID PRN 08/11/15 Omeprazole 20 mg PO DAILY 08/11/15 Simvastatin [Zocor -] 20 mg PO HS 08/11/15 Finasteride 5 mg PO DAILY 06/29/17 Lisinopril [Prinivil] 5 mg PO DAILY 06/29/17 Metformin HCl 500 mg PO DAILY 06/29/17 Acetaminophen [Tylenol .Regular Strength -] 650 mg PO Q6H PRN #30 tablet Folic Acid - 1 mg PO DAILY #30 tablet 07/06/17 Thiamine HCl [Vitamin B1 -] 100 mg PO DAILY #30 tablet 07/06/17 Prednisone [Deltasone -] 40 mg PO DAILY 07/30/17 Review of Systems - Review of Systems Comments:: 07/30/17 11:39 "GENERAL/CONSTITUTIONAL: (+) fever, chills, weakness, generalized pain HEAD, EYES, EARS, NOSE AND THROAT: No change in vision. No ear pain or discharge. No sore throat. CARDIOVASCULAR: (+) chest pain. No shortness of breath. RESPIRATORY: No cough, wheezing, or hemoptysis. GASTROINTESTINAL: (+) low abdominal pain. No nausea, vomiting, diarrhea or constipation. GENITOURINARY: (+) testicular pain, white discharge in urine. No dysuria, frequency. MUSCULOSKELETAL: No joint or muscle swelling or pain. No neck or back pain. SKIN: No rash NEUROLOGIC:No vertigo, loss of consciousness, or change in strength/sensation. ENDOCRINE: No increased thirst. No abnormal weight change. HEMATOLOGIC/LYMPHATIC: No anemia, easy bleeding, or history of blood clots. ALLERGIC/IMMUNOLOGIC: No hives or skin allergy." <Lorne De La Torre - Last Filed: 07/30/17 13:36> *Physical Exam - Vital Signs Last Vital Signs Temp Pulse Resp BP Pulse Ox 103.2 F H 96 H 20 106/74 95 07/30/17 11:00 07/30/17 11:00 07/30/17 11:00 07/30/17 11:00 07/30/17 11:00 - Physical Exam Comments: 07/30/17 11:40 "GENERAL: Awake, alert, and fully oriented, in no acute distress HEAD: No signs of trauma EYES: PERRLA, EOMI, sclera anicteric, conjunctiva clear ENT: Auricles normal inspection, hearing grossly normal, nares patent, oropharynx clear without exudates. Moist mucosa NECK: Nontender, no stepoffs, Normal ROM, supple, no lymphadenopathy, JVD, or masses LUNGS: Breath sounds equal, clear to auscultation bilaterally. No wheezes, and no crackles HEART: Regular rate and rhythm, normal S1 and S2, no murmurs, rubs or gallops ABDOMEN: Soft, nontender, normoactive bowel sounds. No guarding, no rebound. No masses : L scrotal swelling and tenderness, no erythema, no necrosis, no fluctuance EXTREMITIES: Normal range of motion, no edema. No clubbing or cyanosis. No cords, erythema, or tenderness NEUROLOGICAL: Cranial nerves II through XII intact. 5/5 strength and sensation in all extremities, Normal speech, normal gait SKIN: Warm, Dry, normal turgor, no rashes or lesions noted. " <Lorne De La Torre - Last Filed: 07/30/17 13:36> - Vital Signs Last Vital Signs Temp Pulse Resp BP Pulse Ox 103.2 F H 96 H 20 106/74 95 07/30/17 11:00 07/30/17 11:00 07/30/17 11:00 07/30/17 11:00 07/30/17 12:36 <Johnna Bose - Last Filed: 07/30/17 14:29> ED Treatment Course - LABORATORY CBC & Chemistry Diagram: 07/30/17 10:48 07/30/17 10:48 - ADDITIONAL ORDERS Additional order review: Laboratory Results 07/30/17 07/30/17 07/30/17 10:48 10:48 10:48 PT with INR 14.00 H INR 1.24 H PTT (Actin FS) 27.0 Sodium 131 L Potassium 4.5 Chloride 92 L Carbon Dioxide 25 Anion Gap 14 BUN 28 H D Creatinine 1.2 D Creat Clearance w eGFR > 60 Random Glucose 257 H D Calcium 8.7 Total Bilirubin 0.3 AST 11 L D ALT 23 D Alkaline Phosphatase 110 D Creatine Kinase 13 L Troponin I < 0.02 C-Reactive Protein 15.2 H D Total Protein 6.2 L Albumin 2.3 L D Urine Color Urine Appearance Urine pH Urine Protein Urine Glucose (UA) Urine Ketones Urine Blood Urine Nitrite Urine Bilirubin Urine Urobilinogen Urine RBC Urine WBC Ur Epithelial Cells Hyaline Casts Urine Mucus 07/30/17 10:48 PT with INR INR PTT (Actin FS) Sodium Potassium Chloride Carbon Dioxide Anion Gap BUN Creatinine Creat Clearance w eGFR Random Glucose Calcium Total Bilirubin AST ALT Alkaline Phosphatase Creatine Kinase Troponin I C-Reactive Protein Total Protein Albumin Urine Color Dkyellow Urine Appearance Cloudy Urine pH 5.0 Urine Protein 2+ H Urine Glucose (UA) Negative Urine Ketones Negative Urine Blood 2+ H Urine Nitrite Negative Urine Bilirubin Negative Urine Urobilinogen Negative Urine RBC 43 Urine WBC 1453 Ur Epithelial Cells Rare Hyaline Casts 20 Urine Mucus Rare 07/30/17 10:48 RBC 3.48 L MCV 88.5 MCHC 33.9 RDW 15.7 D MPV 6.6 L Neutrophils % No Result Required. Lymphocytes % No Result Required. - RADIOLOGY Radiology Studies Ordered: Category Date Time Status CHEST PA & LAT [RAD] Stat Radiology 07/30/17 10:35 Ordered ABDOMEN US [US] Stat Ultrasound 07/30/17 10:43 Ordered SCROTUM AND CONTENTS US [US] Stat Ultrasound 07/30/17 10:32 Ordered - Medications Given in the ED: ED Medications Discontinued Medications Generic Name Dose Route Start Last Admin Trade Name Josefina PRN Reason Stop Dose Admin Acetaminophen 1,000 mg 07/30/17 11:01 07/30/17 11:04 Ofirmev Injection - IVPB 07/30/17 11:02 1,000 mg ONCE ONE Administration <Ou,Lorne - Last Filed: 07/30/17 13:36> - LABORATORY CBC & Chemistry Diagram: 07/30/17 10:48 07/30/17 10:48 - ADDITIONAL ORDERS Additional order review: Laboratory Results 07/30/17 07/30/17 07/30/17 10:48 10:48 10:48 PT with INR 14.00 H INR 1.24 H PTT (Actin FS) 27.0 Sodium Potassium Chloride Carbon Dioxide Anion Gap BUN Creatinine Creat Clearance w eGFR Random Glucose Lactic Acid 2.8 H* Calcium Total Bilirubin AST ALT Alkaline Phosphatase Creatine Kinase Troponin I C-Reactive Protein Total Protein Albumin Urine Color Urine Appearance Urine pH Urine Protein Urine Glucose (UA) Urine Ketones Urine Blood Urine Nitrite Urine Bilirubin Urine Urobilinogen Urine RBC Urine WBC Ur Epithelial Cells Hyaline Casts Urine Mucus Blood Type O POSITIVE Antibody Screen Negative 07/30/17 07/30/17 07/30/17 10:48 10:48 10:48 PT with INR INR PTT (Actin FS) Sodium 131 L Potassium 4.5 Chloride 92 L Carbon Dioxide 25 Anion Gap 14 BUN 28 H D Creatinine 1.2 D Creat Clearance w eGFR > 60 Random Glucose 257 H D Lactic Acid Calcium 8.7 Total Bilirubin 0.3 AST 11 L D ALT 23 D Alkaline Phosphatase 110 D Creatine Kinase 13 L Troponin I < 0.02 C-Reactive Protein 15.2 H D Total Protein 6.2 L Albumin 2.3 L D Urine Color Dkyellow Urine Appearance Cloudy Urine pH 5.0 Urine Protein 2+ H Urine Glucose (UA) Negative Urine Ketones Negative Urine Blood 2+ H Urine Nitrite Negative Urine Bilirubin Negative Urine Urobilinogen Negative Urine RBC 43 Urine WBC 1453 Ur Epithelial Cells Rare Hyaline Casts 20 Urine Mucus Rare Blood Type Antibody Screen 07/30/17 10:48 RBC 3.48 L MCV 88.5 MCHC 33.9 RDW 15.7 D MPV 6.6 L Neutrophils % No Result Required. Lymphocytes % No Result Required. - RADIOLOGY Radiograph Interpretation: 07/30/17 13:23 Scrotal US reported by Dr. Taqueria Olson Impression: On the current exam a small to moderate left hydrocele is identified. A small left hydrocele was noted on a prior ultrasound study of 10/26. There has been interval resolution of a small right hydrocele. 0.7 cm right epididymal head cyst. This cyst appears diminished in size since the prior study. 07/30/17 13:28 Abdominal US reported by Dr. 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 The gallbladder is moderately contracted which may be physiologic in nature versus secondary to chronic cholecystitis. If clinically indicated correlate with two-week follow- up sonography. There is no obvious evidence of cholelithiasis allowing for limiting gallbladder contraction. No definite biliary tract dilatation is noted. Diffuse hepatic steatosis is seen. 07/30/17 14:28 Chest X-Ray reported by Dr. Doug Martell Impression: Unremarkable examination without evidence of acute lung disease. - Medications Given in the ED: ED Medications Discontinued Medications Generic Name Dose Route Start Last Admin Trade Name Sheldonq PRN Reason Stop Dose Admin Acetaminophen 1,000 mg 07/30/17 11:01 07/30/17 11:04 Ofirmev Injection - IVPB 07/30/17 11:02 1,000 mg ONCE ONE Administration Sodium Chloride 1,000 mls @ 1,000 mls/hr 07/30/17 11:01 07/30/17 11:04 Normal Saline - IV 07/30/17 12:00 1,000 mls/hr ASDIR STA Administration Ceftriaxone Sodium 1 gm/ 50 mls @ 100 mls/hr 07/30/17 11:46 07/30/17 12:01 Dextrose IVPB 07/30/17 12:15 100 mls/hr ONCE ONE Administration <Johnna Bose - Last Filed: 07/30/17 14:29> Medical Decision Making - Medical Decision Making 07/30/17 11:40 67 M with fevers, scrotal pain x 4 days. Pt with fever and tachycardia here. Concerning for sepsis. Possible urinary source given h/o BPH. Pt with no prostate tenderness to suggest prostatitis. Pt with benign abdominal exam. Pt's reported abdominal pain likely referred from scrotum. - Labs, cultures - CXR, UA - Scrotal US - IVF, tylenol - Abx 07/30/17 13:37 CBC,CMP WBC 21.4 K/mm3 (4.0-10.0) H D 07/30/17 10:48 RBC 3.48 M/mm3 (4.00-5.60) L 07/30/17 10:48 Hgb 10.4 GM/dL (11.7-16.9) L 07/30/17 10:48 Hct 30.8 % (35.4-49) L 07/30/17 10:48 MCV 88.5 fl (80-96) 07/30/17 10:48 MCH 30.0 pg (25.7-33.7) 07/30/17 10:48 MCHC 33.9 g/dl (32.0-35.9) 07/30/17 10:48 RDW 15.7 % (11.9-15.9) D 07/30/17 10:48 Plt Count 462 K/MM3 (134-434) H D 07/30/17 10:48 MPV 6.6 fl (7.5-11.1) L 07/30/17 10:48 Total Counted 100 07/30/17 10:48 Neutrophils % No Result Required. 07/30/17 10:48 Neutrophils % (Manual) 86 % (42.8-82.8) H 07/30/17 10:48 Lymphocytes % No Result Required. 07/30/17 10:48 Lymphocytes % (Manual) 9 % (8-40) 07/30/17 10:48 Monocytes % (Manual) 3 % (3.8-10.2) L 07/30/17 10:48 Myelocytes % (Man) 1 % (0-2) 07/30/17 10:48 Platelet Estimate Adequate (NORMAL) 07/30/17 10:48 ESR 122 mm/hr (0-20) H 07/30/17 10:48 Sodium 131 mmol/L (136-145) L 07/30/17 10:48 Potassium 4.5 mmol/L (3.5-5.1) 07/30/17 10:48 Chloride 92 mmol/L (98-107) L 07/30/17 10:48 Carbon Dioxide 25 mmol/L (21-32) 07/30/17 10:48 Anion Gap 14 (8-16) 07/30/17 10:48 BUN 28 mg/dL (7-18) H D 07/30/17 10:48 Creatinine 1.2 mg/dL (0.7-1.3) D 07/30/17 10:48 Creat Clearance w eGFR > 60 (>60) 07/30/17 10:48 Random Glucose 257 mg/dL (74-106) H D 07/30/17 10:48 Lactic Acid 2.8 mmol/L (0.4-2.0) H* 07/30/17 10:48 Calcium 8.7 mg/dL (8.5-10.1) 07/30/17 10:48 Total Bilirubin 0.3 mg/dL (0.2-1.0) 07/30/17 10:48 AST 11 U/L (15-37) L D 07/30/17 10:48 ALT 23 U/L (12-78) D 07/30/17 10:48 Alkaline Phosphatase 110 U/L (45-117) D 07/30/17 10:48 Creatine Kinase 13 IU/L (39-308) L 07/30/17 10:48 Troponin I < 0.02 ng/ml (0.00-0.05) 07/30/17 10:48 C-Reactive Protein 15.2 MG/DL (0.00-0.3) H D 07/30/17 10:48 Total Protein 6.2 g/dl (6.4-8.2) L 07/30/17 10:48 Albumin 2.3 g/dl (3.4-5.0) L D 07/30/17 10:48 Scrotal ultrasound shows hydrocele, seen on prior ultrasound Pt with UTI and slight lactic acidosis 2.8 Pt covered with ceftriaxone, cultures drawn and sent Will admit to hospital for sepsis 2/2 UTI. Case discussed in detail with admitting physician including history, physical exam and ancillary studies. Admitting physician has assumed care for the patient and will follow all pending diagnostics and complete the evaluation and treatment. <Lorne De La Torre - Last Filed: 07/30/17 13:36> - Medical Decision Making 07/30/17 13:[address] Elizabeth Lennon [phone]. 07/30/17 13:[address] Blanco [phone]. <Johnna Bose - Last Filed: 07/30/17 14:29> *DC/Admit/Observation/Transfer - Discharge Dispostion Admit: Yes - Attestations Physician Attestion: 07/30/17 13:39 I, Dr. Lorne De La Torre MD, attest that this document has been prepared under my direction and personally reviewed by me in its entirety. I further attest, that it accurately reflects all work, treatment, procedures and medical decision -making performed by me. <Lorne De La Torre - Last Filed: 07/30/17 13:36> <Johnna Bose - Last Filed: 07/30/17 14:29> Diagnosis at time of Disposition: Sepsis, UTI (urinary tract infection)
[2017-07-30] MEDS ORDERED: CEFTRIAXONE 1 GM in DEXTROSE 5%-WATER - 50 ML IVPB ONE (11:46)
[2017-07-30] MEDS ORDERED: CEFTRIAXONE 50 ML ONE (11:55)
[2017-07-30 15:13] VITALS: BMI 22.4
--- NOTE | 2017-07-30 17:48 | HP ---
Admitting History and Physical - Primary Care Physician PCP: Sofia Blanco - Admission History of Present Illness: "67 y/o M with a PMHx of DM, COPD, HTN, HLD, BPH presents to the ED with low abdominal and testicular pain for 2 days. Patient reports the pain is constant and rates it a 10/10, radiating from his L testicle to his abdomen. Pt notes swelling in his scrotum as well as white discharge in his urine and increased urinary frequency. He also reports associated subjective fever, chills. He also reports that he has had generalized pain and weakness for the past 2 months, for which he was admitted a month ago, 06/29/17, and found to have elevated WBCs. Pt was diagnosed with vasculitis and discharged on prednisone taper, which he is currently taking. Pt also reports that 2 weeks ago, he had a "prostate procedure" done by his urologist. PCP: Dr. Georgia [facility] Urologist: Dr. Elizabeth Lennon " - Past Medical History Cardiovascular: Yes: HTN, Hyperlipdemia Pulmonary: Yes: Asthma, COPD Endocrine: Yes: Diabetes Mellitus - Smoking History Smoking history: Never smoked Have you smoked in the past 12 months: No Aproximately how many cigarettes per day: 5 If you are a former smoker, when did you quit?: 2014 - Alcohol/Substance Use Hx Alcohol Use: No Home Medications - Allergies Allergies/Adverse Reactions: Allergies Allergy/AdvReac Type Severity Reaction Status Date / Time No Known Drug Allergies Allergy Verified 07/30/17 09:39 - Home Medications Home Medications: Ambulatory Orders Albuterol Sulfate Inhaler - [Ventolin Hfa Inhaler -] 1 - 2 inh PO Q4H 08/11/15 Aspirin [Aspirin EC] 81 mg PO DAILY 08/11/15 Fluticasone/Salmeterol [Advair 250-50 Diskus] 1 each IH BID PRN 08/11/15 Omeprazole 20 mg PO DAILY 08/11/15 Simvastatin [Zocor -] 20 mg PO HS 08/11/15 Finasteride 5 mg PO DAILY 06/29/17 Lisinopril [Prinivil] 5 mg PO DAILY 06/29/17 Metformin HCl 500 mg PO DAILY 06/29/17 Acetaminophen [Tylenol .Regular Strength -] 650 mg PO Q6H PRN #30 tablet Folic Acid - 1 mg PO DAILY #30 tablet 07/06/17 Thiamine HCl [Vitamin B1 -] 100 mg PO DAILY #30 tablet 07/06/17 Prednisone [Deltasone -] 40 mg PO DAILY 07/30/17 Physical Examination Vital Signs: Vital Signs Temperature 97.7 F 07/30/17 15:18 Pulse Rate 75 07/30/17 15:18 Respiratory Rate 18 07/30/17 15:18 Blood Pressure 113/63 07/30/17 15:18 O2 Sat by Pulse Oximetry (%) 97 07/30/17 15:27 Constitutional: Yes: No Distress HENT: Yes: Atraumatic Neck: Yes: Supple Cardiovascular: Yes: Regular Rate and Rhythm Respiratory: Yes: CTA Bilaterally Gastrointestinal: Yes: Normal Bowel Sounds Extremities: Yes: WNL Edema: No Neurological: Yes: Alert, Oriented Problem List - Problems (1) Sepsis Code(s): A41.9 - SEPSIS, UNSPECIFIED ORGANISM (2) UTI (urinary tract infection) Code(s): N39.0 - URINARY TRACT INFECTION, SITE NOT SPECIFIED Assessment/Plan Laboratory Tests 07/30/17 07/30/17 07/30/17 10:48 10:48 10:48 WBC 21.4 H D RBC 3.48 L Hgb 10.4 L Hct 30.8 L MCV 88.5 MCH 30.0 MCHC 33.9 RDW 15.7 D Plt Count 462 H D MPV 6.6 L Total Counted 100 Neutrophils % No Result Required. Neutrophils % (Manual) 86 H Lymphocytes % No Result Required. Lymphocytes % (Manual) 9 Monocytes % (Manual) 3 L Myelocytes % (Man) 1 Platelet Estimate Adequate ESR PT with INR INR PTT (Actin FS) Sodium 131 L Potassium 4.5 Chloride 92 L Carbon Dioxide 25 Anion Gap 14 BUN 28 H D Creatinine 1.2 D Creat Clearance w eGFR > 60 Random Glucose 257 H D Lactic Acid Calcium 8.7 Total Bilirubin 0.3 AST 11 L D ALT 23 D Alkaline Phosphatase 110 D Creatine Kinase Troponin I C-Reactive Protein 15.2 H D Total Protein 6.2 L Albumin 2.3 L D Urine Color Dkyellow Urine Appearance Cloudy Urine pH 5.0 Urine Protein 2+ H Urine Glucose (UA) Negative Urine Ketones Negative Urine Blood 2+ H Urine Nitrite Negative Urine Bilirubin Negative Urine Urobilinogen Negative Urine RBC 43 Urine WBC 1453 Ur Epithelial Cells Rare Hyaline Casts 20 Urine Mucus Rare Blood Type Antibody Screen 07/30/17 07/30/17 07/30/17 10:48 10:48 10:48 WBC RBC Hgb Hct MCV MCH MCHC RDW Plt Count MPV Total Counted Neutrophils % Neutrophils % (Manual) Lymphocytes % Lymphocytes % (Manual) Monocytes % (Manual) Myelocytes % (Man) Platelet Estimate ESR PT with INR 14.00 H INR 1.24 H PTT (Actin FS) 27.0 Sodium Potassium Chloride Carbon Dioxide Anion Gap BUN Creatinine Creat Clearance w eGFR Random Glucose Lactic Acid 2.8 H* Calcium Total Bilirubin AST ALT Alkaline Phosphatase Creatine Kinase 13 L Troponin I < 0.02 C-Reactive Protein Total Protein Albumin Urine Color Urine Appearance Urine pH Urine Protein Urine Glucose (UA) Urine Ketones Urine Blood Urine Nitrite Urine Bilirubin Urine Urobilinogen Urine RBC Urine WBC Ur Epithelial Cells Hyaline Casts Urine Mucus Blood Type Antibody Screen 07/30/17 07/30/17 07/30/17 10:48 10:48 13:29 WBC RBC Hgb Hct MCV MCH MCHC RDW Plt Count MPV Total Counted Neutrophils % Neutrophils % (Manual) Lymphocytes % Lymphocytes % (Manual) Monocytes % (Manual) Myelocytes % (Man) Platelet Estimate ESR 122 H PT with INR INR PTT (Actin FS) Sodium Potassium Chloride Carbon Dioxide Anion Gap BUN Creatinine Creat Clearance w eGFR Random Glucose Lactic Acid 1.5 Calcium Total Bilirubin AST ALT Alkaline Phosphatase Creatine Kinase Troponin I C-Reactive Protein Total Protein Albumin Urine Color Urine Appearance Urine pH Urine Protein Urine Glucose (UA) Urine Ketones Urine Blood Urine Nitrite Urine Bilirubin Urine Urobilinogen Urine RBC Urine WBC Ur Epithelial Cells Hyaline Casts Urine Mucus Blood Type O POSITIVE Antibody Screen Negative Active Medications Generic Name Dose Route Start Last Admin Trade Name Freq PRN Reason Stop Dose Admin Aspirin 81 mg 07/31/17 10:00 Ecotrin - PO DAILY [facility] Atorvastatin Calcium 10 mg 07/30/17 22:00 07/30/17 21:13 Lipitor - PO 10 mg HS [facility] Administration Budesonide/Formoterol Fumarate 2 puff 07/30/17 22:00 07/30/17 21:13 Symbicort 80/4.5mcg - IH Not Given BID [facility] Diphenhydramine HCl 25 mg 07/30/17 22:43 Benadryl - PO HS PRN Finasteride 5 mg 10/24/17 10:00 Proscar - PO DAILY [facility] Folic Acid 1 mg 07/31/17 10:00 Folic Acid - PO DAILY [facility] Lisinopril 5 mg 07/31/17 10:00 Prinivil PO DAILY [facility] Metformin HCl 500 mg 07/31/17 07:00 Glucophage - PO DAILY@0700 [facility] Pantoprazole Sodium 20 mg 07/31/17 10:00 Protonix - PO DAILY [facility] Prednisone 40 mg 07/31/17 10:00 Deltasone - PO DAILY [facility] Thiamine HCl 100 mg 07/31/17 10:00 Vitamin B1 - PO DAILY [facility]
[2017-07-30 20:02] LABS: URINE LEUK ESTERASE 3+ (NEGATIVE)
[2017-07-30] MEDS: BUDESONIDE/FORMETEROL FUMARATE 80/4.5 mcg INHALER IH SCH (21:13)
[2017-07-30] MEDS: ATORVASTATIN CA 10 MG TABLET (FP) PO SCH (21:13)
[2017-07-30] MEDS ORDERED: diphenhydrAMINE HCL 25 MG CAPSULE (FP) PO PRN (22:43)
[2017-07-30] MEDS ORDERED: ACETAMINOPHEN 325 MG TABLET (FP) PO PRN (23:07)
[2017-07-31] MEDS ORDERED: metFORMIN HCL 500 MG TABLET (FP) PO SCH (07:00)
[2017-07-31 07:34] LABS: BASOPHIL 0.2 % (0-2.0); EOSINOPHIL 0.1 % (0-4.5); MCH 29.7 pg (25.7-33.7); MCHC 33.5 g/dl (32.0-35.9); MEAN CELL VOLUME 88.6 fl (80-96); MEAN PLT VOLUME 6.7 fl (7.5-11.1); NEUTROPHILS 79.1 % (42.8-82.8); PLATELET COUNT 406 K/MM3 (134-434); RDW 15.8 % (11.9-15.9); WHITE BLOOD COUNT 20.4 K/mm3 (4.0-10.0)
[2017-07-31 08:00] LABS: ALBUMIN 2.1 g/dl (3.4-5.0); ANION GAP 10 (8-16); CALCIUM 9.2 mg/dL (8.5-10.1); CO2 28 mmol/L (21-32); GLUCOSE,RANDOM 138 mg/dL (74-106); SGOT/AST 10 U/L (15-37); SGPT/ALT 22 U/L (12-78)
[2017-07-31 08:02] LABS: ALK PHOS 88 U/L (45-117); BILIRUBIN,TOTAL 0.5 mg/dL (0.2-1.0); CREATININE 0.8 mg/dL (0.7-1.3); TOT PROT 5.9 g/dl (6.4-8.2)
[2017-07-31] MEDS: ASPIRIN COATED 81 MG TABLET.EC PO SCH (09:28)
[2017-07-31] MEDS: FINASTERIDE 5 MG TABLET (FP) PO SCH (09:28)
[2017-07-31] MEDS: THIAMINE HCL 100 MG TABLET (FP) PO SCH (09:28)
[2017-07-31] MEDS: PANTOPRAZOLE 20 MG TABLET (FP) PO SCH (09:28)
[2017-07-31] MEDS: FOLIC ACID 1 MG TABLET (FP) PO SCH (09:28)
[2017-07-31] MEDS: LISINOPRIL 5 MG TABLET (FP) PO SCH (09:28)
[2017-07-31] MEDS: BUDESONIDE/FORMETEROL FUMARATE 80/4.5 mcg INHALER IH SCH ×2 (09:30→22:50)
[2017-07-31] MEDS ORDERED: predniSONE 20 MG TABLET (UD) PO SCH (10:00)
--- NOTE | 2017-07-31 15:19 | CON.ID ---
Consult Consult Specialty:: infectious diseases Referred by:: dr Blanco Reason for Consultation:: fever,pain left testes - History of Present Illness Chief Complaint: fever,left testicular pain History of Present Illness: 67 y/o M with a PMHx of DM, COPD, HTN, HLD, BPH presents admitted because of low abdominal and testicular pain for 2 days. Patient reports the pain is constant and rates it a 10/10, radiating from his L testicle to his abdomen. swelling in his scrotum as well as whitish discharge in his urine and increased urinary frequency. reports fever, chills.but does not the temp He also reports that he has had generalized pain and weakness for the past 2 months , for which he was admitted a month ago, 06/29/17, and found to have elevated WBCs. Pt was diagnosed with vasculitis and discharged on prednisone taper, which he is currently taking. recent prostatic procedure done - History Source History Provided By: Patient, Transfer Record Limitations to Obtaining History: Language Barrier - Past Medical History Cardio/Vascular: Yes: HTN, Hyperlipdemia Pulmonary: Yes: Asthma, COPD Endocrine: Yes: Diabetes Mellitus - Alcohol/Substance Use Hx Alcohol Use: No - Smoking History Smoking history: Never smoked Have you smoked in the past 12 months: No Aproximately how many cigarettes per day: 5 If you are a former smoker, when did you quit?: 2014 Home Medications - Allergies Allergies/Adverse Reactions: Allergies Allergy/AdvReac Type Severity Reaction Status Date / Time No Known Drug Allergies Allergy Verified 07/30/17 09:39 - Home Medications Home Medications: Ambulatory Orders Albuterol Sulfate Inhaler - [Ventolin Hfa Inhaler -] 1 - 2 inh PO Q4H 08/11/15 Aspirin [Aspirin EC] 81 mg PO DAILY 08/11/15 Fluticasone/Salmeterol [Advair 250-50 Diskus] 1 each IH BID PRN 08/11/15 Omeprazole 20 mg PO DAILY 08/11/15 Simvastatin [Zocor -] 20 mg PO HS 08/11/15 Finasteride 5 mg PO DAILY 06/29/17 Lisinopril [Prinivil] 5 mg PO DAILY 06/29/17 Metformin HCl 500 mg PO DAILY 06/29/17 Acetaminophen [Tylenol .Regular Strength -] 650 mg PO Q6H PRN #30 tablet Folic Acid - 1 mg PO DAILY #30 tablet 07/06/17 Thiamine HCl [Vitamin B1 -] 100 mg PO DAILY #30 tablet 07/06/17 Prednisone [Deltasone -] 40 mg PO DAILY 07/30/17 Review of Systems - Review of Systems Constitutional: reports: Chills, Fever Eyes: reports: No Symptoms HENT: reports: No Symptoms Neck: reports: No Symptoms Cardiovascular: reports: No Symptoms Respiratory: reports: No Symptoms Gastrointestinal: reports: No Symptoms Genitourinary: reports: Discharge, Dysuria, Frequency, Testicular Pain Musculoskeletal: reports: No Symptoms Integumentary: reports: No Symptoms Neurological: reports: No Symptoms Endocrine: reports: No Symptoms Hematology/Lymphatic: reports: No Symptoms Psychiatric: reports: No Symptoms Physical Exam Vital Signs: Vital Signs Temperature 98.6 F 07/31/17 14:08 Pulse Rate 77 07/31/17 14:08 Respiratory Rate 20 07/31/17 14:08 Blood Pressure 121/66 07/31/17 14:08 O2 Sat by Pulse Oximetry (%) 97 07/31/17 09:00 Constitutional: Yes: Well Nourished, Calm, Mild Distress Eyes: Yes: Conjunctiva Clear Neck: Yes: Supple, Trachea Midline Cardiovascular: Yes: Regular Rate and Rhythm Respiratory: Yes: Regular, CTA Bilaterally Gastrointestinal: Yes: Normal Bowel Sounds, Soft Renal/: Yes: Other (left testicular pain). No: CVA Tenderness - Left, CVA Tenderness - Right, Hematuria Musculoskeletal: Yes: WNL Extremities: Yes: WNL Neurological: Yes: Alert, Oriented Psychiatric: Yes: Alert, Oriented Labs: CBC, BMP 07/31/17 06:30 07/31/17 06:30 Imaging - Results Chest X-ray: Report Reviewed, Image Reviewed Ultrasound: Report Reviewed, Image Reviewed Assessment/Plan patient with uti and testicular pain wioth dysuria probably due to uti admitted with leukocytosis and sepsis now looking better i am also worried patient could have been having prostatitis Problem List - Problems (1) Sepsis Code(s): A41.9 - SEPSIS, UNSPECIFIED ORGANISM (2) UTI (urinary tract infection) Code(s): N39.0 - URINARY TRACT INFECTION, SITE NOT SPECIFIED 3 prostatitis 4 lactic acidosis plan await for identification of the bacteria will start patient on abx close watch rest as per primary if pain increases will repeat u/s
[2017-07-31] MEDS: PIPERACILLIN/TAZOB 3.375 GM 50 ML IVPB SCH (16:25)
--- NOTE | 2017-07-31 16:38 | PN ---
Progress Note, Physician History of Present Illness: STABLE - Current Medication List Current Medications: Active Medications Acetaminophen (Tylenol -) 650 mg PO Q6H PRN PRN Reason: FEVER OR PAIN Aspirin (Ecotrin -) 81 mg PO DAILY [facility] Last Admin: 07/31/17 09:28 Dose: 81 mg Atorvastatin Calcium (Lipitor -) 10 mg PO HS [facility] Last Admin: 07/30/17 21:13 Dose: 10 mg Budesonide/Formoterol Fumarate (Symbicort 80/4.5mcg -) 2 puff IH BID [facility] Last Admin: 07/31/17 09:30 Dose: 2 puff Diphenhydramine HCl (Benadryl -) 25 mg PO HS PRN Last Admin: 07/31/17 02:10 Dose: 25 mg Finasteride (Proscar -) 5 mg PO DAILY [facility] Last Admin: 07/31/17 09:28 Dose: 5 mg Folic Acid (Folic Acid -) 1 mg PO DAILY [facility] Last Admin: 07/31/17 09:28 Dose: 1 mg Piperacillin/Tazobactam/Dextrose (Zosyn 3.375gm Ivpb (Premix)) 50 mls @ 100 mls /hr IVPB Q8H-IV [facility] PRN Reason: Protocol Last Admin: 07/31/17 16:25 Dose: 100 mls/hr Lisinopril (Prinivil) 5 mg PO DAILY [facility] Last Admin: 07/31/17 09:28 Dose: 5 mg Metformin HCl (Glucophage -) 500 mg PO DAILY@0700 [facility] Last Admin: 07/31/17 06:13 Dose: 500 mg Pantoprazole Sodium (Protonix -) 20 mg PO DAILY [facility] Last Admin: 07/31/17 09:28 Dose: 20 mg Prednisone (Deltasone -) 40 mg PO DAILY [facility] Last Admin: 07/31/17 09:30 Dose: 40 mg Thiamine HCl (Vitamin B1 -) 100 mg PO DAILY [facility] Last Admin: 07/31/17 09:28 Dose: 100 mg - Objective Vital Signs: Vital Signs Temperature 98.6 F 07/31/17 14:08 Pulse Rate 77 07/31/17 14:08 Respiratory Rate 20 07/31/17 14:08 Blood Pressure 121/66 07/31/17 14:08 O2 Sat by Pulse Oximetry (%) 97 07/31/17 09:00 Constitutional: Yes: No Distress HENT: Yes: Atraumatic Neck: Yes: Supple Cardiovascular: Yes: Regular Rate and Rhythm Respiratory: Yes: CTA Bilaterally Gastrointestinal: Yes: Normal Bowel Sounds Extremities: Yes: WNL Neurological: Yes: Alert, Oriented Labs: CBC, BMP 07/31/17 06:30 07/31/17 06:30 INR, PTT INR 1.24 (0.82-1.09) H 07/30/17 10:48 Problem List - Problems (1) Sepsis Assessment/Plan: iv abx cx p Code(s): A41.9 - SEPSIS, UNSPECIFIED ORGANISM (2) UTI (urinary tract infection) Assessment/Plan: gram negative rods Code(s): N39.0 - URINARY TRACT INFECTION, SITE NOT SPECIFIED (3) Acute epididymitis Assessment/Plan: ON ABX Code(s): N45.1 - EPIDIDYMITIS (4) Prostatitis Assessment/Plan: ON ABX Code(s): N41.9 - INFLAMMATORY DISEASE OF PROSTATE, UNSPECIFIED
[2017-07-31] MEDS: metFORMIN HCL 500 MG TABLET (FP) PO SCH (17:39)
[2017-07-31] MEDS: ATORVASTATIN CA 10 MG TABLET (FP) PO SCH (21:14)
[2017-07-31] MEDS ORDERED: PT OWN MED DRAWER 7, Y5N ONE (23:18)
[2017-08-01] MEDS: PIPERACILLIN/TAZOB 3.375 GM 50 ML IVPB SCH ×3 (01:17→17:10)
[2017-08-01] MEDS: metFORMIN HCL 500 MG TABLET (FP) PO SCH ×2 (06:12→17:10)
[2017-08-01] MEDS ORDERED: PT OWN MED DRAWER 7, Y5N ONE (10:11)
[2017-08-01] MEDS: predniSONE 20 MG TABLET (UD) PO SCH (10:17)
[2017-08-01] MEDS: BUDESONIDE/FORMETEROL FUMARATE 80/4.5 mcg INHALER IH SCH ×3 (10:17→21:16)
[2017-08-01] MEDS: ASPIRIN COATED 81 MG TABLET.EC PO SCH (10:17)
[2017-08-01] MEDS: FINASTERIDE 5 MG TABLET (FP) PO SCH (10:17)
[2017-08-01] MEDS: FOLIC ACID 1 MG TABLET (FP) PO SCH (10:17)
[2017-08-01] MEDS: PANTOPRAZOLE 20 MG TABLET (FP) PO SCH (10:17)
[2017-08-01] MEDS: LISINOPRIL 5 MG TABLET (FP) PO SCH (10:17)
[2017-08-01] MEDS: THIAMINE HCL 100 MG TABLET (FP) PO SCH (10:17)
--- NOTE | 2017-08-01 17:25 | CON.GU ---
Consult Consult Specialty:: Urology Referred by:: Bella Reason for Consultation:: Urinart Tract Infection - History Source History Provided By: Patient Limitations to Obtaining History: No Limitations - Past Medical History Cardio/Vascular: Yes: HTN, Hyperlipdemia Pulmonary: Yes: Asthma, COPD Endocrine: Yes: Diabetes Mellitus - Alcohol/Substance Use Hx Alcohol Use: No - Smoking History Smoking history: Never smoked Have you smoked in the past 12 months: No Aproximately how many cigarettes per day: 5 If you are a former smoker, when did you quit?: 2014 Home Medications - Allergies Allergies/Adverse Reactions: Allergies Allergy/AdvReac Type Severity Reaction Status Date / Time No Known Drug Allergies Allergy Verified 07/30/17 09:39 - Home Medications Home Medications: Ambulatory Orders Albuterol Sulfate Inhaler - [Ventolin Hfa Inhaler -] 1 - 2 inh PO Q4H 08/11/15 Aspirin [Aspirin EC] 81 mg PO DAILY 08/11/15 Fluticasone/Salmeterol [Advair 250-50 Diskus] 1 each IH BID PRN 08/11/15 Omeprazole 20 mg PO DAILY 08/11/15 Simvastatin [Zocor -] 20 mg PO HS 08/11/15 Finasteride 5 mg PO DAILY 06/29/17 Lisinopril [Prinivil] 5 mg PO DAILY 06/29/17 Metformin HCl 500 mg PO DAILY 06/29/17 Acetaminophen [Tylenol .Regular Strength -] 650 mg PO Q6H PRN #30 tablet Folic Acid - 1 mg PO DAILY #30 tablet 07/06/17 Thiamine HCl [Vitamin B1 -] 100 mg PO DAILY #30 tablet 07/06/17 Prednisone [Deltasone -] 40 mg PO DAILY 07/30/17 Physical Exam- Vital Signs: Vital Signs Temperature 97.8 F 08/01/17 15:07 Pulse Rate 71 08/01/17 15:07 Respiratory Rate 20 08/01/17 15:07 Blood Pressure 88/58 08/01/17 15:07 O2 Sat by Pulse Oximetry (%) 97 08/01/17 09:00 Labs: CBC, BMP 07/31/17 06:30 07/31/17 06:30 Assessment/Plan 67 Year old recently had urodynamic procedure in the office, subsequently developed fever, chills, dysuria and frequency. Pt also developed left testicular pain rediating to LLQ. He is feeling somewhat better with iv fluids and antibiotics. O/E mild left epididymo orchitis. Awaiting cultures. Pt is able to urinate. Bladder is not distended. Dionisio. Close observation. I testicular pain persists, will do scrotal sono. Will follow with you Thank you Nancy Hameed for Elizabeth Lennon MD
--- NOTE | 2017-08-01 17:41 | PN ---
Progress Note, Physician - Current Medication List Current Medications: Active Medications Acetaminophen (Tylenol -) 650 mg PO Q6H PRN PRN Reason: FEVER OR PAIN Aspirin (Ecotrin -) 81 mg PO DAILY [facility] Last Admin: 08/01/17 10:17 Dose: 81 mg Atorvastatin Calcium (Lipitor -) 10 mg PO HS [facility] Last Admin: 07/31/17 21:14 Dose: 10 mg Budesonide/Formoterol Fumarate (Symbicort 80/4.5mcg -) 2 puff IH BID [facility] Last Admin: 08/01/17 10:23 Dose: Not Given Diphenhydramine HCl (Benadryl -) 25 mg PO HS PRN Last Admin: 07/31/17 02:10 Dose: 25 mg Finasteride (Proscar -) 5 mg PO DAILY [facility] Last Admin: 08/01/17 10:17 Dose: 5 mg Folic Acid (Folic Acid -) 1 mg PO DAILY [facility] Last Admin: 08/01/17 10:17 Dose: 1 mg Piperacillin/Tazobactam/Dextrose (Zosyn 3.375gm Ivpb (Premix)) 50 mls @ 100 mls /hr IVPB Q8H-IV [facility] PRN Reason: Protocol Last Admin: 08/01/17 17:10 Dose: 100 mls/hr Lisinopril (Prinivil) 5 mg PO DAILY [facility] Last Admin: 08/01/17 10:17 Dose: 5 mg Metformin HCl (Glucophage -) 500 mg PO BIDAC [facility] Last Admin: 08/01/17 17:10 Dose: 500 mg Pantoprazole Sodium (Protonix -) 20 mg PO DAILY [facility] Last Admin: 08/01/17 10:17 Dose: 20 mg Prednisone (Deltasone -) 30 mg PO DAILY [facility] Last Admin: 08/01/17 10:17 Dose: 30 mg Thiamine HCl (Vitamin B1 -) 100 mg PO DAILY [facility] Last Admin: 08/01/17 10:17 Dose: 100 mg - Objective Vital Signs: Vital Signs Temperature 97.8 F 08/01/17 15:07 Pulse Rate 71 08/01/17 15:07 Respiratory Rate 20 08/01/17 15:07 Blood Pressure 88/58 08/01/17 15:07 O2 Sat by Pulse Oximetry (%) 97 08/01/17 09:00 Constitutional: Yes: No Distress HENT: Yes: Atraumatic Neck: Yes: Supple Cardiovascular: Yes: Regular Rate and Rhythm Respiratory: Yes: CTA Bilaterally Gastrointestinal: Yes: Normal Bowel Sounds Extremities: Yes: WNL Neurological: Yes: Alert, Oriented Labs: CBC, BMP 07/31/17 06:30 07/31/17 06:30 INR, PTT INR 1.24 (0.82-1.09) H 07/30/17 10:48 Problem List - Problems (1) Sepsis Assessment/Plan: iv abx cx p Code(s): A41.9 - SEPSIS, UNSPECIFIED ORGANISM (2) UTI (urinary tract infection) Assessment/Plan: gram negative rods...ecoli Code(s): N39.0 - URINARY TRACT INFECTION, SITE NOT SPECIFIED (3) Acute epididymitis Assessment/Plan: ON ABX Code(s): N45.1 - EPIDIDYMITIS (4) Prostatitis Assessment/Plan: ON ABX Code(s): N41.9 - INFLAMMATORY DISEASE OF PROSTATE, UNSPECIFIED
[2017-08-01] MEDS: ATORVASTATIN CA 10 MG TABLET (FP) PO SCH (21:16)
[2017-08-02] MEDS: PIPERACILLIN/TAZOB 3.375 GM 50 ML IVPB SCH ×2 (02:04→09:54)
[2017-08-02] MEDS: metFORMIN HCL 500 MG TABLET (FP) PO SCH ×2 (06:09→17:11)
[2017-08-02] MEDS: ASPIRIN COATED 81 MG TABLET.EC PO SCH (09:54)
[2017-08-02] MEDS: predniSONE 20 MG TABLET (UD) PO SCH (09:54)
[2017-08-02] MEDS: THIAMINE HCL 100 MG TABLET (FP) PO SCH (09:54)
[2017-08-02] MEDS: PANTOPRAZOLE 20 MG TABLET (FP) PO SCH (09:55)
[2017-08-02] MEDS: BUDESONIDE/FORMETEROL FUMARATE 80/4.5 mcg INHALER IH SCH ×2 (09:55→21:33)
[2017-08-02] MEDS: FINASTERIDE 5 MG TABLET (FP) PO SCH (09:55)
[2017-08-02] MEDS: FOLIC ACID 1 MG TABLET (FP) PO SCH (09:55)
[2017-08-02] MEDS: LISINOPRIL 5 MG TABLET (FP) PO SCH (09:55)
--- NOTE | 2017-08-02 11:16 | PN ---
Progress Note (short form) - Note Progress Note: PT IMPROVING ON ABX AFEBRILE VSS COTINUE ABX WILL FOLLOW
--- NOTE | 2017-08-02 15:10 | PN ---
Progress Note, Physician History of Present Illness: stable no new issues improving pain better - Current Medication List Current Medications: Active Medications Acetaminophen (Tylenol -) 650 mg PO Q6H PRN PRN Reason: FEVER OR PAIN Aspirin (Ecotrin -) 81 mg PO DAILY [facility] Last Admin: 08/02/17 09:54 Dose: 81 mg Atorvastatin Calcium (Lipitor -) 10 mg PO HS [facility] Last Admin: 08/01/17 21:16 Dose: 10 mg Budesonide/Formoterol Fumarate (Symbicort 80/4.5mcg -) 2 puff IH BID [facility] Last Admin: 08/02/17 09:55 Dose: Not Given Diphenhydramine HCl (Benadryl -) 25 mg PO HS PRN Last Admin: 07/31/17 02:10 Dose: 25 mg Finasteride (Proscar -) 5 mg PO DAILY [facility] Last Admin: 08/02/17 09:55 Dose: 5 mg Folic Acid (Folic Acid -) 1 mg PO DAILY [facility] Last Admin: 08/02/17 09:55 Dose: 1 mg Piperacillin/Tazobactam/Dextrose (Zosyn 3.375gm Ivpb (Premix)) 50 mls @ 100 mls /hr IVPB Q8H-IV [facility] PRN Reason: Protocol Last Admin: 08/02/17 09:54 Dose: 100 mls/hr Lisinopril (Prinivil) 5 mg PO DAILY [facility] Last Admin: 08/02/17 09:55 Dose: 5 mg Metformin HCl (Glucophage -) 500 mg PO BIDAC [facility] Last Admin: 08/02/17 06:09 Dose: 500 mg Pantoprazole Sodium (Protonix -) 20 mg PO DAILY [facility] Last Admin: 08/02/17 09:55 Dose: 20 mg Prednisone (Deltasone -) 30 mg PO DAILY [facility] Last Admin: 08/02/17 09:54 Dose: 30 mg Thiamine HCl (Vitamin B1 -) 100 mg PO DAILY [facility] Last Admin: 08/02/17 09:54 Dose: 100 mg - Objective Vital Signs: Vital Signs Temperature 98.2 F 08/02/17 14:05 Pulse Rate 75 08/02/17 14:05 Respiratory Rate 20 08/02/17 14:05 Blood Pressure 106/61 08/02/17 14:05 O2 Sat by Pulse Oximetry (%) 98 08/02/17 09:00 Constitutional: Yes: No Distress, Calm Cardiovascular: Yes: Regular Rate and Rhythm Respiratory: Yes: Regular, CTA Bilaterally Gastrointestinal: Yes: Normal Bowel Sounds Genitourinary: Yes: Other (testicular swellig better) Musculoskeletal: Yes: WNL Extremities: Yes: WNL Labs: CBC, BMP 07/31/17 06:30 07/31/17 06:30 INR, PTT INR 1.24 (0.82-1.09) H 07/30/17 10:48 Assessment/Plan patient with uti and testicular pain wioth dysuria probably due to uti admitted with leukocytosis and sepsis now looking better i am also worried patient could have been having prostatitis Problem List - Problems (1) Sepsis Code(s): A41.9 - SEPSIS, UNSPECIFIED ORGANISM (2) UTI (urinary tract infection) Code(s): N39.0 - URINARY TRACT INFECTION, SITE NOT SPECIFIED 3 prostatitis 4 lactic acidosis plan bacteria and sensitivities noted will switch him to ceftriaxone urology note noted rest as per primary
[2017-08-02] MEDS: CEFTRIAXONE 1 G/50 ML PREMIX 50 ML IVPB SCH (17:11)
--- NOTE | 2017-08-02 19:36 | PN ---
Progress Note, Physician History of Present Illness: STABLE - Current Medication List Current Medications: Active Medications Acetaminophen (Tylenol -) 650 mg PO Q6H PRN PRN Reason: FEVER OR PAIN Aspirin (Ecotrin -) 81 mg PO DAILY [facility] Last Admin: 08/02/17 09:54 Dose: 81 mg Atorvastatin Calcium (Lipitor -) 10 mg PO HS [facility] Last Admin: 08/01/17 21:16 Dose: 10 mg Budesonide/Formoterol Fumarate (Symbicort 80/4.5mcg -) 2 puff IH BID [facility] Last Admin: 08/02/17 09:55 Dose: Not Given Diphenhydramine HCl (Benadryl -) 25 mg PO HS PRN Last Admin: 07/31/17 02:10 Dose: 25 mg Finasteride (Proscar -) 5 mg PO DAILY [facility] Last Admin: 08/02/17 09:55 Dose: 5 mg Folic Acid (Folic Acid -) 1 mg PO DAILY [facility] Last Admin: 08/02/17 09:55 Dose: 1 mg CEFTRIAXONE 1 G/50 ML PREMIX (Ceftriaxone 1 Gm-D5w Bag) 50 mls @ 100 mls/hr IVPB DAILY [facility] Last Admin: 08/02/17 17:11 Dose: 100 mls/hr Lisinopril (Prinivil) 5 mg PO DAILY [facility] Last Admin: 08/02/17 09:55 Dose: 5 mg Metformin HCl (Glucophage -) 500 mg PO BIDAC [facility] Last Admin: 08/02/17 17:11 Dose: 500 mg Pantoprazole Sodium (Protonix -) 20 mg PO DAILY [facility] Last Admin: 08/02/17 09:55 Dose: 20 mg Prednisone (Deltasone -) 30 mg PO DAILY [facility] Last Admin: 08/02/17 09:54 Dose: 30 mg Thiamine HCl (Vitamin B1 -) 100 mg PO DAILY [facility] Last Admin: 08/02/17 09:54 Dose: 100 mg - Objective Vital Signs: Vital Signs Temperature 98.3 F 08/02/17 18:00 Pulse Rate 69 08/02/17 18:00 Respiratory Rate 20 08/02/17 18:00 Blood Pressure 107/67 08/02/17 18:00 O2 Sat by Pulse Oximetry (%) 98 08/02/17 09:00 Constitutional: Yes: No Distress HENT: Yes: Atraumatic Neck: Yes: Supple Cardiovascular: Yes: Regular Rate and Rhythm Respiratory: Yes: CTA Bilaterally Gastrointestinal: Yes: Normal Bowel Sounds Extremities: Yes: WNL Neurological: Yes: Alert, Oriented Labs: CBC, BMP 07/31/17 06:30 07/31/17 06:30 INR, PTT INR 1.24 (0.82-1.09) H 07/30/17 10:48 Problem List - Problems (1) Sepsis Assessment/Plan: iv abx cx p Code(s): A41.9 - SEPSIS, UNSPECIFIED ORGANISM (2) UTI (urinary tract infection) Assessment/Plan: gram negative rods Code(s): N39.0 - URINARY TRACT INFECTION, SITE NOT SPECIFIED (3) Acute epididymitis Assessment/Plan: ON ABX Code(s): N45.1 - EPIDIDYMITIS (4) Prostatitis Assessment/Plan: ON ABX Code(s): N41.9 - INFLAMMATORY DISEASE OF PROSTATE, UNSPECIFIED Assessment/Plan NEED TO KNOW HOW MANY MORE DAYS OF IV ABX WHICH PO ABX TO SWITCH AND FOR HOW MANY DAYS
[2017-08-02] MEDS: ATORVASTATIN CA 10 MG TABLET (FP) PO SCH (21:33)
[2017-08-03] MEDS: metFORMIN HCL 500 MG TABLET (FP) PO SCH (06:28)
[2017-08-03] MEDS: FINASTERIDE 5 MG TABLET (FP) PO SCH (10:43)
[2017-08-03] MEDS: LISINOPRIL 5 MG TABLET (FP) PO SCH (10:43)
[2017-08-03] MEDS: CEFTRIAXONE 1 G/50 ML PREMIX 50 ML IVPB SCH (10:43)
[2017-08-03] MEDS: BUDESONIDE/FORMETEROL FUMARATE 80/4.5 mcg INHALER IH SCH ×2 (10:44→10:47)
[2017-08-03] MEDS: predniSONE 20 MG TABLET (UD) PO SCH (10:44)
[2017-08-03] MEDS: THIAMINE HCL 100 MG TABLET (FP) PO SCH (10:44)
[2017-08-03] MEDS: PANTOPRAZOLE 20 MG TABLET (FP) PO SCH (10:44)
[2017-08-03] MEDS: ASPIRIN COATED 81 MG TABLET.EC PO SCH (10:44)
[2017-08-03] MEDS: FOLIC ACID 1 MG TABLET (FP) PO SCH (10:44)
[2017-08-03 13:56] VITALS: BP 107/70; PULSE 75; TEMP 98.1
--- NOTE | 2017-08-03 14:22 | PN ---
Progress Note, Physician History of Present Illness: feels good no issues - Current Medication List Current Medications: Active Medications Acetaminophen (Tylenol -) 650 mg PO Q6H PRN PRN Reason: FEVER OR PAIN Aspirin (Ecotrin -) 81 mg PO DAILY [facility] Last Admin: 08/03/17 10:44 Dose: 81 mg Atorvastatin Calcium (Lipitor -) 10 mg PO HS [facility] Last Admin: 08/02/17 21:33 Dose: 10 mg Budesonide/Formoterol Fumarate (Symbicort 80/4.5mcg -) 2 puff IH BID [facility] Last Admin: 08/03/17 10:47 Dose: Not Given Diphenhydramine HCl (Benadryl -) 25 mg PO HS PRN Last Admin: 07/31/17 02:10 Dose: 25 mg Finasteride (Proscar -) 5 mg PO DAILY [facility] Last Admin: 08/03/17 10:43 Dose: 5 mg Folic Acid (Folic Acid -) 1 mg PO DAILY [facility] Last Admin: 08/03/17 10:44 Dose: 1 mg CEFTRIAXONE 1 G/50 ML PREMIX (Ceftriaxone 1 Gm-D5w Bag) 50 mls @ 100 mls/hr IVPB DAILY [facility] Last Admin: 08/03/17 10:43 Dose: 100 mls/hr Lisinopril (Prinivil) 5 mg PO DAILY [facility] Last Admin: 08/03/17 10:43 Dose: 5 mg Metformin HCl (Glucophage -) 500 mg PO BIDAC [facility] Last Admin: 08/03/17 06:28 Dose: 500 mg Pantoprazole Sodium (Protonix -) 20 mg PO DAILY [facility] Last Admin: 08/03/17 10:44 Dose: 20 mg Prednisone (Deltasone -) 30 mg PO DAILY [facility] Last Admin: 08/03/17 10:44 Dose: 30 mg Thiamine HCl (Vitamin B1 -) 100 mg PO DAILY [facility] Last Admin: 08/03/17 10:44 Dose: 100 mg - Objective Vital Signs: Vital Signs Temperature 98.1 F 08/03/17 13:55 Pulse Rate 75 08/03/17 13:55 Respiratory Rate 20 08/03/17 13:55 Blood Pressure 107/70 08/03/17 13:55 O2 Sat by Pulse Oximetry (%) 97 08/02/17 21:00 Constitutional: Yes: No Distress, Calm Cardiovascular: Yes: Regular Rate and Rhythm Respiratory: Yes: Regular, CTA Bilaterally Gastrointestinal: Yes: Normal Bowel Sounds, Soft Genitourinary: Yes: Other (swelling of the testicle better) Musculoskeletal: Yes: WNL Extremities: Yes: WNL Neurological: Yes: Alert, Oriented Psychiatric: Yes: Alert, Oriented Labs: CBC, BMP 07/31/17 06:30 07/31/17 06:30 INR, PTT INR 1.24 (0.82-1.09) H 07/30/17 10:48 Assessment/Plan patient with uti and testicular pain wioth dysuria probably due to uti admitted with leukocytosis and sepsis now looking better i am also worried patient could have been having prostatitis Problem List - Problems (1) Sepsis Code(s): A41.9 - SEPSIS, UNSPECIFIED ORGANISM (2) UTI (urinary tract infection) Code(s): N39.0 - URINARY TRACT INFECTION, SITE NOT SPECIFIED 3 prostatitis 4 lactic acidosis plan bacteria and sensitivities noted will switch to oral abx if patient discharged to switch to oral levaquin 750 mg daily for 10 days
--- NOTE | 2017-08-03 14:26 | DS ---
Physical Examination Vital Signs: Vital Signs Temperature 98.1 F 08/03/17 13:55 Pulse Rate 75 08/03/17 13:55 Respiratory Rate 20 08/03/17 13:55 Blood Pressure 107/70 08/03/17 13:55 O2 Sat by Pulse Oximetry (%) 97 08/02/17 21:00 Constitutional: Yes: No Distress HENT: Yes: Atraumatic Neck: Yes: Supple Cardiovascular: Yes: Regular Rate and Rhythm Respiratory: Yes: CTA Bilaterally Gastrointestinal: Yes: Normal Bowel Sounds Extremities: Yes: WNL Neurological: Yes: Alert, Oriented Labs: CBC, BMP 07/31/17 06:30 07/31/17 06:30 Discharge Summary Reason For Visit: UTI,SEPSIS Current Active Problems Acute epididymitis (Acute) Prostatitis (Acute) Sepsis (Acute) UTI (urinary tract infection) (Acute) - Instructions Referrals: Georgia Haynes MD [Primary Care Provider] - - Home Medications Comprehensive Discharge Medication List: Ambulatory Orders Albuterol Sulfate Inhaler - [Ventolin HFA Inhaler -] 1 - 2 inh PO Q4H 08/11/15 Aspirin [Aspirin EC] 81 mg PO DAILY 08/11/15 Fluticasone/Salmeterol [Advair 250-50 Diskus] 1 each IH BID PRN 08/11/15 Omeprazole 20 mg PO DAILY 08/11/15 Simvastatin [Zocor -] 20 mg PO HS 08/11/15 Finasteride 5 mg PO DAILY 06/29/17 Lisinopril [Prinivil] 5 mg PO DAILY 06/29/17 Metformin HCl 500 mg PO DAILY 06/29/17 Acetaminophen [Tylenol .Regular Strength -] 650 mg PO Q6H PRN #30 tablet Folic Acid - 1 mg PO DAILY #30 tablet 07/06/17 Thiamine HCl [Vitamin B1 -] 100 mg PO DAILY #30 tablet 07/06/17 Prednisone [Deltasone -] 40 mg PO DAILY 07/30/17 Levofloxacin [Levaquin] 750 mg PO DAILY #10 tab 08/03/17 dc home fu pmd/id 1 week
[2017-08-03] MEDS ORDERED: LEVOFLOXACIN 250 MG TABLET (FP) PO SCH (15:00)
[2017-08-03 15:20] LABS: MCH 29.4 pg (25.7-33.7); MCHC 33.6 g/dl (32.0-35.9); MEAN CELL VOLUME 87.6 fl (80-96); MEAN PLT VOLUME 7.2 fl (7.5-11.1); PLATELET COUNT 477 K/MM3 (134-434); RDW 15.9 % (11.9-15.9); WHITE BLOOD COUNT 20.1 K/mm3 (4.0-10.0)
[2017-08-03 15:46] LABS: ALBUMIN 2.2 g/dl (3.4-5.0); ANION GAP 6 (8-16); BILIRUBIN,TOTAL 0.1 mg/dL (0.2-1.0); CALCIUM 9.3 mg/dL (8.5-10.1); CO2 31 mmol/L (21-32); CREATININE 0.8 mg/dL (0.7-1.3); GLUCOSE,RANDOM 219 mg/dL (74-106); SGOT/AST 10 U/L (15-37); SGPT/ALT 32 U/L (12-78); TOT PROT 5.9 g/dl (6.4-8.2)
[2017-08-03 15:47] LABS: ALK PHOS 91 U/L (45-117)
[2017-08-03 20:11] LABS: PLATELET ESTIMATE SLT INCREASED (NORMAL); TOTAL CELLS COUNTED 100
[2017-08-03 20:12] LABS: PROMYELOCYTE 1 % (0-2)
[2017-08-03 20:23] LABS: HYPOCHROMIA 1+
[2017-08-03 20:24] LABS: MICROCYTOSIS 1+
--- NOTE | 2017-08-05 09:09 | EKG ---
Test Reason : Blood Pressure : / mmHG Vent. Rate : 090 BPM Atrial Rate : 090 BPM P-R Int : 134 ms QRS Dur : 100 ms QT Int : 332 ms P-R-T Axes : 059 087 067 degrees QTc Int : 406 ms NORMAL SINUS RHYTHM NORMAL ECG WHEN COMPARED WITH ECG OF 30-JUL-2017 09:40, ST NO LONGER DEPRESSED IN INFERIOR LEADS Confirmed by EMILY GARLAND MD ([id number]) on 08/05/2017 9:08:40 AM Referred By: Confirmed By:EMILY GARLAND MD
--- NOTE | 2017-08-05 09:09 | EKG ---
Test Reason : Blood Pressure : / mmHG Vent. Rate : 117 BPM Atrial Rate : 117 BPM P-R Int : 124 ms QRS Dur : 096 ms QT Int : 292 ms P-R-T Axes : 076 090 027 degrees QTc Int : 407 ms SINUS TACHYCARDIA POSSIBLE LEFT ATRIAL ENLARGEMENT RIGHTWARD AXIS NONSPECIFIC ST ABNORMALITY ABNORMAL ECG WHEN COMPARED WITH ECG OF 29-JUN-2017 12:48, PREMATURE ATRIAL COMPLEXES ARE NO LONGER PRESENT Confirmed by DADA ROSS, EMILY ([id number]) on 08/05/2017 9:08:35 AM Referred By: Confirmed By:EMILY GARLAND MD
== END 2017-08-03 16:55 | disposition home or self-care (01) | DRG 862 ==
LOC: JER 09:32 → JERBED 13:39 → J7W 14:50
PROVIDERS: ADMIT Internal Medicine; ATTEND Internal Medicine
DX: T81.4XXA Infection following a procedure, initial encounter (principal); A41.89 Other specified sepsis; N39.0 Urinary tract infection, site not specified; E87.2 Acidosis; B96.29 Other Escherichia coli [E. coli] as the cause of diseases classified elsewhere; E11.9 Type 2 diabetes mellitus without complications; J44.9 Chronic obstructive pulmonary disease, unspecified; I10 Essential (primary) hypertension; E78.5 Hyperlipidemia, unspecified; N40.0 Benign prostatic hyperplasia without lower urinary tract symptoms; K21.9 Gastro-esophageal reflux disease without esophagitis; N44.2 Benign cyst of testis; N43.2 Other hydrocele; R00.0 Tachycardia, unspecified; N41.8 Other inflammatory diseases of prostate; N45.1 Epididymitis; Y83.8 Other surgical procedures as the cause of abnormal reaction of the patient, or of later complication, without mention of misadventure at the time of the procedure; Y92.89 Other specified places as the place of occurrence of the external cause
CPT/HCPCS: 36415; 71020-TC; 76700-TC; 76870-TC; 80053; 81003; 81015; 82550; 83605; 84484; 85025; 85610; 85651; 85730; 86140; 86850; 86900; 86901; 87040; 87086; 87186; 93005; 93010; 99285-25

== ENCOUNTER 2017-09-14 10:13 | Inpatient (IN) | payer MEDICARE, OTHER ==
[2017-09-14 10:18] VITALS: BMI 22.3
[2017-09-14] MEDS ORDERED: MAG HYDROX/AL HYDROX/SIMETH 355 ML ORAL.SUSP PO ONE (11:03)
[2017-09-14] MEDS ORDERED: SODIUM CHLORIDE 1,000 ML IV STA (11:03)
--- NOTE | 2017-09-14 11:07 | PDOC ---
History of Present Illness - General Chief Complaint: Pain, Acute Stated Complaint: ABD PAIN Time Seen by Provider: 09/14/17 10:40 History Source: Patient - History of Present Illness Timing/Duration: reports: constant Abdominal Pain Onset Location: reports: LUQ Past History - Past Medical History Allergies/Adverse Reactions: Allergies Allergy/AdvReac Type Severity Reaction Status Date / Time No Known Drug Allergies Allergy Verified 09/14/17 10:17 Home Medications: Ambulatory Orders Albuterol Sulfate Inhaler - [Ventolin HFA Inhaler -] 1 - 2 inh PO Q4H 08/11/15 Aspirin [Aspirin EC] 81 mg PO DAILY 08/11/15 Fluticasone/Salmeterol [Advair 250-50 Diskus] 1 each IH BID PRN 08/11/15 Omeprazole 20 mg PO DAILY 08/11/15 Simvastatin [Zocor -] 20 mg PO HS 08/11/15 Finasteride 5 mg PO DAILY 06/29/17 Lisinopril [Prinivil] 5 mg PO DAILY 06/29/17 Metformin HCl 500 mg PO DAILY 06/29/17 Acetaminophen [Tylenol .Regular Strength -] 650 mg PO Q6H PRN #30 tablet Folic Acid - 1 mg PO DAILY #30 tablet 07/06/17 Thiamine HCl [Vitamin B1 -] 100 mg PO DAILY #30 tablet 07/06/17 Prednisone [Deltasone -] 40 mg PO DAILY 07/30/17 Anemia: No COPD: No Diabetes: Yes GI Disorders: Yes (GERD) Disorders: Yes (HYDROCELE;TESTICULAR CYST) HTN: Yes Hypercholesterolemia: Yes - Surgical History Abdominal Surgery: Yes (HERNIA REPAIR X 2) Appendectomy: Yes (UNSURE) Cholecystectomy: Yes (UNSURE) - Suicide/Smoking/Psychosocial Hx Smoking History: Never smoked Have you smoked in the past 12 months: No Number of Cigarettes Smoked Daily: 5 If you are a former smoker, when did you quit?: 2014 'Breaking Loose' booklet given: 08/11/15 Hx Alcohol Use: Yes (DAILY, BACARDI) Drug/Substance Use Hx: No Substance Use Type: None Review of Systems - Review of Systems Constitutional: No: Chills, Fever Respiratory: No: Shortness of Breath Cardiac (ROS): No: Chest Pain ABD/GI: Yes: Abdominal cramping. No: Constipated, Diarrhea, Nausea, Vomiting : No: Flank Pain, Hematuria *Physical Exam - Vital Signs Last Vital Signs Temp Pulse Resp BP Pulse Ox 98.1 F 114 H 18 131/88 97 09/14/17 10:15 09/14/17 10:15 09/14/17 10:15 09/14/17 10:15 09/14/17 10:15 - Physical Exam General Appearance: Yes: Appropriately Dressed. No: Apparent Distress HEENT: positive: Normal Voice Neck: positive: Supple Respiratory/Chest: positive: Lungs Clear, Normal Breath Sounds. negative: Respiratory Distress Cardiovascular: positive: Regular Rate, S1, S2 Gastrointestinal/Abdominal: positive: Tender (minimal ttp to epigastrium and LUQ , no ttp to RUQ, no CVAT), Soft Heart Score/ECG Review - ECG Intrepretation Comment:: 09/14/17 11:48 Twelve-lead EKG was performed and reviewed by me. There is normal sinus rhythm with a normal rate. The axis is normal. The intervals are normal. There are no ST or T wave abnormalities. Impression: Normal twelve-lead EKG ED Treatment Course - LABORATORY CBC & Chemistry Diagram: 09/14/17 11:00 09/14/17 11:00 Medical Decision Making - Medical Decision Making 09/14/17 11:05 67 yo h/o HTN, HLD, DM, COPD, BPH, urosepsis, resents with LUQ pain that started 3 days ago. Unable to describe, but severe and constant and possibly worsening with food. No history of similar pain. No change in bowel movements , dysuria, hematuria, nausea, vomiting, fever or chills See exam Upper abd pain Tachy w/ ttp to epigastrium/LUQ Possibly gastritis/GERD, less likely biliary, cardiac or renal colic -GI cocktail -labs/ekg -?CT 09/14/17 11:45 Wbc 17, rest of labs unremarkable. Will scan pt at this time 09/14/17 13:06 CT read as "segmental splenic infarction, likely acute w/ adjacent perisplenic fat stranding", may be arterial or venous. Grossly patent vein. Pt stable at present. Will c/w general surgery as per d/w ED attg 09/14/17 13:[address] Marie of surgery. States no acute intervention except for observation at this time. Agrees with admission for workup 09/14/17 13:38 Case discussed with hospitalist and patient admitted *DC/Admit/Observation/Transfer Diagnosis at time of Disposition: Splenic infarction, LUQ pain - Discharge Dispostion Condition at time of disposition: Fair Admit: Yes - Referrals Referrals: Georgia Haynes MD [Primary Care Provider] - - Patient Instructions - Post Discharge Activity
[2017-09-14] MEDS ORDERED: MAG HYDROX/AL HYDROX/SIMETH 30 ML UNIT-DOSE CUP ONE (11:08)
[2017-09-14] MEDS ORDERED: FAMOTIDINE IV 20 MG/12 ML VIAL IVPUSH ONE (11:08)
[2017-09-14 11:25] LABS: BASOPHIL 0.6 % (0-2.0); EOSINOPHIL 0.9 % (0-4.5); MCH 27.9 pg (25.7-33.7); MCHC 32.1 g/dl (32.0-35.9); NEUTROPHILS 71.2 % (42.8-82.8); PLATELET COUNT 570 K/MM3 (134-434); RDW 17.2 % (11.9-15.9); WHITE BLOOD COUNT 17.1 K/mm3 (4.0-10.0)
[2017-09-14 11:31] LABS: ALBUMIN 2.8 g/dl (3.4-5.0); ALK PHOS 64 U/L (45-117); ANION GAP 7 (8-16); BILIRUBIN,TOTAL 0.2 mg/dL (0.2-1.0); CALCIUM 9.6 mg/dL (8.5-10.1); CO2 29 mmol/L (21-32); CREATININE 0.8 mg/dL (0.7-1.3); GLUCOSE,RANDOM 105 mg/dL (74-106); SGOT/AST 11 U/L (15-37); SGPT/ALT 19 U/L (12-78); TOT PROT 6.6 g/dl (6.4-8.2)
[2017-09-14 11:42] LABS: CPK 24 IU/L (39-308); TROPONIN I < 0.02 ng/ml (0.00-0.05)
[2017-09-14 12:06] LABS: URINE APPEARANCE CLEAR; URINE BILIRUBIN NEGATIVE (NEGATIVE); URINE BLOOD NEGATIVE (NEGATIVE); URINE COLOR LTYELLOW; URINE GLUCOSE (UA) NEGATIVE (NEGATIVE); URINE KETONE NEGATIVE (NEGATIVE); URINE LEUK ESTERASE NEGATIVE (NEGATIVE); URINE NITRITE NEGATIVE (NEGATIVE); URINE PROTEIN NEGATIVE (NEGATIVE); URINE UROBILINOGEN NEGATIVE mg/dL (0.2-1.0)
[2017-09-14] MEDS ORDERED: morphine CARPU-JECT 4 MG/1 ML DISP.SYRIN IVPUSH ONE (13:08)
[2017-09-14] MEDS ORDERED: morphine SULFATE 4 MG/ML VIAL ONE (13:26)
[2017-09-14] MEDS ORDERED: ALBUTEROL SO4 2.5/IPRATROPIUM 0.5 INH SOL 3 ML VIAL.NEB. NEB PRN (15:07)
[2017-09-14] MEDS: SODIUM CHLORIDE 1,000 ML IV SCH (15:42)
--- NOTE | 2017-09-14 15:43 | HP ---
CHIEF COMPLAINT: LUQ abdominal pain PCP: Dr. Georgia Haynes HISTORY OF PRESENT ILLNESS: Patient is a 67 year old male with a significant PMHx of HTN, HLD, NIDDMII, COPD , BPH, and GERD who presents today complaining of 3-4 day history of Left upper abdominal pain. Patient reports the pain is sharp, non-radiating, and constant in nature. The pain progressively worsened in the past 24 hours, which prompted this hospital visit. Patient states the pain is worse when he coughs or when he lays on the left side of his body. He reports no alleviating factors. Patient denies any changes to his diet. He denies any diarrhea, constipation, or hematuria. Patient denies a recent history of injury, falls, or trauma. Patient states he had a colonoscopy done one month ago and that it was "normal." Patient denies any chronic NSAID use. Otherwise, patient denies fever, chills, nausea, vomiting, chest pain, palpitations, shortness of breath, night sweats, throat pain, ear pain. Patient denies being around sick patients. Patient denies any history of blood clots, recent immobilization, or history of travel ER course was notable for: (1) CT revealed Splenic infarct (2) Bolus of IV NS given (3) GI cocktail of maalox and Pepcid given Recent Travel: Denies PAST MEDICAL HISTORY: HTN, HLD, NIDDMII, COPD, BPH, and GERD PAST SURGICAL HISTORY: Hernia Repair x2 Social History: Smoking: Former smoker. Quit 2 years ago. Smoked 1 PPD every 3 days for 50 years Alcohol: Quit drinking over 4 months ago. Reports having Liquor 4 times a week. Drugs: Marijuana every day Family History: Denies any family history of blood disorders Allergies: No Known Drug Allergies Allergy (Verified 09/14/17 10:17) HOME MEDICATIONS: Home Medications Medication Instructions Recorded Albuterol Sulfate Inhaler - 1 - 2 inh PO Q4H PRN 08/11/15 [Ventolin HFA Inhaler -] Aspirin [Aspirin EC] 81 mg PO DAILY 08/11/15 Fluticasone/Salmeterol [Advair 1 each IH BID 08/11/15 250-50 Diskus] Omeprazole 20 mg PO DAILY 08/11/15 Simvastatin [Zocor -] 20 mg PO HS 08/11/15 Finasteride 5 mg PO DAILY 06/29/17 Lisinopril [Prinivil] 5 mg PO DAILY 06/29/17 Metformin HCl 500 mg PO DAILY 06/29/17 Tadalafil [Cialis] 5 mg PO DAILY 09/14/17 REVIEW OF SYSTEMS CONSTITUTIONAL: Absent: fever, chills, diaphoresis, generalized weakness, malaise, loss of appetite, weight change HEENT: Absent: rhinorrhea, nasal congestion, throat pain, throat swelling, difficulty swallowing, mouth swelling, ear pain, eye pain, visual changes CARDIOVASCULAR: Absent: chest pain, syncope, palpitations, irregular heart rate, lightheadedness , peripheral edema RESPIRATORY: Absent: cough, shortness of breath, dyspnea with exertion, orthopnea, wheezing, stridor, hemoptysis GASTROINTESTINAL: LUQ abdominal pain Absent: abdominal distension, nausea, vomiting, diarrhea, constipation, melena, hematochezia GENITOURINARY: Absent: dysuria, frequency, urgency, hesitancy, hematuria, flank pain, genital pain MUSCULOSKELETAL: Absent: myalgia, arthralgia, joint swelling, back pain, neck pain SKIN: Absent: rash, itching, pallor HEMATOLOGIC/IMMUNOLOGIC: Absent: easy bleeding, easy bruising, lymphadenopathy, frequent infections ENDOCRINE: Absent: unexplained weight gain, unexplained weight loss, heat intolerance, cold intolerance NEUROLOGIC: Absent: headache, focal weakness or paresthesias, dizziness, unsteady gait, seizure, mental status changes, bladder or bowel incontinence PSYCHIATRIC: Absent: anxiety, depression, suicidal or homicidal ideation, hallucinations. PHYSICAL EXAMINATION Vital Signs - 24 hr 09/14/17 09/14/17 10:15 11:48 Temperature 98.1 F 98.8 F Pulse Rate 114 H Pulse Rate [ 86 Right Radial] Respiratory 18 16 Rate Blood Pressure 131/88 Blood Pressure 115/64 [Left Arm] O2 Sat by Pulse 97 96 Oximetry (%) GENERAL: Awake, alert, and fully oriented, in no acute distress. HEAD: Normal with no signs of trauma. EYES: Pupils equal, round and reactive to light, extraocular movements intact, sclera icteric. EARS, NOSE, THROAT: Oropharynx clear without exudates. Moist mucous membranes. NECK: Normal range of motion, supple without lymphadenopathy, JVD, or masses. LUNGS: Breath sounds equal, clear to auscultation bilaterally. No wheezes, and no crackles. No accessory muscle use. HEART: Distant heart sounds throughout with normal S1 and S2 without murmur, rub or gallop. CHEST: Pectus Excavatum with Xiphoid process bulging ABDOMEN: Soft, nondistended, normoactive bowel sounds, tenderness upon palpation of LUQ with no guarding, no rebound, no masses. No hepatomegaly or splenomegaly. MUSCULOSKELETAL: Normal range of motion at all joints. No CVA tenderness. UPPER EXTREMITIES: No peripheral edema. LOWER EXTREMITIES:No peripheral edema. NEUROLOGICAL: Cranial nerves II-XII intact. Normal speech. Motor strength 5/5 throughout. Sensory Intact PSYCHIATRIC: Cooperative. Good eye contact. Appropriate mood and affect. SKIN: Warm, dry, normal turgor, no rashes or lesions noted, normal capillary refill. Laboratory Results - last 24 hr 09/14/17 09/14/17 09/14/17 11:00 11:00 11:20 WBC 17.1 H RBC 3.78 L Hgb 10.6 L Hct 32.9 L MCV 87.0 MCH 27.9 MCHC 32.1 RDW 17.2 H Plt Count 570 H MPV 7.0 L Neutrophils % 71.2 Lymphocytes % 19.2 D Monocytes % 8.1 Eosinophils % 0.9 D Basophils % 0.6 Sodium 137 Potassium 4.7 Chloride 101 Carbon Dioxide 29 Anion Gap 7 L BUN 11 D Creatinine 0.8 Creat Clearance w eGFR > 60 Random Glucose 105 D Lactic Acid Calcium 9.6 Total Bilirubin 0.2 D AST 11 L ALT 19 D Alkaline Phosphatase 64 D Creatine Kinase 24 L Cancelled Troponin I < 0.02 Cancelled Total Protein 6.6 Albumin 2.8 L D Lipase 100 Urine Color Urine Appearance Urine pH Ur Specific [place] Urine Protein Urine Glucose (UA) Urine Ketones Urine Blood Urine Nitrite Urine Bilirubin Urine Urobilinogen 09/14/17 09/14/17 11:40 11:57 WBC RBC Hgb Hct MCV MCH MCHC RDW Plt Count MPV Neutrophils % Lymphocytes % Monocytes % Eosinophils % Basophils % Sodium Potassium Chloride Carbon Dioxide Anion Gap BUN Creatinine Creat Clearance w eGFR Random Glucose Lactic Acid 0.9 Calcium Total Bilirubin AST ALT Alkaline Phosphatase Creatine Kinase Troponin I Total Protein Albumin Lipase Urine Color L[place] Urine Appearance Clear Urine pH 7.0 D Ur Specific [place] 1.009 Urine Protein Negative Urine Glucose (UA) Negative Urine Ketones Negative Urine Blood Negative Urine Nitrite Negative Urine Bilirubin Negative Urine Urobilinogen Negative IMAGES CT Abdomen/Pelvis (09/14/17): The liver is normal in size and contour. Subcentimeter hypodensities in the gallbladder fossa are unchanged from prior, too small to characterize. The gallbladder is not pathologically distended. There is mild gallbladder wall thickening. There is no intrahepatic or extrahepatic biliary ductal dilatation. The pancreas is unremarkable. Normal size spleen. There are segmental wedge-shaped areas of hypoattenuation within the inferior and superior spleen, with adjacent reactive perinephric fat stranding. There is no mass in the adrenal glands. Normal size kidneys with symmetric enhancement. There is no hydroureteronephrosis. Normal caliber abdominal aorta with at least moderate calcific atherosclerosis including the major branch vessels. There is prominent calcification with some stenosis in the proximal superior mesenteric artery. There are no pathologically enlarged retroperitoneal lymph nodes by size criteria. No dilated loops of large or small bowel to suggest obstruction. Status post appendectomy. There is no definite bowel wall thickening. No evidence of acute diverticulitis. There is no free intraperitoneal air or ascites. Urinary bladder is unremarkable. The prostate gland is not enlarged, containing coarse central calcifications which are nonspecific. There is a moderate to large sized left inguinal hernia containing fat and small volume of fluid. No acute fracture in the visualized osseous structures. Subcentimeter sclerotic lesion in the left iliac crest, medial wall of the left acetabulum and left inferior pubic ramus are most likely an enostosis. There are degenerative changes in the spine. IMPRESSION: Segmental splenic infarctions, likely acute, with adjacent perisplenic fat stranding. These may be arterial or venous. Grossly patent splenic vein. ASSESSMENT/PLAN: Patient is a 67 year old male who presented with LUQ abdominal pain and CT revealed Splenic Infarct. Patient admitted for further monitoring and management. Splenic Infarct -Rule out malignancy/Leukemia/Lymphoma or thromboembolic state -Likely Possible Myeloproliferative disorder due to the chronic Leukocytosis and Thrombocytosis since 2014 and in Myeloproliferative disorders you would expect to have chronic leukocytosis and thrombocytosis with no monocytic or lymohocytic predominance. Will do a myeloproliferative disorder work up to rule out CML, Polycythemia vera, essential thrombocytosis, Myelofibrosis. -Hematology/Oncology consult placed and spoke to Dr. Fleming -Will order BCR ABLE to r/o CML and JAK2 as well to find out clonality -Will also order Flow cytometry, LDH, and Uric acid -Will order CRP and ESR -Stat order of PT/PTT and once PT/PTT returns will begin Heparin Drip without Bolus, once PMHx of no bleeding disorders is confirmed. -Monospot test to rule out EBV -Will place cardiology consult due to CT findings of moderate calcified atherosclerosis including the major branch vessels of aorta as well as prominent calcifications with some stenosis in the proximal superior mesenteric artery. -Will monitor patient on Telemetry to rule out any arrhythmias that might have caused an embolism. -Will continue to monitor CBC -Thrombophilia workup, as per Heme/onco. Will order Antithrombin, Anti- phospholipid antibodies, Factor V leiden, Factor VIII level, Lupus anticoagulant , Prothrombin gene mutation, Protein C&S (Will not order now as patient is in an acute phase) -Pain control with Morphine 2mg Q4H PRN -NPO -Hydration with IV NS @75mls/hr Anemia of Chronic Disease -Hemoglobin of 10.6 but has been around baseline in the past year -Iron studies done 06/2017 confirmed anemia of chronic disease -Folate and B12 wnl -Continue to monitor CBC -Transfuse <7 Thrombocytosis with Leukocytosis -Possibly due to Myeloproliferative disorder -Will order a workup as mentioned above -Will continue to monitor CBC HyperCalcemia corrected w/ Albumin -10.6 but has elevated baseline. Suspicious for malignancy -On IV NS -Will continue to monitor HTN-Controlled -Will resume home medication Lisinopril 5mg daily -Continue to monitor BP NIDDMII -BGM -ISS -A1C ordered HLD -Will order Lipid panel -Continue Simvastatin 20mg daily COPD -In no acute exacerbation -Continue Symbicort 1 puff daily -DuoNeb 1 amp Q4H PRN -02 as needed -Maintain 02 saturation >90% BPH -Continue Finasteride 5mg daily F/E/N -IV NS @75mls/hr -Electrolytes wnl -NPO Prophylaxis -High risk. Will begin Heparin drip for DVT -PPI for GI Disposition -Full code -Will need an extensive workup and possible procedure for splenic infarct. Will require inpatient for at least another day Visit type - Emergency Visit Emergency Visit: Yes ED Registration Date: 09/14/17 Care time: The patient presented to the Emergency Department on the above date and was hospitalized for further evaluation of their emergent condition. - New Patient This patient is new to me today: Yes Date on this admission: 09/14/17 - Critical Care Critical Care patient: No
--- NOTE | 2017-09-14 16:32 | EKG ---
Test Reason : Blood Pressure : / mmHG Vent. Rate : 087 BPM Atrial Rate : 087 BPM P-R Int : 142 ms QRS Dur : 100 ms QT Int : 350 ms P-R-T Axes : 073 087 066 degrees QTc Int : 421 ms NORMAL SINUS RHYTHM NORMAL ECG WHEN COMPARED WITH ECG OF 30-JUL-2017 11:11, NO SIGNIFICANT CHANGE WAS FOUND Confirmed by MD ABBEY, KEITH ([id number]) on 09/14/2017 4:32:10 PM Referred By: Confirmed By:KEITH POTTER MD
[2017-09-14] MEDS: FINASTERIDE 5 MG TABLET (FP) PO SCH ×2 (16:39→16:45)
[2017-09-14] MEDS: PANTOPRAZOLE 20 MG TABLET (FP) PO SCH ×2 (16:39→16:46)
[2017-09-14] MEDS: LISINOPRIL 5 MG TABLET (FP) PO SCH ×2 (16:39→16:43)
[2017-09-14] MEDS: INSULIN SLIDING SCALE (NOVOLOG) 1 VIAL SQ SCH ×2 (16:40→21:24)
--- NOTE | 2017-09-14 18:51 | PN ---
Teaching Attending Note Name of Resident: Edwardo Harding ATTENDING PHYSICIAN STATEMENT I saw and evaluated the patient. I reviewed the resident's note and discussed the case with the resident. I agree with the resident's findings and plan as documented. SUBJECTIVE: Patient is comfortable with no acute distress, no shortness of breath, presented to ED for having LUQ pain x 3 days. As per patient , was given oral antibiotic doesn't recall the name of the medication; for urinary issues as per patient. OBJECTIVE: Vital Signs Temperature 98.8 F 09/14/17 16:18 Pulse Rate 86 09/14/17 16:18 Respiratory Rate 18 09/14/17 16:18 Blood Pressure 138/78 09/14/17 16:18 O2 Sat by Pulse Oximetry (%) 97 09/14/17 16:52 CBCD WBC 17.1 K/mm3 (4.0-10.0) H 09/14/17 11:00 RBC 3.78 M/mm3 (4.00-5.60) L 09/14/17 11:00 Hgb 10.6 GM/dL (11.7-16.9) L 09/14/17 11:00 Hct 32.9 % (35.4-49) L 09/14/17 11:00 MCV 87.0 fl (80-96) 09/14/17 11:00 MCHC 32.1 g/dl (32.0-35.9) 09/14/17 11:00 RDW 17.2 % (11.9-15.9) H 09/14/17 11:00 Plt Count 570 K/MM3 (134-434) H 09/14/17 11:00 MPV 7.0 fl (7.5-11.1) L 09/14/17 11:00 CMP Sodium 137 mmol/L (136-145) 09/14/17 11:00 Potassium 4.7 mmol/L (3.5-5.1) 09/14/17 11:00 Chloride 101 mmol/L (98-107) 09/14/17 11:00 Carbon Dioxide 29 mmol/L (21-32) 09/14/17 11:00 Anion Gap 7 (8-16) L 09/14/17 11:00 BUN 11 mg/dL (7-18) D 09/14/17 11:00 Creatinine 0.8 mg/dL (0.7-1.3) 09/14/17 11:00 Creat Clearance w eGFR > 60 (>60) 09/14/17 11:00 Random Glucose 105 mg/dL (74-106) D 09/14/17 11:00 Calcium 9.6 mg/dL (8.5-10.1) 09/14/17 11:00 Total Bilirubin 0.2 mg/dL (0.2-1.0) D 09/14/17 11:00 AST 11 U/L (15-37) L 09/14/17 11:00 ALT 19 U/L (12-78) D 09/14/17 11:00 Alkaline Phosphatase 64 U/L (45-117) D 09/14/17 11:00 Total Protein 6.6 g/dl (6.4-8.2) 09/14/17 11:00 Albumin 2.8 g/dl (3.4-5.0) L D 09/14/17 11:00 CARDIAC ENZYMES Creatine Kinase Cancelled 09/14/17 11:20 Troponin I Cancelled 09/14/17 11:20 Current Medications Generic Name Dose Route Start Last Admin Trade Name Freq PRN Reason Stop Dose Admin Albuterol/Ipratropium 1 amp 09/14/17 15:07 Duoneb - NEB Q4H PRN SHORTNESS OF BREATH Aspirin 81 mg 09/15/17 10:00 Ecotrin - PO DAILY [facility] Atorvastatin Calcium 10 mg 09/14/17 22:00 Lipitor - PO HS [facility] Budesonide/Formoterol Fumarate 2 puff 09/14/17 22:00 Symbicort 80/4.5mcg - IH BID [facility] Finasteride 5 mg 09/14/17 15:15 09/14/17 16:45 Proscar - PO Not Given DAILY [facility] Heparin Sodium (Porcine) 5,000 unit 09/14/17 22:00 Heparin - SQ TID [facility] Sodium Chloride 1,000 mls @ 75 mls/hr 09/14/17 14:45 09/14/17 15:42 Normal Saline - IV 75 mls/hr ASDIR [facility] Administration Insulin Aspart 1 vial 09/14/17 16:30 09/14/17 16:40 Novolog Vial Sliding Scale - SQ Not Given ACHS [facility] Protocol Lisinopril 5 mg 09/14/17 15:15 09/14/17 16:43 Prinivil PO Not Given DAILY [facility] Morphine Sulfate 2 mg 09/14/17 14:42 Morphine Sulfate IVPUSH Q4H PRN PAIN Pantoprazole Sodium 20 mg 09/14/17 15:15 09/14/17 16:46 Protonix - PO Not Given DAILY [facility] Home Medications Medication Instructions Recorded Albuterol Sulfate Inhaler - 1 - 2 inh PO Q4H PRN 08/11/15 [Ventolin HFA Inhaler -] Aspirin [Aspirin EC] 81 mg PO DAILY 08/11/15 Fluticasone/Salmeterol [Advair 1 each IH BID 08/11/15 250-50 Diskus] Omeprazole 20 mg PO DAILY 08/11/15 Simvastatin [Zocor -] 20 mg PO HS 08/11/15 Finasteride 5 mg PO DAILY 06/29/17 Lisinopril [Prinivil] 5 mg PO DAILY 06/29/17 Metformin HCl 500 mg PO DAILY 06/29/17 Tadalafil [Cialis] 5 mg PO DAILY 09/14/17 PE: LUQ pain rest of PE as per resident's notes. ASSESSMENT AND PLAN: Patient is a 67 year old male who presented with LUQ abdominal pain and CT revealed Splenic Infarct. Patient admitted for further monitoring and management. #Acute Splenic Infarct r/o Hypercoagulable state, cardioembolic event, splenic embolism , malignancy, EBV. will place the patient heparin drip. monitor in tele. for possible arryhtmia . TTE to access valvular function/leak, possible ZEUS to r/o embolic event as per cardio #Thrombocytosis with Leukocytosis r/o malignancy will get hem/onc to see the patient. # HTN-Controlled continue home meds # T2DM on ss with coverage # HLD continue meds. # COPD stable at this time # BPH/erectile dysfunction DVt Px: heparin drip
--- NOTE | 2017-09-14 18:56 | CON.CARD ---
Consult Consult Specialty:: Cardiology Referred by:: Dr. Fleming heme/onc Reason for Consultation:: LUQ pain - History of Present Illness Chief Complaint: LUQ pain History of Present Illness: 67 yo h/o HTN, HLD, DM, COPD, BPH, urosepsis, presented with LUQ pain for 4 days referable to splenic infarcts. He denies chest pain, dyspnea , near or true syncope, orthopnea, PND or LE edema. - History Source History Provided By: Patient Limitations to Obtaining History: No Limitations - Past Medical History Cardio/Vascular: Yes: HTN, Hyperlipdemia Pulmonary: Yes: Asthma, COPD Endocrine: Yes: Diabetes Mellitus - Alcohol/Substance Use Hx Alcohol Use: Yes (DAILY, BACARDI) - Smoking History Smoking history: Never smoked Have you smoked in the past 12 months: No Aproximately how many cigarettes per day: 0 If you are a former smoker, when did you quit?: 2014 Home Medications - Allergies Allergies/Adverse Reactions: Allergies Allergy/AdvReac Type Severity Reaction Status Date / Time No Known Drug Allergies Allergy Verified 09/14/17 10:17 - Home Medications Home Medications: Ambulatory Orders Albuterol Sulfate Inhaler - [Ventolin HFA Inhaler -] 1 - 2 inh PO Q4H PRN Aspirin [Aspirin EC] 81 mg PO DAILY 08/11/15 Fluticasone/Salmeterol [Advair 250-50 Diskus] 1 each IH BID 08/11/15 Omeprazole 20 mg PO DAILY 08/11/15 Simvastatin [Zocor -] 20 mg PO HS 08/11/15 Finasteride 5 mg PO DAILY 06/29/17 Lisinopril [Prinivil] 5 mg PO DAILY 06/29/17 Metformin HCl 500 mg PO DAILY 06/29/17 Tadalafil [Cialis] 5 mg PO DAILY 09/14/17 Vital Signs: Vital Signs Temperature 98.8 F 09/14/17 16:18 Pulse Rate 86 09/14/17 16:18 Respiratory Rate 18 09/14/17 16:18 Blood Pressure 138/78 09/14/17 16:18 O2 Sat by Pulse Oximetry (%) 97 09/14/17 16:52 Constitutional: Yes: No Distress, Calm, Thin Neck: Yes: Supple Respiratory: Yes: Regular, CTA Bilaterally Gastrointestinal: Yes: Soft, Hypoactive Bowel Sounds, Tenderness (LUQ) Cardiovascular: Yes: Regular Rate and Rhythm JVD: No Carotid Bruit: No Heart Sounds: Yes: S1, S2 Edema: No - Other Data Labs, Other Data: CBC, BMP 09/14/17 11:00 09/14/17 11:00 Troponin, BNP 09/14/17 09/14/17 11:00 11:20 Troponin I < 0.02 Cancelled Troponin, BNP 09/14/17 09/14/17 11:00 11:20 Troponin I < 0.02 Cancelled NSR @ 87 Ejection Fraction %: LVEF > or = 40 % Imaging - Results Cat Scan: Report Reviewed (CT read as "segmental splenic infarction, likely acute w/ adjacent perisplenic fat stranding", may be arterial or venous. Grossly patent vein. Pt stable at present.) Assessment/Plan 1. Splenic infarct, r/o splenic embolism, hypercoagulable states, cardioembolic etiologies, heme malignancies 2. Hypertension 3. Hyperlipidemia 4. Type 2 DM 5. Erectile dysfunction P:1. residential monitor r/o PAF 2. TTE to assess ventricular and valve fxn, may require ZEUS to r/o cardioembolic etiology 3. Hypercoagulable w/u, consider heparin gtt->coumadin per INR 4. Continue ASA 81 qd, Zocor 20 qhs, lisinopril 5 qd 5. Thank you for consultative opportunity
[2017-09-14 19:15] LABS: URINE LEUK ESTERASE Negative (NEGATIVE)
[2017-09-14 19:35] LABS: INR 1.2 (0.82-1.09); PROTHROMBIN TIME (PATIENT) 13.6 SEC (9.98-11.88)
[2017-09-14 19:38] LABS: ACTIVATED PTT 28.7 SECONDS (26.9-34.4)
[2017-09-14 20:01] LABS: CHOLESTEROL 106 mg/dL (50-200)
[2017-09-14] MEDS: morphine SULFATE 4 MG/ML VIAL IVPUSH PRN (20:24)
[2017-09-14] MEDS: HEPARIN - 25,000 UNIT in SODIUM CHLORIDE 495 ML IV SCH (21:22)
--- NOTE | 2017-09-14 21:35 | CONSULT ---
Consult - text type - Consultation Consultation Note: Patient is a 67 year old male with a significant PMHx of HTN, HLD, NIDDMII, COPD , BPH, and GERD who presents today complaining of 3-4 day history of Left upper abdominal pain. Patient reports the pain is sharp, non-radiating, and constant in nature. The pain progressively worsened in the past 24 hours, which prompted this hospital visit. Patient states the pain is worse when he coughs or when he lays on the left side of his body. He reports no alleviating factors. Patient denies any changes to his diet. He denies any diarrhea, constipation, or hematuria. Patient denies a recent history of injury, falls, or trauma. Patient states he had a colonoscopy done one month ago and that it was "normal." Patient denies any chronic NSAID use. Otherwise, patient denies fever, chills, nausea, vomiting, chest pain, palpitations, shortness of breath, night sweats, throat pain, ear pain. Patient denies being around sick patients. Patient denies any history of blood clots, recent immobilization, or history of travel PAST MEDICAL HISTORY: HTN, HLD, NIDDMII, COPD, BPH, and GERD Recent admission for myositis--got w/u for rheumatologic and myeloproliferative disorder Was on a short course of steroids PAST SURGICAL HISTORY: Hernia Repair x2 Social History: Smoking: Former smoker. Quit 2 years ago. Smoked 1 PPD every 3 days for 50 years Alcohol: Quit drinking over 4 months ago. Reports having Liquor 4 times a week. Drugs: Marijuana every day Family History: Denies any family history of blood disorders Allergies: No Known Drug Allergies Allergy (Verified 09/14/17 10:17) HOME MEDICATIONS: Home Medications Medication Instructions Recorded Albuterol Sulfate Inhaler - 1 - 2 inh PO Q4H PRN 08/11/15 [Ventolin HFA Inhaler -] Aspirin [Aspirin EC] 81 mg PO DAILY 08/11/15 Fluticasone/Salmeterol [Advair 1 each IH BID 08/11/15 250-50 Diskus] Omeprazole 20 mg PO DAILY 08/11/15 Simvastatin [Zocor -] 20 mg PO HS 08/11/15 Finasteride 5 mg PO DAILY 06/29/17 Lisinopril [Prinivil] 5 mg PO DAILY 06/29/17 Metformin HCl 500 mg PO DAILY 06/29/17 Tadalafil [Cialis] 5 mg PO DAILY 09/14/17 PHYSICAL EXAMINATION Last Vital Signs Temp Pulse Resp BP Pulse Ox 98.5 F 80 20 113/65 95 09/15/17 05:39 09/15/17 05:39 09/15/17 05:39 09/15/17 05:39 09/14/17 21:00 Cor: RSR, No murmurs, No gallops Lungs: Clear to P&A Abd: Soft, Normal bowel sounds, No organomegaly Ext:No significant edema Laboratory Results - last 24 hr 09/14/17 09/14/17 09/14/17 11:00 11:00 11:20 WBC 17.1 H RBC 3.78 L Hgb 10.6 L Hct 32.9 L MCV 87.0 MCH 27.9 MCHC 32.1 RDW 17.2 H Plt Count 570 H MPV 7.0 L Neutrophils % 71.2 Lymphocytes % 19.2 D Monocytes % 8.1 Eosinophils % 0.9 D Basophils % 0.6 Sodium 137 Potassium 4.7 Chloride 101 Carbon Dioxide 29 Anion Gap 7 L BUN 11 D Creatinine 0.8 Creat Clearance w eGFR > 60 Random Glucose 105 D Lactic Acid Calcium 9.6 Total Bilirubin 0.2 D AST 11 L ALT 19 D Alkaline Phosphatase 64 D Creatine Kinase 24 L Cancelled Troponin I < 0.02 Cancelled Total Protein 6.6 Albumin 2.8 L D Lipase 100 Urine Color Urine Appearance Urine pH Ur Specific [place] Urine Protein Urine Glucose (UA) Urine Ketones Urine Blood Urine Nitrite Urine Bilirubin Urine Urobilinogen 09/14/17 09/14/17 11:40 11:57 WBC RBC Hgb Hct MCV MCH MCHC RDW Plt Count MPV Neutrophils % Lymphocytes % Monocytes % Eosinophils % Basophils % Sodium Potassium Chloride Carbon Dioxide Anion Gap BUN Creatinine Creat Clearance w eGFR Random Glucose Lactic Acid 0.9 Calcium Total Bilirubin AST ALT Alkaline Phosphatase Creatine Kinase Troponin I Total Protein Albumin Lipase Urine Color Ltyellow Urine Appearance Clear Urine pH 7.0 D Ur Specific [place] 1.009 Urine Protein Negative Urine Glucose (UA) Negative Urine Ketones Negative Urine Blood Negative Urine Nitrite Negative Urine Bilirubin Negative Urine Urobilinogen Negative IMAGES CT Abdomen/Pelvis (09/14/17): The liver is normal in size and contour. Subcentimeter hypodensities in the gallbladder fossa are unchanged from prior, too small to characterize. The gallbladder is not pathologically distended. There is mild gallbladder wall thickening. There is no intrahepatic or extrahepatic biliary ductal dilatation. The pancreas is unremarkable. Normal size spleen. There are segmental wedge-shaped areas of hypoattenuation within the inferior and superior spleen, with adjacent reactive perinephric fat stranding. There is no mass in the adrenal glands. Normal size kidneys with symmetric enhancement. There is no hydroureteronephrosis. Normal caliber abdominal aorta with at least moderate calcific atherosclerosis including the major branch vessels. There is prominent calcification with some stenosis in the proximal superior mesenteric artery. There are no pathologically enlarged retroperitoneal lymph nodes by size criteria. No dilated loops of large or small bowel to suggest obstruction. Status post appendectomy. There is no definite bowel wall thickening. No evidence of acute diverticulitis. There is no free intraperitoneal air or ascites. Urinary bladder is unremarkable. The prostate gland is not enlarged, containing coarse central calcifications which are nonspecific. There is a moderate to large sized left inguinal hernia containing fat and small volume of fluid. No acute fracture in the visualized osseous structures. Subcentimeter sclerotic lesion in the left iliac crest, medial wall of the left acetabulum and left inferior pubic ramus are most likely an enostosis. There are degenerative changes in the spine. IMPRESSION: Segmental splenic infarctions, likely acute, with adjacent perisplenic fat stranding. These may be arterial or venous. Grossly patent splenic vein. ASSESSMENT/PLAN: Patient is a 67 year old male who presented with LUQ abdominal pain and CT revealed Splenic Infarcts Leukocytosis/Thrombocytosis: JAK2 and bcr;abl neg. in 06/24 ? atypical MPD will chek jak2 exon12/CALR/MPL mutations will consider bmbx flow with nonspecific monoclonal B cells ? lymphoproliferative Check thrombophilia w/u Cardiology consult to r/o cardioembolic source heparin drip without bolus--? switch to NOAC
[2017-09-14] MEDS: ATORVASTATIN CA 10 MG TABLET (FP) PO SCH (21:44)
[2017-09-14] MEDS ORDERED: HEPARIN NA (PORCINE) 5,000 UNITS/ML 1ML VIAL SQ SCH (22:00)
[2017-09-14] MEDS ORDERED: FAMOTIDINE IV 20 MG/12 ML VIAL IVPUSH SCH (22:00)
[2017-09-14] MEDS: BUDESONIDE/FORMETEROL FUMARATE 80/4.5 mcg INHALER IH SCH (22:20)
[2017-09-14 22:23] LABS: C-REACTIVE PROTEIN 8.7 MG/DL (0.00-0.3)
[2017-09-15] MEDS: HEPARIN NA (PORCINE) 5,000 UNITS/ML 1ML VIAL IVPUSH PRN (03:48)
[2017-09-15] MEDS: HEPARIN - 25,000 UNIT in SODIUM CHLORIDE 495 ML IV SCH ×2 (03:50→22:07)
[2017-09-15] MEDS: INSULIN SLIDING SCALE (NOVOLOG) 1 VIAL SQ SCH ×4 (06:19→22:24)
[2017-09-15] MEDS: SODIUM CHLORIDE 1,000 ML IV SCH ×3 (06:19→20:30)
[2017-09-15 07:50] LABS: MCH 28.5 pg (25.7-33.7); MCHC 32.8 g/dl (32.0-35.9); MEAN PLT VOLUME 7.1 fl (7.5-11.1); PLATELET COUNT 497 K/MM3 (134-434); RDW 16.9 % (11.9-15.9); WHITE BLOOD COUNT 14.9 K/mm3 (4.0-10.0)
[2017-09-15 08:28] LABS: ALBUMIN 2.5 g/dl (3.4-5.0); ALK PHOS 57 U/L (45-117); ANION GAP 8 (8-16); BILIRUBIN,TOTAL 0.4 mg/dL (0.2-1.0); CALCIUM 9.3 mg/dL (8.5-10.1); CO2 30 mmol/L (21-32); CREATININE 0.8 mg/dL (0.7-1.3); GLUCOSE,RANDOM 95 mg/dL (74-106); MAGNESIUM 1.9 mg/dL (1.8-2.4); PHOSPHOROUS 3.3 mg/dL (2.5-4.9); SGOT/AST 10 U/L (15-37); SGPT/ALT 14 U/L (12-78); TOT PROT 5.8 g/dl (6.4-8.2)
--- NOTE | 2017-09-15 08:46 | PN ---
Progress Note, Physician History of Present Illness: Continued LUQ discomfort, dobie man w/o PAF. - Current Medication List Current Medications: Active Medications Albuterol/Ipratropium (Duoneb -) 1 amp NEB Q4H PRN PRN Reason: SHORTNESS OF BREATH Aspirin (Ecotrin -) 81 mg PO DAILY [facility] Atorvastatin Calcium (Lipitor -) 10 mg PO HS [facility] Last Admin: 09/14/17 21:44 Dose: 10 mg Budesonide/Formoterol Fumarate (Symbicort 80/4.5mcg -) 2 puff IH BID [facility] Last Admin: 09/14/17 22:20 Dose: Not Given Finasteride (Proscar -) 5 mg PO DAILY [facility] Last Admin: 09/14/17 16:45 Dose: Not Given Heparin Sodium (Porcine) (Heparin -) 5,000 unit IVPUSH PRN PRN Last Admin: 09/15/17 03:48 Dose: 5,000 unit Heparin Sodium (Porcine) (Heparin -) 1,000 unit IVPUSH PRN PRN Sodium Chloride (Normal Saline -) 1,000 mls @ 75 mls/hr IV ASDIR [facility] Last Admin: 09/15/17 06:19 Dose: 75 mls/hr Heparin Sodium (Porcine) 25, (000 unit/ Sodium Chloride) 500 mls @ 16 mls/hr IV TITR [facility]; 800 UNIT/HR PRN Reason: Protocol Last Admin: 09/15/17 03:50 Dose: 950 unit/hr, 19 mls/hr Insulin Aspart (Novolog Vial Sliding Scale -) 1 vial SQ ACHS [facility] PRN Reason: Protocol Last Admin: 09/15/17 06:19 Dose: Not Given Lisinopril (Prinivil) 5 mg PO DAILY [facility] Last Admin: 09/14/17 16:43 Dose: Not Given Morphine Sulfate (Morphine Sulfate) 2 mg IVPUSH Q4H PRN PRN Reason: PAIN Last Admin: 09/14/17 20:24 Dose: 2 mg Pantoprazole Sodium (Protonix -) 20 mg PO DAILY [facility] Last Admin: 09/14/17 16:46 Dose: Not Given - Objective Vital Signs: Vital Signs Temperature 98.5 F 09/15/17 05:39 Pulse Rate 80 09/15/17 05:39 Respiratory Rate 20 09/15/17 05:39 Blood Pressure 113/65 09/15/17 05:39 O2 Sat by Pulse Oximetry (%) 95 09/14/17 21:00 Constitutional: Yes: No Distress, Calm Neck: Yes: Supple Cardiovascular: Yes: Regular Rate and Rhythm Respiratory: Yes: Regular, CTA Bilaterally Gastrointestinal: Yes: Normal Bowel Sounds, Soft, Tenderness (LUQ) Edema: No Labs: CBC, BMP 09/15/17 05:45 INR, PTT INR 1.20 (0.82-1.09) H 09/14/17 18:00 - ....Imaging EKG: Report Reviewed (Tele: SR occ [facility]) Problem List - Problems (1) Hypertension Code(s): I10 - ESSENTIAL (PRIMARY) HYPERTENSION Qualifiers: Hypertension type: essential hypertension Qualified Code(s): I10 - Essential (primary) hypertension (2) Hyperlipidemia Code(s): E78.5 - HYPERLIPIDEMIA, UNSPECIFIED Qualifiers: Hyperlipidemia type: pure hypercholesterolemia Qualified Code(s): E78.00 - Pure hypercholesterolemia, unspecified; E78.0 - Pure hypercholesterolemia (3) LUQ pain Code(s): R10.12 - LEFT UPPER QUADRANT PAIN (4) Splenic infarction Code(s): D73.5 - INFARCTION OF SPLEEN (5) Leukocytosis Code(s): D72.829 - ELEVATED WHITE BLOOD CELL COUNT, UNSPECIFIED Qualifiers: Leukocytosis type: unspecified Qualified Code(s): D72.829 - Elevated white blood cell count, unspecified (6) Thrombocytosis Code(s): D47.3 - ESSENTIAL (HEMORRHAGIC) THROMBOCYTHEMIA Assessment/Plan 1. Splenic infarct, r/o splenic embolism, hypercoagulable states, cardioembolic etiologies, heme malignancies 2. Hypertension 3. Hyperlipidemia 4. Type 2 DM 5. Erectile dysfunction 6. Leukocytosis/Thrombocytosis ? 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 TTE to assess ventricular and valve fxn, may require ZEUS to r/o cardioembolic etiology 3. Hypercoagulable w/u, consider heparin gtt->coumadin per INR 4. Continue ASA 81 qd, Lipitor 10 qhs, lisinopril 5 qd 5. Consideration for bone marrow biopsy
[2017-09-15] MEDS: ASPIRIN COATED 81 MG TABLET.EC PO SCH (09:29)
[2017-09-15] MEDS: FINASTERIDE 5 MG TABLET (FP) PO SCH (09:29)
[2017-09-15] MEDS: LISINOPRIL 5 MG TABLET (FP) PO SCH (09:29)
[2017-09-15] MEDS: PANTOPRAZOLE 20 MG TABLET (FP) PO SCH (09:30)
[2017-09-15] MEDS: BUDESONIDE/FORMETEROL FUMARATE 80/4.5 mcg INHALER IH SCH ×3 (09:31→22:24)
[2017-09-15] MEDS: morphine SULFATE 4 MG/ML VIAL IVPUSH PRN ×2 (09:31→22:05)
--- NOTE | 2017-09-15 10:31 | PN ---
Physical Exam: SUBJECTIVE: Patient seen and examined Patient has mild LUQ pain, better than before. No nausea or vomiting, no shortness of breath. OBJECTIVE: Vital Signs Temperature 98.5 F 09/15/17 05:39 Pulse Rate 80 09/15/17 05:39 Respiratory Rate 20 09/15/17 05:39 Blood Pressure 113/65 09/15/17 05:39 O2 Sat by Pulse Oximetry (%) 95 09/14/17 21:00 GENERAL: The patient is awake, alert, and fully oriented, in no acute distress. HEAD: Normal with no signs of trauma. EYES: PERRL, extraocular movements intact, sclera anicteric, conjunctiva clear. ENT: Ears normal, oropharynx clear without exudates, moist mucous membranes. NECK: Trachea midline, full range of motion, supple. LUNGS: Breath sounds equal, clear to auscultation bilaterally, no wheezes, no crackles, no accessory muscle use. HEART: Regular rate and rhythm, S1, S2 without murmur, rub or gallop. ABDOMEN: Soft, mild tenderness LUQ , nondistended, normoactive bowel sounds, no guarding, no rebound, no hepatosplenomegaly, no masses. EXTREMITIES: 2+ pulses, warm, well-perfused, no edema. NEUROLOGICAL: Cranial nerves II through XII grossly intact. Normal speech, gait not observed. PSYCH: Normal mood, normal affect. SKIN: Warm, dry, normal turgor, no rashes or lesions noted CBCD WBC 14.9 K/mm3 (4.0-10.0) H 09/15/17 05:45 RBC 3.37 M/mm3 (4.00-5.60) L 09/15/17 05:45 Hgb 9.6 GM/dL (11.7-16.9) L 09/15/17 05:45 Hct 29.3 % (35.4-49) L 09/15/17 05:45 MCV 87.0 fl (80-96) 09/15/17 05:45 MCHC 32.8 g/dl (32.0-35.9) 09/15/17 05:45 RDW 16.9 % (11.9-15.9) H 09/15/17 05:45 Plt Count 497 K/MM3 (134-434) H 09/15/17 05:45 MPV 7.1 fl (7.5-11.1) L 09/15/17 05:45 CMP Sodium 140 mmol/L (136-145) 09/15/17 05:45 Potassium 4.4 mmol/L (3.5-5.1) 09/15/17 05:45 Chloride 102 mmol/L (98-107) 09/15/17 05:45 Carbon Dioxide 30 mmol/L (21-32) 09/15/17 05:45 Anion Gap 8 (8-16) 09/15/17 05:45 BUN 9 mg/dL (7-18) 09/15/17 05:45 Creatinine 0.8 mg/dL (0.7-1.3) 09/15/17 05:45 Creat Clearance w eGFR > 60 (>60) 09/15/17 05:45 Random Glucose 95 mg/dL (74-106) 09/15/17 05:45 Calcium 9.3 mg/dL (8.5-10.1) 09/15/17 05:45 Total Bilirubin 0.4 mg/dL (0.2-1.0) D 09/15/17 05:45 AST 10 U/L (15-37) L 09/15/17 05:45 ALT 14 U/L (12-78) D 09/15/17 05:45 Alkaline Phosphatase 57 U/L (45-117) 09/15/17 05:45 Total Protein 5.8 g/dl (6.4-8.2) L 09/15/17 05:45 Albumin 2.5 g/dl (3.4-5.0) L 09/15/17 05:45 CARDIAC ENZYMES Creatine Kinase Cancelled 09/14/17 11:20 Troponin I Cancelled 09/14/17 11:20 Home Medication List Medication Instructions Recorded Confirmed Type Albuterol Sulfate Inhaler - 1 - 2 inh PO Q4H PRN 08/11/15 09/14/17 History [Ventolin HFA Inhaler -] Aspirin [Aspirin EC] 81 mg PO DAILY 08/11/15 09/14/17 History Fluticasone/Salmeterol [Advair 1 each IH BID 08/11/15 09/14/17 History 250-50 Diskus] Omeprazole 20 mg PO DAILY 08/11/15 09/14/17 History Simvastatin [Zocor -] 20 mg PO HS 08/11/15 09/14/17 History Finasteride 5 mg PO DAILY 06/29/17 09/14/17 History Lisinopril [Prinivil] 5 mg PO DAILY 06/29/17 09/14/17 History Metformin HCl 500 mg PO DAILY 06/29/17 09/14/17 History Tadalafil [Cialis] 5 mg PO DAILY 09/14/17 09/14/17 History Active Medications Generic Name Dose Route Start Last Admin Trade Name Freq PRN Reason Stop Dose Admin Albuterol/Ipratropium 1 amp 09/14/17 15:07 Duoneb - NEB Q4H PRN SHORTNESS OF BREATH Aspirin 81 mg 09/15/17 10:00 09/15/17 09:29 Ecotrin - PO 81 mg DAILY [facility] Administration Atorvastatin Calcium 10 mg 09/14/17 22:00 09/14/17 21:44 Lipitor - PO 10 mg HS [facility] Administration Budesonide/Formoterol Fumarate 2 puff 09/14/17 22:00 09/15/17 09:31 Symbicort 80/4.5mcg - IH 2 puff BID [facility] Administration Finasteride 5 mg 09/14/17 15:15 09/15/17 09:29 Proscar - PO 5 mg DAILY [facility] Administration Heparin Sodium (Porcine) 5,000 unit 09/15/17 03:44 09/15/17 03:48 Heparin - IVPUSH 5,000 unit PRN PRN Administration Heparin Sodium (Porcine) 1,000 unit 09/15/17 03:44 Heparin - IVPUSH PRN PRN Sodium Chloride 1,000 mls @ 75 mls/hr 09/14/17 14:45 09/15/17 06:19 Normal Saline - IV 75 mls/hr ASDIR [facility] Administration Heparin Sodium (Porcine) 25, 500 mls @ 16 mls/hr 09/14/17 20:15 09/15/17 03: 50 000 unit/ Sodium Chloride IV 950 unit/hr TITR [facility] 19 mls/hr Protocol Administration 800 UNIT/HR Insulin Aspart 1 vial 09/14/17 16:30 09/15/17 06:19 Novolog Vial Sliding Scale - SQ Not Given ACHS [facility] Protocol Lisinopril 5 mg 09/14/17 15:15 09/15/17 09:29 Prinivil PO 5 mg DAILY [facility] Administration Morphine Sulfate 2 mg 09/14/17 14:42 09/15/17 09:31 Morphine Sulfate IVPUSH 2 mg Q4H PRN Administration PAIN Pantoprazole Sodium 20 mg 09/14/17 15:15 09/15/17 09:30 Protonix - PO 20 mg DAILY [facility] Administration Laboratory Tests 09/15/17 09/15/17 09/15/17 05:45 05:45 05:45 Factor V Leiden Pending Factor V Leiden Comment Pending [id number] Ab Pending Beta-2-GPI IgM Ab Pending Anti-Cardiolipin IgG Ab Pending Anti-Cardiolipin IgA Ab Pending Anti-Cardiolipin IgM Ab Pending Prothrombin [id number] Mut Pending Factor II DNA Comment Pending ASSESSMENT/PLAN: Patient is a 67 year old male who presented with LUQ abdominal pain and CT revealed Splenic Infarct. Patient admitted for further monitoring and management. #Acute Splenic Infarct r/o Hypercoagulable state work up is pending as above , cardioembolic event, splenic embolism , malignancy, EBV. continue Heparin drip. and aspirin, monitor in tele. for possible arryhtmia . TTE to access valvular function/leak, possible ZEUS to r/o embolic event as per cardio #Thrombocytosis with Leukocytosis r/o malignancy ; hem/onc on the case for further evaluation. # HTN-Controlled continue home meds # T2DM on ss with coverage # HLD continue meds. # COPD stable at this time # BPH/erectile dysfunction DVt Px: heparin drip Visit type - Emergency Visit Emergency Visit: Yes ED Registration Date: 09/14/17 Care time: The patient presented to the Emergency Department on the above date and was hospitalized for further evaluation of their emergent condition. - New Patient This patient is new to me today: No - Critical Care Critical Care patient: No
[2017-09-15] MEDS ORDERED: GLYCERIN 1 RECTAL SUPPOSITORY, ADULT RC ONE (21:21)
[2017-09-15] MEDS ORDERED: PT OWN MED DRAWER 7, Y5N ONE (21:48)
[2017-09-15] MEDS: ATORVASTATIN CA 10 MG TABLET (FP) PO SCH (22:06)
--- NOTE | 2017-09-15 22:10 | PN ---
Progress Note (short form) - Note Progress Note: Patient jessica nd examined Denies any complaints AFVSS Cor: RSR, No murmurs, No gallops Lungs: Clear to P&A Abd: Soft, Normal bowel sounds, No organomegaly Ext:No significant edema Abnormal Lab Results 09/14/17 09/15/17 09/15/17 18:00 05:45 05:45 WBC 14.9 H RBC 3.37 L Hgb 9.6 L Hct 29.3 L RDW 16.9 H Plt Count 497 H MPV 7.1 L PTT (Actin FS) Hemoglobin A1c % 6.7 H AST 10 L Total Protein 5.8 L Albumin 2.5 L 09/15/17 09:42 WBC RBC Hgb Hct RDW Plt Count MPV PTT (Actin FS) 51.6 H D Hemoglobin A1c % AST Total Protein Albumin Active Medications Albuterol/Ipratropium (Duoneb -) 1 amp NEB Q4H PRN PRN Reason: SHORTNESS OF BREATH Last Admin: 09/15/17 17:56 Dose: 1 amp Aspirin (Ecotrin -) 81 mg PO DAILY [facility] Last Admin: 09/15/17 09:29 Dose: 81 mg Atorvastatin Calcium (Lipitor -) 10 mg PO HS [facility] Last Admin: 09/15/17 22:06 Dose: 10 mg Budesonide/Formoterol Fumarate (Symbicort 80/4.5mcg -) 2 puff IH BID [facility] Last Admin: 09/15/17 22:24 Dose: Not Given Finasteride (Proscar -) 5 mg PO DAILY [facility] Last Admin: 09/15/17 09:29 Dose: 5 mg Heparin Sodium (Porcine) (Heparin -) 5,000 unit IVPUSH PRN PRN Last Admin: 09/15/17 03:48 Dose: 5,000 unit Heparin Sodium (Porcine) (Heparin -) 1,000 unit IVPUSH PRN PRN Sodium Chloride (Normal Saline -) 1,000 mls @ 75 mls/hr IV ASDIR [facility] Last Admin: 09/15/17 20:30 Dose: 75 mls/hr Heparin Sodium (Porcine) 25, (000 unit/ Sodium Chloride) 500 mls @ 16 mls/hr IV TITR [facility]; 800 UNIT/HR PRN Reason: Protocol Last Admin: 09/15/17 22:07 Dose: 950 unit/hr, 19 mls/hr Insulin Aspart (Novolog Vial Sliding Scale -) 1 vial SQ ACHS [facility] PRN Reason: Protocol Last Admin: 09/15/17 22:24 Dose: Not Given Lisinopril (Prinivil) 5 mg PO DAILY [facility] Last Admin: 09/15/17 09:29 Dose: 5 mg Morphine Sulfate (Morphine Sulfate) 2 mg IVPUSH Q4H PRN PRN Reason: PAIN Last Admin: 09/15/17 22:05 Dose: 2 mg Pantoprazole Sodium (Protonix -) 20 mg PO DAILY [facility] Last Admin: 09/15/17 09:30 Dose: 20 mg A/P 67 y/o patient with leukocytosis/thrombocytosis/splenic infarcts On heparin drip appreciate cardiology consult await thrombophilia w/u refusing bone marrow biopsy
[2017-09-16] MEDS: INSULIN SLIDING SCALE (NOVOLOG) 1 VIAL SQ SCH ×4 (06:42→22:46)
--- NOTE | 2017-09-16 07:14 | PN ---
Physical Exam: SUBJECTIVE: Patient seen and examined by me this AM - No major overnight events. Complaining only of LUQ pain. Good appetite, energy , sleep. BM last night, normal. - Denies any fever, chills, SOB, CP, palps, cough, N/V, dysuria or diarrhea. Endorses some mild chronic constipation. - Still on heparin gtt. Awaiting echo results OBJECTIVE: Vital Signs Intake & Output 09/13/17 09/14/17 09/15/17 09/16/17 23:59 23:59 23:59 23:59 Intake Total 340 1779 Output Total 750 3020 Balance -410 -1241 Weight 60.781 kg Period Temp Pulse Resp BP Sys/Guerrier Pulse Ox Last 24 Hr 98.1 F-98.7 F 75-88 18-20 106-143/63-85 94-95 GENERAL: The patient is awake, alert, and fully oriented, in no acute distress. HEAD: Normal with no signs of trauma. Alopecia EYES: PERRL, extraocular movements intact, sclera anicteric, conjunctiva clear. No ptosis. ENT: Ears normal, nares patent, oropharynx clear without exudates, moist mucous membranes. Poor dentition. NECK: Trachea midline, full range of motion, supple. LUNGS: Decreased at bases, no wheezes, no crackles, no accessory muscle use. HEART: Regular rate and rhythm, S1, S2 without murmur, rub or gallop. ABDOMEN: Pain on light and deep palpation in LUQ, no pain in any other quadrant. Otherwise soft, nondistended, normoactive bowel sounds, no guarding, no rebound, no other masses. Negative murphys, negative cullens and loco calvo signs Upper EXTREMITIES: 2+ pulses, warm, well-perfused, no edema. 5/5 strength, 1+ biceps reflexes. Lower EXTREMITIES: 2+ pulses, wwp, no edema. 1+ patellar reflexes, 5/5 strength. Exostosis in R patellar tendon. NEUROLOGICAL: Cranial nerves II through XII grossly intact. Normal speech, gait not observed. Psych: Normal affect, good mood Laboratory Results - last 24 hr CBC, BMP CBC, BMP 09/16/17 05:48 09/15/17 05:45 09/15/17 05:45 09/14/17 09/15/17 09/15/17 18:00 05:45 05:45 WBC 14.9 H RBC 3.37 L Hgb 9.6 L Hct 29.3 L MCV 87.0 MCH 28.5 MCHC 32.8 RDW 16.9 H Plt Count 497 H MPV 7.1 L PTT (Actin FS) Sodium 140 Potassium 4.4 Chloride 102 Carbon Dioxide 30 Anion Gap 8 BUN 9 Creatinine 0.8 Creat Clearance w eGFR > 60 POC Glucometer Random Glucose 95 Hemoglobin A1c % 6.7 H Calcium 9.3 Phosphorus 3.3 D Magnesium 1.9 Total Bilirubin 0.4 D AST 10 L ALT 14 D Alkaline Phosphatase 57 Total Protein 5.8 L Albumin 2.5 L 09/15/17 09/15/17 09/15/17 09:42 11:36 17:03 WBC RBC Hgb Hct MCV MCH MCHC RDW Plt Count MPV PTT (Actin FS) 51.6 H D Sodium Potassium Chloride Carbon Dioxide Anion Gap BUN Creatinine Creat Clearance w eGFR POC Glucometer 147 139 Random Glucose Hemoglobin A1c % Calcium Phosphorus Magnesium Total Bilirubin AST ALT Alkaline Phosphatase Total Protein Albumin 09/15/17 09/16/17 22:09 06:40 WBC RBC Hgb Hct MCV MCH MCHC RDW Plt Count MPV PTT (Actin FS) Sodium Potassium Chloride Carbon Dioxide Anion Gap BUN Creatinine Creat Clearance w eGFR POC Glucometer 136 111 Random Glucose Hemoglobin A1c % Calcium Phosphorus Magnesium Total Bilirubin AST ALT Alkaline Phosphatase Total Protein Albumin Active Medications Generic Name Dose Route Start Last Admin Trade Name Freq PRN Reason Stop Dose Admin Albuterol/Ipratropium 1 amp 09/14/17 15:07 09/15/17 17:56 Duoneb - NEB 1 amp Q4H PRN Administration SHORTNESS OF BREATH Aspirin 81 mg 09/15/17 10:00 09/15/17 09:29 Ecotrin - PO 81 mg DAILY [facility] Administration Atorvastatin Calcium 10 mg 09/14/17 22:00 09/15/17 22:06 Lipitor - PO 10 mg HS [facility] Administration Budesonide/Formoterol Fumarate 2 puff 09/14/17 22:00 09/15/17 22:24 Symbicort 80/4.5mcg - IH Not Given BID [facility] Docusate Sodium 100 mg 09/16/17 10:00 Colace - PO BID M[facility] Finasteride 5 mg 09/14/17 15:15 09/15/17 09:29 Proscar - PO 5 mg DAILY [facility] Administration Heparin Sodium (Porcine) 5,000 unit 09/15/17 03:44 09/15/17 03:48 Heparin - IVPUSH 5,000 unit PRN PRN Administration Heparin Sodium (Porcine) 1,000 unit 09/15/17 03:44 Heparin - IVPUSH PRN PRN Sodium Chloride 1,000 mls @ 75 mls/hr 09/14/17 14:45 09/15/17 20:30 Normal Saline - IV 75 mls/hr ASDIR [facility] Administration Heparin Sodium (Porcine) 25, 500 mls @ 16 mls/hr 09/14/17 20:15 09/15/17 22: 07 000 unit/ Sodium Chloride IV 950 unit/hr TITR [facility] 19 mls/hr Protocol Administration 800 UNIT/HR Insulin Aspart 1 vial 09/14/17 16:30 09/16/17 06:42 Novolog Vial Sliding Scale - SQ Not Given ACHS [facility] Protocol Lisinopril 5 mg 09/14/17 15:15 09/15/17 09:29 Prinivil PO 5 mg DAILY [facility] Administration Pantoprazole Sodium 20 mg 09/14/17 15:15 09/15/17 09:30 Protonix - PO 20 mg DAILY [facility] Administration No recent micro EKG 09/14 - NSR, 87, NAD, QTC 421, no twi or st abnormalities Imaging: CT abdomen/pelvis 09/14 - Segmental splenic infarctions, likely acute, with adjacent perisplenic fat stranding. These may be arterial or venous. Grossly patent splenic vein. Please correlate clinically ASSESSMENT/PLAN: 67 yo man w/ pmh of HTN, HLD, DM2, COPD, BPH (s/p TURP), alcohol abuse who presented w/ LUQ pain, now with CT confirmed splenic infarct. Pt is hemodynamically stable, with a downtrending WBC and stable Hgb. He is currently on a heparin gtt w/ bridge to coumadin per heme/onc, pending thrombophilia work- up. #Splenic infarct - CT confirmed. Pt stil with LUQ pain - Heme/onc consulted. Recs appreciated. - Cardiology following. F/u recs. - Heparin gtt - F/u coumadin or noacs for jail AC per heme/onc - F/u thrombophilia panel - monospot - F/u echo results - ASA 81mg - Morphine 1mg q4 prn for pain control #Anemia of Chronic Disease - Folate/b12 normal. HgB 9.6 -> 9.2 today. Baseline ~ 10. Confirmed ACD on 06/24 - Daily cbc. Monitor H/H - Transfuse at <7 - ESR 80 #Thrombocytosis - WBC downtrending 14.9 -> 13.4 today. Plts downtrending 497 -> 444 09/16 - Heme/onc consulted. Will f/u recs - Pt refusing BM biopsy - Trend daily cbcs #HTN - Lisinopril 5mg (home med) - monitor BP #DM2 - BG well controlled since admission - ISS - BGM ACHS - F/u A1c #COPD - Satting >95% on RA. no respiratory symptoms. -Duonebs q4h prn - symbicort 2 puff BID #HLD - f/u lipid panel - Atorvastatin 10mg daily HS #BPH - Finasteride 5mg po daily #PPX Heparin gtt protonix 20mg daily #FEN Fluids: PO hydration Electrolyte: daily bmps Nutrition: Diabetic diet Plan discussed with attending, Dr. Radha Harding, PGY1 Visit type - Emergency Visit Emergency Visit: Yes ED Registration Date: 09/14/17 Care time: The patient presented to the Emergency Department on the above date and was hospitalized for further evaluation of their emergent condition. - New Patient This patient is new to me today: No - Critical Care Critical Care patient: No
[2017-09-16 07:41] LABS: MCHC 32.6 g/dl (32.0-35.9); PLATELET COUNT 444 K/MM3 (134-434); RDW 16.9 % (11.9-15.9); WHITE BLOOD COUNT 13.4 K/mm3 (4.0-10.0)
[2017-09-16 08:12] LABS: ALBUMIN 2.2 g/dl (3.4-5.0); ANION GAP 6 (8-16); CALCIUM 8.5 mg/dL (8.5-10.1); CO2 28 mmol/L (21-32); GLUCOSE,RANDOM 103 mg/dL (74-106); MAGNESIUM 1.9 mg/dL (1.8-2.4); PHOSPHOROUS 3.1 mg/dL (2.5-4.9); SGOT/AST 12 U/L (15-37)
[2017-09-16 08:15] LABS: ALK PHOS 139 U/L (45-117); BILIRUBIN,TOTAL 0.2 mg/dL (0.2-1.0); CREATININE 0.7 mg/dL (0.7-1.3); SGPT/ALT 19 U/L (12-78); TOT PROT 5.4 g/dl (6.4-8.2)
[2017-09-16] MEDS ORDERED: PT OWN MED DRAWER 7, Y5N ONE ×2 (08:49→22:19)
[2017-09-16] MEDS: HEPARIN NA (PORCINE) 5,000 UNITS/ML 1ML VIAL IVPUSH PRN (09:00)
[2017-09-16] MEDS: DOCUSATE SODIUM 100 MG CAPSULE (FP) PO SCH ×2 (09:00→22:38)
[2017-09-16] MEDS: LISINOPRIL 5 MG TABLET (FP) PO SCH (09:00)
[2017-09-16] MEDS: HEPARIN - 25,000 UNIT in SODIUM CHLORIDE 495 ML IV SCH (09:00)
[2017-09-16] MEDS: PANTOPRAZOLE 20 MG TABLET (FP) PO SCH (09:00)
[2017-09-16] MEDS: FINASTERIDE 5 MG TABLET (FP) PO SCH (09:00)
[2017-09-16] MEDS: ASPIRIN COATED 81 MG TABLET.EC PO SCH (09:00)
[2017-09-16] MEDS: BUDESONIDE/FORMETEROL FUMARATE 80/4.5 mcg INHALER IH SCH ×2 (10:00→22:33)
--- NOTE | 2017-09-16 14:05 | PN ---
Teaching Attending Note Name of Resident: Edwardo Harding ATTENDING PHYSICIAN STATEMENT I saw and evaluated the patient. I reviewed the resident's note and discussed the case with the resident. I agree with the resident's findings and plan as documented. SUBJECTIVE: Patient feels better, no acute distress, pain is better, improved tremendously. OBJECTIVE: Vital Signs Temperature 98.6 F 09/16/17 05:55 Pulse Rate 75 09/16/17 05:55 Respiratory Rate 20 09/16/17 05:55 Blood Pressure 143/65 09/16/17 05:55 O2 Sat by Pulse Oximetry (%) 95 09/15/17 21:00 CBCD WBC 13.4 K/mm3 (4.0-10.0) H 09/16/17 05:48 RBC 3.30 M/mm3 (4.00-5.60) L 09/16/17 05:48 Hgb 9.2 GM/dL (11.7-16.9) L 09/16/17 05:48 Hct 28.4 % (35.4-49) L 09/16/17 05:48 MCV 86.0 fl (80-96) 09/16/17 05:48 MCHC 32.6 g/dl (32.0-35.9) 09/16/17 05:48 RDW 16.9 % (11.9-15.9) H 09/16/17 05:48 Plt Count 444 K/MM3 (134-434) H 09/16/17 05:48 MPV 7.0 fl (7.5-11.1) L 09/16/17 05:48 CMP Sodium 138 mmol/L (136-145) 09/16/17 05:48 Potassium 4.2 mmol/L (3.5-5.1) 09/16/17 05:48 Chloride 104 mmol/L (98-107) 09/16/17 05:48 Carbon Dioxide 28 mmol/L (21-32) 09/16/17 05:48 Anion Gap 6 (8-16) L 09/16/17 05:48 BUN 9 mg/dL (7-18) 09/16/17 05:48 Creatinine 0.7 mg/dL (0.7-1.3) 09/16/17 05:48 Creat Clearance w eGFR > 60 (>60) 09/16/17 05:48 Random Glucose 103 mg/dL (74-106) 09/16/17 05:48 Calcium 8.5 mg/dL (8.5-10.1) 09/16/17 05:48 Total Bilirubin 0.2 mg/dL (0.2-1.0) D 09/16/17 05:48 AST 12 U/L (15-37) L 09/16/17 05:48 ALT 19 U/L (12-78) D 09/16/17 05:48 Alkaline Phosphatase 139 U/L (45-117) H D 09/16/17 05:48 Total Protein 5.4 g/dl (6.4-8.2) L 09/16/17 05:48 Albumin 2.2 g/dl (3.4-5.0) L 09/16/17 05:48 CARDIAC ENZYMES Creatine Kinase Cancelled 09/14/17 11:20 Troponin I Cancelled 09/14/17 11:20 Current Medications Generic Name Dose Route Start Last Admin Trade Name Freq PRN Reason Stop Dose Admin Albuterol/Ipratropium 1 amp 09/14/17 15:07 09/15/17 17:56 Duoneb - NEB 1 amp Q4H PRN Administration SHORTNESS OF BREATH Aspirin 81 mg 09/15/17 10:00 09/16/17 09:00 Ecotrin - PO 81 mg DAILY [facility] Administration Atorvastatin Calcium 10 mg 09/14/17 22:00 09/15/17 22:06 Lipitor - PO 10 mg HS [facility] Administration Budesonide/Formoterol Fumarate 2 puff 09/14/17 22:00 09/16/17 10:00 Symbicort 80/4.5mcg - IH Not Given BID [facility] Docusate Sodium 100 mg 09/16/17 10:00 09/16/17 09:00 Colace - PO 100 mg BID M[facility] Administration Finasteride 5 mg 09/14/17 15:15 09/16/17 09:00 Proscar - PO 5 mg DAILY [facility] Administration Heparin Sodium (Porcine) 5,000 unit 09/15/17 03:44 09/16/17 09:00 Heparin - IVPUSH 5,000 unit PRN PRN Administration Heparin Sodium (Porcine) 1,000 unit 09/15/17 03:44 Heparin - IVPUSH PRN PRN Sodium Chloride 1,000 mls @ 75 mls/hr 09/14/17 14:45 09/15/17 20:30 Normal Saline - IV 75 mls/hr ASDIR [facility] Administration Heparin Sodium (Porcine) 25, 500 mls @ 16 mls/hr 09/14/17 20:15 09/16/17 09: 00 000 unit/ Sodium Chloride IV 1,100 unit/hr TITR [facility] 22 mls/hr Protocol Administration 800 UNIT/HR Insulin Aspart 1 vial 09/14/17 16:30 09/16/17 12:26 Novolog Vial Sliding Scale - SQ Not Given ACHS [facility] Protocol Lisinopril 5 mg 09/14/17 15:15 09/16/17 09:00 Prinivil PO 5 mg DAILY [facility] Administration Morphine Sulfate 1 mg 09/16/17 09:00 Morphine Sulfate IVPUSH Q4H PRN PAIN Pantoprazole Sodium 20 mg 09/14/17 15:15 09/16/17 09:00 Protonix - PO 20 mg DAILY [facility] Administration Home Medications Medication Instructions Recorded Albuterol Sulfate Inhaler - 1 - 2 inh PO Q4H PRN 08/11/15 [Ventolin HFA Inhaler -] Aspirin [Aspirin EC] 81 mg PO DAILY 08/11/15 Fluticasone/Salmeterol [Advair 1 each IH BID 08/11/15 250-50 Diskus] Omeprazole 20 mg PO DAILY 08/11/15 Simvastatin [Zocor -] 20 mg PO HS 08/11/15 Finasteride 5 mg PO DAILY 06/29/17 Lisinopril [Prinivil] 5 mg PO DAILY 06/29/17 Metformin HCl 500 mg PO DAILY 06/29/17 Tadalafil [Cialis] 5 mg PO DAILY 09/14/17 Laboratory Tests 09/15/17 09/15/17 09/15/17 05:45 05:45 05:45 Factor V Leiden Pending Factor V Leiden Comment Pending Ukez-0-Cbagwloxvqil Ab Pending Beta-2-GPI IgM Ab Pending Anti-Cardiolipin IgG Ab Pending Anti-Cardiolipin IgA Ab Pending Anti-Cardiolipin IgM Ab Pending Prothrombin [id number] Mut Pending Factor II DNA Comment Pending PE: per resident's note. ASSESSMENT AND PLAN: Patient is a 67 year old male who presented with LUQ abdominal pain and CT revealed Splenic Infarct. Patient admitted for further monitoring and management. #Acute Splenic Infarct ; Hypercoagulable work up is pending as above , r/o cardioembolic event, splenic embolism , malignancy, EBV. continue Heparin drip. and aspirin, monitor in tele. for possible arrythmia . TTE to access valvular leak, possible ZEUS to r/o embolic event as per cardio. #Thrombocytosis with Leukocytosis r/o malignancy ; hem/onc on the case for further evaluation and management. # HTN-Controlled continue home meds # T2DM on ss with coverage # HLD continue meds. # COPD stable at this time # BPH/erectile dysfunction DVt Px: heparin drip
[2017-09-16] MEDS: SODIUM CHLORIDE 1,000 ML IV SCH ×2 (16:00→22:38)
[2017-09-16] MEDS: morphine SULFATE 4 MG/ML VIAL IVPUSH PRN (16:31)
--- NOTE | 2017-09-16 18:18 | PN ---
Progress Note (short form) - Note Progress Note: Patient jessica nd examined Denies any complaints Last Vital Signs Temp Pulse Resp BP Pulse Ox 100 F H 79 20 126/79 94 L 09/16/17 14:15 09/16/17 14:15 09/16/17 14:15 09/16/17 14:15 09/16/17 09:00 Cor: RSR, No murmurs, No gallops Lungs: Clear to P&A Abd: Soft, Normal bowel sounds, No organomegaly Ext:No significant edema Abnormal Lab Results 09/16/17 09/16/17 09/16/17 05:48 05:48 14:50 WBC 13.4 H RBC 3.30 L Hgb 9.2 L Hct 28.4 L RDW 16.9 H Plt Count 444 H MPV 7.0 L PTT (Actin FS) 46.5 H D Anion Gap 6 L AST 12 L Alkaline Phosphatase 139 H D Total Protein 5.4 L Albumin 2.2 L Active Medications Generic Name Dose Route Start Last Admin Trade Name Freq PRN Reason Stop Dose Admin Albuterol/Ipratropium 1 amp 09/14/17 15:07 09/15/17 17:56 Duoneb - NEB 1 amp Q4H PRN Administration SHORTNESS OF BREATH Aspirin 81 mg 09/15/17 10:00 09/16/17 09:00 Ecotrin - PO 81 mg DAILY M[facility] Administration Atorvastatin Calcium 10 mg 09/14/17 22:00 09/15/17 22:06 Lipitor - PO 10 mg HS M[facility] Administration Budesonide/Formoterol Fumarate 2 puff 09/14/17 22:00 09/16/17 10:00 Symbicort 80/4.5mcg - IH Not Given BID M[facility] Docusate Sodium 100 mg 09/16/17 10:00 09/16/17 09:00 Colace - PO 100 mg BID M[facility] Administration Finasteride 5 mg 09/14/17 15:15 09/16/17 09:00 Proscar - PO 5 mg DAILY [facility] Administration Heparin Sodium (Porcine) 5,000 unit 09/15/17 03:44 09/16/17 09:00 Heparin - IVPUSH 5,000 unit PRN PRN Administration Heparin Sodium (Porcine) 1,000 unit 09/15/17 03:44 Heparin - IVPUSH PRN PRN Sodium Chloride 1,000 mls @ 75 mls/hr 09/14/17 14:45 09/15/17 20:30 Normal Saline - IV 75 mls/hr ASDIR M[facility]RIS Administration Heparin Sodium (Porcine) 25, 500 mls @ 16 mls/hr 09/14/17 20:15 09/16/17 09: 00 000 unit/ Sodium Chloride IV 1,100 unit/hr TITR M[facility] 22 mls/hr Protocol Administration 800 UNIT/HR Insulin Aspart 1 vial 09/14/17 16:30 09/16/17 16:41 Novolog Vial Sliding Scale - SQ Not Given ACHS [facility] Protocol Lisinopril 5 mg 09/14/17 15:15 09/16/17 09:00 Prinivil PO 5 mg DAILY [facility] Administration Morphine Sulfate 1 mg 09/16/17 09:00 09/16/17 16:31 Morphine Sulfate IVPUSH 1 mg Q4H PRN Administration PAIN Pantoprazole Sodium 20 mg 09/14/17 15:15 09/16/17 09:00 Protonix - PO 20 mg DAILY M[facility] Administration A/P 67 y/o patient with leukocytosis/thrombocytosis/splenic infarcts On heparin drip appreciate cardiology consult await thrombophilia w/u refusing bone marrow biopsy
[2017-09-16] MEDS: ATORVASTATIN CA 10 MG TABLET (FP) PO SCH (22:38)
[2017-09-17] MEDS: INSULIN SLIDING SCALE (NOVOLOG) 1 VIAL SQ SCH ×4 (06:12→22:01)
[2017-09-17 07:16] LABS: MCH 27.6 pg (25.7-33.7); MCHC 32.4 g/dl (32.0-35.9); MEAN CELL VOLUME 85.5 fl (80-96); MEAN PLT VOLUME 6.9 fl (7.5-11.1); PLATELET COUNT 486 K/MM3 (134-434); RDW 16.8 % (11.9-15.9); WHITE BLOOD COUNT 13.7 K/mm3 (4.0-10.0)
[2017-09-17 07:59] LABS: ALBUMIN 2.4 g/dl (3.4-5.0); ALK PHOS 106 U/L (45-117); ANION GAP 8 (8-16); BILIRUBIN,TOTAL 0.3 mg/dL (0.2-1.0); CALCIUM 9.5 mg/dL (8.5-10.1); CO2 28 mmol/L (21-32); CREATININE 0.7 mg/dL (0.7-1.3); GLUCOSE,RANDOM 96 mg/dL (74-106); SGOT/AST 10 U/L (15-37); SGPT/ALT 18 U/L (12-78); TOT PROT 5.7 g/dl (6.4-8.2)
--- NOTE | 2017-09-17 08:32 | PN ---
Teaching Attending Note Name of Resident: Edwardo Harding ATTENDING PHYSICIAN STATEMENT I saw and evaluated the patient. I reviewed the resident's note and discussed the case with the resident. I agree with the resident's findings and plan as documented. SUBJECTIVE: Patient is feeling better with no acute distress, No shortness, continue to have mild LUQ pain. OBJECTIVE: Vital Signs Temperature 98.2 F 09/17/17 06:00 Pulse Rate 79 09/17/17 06:00 Respiratory Rate 20 09/17/17 06:00 Blood Pressure 137/77 09/17/17 06:00 O2 Sat by Pulse Oximetry (%) 95 09/16/17 20:40 CBCD WBC 13.7 K/mm3 (4.0-10.0) H 09/17/17 05:28 RBC 3.51 M/mm3 (4.00-5.60) L 09/17/17 05:28 Hgb 9.7 GM/dL (11.7-16.9) L 09/17/17 05:28 Hct 30.0 % (35.4-49) L 09/17/17 05:28 MCV 85.5 fl (80-96) 09/17/17 05:28 MCHC 32.4 g/dl (32.0-35.9) 09/17/17 05:28 RDW 16.8 % (11.9-15.9) H 09/17/17 05:28 Plt Count 486 K/MM3 (134-434) H 09/17/17 05:28 MPV 6.9 fl (7.5-11.1) L 09/17/17 05:28 CMP Sodium 138 mmol/L (136-145) 09/17/17 05:28 Potassium 4.3 mmol/L (3.5-5.1) 09/17/17 05:28 Chloride 102 mmol/L (98-107) 09/17/17 05:28 Carbon Dioxide 28 mmol/L (21-32) 09/17/17 05:28 Anion Gap 8 (8-16) 09/17/17 05:28 BUN 8 mg/dL (7-18) 09/17/17 05:28 Creatinine 0.7 mg/dL (0.7-1.3) 09/17/17 05:28 Creat Clearance w eGFR > 60 (>60) 09/17/17 05:28 Random Glucose 96 mg/dL (74-106) 09/17/17 05:28 Calcium 9.5 mg/dL (8.5-10.1) 09/17/17 05:28 Total Bilirubin 0.3 mg/dL (0.2-1.0) D 09/17/17 05:28 AST 10 U/L (15-37) L 09/17/17 05:28 ALT 18 U/L (12-78) 09/17/17 05:28 Alkaline Phosphatase 106 U/L (45-117) D 09/17/17 05:28 Total Protein 5.7 g/dl (6.4-8.2) L 09/17/17 05:28 Albumin 2.4 g/dl (3.4-5.0) L 09/17/17 05:28 CARDIAC ENZYMES Creatine Kinase Cancelled 09/14/17 11:20 Troponin I Cancelled 09/14/17 11:20 Current Medications Generic Name Dose Route Start Last Admin Trade Name Freq PRN Reason Stop Dose Admin Albuterol/Ipratropium 1 amp 09/14/17 15:07 09/15/17 17:56 Duoneb - NEB 1 amp Q4H PRN Administration SHORTNESS OF BREATH Aspirin 81 mg 09/15/17 10:00 09/16/17 09:00 Ecotrin - PO 81 mg DAILY [facility] Administration Atorvastatin Calcium 10 mg 09/14/17 22:00 09/16/17 22:38 Lipitor - PO 10 mg HS [facility] Administration Budesonide/Formoterol Fumarate 2 puff 09/14/17 22:00 09/16/17 22:33 Symbicort 80/4.5mcg - IH Not Given BID M[facility] Docusate Sodium 100 mg 09/16/17 10:00 09/16/17 22:38 Colace - PO 100 mg BID [facility] Administration Finasteride 5 mg 09/14/17 15:15 09/16/17 09:00 Proscar - PO 5 mg DAILY [facility] Administration Heparin Sodium (Porcine) 5,000 unit 09/15/17 03:44 09/16/17 09:00 Heparin - IVPUSH 5,000 unit PRN PRN Administration Heparin Sodium (Porcine) 1,000 unit 09/15/17 03:44 Heparin - IVPUSH PRN PRN Sodium Chloride 1,000 mls @ 75 mls/hr 09/14/17 14:45 09/16/17 22:38 Normal Saline - IV 75 mls/hr ASDIR [facility] Administration Heparin Sodium (Porcine) 25, 500 mls @ 16 mls/hr 09/14/17 20:15 09/16/17 22: 38 000 unit/ Sodium Chloride IV 1,100 unit/hr TITR [facility] 22 mls/hr Protocol Titration 800 UNIT/HR Insulin Aspart 1 vial 09/14/17 16:30 09/17/17 06:12 Novolog Vial Sliding Scale - SQ Not Given ACHS [facility] Protocol Lisinopril 5 mg 09/14/17 15:15 09/16/17 09:00 Prinivil PO 5 mg DAILY M[facility] Administration Morphine Sulfate 1 mg 09/16/17 09:00 09/16/17 16:31 Morphine Sulfate IVPUSH 1 mg Q4H PRN Administration PAIN Pantoprazole Sodium 20 mg 09/14/17 15:15 09/16/17 09:00 Protonix - PO 20 mg DAILY M[facility] Administration Home Medications Medication Instructions Recorded Albuterol Sulfate Inhaler - 1 - 2 inh PO Q4H PRN 08/11/15 [Ventolin HFA Inhaler -] Aspirin [Aspirin EC] 81 mg PO DAILY 08/11/15 Fluticasone/Salmeterol [Advair 1 each IH BID 08/11/15 250-50 Diskus] Omeprazole 20 mg PO DAILY 08/11/15 Simvastatin [Zocor -] 20 mg PO HS 08/11/15 Finasteride 5 mg PO DAILY 06/29/17 Lisinopril [Prinivil] 5 mg PO DAILY 06/29/17 Metformin HCl 500 mg PO DAILY 06/29/17 Tadalafil [Cialis] 5 mg PO DAILY 09/14/17 Laboratory Tests 09/14/17 09/15/17 09/15/17 11:00 05:45 05:45 WBC 17.1 H 14.9 H Plt Count 570 H 497 H Factor V Leiden Factor V Leiden Comment [id number] Ab Pending Beta-2-GPI IgM Ab Pending Anti-Cardiolipin IgG Ab Pending Anti-Cardiolipin IgA Ab Pending Anti-Cardiolipin IgM Ab Pending Prothrombin [id number] Mut Factor II DNA Comment 09/15/17 09/15/17 09/16/17 05:45 05:45 05:48 WBC 13.4 H Plt Count 444 H Factor V Leiden Pending Factor V Leiden Comment Pending [id number] Ab Beta-2-GPI IgM Ab Anti-Cardiolipin IgG Ab Anti-Cardiolipin IgA Ab Anti-Cardiolipin IgM Ab Prothrombin [id number] Mut Pending Factor II DNA Comment Pending 09/17/17 05:28 WBC 13.7 H Plt Count 486 H Factor V Leiden Factor V Leiden Comment [id number] Ab Beta-2-GPI IgM Ab Anti-Cardiolipin IgG Ab Anti-Cardiolipin IgA Ab Anti-Cardiolipin IgM Ab Prothrombin [id number] Mut Factor II DNA Comment PE: per resident's note. RUQ: mild LUQ tenderness improving ASSESSMENT AND PLAN: Patient is a 67 year old male who presented with LUQ abdominal pain and CT revealed Splenic Infarct. Patient admitted for further monitoring and management. #Acute Splenic Infarct ; Hypercoagulable work up is pending as above ,ON IV heparin bridging with Coumadin, can't give Noac since not recommended for Splenic Infarct. r/o cardioembolic event: echo is negative , r/o malignancy, EBV. monitor in tele. for possible patient is having arrythmia . TTE: mild aortic sclerosis, mild mitral valve thickening, no pericardial effusion, no significant valvular disease, LV function Normal.[place] tart the patient on Coumadin 5mg with Pt/INR daily. #Thrombocytosis with Leukocytosis r/o malignancy ; hem/onc on the case for further evaluation and management. Improving. will continue to monitor # HTN-Controlled continue home meds # T2DM on ss with coverage # HLD continue meds. # COPD stable at this time # BPH/erectile dysfunction DVt Px: heparin drip/coumdin
[2017-09-17] MEDS ORDERED: PT OWN MED DRAWER 7, Y5N ONE (09:41)
[2017-09-17] MEDS: FINASTERIDE 5 MG TABLET (FP) PO SCH (10:38)
[2017-09-17] MEDS: DOCUSATE SODIUM 100 MG CAPSULE (FP) PO SCH ×2 (10:38→21:51)
[2017-09-17] MEDS: ASPIRIN COATED 81 MG TABLET.EC PO SCH (10:38)
[2017-09-17] MEDS: PANTOPRAZOLE 20 MG TABLET (FP) PO SCH (10:38)
[2017-09-17] MEDS: HEPARIN - 25,000 UNIT in SODIUM CHLORIDE 495 ML IV SCH ×2 (10:38→18:04)
[2017-09-17] MEDS: LISINOPRIL 5 MG TABLET (FP) PO SCH (10:38)
[2017-09-17] MEDS: HEPARIN NA (PORCINE) 5,000 UNITS/ML 1ML VIAL IVPUSH PRN ×2 (10:38→18:04)
[2017-09-17] MEDS: BUDESONIDE/FORMETEROL FUMARATE 80/4.5 mcg INHALER IH SCH ×2 (10:43→21:51)
--- NOTE | 2017-09-17 10:52 | PN ---
Progress Note, Physician Chief Complaint: Not in distress History of Present Illness: Patient was seen and examined. Awake and alert. Chart was reviewed Denies chest pain, SOB or palpitations - Current Medication List Current Medications: Active Medications Albuterol/Ipratropium (Duoneb -) 1 amp NEB Q4H PRN PRN Reason: SHORTNESS OF BREATH Last Admin: 09/15/17 17:56 Dose: 1 amp Aspirin (Ecotrin -) 81 mg PO DAILY [facility] Last Admin: 09/17/17 10:38 Dose: 81 mg Atorvastatin Calcium (Lipitor -) 10 mg PO HS [facility] Last Admin: 09/16/17 22:38 Dose: 10 mg Budesonide/Formoterol Fumarate (Symbicort 80/4.5mcg -) 2 puff IH BID [facility] Last Admin: 09/17/17 10:43 Dose: Not Given Docusate Sodium (Colace -) 100 mg PO BID [facility] Last Admin: 09/17/17 10:38 Dose: 100 mg Finasteride (Proscar -) 5 mg PO DAILY [facility] Last Admin: 09/17/17 10:38 Dose: 5 mg Heparin Sodium (Porcine) (Heparin -) 5,000 unit IVPUSH PRN PRN Last Admin: 09/17/17 10:38 Dose: 5,000 unit Heparin Sodium (Porcine) (Heparin -) 1,000 unit IVPUSH PRN PRN Sodium Chloride (Normal Saline -) 1,000 mls @ 75 mls/hr IV [facility] Last Admin: 09/16/17 22:38 Dose: 75 mls/hr Heparin Sodium (Porcine) 25, (000 unit/ Sodium Chloride) 500 mls @ 16 mls/hr IV TITR [facility]; 800 UNIT/HR PRN Reason: Protocol Last Admin: 09/17/17 10:38 Dose: 1,250 unit/hr, 25 mls/hr Insulin Aspart (Novolog Vial Sliding Scale -) 1 vial SQ ACHS [facility] PRN Reason: Protocol Last Admin: 09/17/17 06:12 Dose: Not Given Lisinopril (Prinivil) 5 mg PO DAILY [facility] Last Admin: 09/17/17 10:38 Dose: 5 mg Morphine Sulfate (Morphine Sulfate) 1 mg IVPUSH Q4H PRN PRN Reason: PAIN Last Admin: 09/16/17 16:31 Dose: 1 mg Pantoprazole Sodium (Protonix -) 20 mg PO DAILY [facility] Last Admin: 09/17/17 10:38 Dose: 20 mg Warfarin Sodium (Coumadin -) 5 mg PO DAILY@1800 [facility] - Objective Vital Signs: Vital Signs Temperature 98 F 09/17/17 09:57 Pulse Rate 80 09/17/17 09:57 Respiratory Rate 18 09/17/17 09:57 Blood Pressure 128/70 09/17/17 09:57 O2 Sat by Pulse Oximetry (%) 95 09/16/17 20:40 Neck: Yes: Supple Cardiovascular: Yes: Regular Rate and Rhythm, S1, S2 Respiratory: Yes: CTA Bilaterally Gastrointestinal: Yes: Normal Bowel Sounds, Soft. No: Tenderness Edema: No Additional Findings/Remarks: - Review of Systems Constitutional: denies: Weakness. denies: Chills, Fever Cardiovascular: denies: Shortness of Breath, denies: Chest Pain, Palpitations Respiratory: denies: SOB, denies: Cough, Hemoptysis, Orthopnea, PND Gastrointestinal: denies: Abdominal Pain, Constipation, Diarrhea, Melena, Nausea , Rectal Bleeding, Vomiting Musculoskeletal: denies: Joint Pain Neurological: denies: Weakness. denies: Confusion, Dizziness, Headache, Seizure , Syncope Labs: CBC, BMP 09/17/17 05:28 09/17/17 05:28 INR, PTT INR 1.20 (0.82-1.09) H 09/14/17 18:00 Problem List - Problems (1) LUQ pain Code(s): R10.12 - LEFT UPPER QUADRANT PAIN (2) Splenic infarction Code(s): D73.5 - INFARCTION OF SPLEEN (3) Thrombocytosis Code(s): D47.3 - ESSENTIAL (HEMORRHAGIC) THROMBOCYTHEMIA (4) Hyperlipidemia Code(s): E78.5 - HYPERLIPIDEMIA, UNSPECIFIED Qualifiers: Hyperlipidemia type: pure hypercholesterolemia Qualified Code(s): E78.00 - Pure hypercholesterolemia, unspecified; E78.0 - Pure hypercholesterolemia (5) Anemia Code(s): D64.9 - ANEMIA, UNSPECIFIED Qualifiers: Anemia type: unspecified type Qualified Code(s): D64.9 - Anemia, unspecified (6) HTN (hypertension) Code(s): I10 - ESSENTIAL (PRIMARY) HYPERTENSION Qualifiers: Hypertension type: essential hypertension Qualified Code(s): I10 - Essential (primary) hypertension (7) Hypercholesterolemia Code(s): E78.00 - PURE HYPERCHOLESTEROLEMIA, UNSPECIFIED (8) Diabetes mellitus Code(s): E11.9 - TYPE 2 DIABETES MELLITUS WITHOUT COMPLICATIONS Qualifiers: Diabetes mellitus type: type 2 Diabetes mellitus complication status: without complication Diabetes mellitus nursing home insulin use: without terminal computer operator use Qualified Code(s): E11.9 - Type 2 diabetes mellitus without complications Assessment/Plan 1. Splenic infarct, r/o splenic embolism, hypercoagulable states, cardioembolic etiologies, hematologic malignancies, etiology to be determined 2. Hypertension 3. Hyperlipidemia 4. Type 2 DM 5. Erectile dysfunction 6. Leukocytosis/Thrombocytosis ? 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 school lunch monitor r/o PAF- so far no evidence 2. Transthoracic echocardiography to assess LV/RV and valvular function. ZEUS may be needed to rule out source of emboli 3. Hypercoagulable work up, consider Heparin drip and Coumadin per INR 4. Continue ASA 81 qd, Lipitor 10 qhs, Lisinopril 5 qd 5. Consideration for bone marrow biopsy Further plans are to follow Tonny Palacio MD
[2017-09-17] MEDS ORDERED: LACTULOSE 20 GM/30 ML UDC (FOR ORAL USE ONLY) PO ONE (11:18)
--- NOTE | 2017-09-17 11:42 | PN ---
Physical Exam: SUBJECTIVE: Patient seen and examined by me this AM - Pain in LUQ much improved. No BM since yesterday AM. Good appetite. No other complains. No major overnight events. - Still on hep gtt. Plan to start Coumadin tonight per cardiology recs. PCP contacted, left message regarding outpt INR monitoring - Denies fever/chills, PARKER/dizziness, CP, sob, cough, N/V, dysuria, bruises, rashes or new neuro symptoms. OBJECTIVE: Vital Signs Intake & Output 09/14/17 09/15/17 09/16/17 09/17/17 23:59 23:59 23:59 23:59 Intake Total 340 1779 1689 260 Output Total 750 3020 3600 1100 Balance -410 -1241 -1911 -840 Weight 60.781 kg Period Temp Pulse Resp BP Sys/Guerrier Pulse Ox Last 24 Hr 98 F-100 F 77-80 18-20 126-147/65-79 94-95 GENERAL: A&Ox3, NAD, laying in bed HEAD: NCAT. Alopecia EYES: PERRL, extraocular movements intact, sclera anicteric, conjunctiva clear. No ptosis. ENT: Ears normal, nares patent, oropharynx clear without exudates, moist mucous membranes. Poor dentition. NECK: Trachea midline, full range of motion, supple. LUNGS: Bibasilar crackles R>L, no wheezes or rhonchi no accessory muscle use. HEART: Regular rate and rhythm, S1, S2 without murmur, rub or gallop. ABDOMEN: Pain on light and deep palpation in LUQ, subcostal. Otherwise soft, nondistended, normoactive bowel sounds, no guarding, no rebound, no other masses. Negative murphys, negative cullens and loco calvo signs Upper EXTREMITIES: 2+ pulses, warm, well-perfused, no edema. 5/5 strength, 2+ biceps reflexes. Lower EXTREMITIES: 2+ pulses, wwp, no edema. 1+ patellar reflexes, 5/5 strength. Exostosis in R patellar tendon. NEUROLOGICAL: Cranial nerves II through XII grossly intact. Normal speech, gait not observed. Psych: Normal affect, good mood Laboratory Results - last 24 hr CBC, BMP 09/17/17 05:28 09/17/17 05:28 09/16/17 09/16/1717 11:43 14:50 16:36 WBC RBC Hgb Hct MCV MCH MCHC RDW Plt Count MPV PTT (Actin FS) 46.5 H D Sodium Potassium Chloride Carbon Dioxide Anion Gap BUN Creatinine Creat Clearance w eGFR POC Glucometer 124 105 Random Glucose Calcium Total Bilirubin AST ALT Alkaline Phosphatase Total Protein Albumin 09/16/17 09/17/17 09/17/17 22:46 05:28 05:28 WBC 13.7 H RBC 3.51 L Hgb 9.7 L Hct 30.0 L MCV 85.5 MCH 27.6 MCHC 32.4 RDW 16.8 H Plt Count 486 H MPV 6.9 L PTT (Actin FS) 40.0 H Sodium Potassium Chloride Carbon Dioxide Anion Gap BUN Creatinine Creat Clearance w eGFR POC Glucometer 154 Random Glucose Calcium Total Bilirubin AST ALT Alkaline Phosphatase Total Protein Albumin 09/17/17 09/17/17 05:28 05:42 WBC RBC Hgb Hct MCV MCH MCHC RDW Plt Count MPV PTT (Actin FS) Sodium 138 Potassium 4.3 Chloride 102 Carbon Dioxide 28 Anion Gap 8 BUN 8 Creatinine 0.7 Creat Clearance w eGFR > 60 POC Glucometer 109 Random Glucose 96 Calcium 9.5 Total Bilirubin 0.3 D AST 10 L ALT 18 Alkaline Phosphatase 106 D Total Protein 5.7 L Albumin 2.4 L Active Medications Generic Name Dose Route Start Last Admin Trade Name Freq PRN Reason Stop Dose Admin Albuterol/Ipratropium 1 amp 09/14/17 15:07 09/15/17 17:56 Duoneb - NEB 1 amp Q4H PRN Administration SHORTNESS OF BREATH Aspirin 81 mg 09/15/17 10:00 09/17/17 10:38 Ecotrin - PO 81 mg DAILY [facility] Administration Atorvastatin Calcium 10 mg 09/14/17 22:00 09/16/17 22:38 Lipitor - PO 10 mg HS [facility] Administration Budesonide/Formoterol Fumarate 2 puff 09/14/17 22:00 09/17/17 10:43 Symbicort 80/4.5mcg - IH Not Given BID [facility] Docusate Sodium 100 mg 09/16/17 10:00 09/17/17 10:38 Colace - PO 100 mg BID [facility] Administration Finasteride 5 mg 09/14/17 15:15 09/17/17 10:38 Proscar - PO 5 mg DAILY [facility] Administration Heparin Sodium (Porcine) 5,000 unit 09/15/17 03:44 09/17/17 10:38 Heparin - IVPUSH 5,000 unit PRN PRN Administration Heparin Sodium (Porcine) 1,000 unit 09/15/17 03:44 Heparin - IVPUSH PRN PRN Sodium Chloride 1,000 mls @ 75 mls/hr 09/14/17 14:45 09/16/17 22:38 Normal Saline - IV 75 mls/hr [facility] Administration Heparin Sodium (Porcine) 25, 500 mls @ 16 mls/hr 09/14/17 20:15 09/17/17 10: 38 000 unit/ Sodium Chloride IV 1,250 unit/hr TITR [facility] 25 mls/hr Protocol Administration 800 UNIT/HR Insulin Aspart 1 vial 09/14/17 16:30 09/17/17 06:12 Novolog Vial Sliding Scale - SQ Not Given ACHS [facility] Protocol Lactulose 20 gm 09/17/17 11:18 Cephulac (Oral Use) PO 09/17/17 11:19 ONCE ONE Lisinopril 5 mg 09/14/17 15:15 09/17/17 10:38 Prinivil PO 5 mg DAILY [facility] Administration Morphine Sulfate 1 mg 09/16/17 09:00 09/16/17 16:31 Morphine Sulfate IVPUSH 1 mg Q4H PRN Administration PAIN Pantoprazole Sodium 20 mg 09/14/17 15:15 09/17/17 10:38 Protonix - PO 20 mg DAILY [facility] Administration Warfarin Sodium 5 mg 09/17/17 18:00 Coumadin - PO DAILY@1800 [facility] No recent micro EKG 09/14 - NSR, 87, NAD, QTC 421, no twi or st abnormalities Imaging: CT abdomen/pelvis 09/14 - Segmental splenic infarctions, likely acute, with adjacent perisplenic fat stranding. These may be arterial or venous. Grossly patent splenic vein. Please correlate clinically ASSESSMENT/PLAN: 67 yo man w/ pmh of HTN, HLD, DM2, COPD, BPH (s/p TURP), alcohol abuse who presented w/ LUQ pain, now with CT confirmed splenic infarct. Pt is hemodynamically stable, with a downtrending WBC and stable Hgb. He is currently on a heparin gtt w/ bridge to coumadin per heme/onc and cardiology, undergoing thrombophilia w/u by heme/onc. Pt LUQ pain is much improved, WBC stable at 13.7. Will start on coumadin tonight. #Splenic infarct - CT confirmed. LUQ improving - Heme/onc consulted. Recs appreciated. - Cardiology following. F/u recs. - Heparin gtt - Will start on coumadin 5mg tonight. f/u AM INR - thrombophilia panel pending - f/u Monoscreen - F/u echo results - ASA 81mg - Percocet 5/325 for pain control per home meds #Anemia of Chronic Disease - Folate/b12 normal. HgB 9.6 -> 9.2 today. Baseline ~ 10. Confirmed ACD on 06/24 - Daily cbc. Monitor H/H - Transfuse at <7 - ESR 80 #Thrombocytosis - WBC 13.7 today, stable. Plts downtrending 444->486 09/17 - Heme/onc consulted. Will f/u recs - Pt refusing BM biopsy - Trend daily cbcs #HTN - Lisinopril 5mg (home med) - monitor BP #DM2 - BG well controlled since admission - ISS - BGM ACHS - F/u A1c #COPD - Satting >95% on RA. no respiratory symptoms. -Duonebs q4h prn - symbicort 2 puff BID #HLD - f/u lipid panel - Atorvastatin 10mg daily HS #BPH - Finasteride 5mg po daily #Constipation - Lactulose 20mg once #PPX Heparin gtt protonix 20mg daily #FEN Fluids: PO hydration Electrolyte: daily bmps Nutrition: Diabetic diet Plan discussed with attending, Dr. Radha Harding, PGY1 Visit type - Emergency Visit Emergency Visit: Yes ED Registration Date: 09/14/17 Care time: The patient presented to the Emergency Department on the above date and was hospitalized for further evaluation of their emergent condition. - New Patient This patient is new to me today: No - Critical Care Critical Care patient: No
[2017-09-17 12:30] LABS: INR 1.19 (0.82-1.09); PROTHROMBIN TIME (PATIENT) 13.4 SEC (9.98-11.88)
[2017-09-17] MEDS: SODIUM CHLORIDE 1,000 ML IV SCH (17:02)
[2017-09-17] MEDS: WARFARIN NA 5 MG TABLET (UD) PO SCH (17:05)
[2017-09-17] MEDS: morphine SULFATE 4 MG/ML VIAL IVPUSH PRN ×2 (17:08→21:52)
[2017-09-17] MEDS ORDERED: INSULIN (NOVOLOG) ASPART 100 UNITS/ML 10ML VIAL ONE (21:48)
[2017-09-17] MEDS: ATORVASTATIN CA 10 MG TABLET (FP) PO SCH (21:51)
--- NOTE | 2017-09-17 22:19 | PN ---
Progress Note (short form) - Note Progress Note: Patient jessica nd examined Denies any complaints Last Vital Signs Temp Pulse Resp BP Pulse Ox 97.4 F L 74 20 124/68 96 09/17/17 20:58 09/17/17 20:58 09/17/17 20:58 09/17/17 20:58 09/17/17 20:56 Cor: RSR, No murmurs, No gallops Lungs: Clear to P&A Abd: Soft, Normal bowel sounds, No organomegaly Ext:No significant edema Abnormal Lab Results 09/17/17 09/17/17 09/17/17 05:28 05:28 05:28 WBC 13.7 H RBC 3.51 L Hgb 9.7 L Hct 30.0 L RDW 16.8 H Plt Count 486 H MPV 6.9 L PT with INR INR PTT (Actin FS) 40.0 H AST 10 L Total Protein 5.7 L Albumin 2.4 L 09/17/17 09/17/17 05:30 16:00 WBC RBC Hgb Hct RDW Plt Count MPV PT with INR 13.40 H INR 1.19 H PTT (Actin FS) 41.6 H AST Total Protein Albumin Active Medications Albuterol/Ipratropium (Duoneb -) 1 amp NEB Q4H PRN PRN Reason: SHORTNESS OF BREATH Last Admin: 09/15/17 17:56 Dose: 1 amp Aspirin (Ecotrin -) 81 mg PO DAILY [facility] Last Admin: 09/17/17 10:38 Dose: 81 mg Atorvastatin Calcium (Lipitor -) 10 mg PO HS [facility] Last Admin: 09/17/17 21:51 Dose: 10 mg Budesonide/Formoterol Fumarate (Symbicort 80/4.5mcg -) 2 puff IH BID [facility] Last Admin: 09/17/17 21:51 Dose: Not Given Docusate Sodium (Colace -) 100 mg PO BID [facility] Last Admin: 09/17/17 21:51 Dose: 100 mg Finasteride (Proscar -) 5 mg PO DAILY [facility] Last Admin: 09/17/17 10:38 Dose: 5 mg Heparin Sodium (Porcine) (Heparin -) 5,000 unit IVPUSH PRN PRN Last Admin: 09/17/17 10:38 Dose: 5,000 unit Heparin Sodium (Porcine) (Heparin -) 1,000 unit IVPUSH PRN PRN Last Admin: 09/17/17 18:04 Dose: 1,000 unit Heparin Sodium (Porcine) 25, (000 unit/ Sodium Chloride) 500 mls @ 16 mls/hr IV TITR [facility]; 800 UNIT/HR PRN Reason: Protocol Last Admin: 09/17/17 18:04 Dose: 1,350 unit/hr, 27 mls/hr Insulin Aspart (Novolog Vial Sliding Scale -) 1 vial SQ ACHS [facility] PRN Reason: Protocol Last Admin: 09/17/17 22:01 Dose: Not Given Lisinopril (Prinivil) 5 mg PO DAILY [facility] Last Admin: 09/17/17 10:38 Dose: 5 mg Morphine Sulfate (Morphine Sulfate) 1 mg IVPUSH Q4H PRN PRN Reason: PAIN Last Admin: 09/17/17 21:52 Dose: 1 mg Pantoprazole Sodium (Protonix -) 20 mg PO DAILY [facility] Last Admin: 09/17/17 10:38 Dose: 20 mg Warfarin Sodium (Coumadin -) 5 mg PO DAILY@1800 [facility] Last Admin: 09/17/17 17:05 Dose: 5 mg A/P 67 y/o patient with leukocytosis/thrombocytosis/splenic infarcts On heparin drip appreciate cardiology consult await thrombophilia w/u refusing bone marrow biopsy d/c iv fluids getting bridged to coumadin
[2017-09-18] MEDS: HEPARIN NA (PORCINE) 5,000 UNITS/ML 1ML VIAL IVPUSH PRN (02:00)
[2017-09-18] MEDS: INSULIN SLIDING SCALE (NOVOLOG) 1 VIAL SQ SCH ×4 (06:20→22:33)
--- NOTE | 2017-09-18 06:27 | PN ---
Physical Exam: SUBJECTIVE: Patient seen and examined by me this AM - No major overnight events. Pain still complaining of LUQ pain with moderate pain control. Endorses multiple bowel movements yesterday. Denies any PARKER/ dizziness, fevers/chills, CP, SOB, cough, N/V, peripheral edema, diarrhea, melena, hematochezia or dysuria. - Started on coumadin yesterday evening per cardiology recs. Attempted to contact PCP Dr. Cordero on whether she will be able to monitor INR as outpt. Will reach out again today. - Will f/u with heme/onc team about thrombocytosis. OBJECTIVE: Vital Signs Intake & Output 09/15/17 09/16/17 09/17/17 09/18/17 23:59 23:59 23:59 23:59 Intake Total 1779 1689 260 Output Total 3020 3600 1900 Balance -1241 -1911 -1640 Period Temp Pulse Resp BP Sys/Guerrier Pulse Ox Last 24 Hr 97.4 F-98.8 F 74-87 18-20 118-149/68-76 94-96 GENERAL: A&Ox3, NAD, laying in bed HEAD: NCAT. Alopecia. EYES: PERRL, extraocular movements intact, sclera anicteric, conjunctiva clear. No ptosis. ENT: Ears normal, nares patent, oropharynx clear without exudates, moist mucous membranes. Poor dentition. NECK: Trachea midline, full range of motion, supple. LUNGS: Trace crackles at bases, no wheezes or rhonchi, no accessory muscle use. HEART: Regular rate and rhythm, S1, S2 without murmur, rub or gallop. ABDOMEN: Pain on light and deep palpation in LUQ. Nontender in all other quadrants. Soft, nondistended, normoactive bowel sounds, no rebound, no other masses. Negative murphys, negative cullens and loco calvo signs Upper EXTREMITIES: 2+ pulses, warm, well-perfused, no edema. 5/5 strength, 2+ biceps reflexes. Lower EXTREMITIES: 2+ pulses, wwp, no edema. 1+ patellar reflexes, 5/5 strength. Exostosis in R patellar tendon. NEUROLOGICAL: Cranial nerves II through XII grossly intact. Normal speech, gait not observed. Psych: Normal affect, good mood Laboratory Results - last 24 hr CBC, BMP 09/18/17 05:05 09/18/17 05:05 09/15/17 09/17/17 09/17/17 05:45 05:28 05:28 WBC 13.7 H RBC 3.51 L Hgb 9.7 L Hct 30.0 L MCV 85.5 MCH 27.6 MCHC 32.4 RDW 16.8 H Plt Count 486 H MPV 6.9 L PT with INR INR PTT (Actin FS) 40.0 H Sodium Potassium Chloride Carbon Dioxide Anion Gap BUN Creatinine Creat Clearance w eGFR POC Glucometer Random Glucose Calcium Total Bilirubin AST ALT Alkaline Phosphatase Total Protein Albumin Anti-Cardiolipin IgG Ab <9 Anti-Cardiolipin IgA Ab 17 H Anti-Cardiolipin IgM Ab <9 09/17/17 09/17/17 09/17/17 05:28 05:30 11:45 WBC RBC Hgb Hct MCV MCH MCHC RDW Plt Count MPV PT with INR 13.40 H INR 1.19 H PTT (Actin FS) Sodium 138 Potassium 4.3 Chloride 102 Carbon Dioxide 28 Anion Gap 8 BUN 8 Creatinine 0.7 Creat Clearance w eGFR > 60 POC Glucometer 139 Random Glucose 96 Calcium 9.5 Total Bilirubin 0.3 D AST 10 L ALT 18 Alkaline Phosphatase 106 D Total Protein 5.7 L Albumin 2.4 L Anti-Cardiolipin IgG Ab Anti-Cardiolipin IgA Ab Anti-Cardiolipin IgM Ab 09/17/17 09/17/17 09/17/17 16:00 16:49 22:00 WBC RBC Hgb Hct MCV MCH MCHC RDW Plt Count MPV PT with INR INR PTT (Actin FS) 41.6 H Sodium Potassium Chloride Carbon Dioxide Anion Gap BUN Creatinine Creat Clearance w eGFR POC Glucometer 154 123 Random Glucose Calcium Total Bilirubin AST ALT Alkaline Phosphatase Total Protein Albumin Anti-Cardiolipin IgG Ab Anti-Cardiolipin IgA Ab Anti-Cardiolipin IgM Ab 09/18/17 09/18/17 09/18/17 01:00 01:00 05:58 WBC RBC Hgb Hct MCV MCH MCHC RDW Plt Count MPV PT with INR INR PTT (Actin FS) 41.8 H Cancelled Sodium Potassium Chloride Carbon Dioxide Anion Gap BUN Creatinine Creat Clearance w eGFR POC Glucometer 116 Random Glucose Calcium Total Bilirubin AST ALT Alkaline Phosphatase Total Protein Albumin Anti-Cardiolipin IgG Ab Anti-Cardiolipin IgA Ab Anti-Cardiolipin IgM Ab Active Medications Generic Name Dose Route Start Last Admin Trade Name Freq PRN Reason Stop Dose Admin Albuterol/Ipratropium 1 amp 09/14/17 15:07 09/15/17 17:56 Duoneb - NEB 1 amp Q4H PRN Administration SHORTNESS OF BREATH Aspirin 81 mg 09/15/17 10:00 09/17/17 10:38 Ecotrin - PO 81 mg DAILY [facility] Administration Atorvastatin Calcium 10 mg 09/14/17 22:00 09/17/17 21:51 Lipitor - PO 10 mg HS [facility] Administration Budesonide/Formoterol Fumarate 2 puff 09/14/17 22:00 09/17/17 21:51 Symbicort 80/4.5mcg - IH Not Given BID [facility] Docusate Sodium 100 mg 09/16/17 10:00 09/17/17 21:51 Colace - PO 100 mg BID [facility] Administration Finasteride 5 mg 09/14/17 15:15 09/17/17 10:38 Proscar - PO 5 mg DAILY [facility] Administration Heparin Sodium (Porcine) 5,000 unit 09/15/17 03:44 09/17/17 10:38 Heparin - IVPUSH 5,000 unit PRN PRN Administration Heparin Sodium (Porcine) 1,000 unit 09/15/17 03:44 09/18/17 02:00 Heparin - IVPUSH 1,000 unit PRN PRN Administration Heparin Sodium (Porcine) 25, 500 mls @ 16 mls/hr 09/14/17 20:15 09/18/17 02: 00 000 unit/ Sodium Chloride IV 1,450 unit/hr TITR [facility] 29 mls/hr Protocol Titration 800 UNIT/HR Insulin Aspart 1 vial 09/14/17 16:30 09/18/17 06:20 Novolog Vial Sliding Scale - SQ Not Given ACHS [facility] Protocol Lisinopril 5 mg 09/14/17 15:15 09/17/17 10:38 Prinivil PO 5 mg DAILY [facility] Administration Morphine Sulfate 1 mg 09/16/17 09:00 09/17/17 21:52 Morphine Sulfate IVPUSH 1 mg Q4H PRN Administration PAIN Pantoprazole Sodium 20 mg 09/14/17 15:15 09/17/17 10:38 Protonix - PO 20 mg DAILY [facility] Administration Warfarin Sodium 5 mg 09/17/17 18:00 09/17/17 17:05 Coumadin - PO 5 mg DAILY@1800 [facility] Administration No micro EKG 09/14 - NSR, 87, NAD, QTC 421, no twi or st abnormalities Imaging: CT abdomen/pelvis 09/14 - Segmental splenic infarctions, likely acute, with adjacent perisplenic fat stranding. These may be arterial or venous. Grossly patent splenic vein. Please correlate clinically Echo 09/17 - Normal LV function, mild MR. no residual clot. ASSESSMENT/PLAN: 67 yo man w/ pmh of HTN, HLD, DM2, COPD, BPH (s/p TURP), alcohol abuse who presented w/ LUQ pain, now with CT confirmed splenic infarct. Pt is remains hemodynamically stable, w/ uptrending WBC and platelets. Still refusing bone marrow biopsy. Still on a heparin gtt, start on coumadin yesterday per heme/onc and cardiology. Undergoing thrombophilia w/u by heme/onc. LUQ pain is much improved and well controlled with current pain regimen. Will require outpt INR monitoring. #Splenic infarct - CT confirmed. LUQ improving pain well controlled on current regimen - Heme/onc consulted. Recs appreciated. - Cardiology following. F/u recs. - Still w/ Heparin gtt - Started on coumadin yesterday 5mg. AM INR 1.24 - Thrombophilia panel pending - Anti-cardiolipin IgG, IgM normal. IgA elevated 17. - Monoscreen negative - Echo negative for residual clot - ASA 81mg - Morphine 1mg q4h prn for pain control - Multiple attempts made to contact PCP, Dr. Cordero, for outpt INR monitoring #Anemia of Chronic Disease - Folate/b12 normal. HgB stable, 9.9 today. Baseline ~10. Confirmed ACD on 06/24 - Daily cbc. Monitor H/H - Transfuse at <7 - ESR 80 #Thrombocytosis/leukocytosis - WBC 13.7-> 14.1 today, stable. Plts continue uptrending 486 -> 531 09/18 - Heme/onc consulted. Will f/u recs - Pt refusing BM biopsy again today. - Trend daily cbcs #HTN - Lisinopril 5mg (home med) - monitor BP #DM2 - BG well controlled since admission - ISS - BGM ACHS - F/u A1c #COPD - Satting >95% on RA. no respiratory symptoms. -Duonebs q4h prn - symbicort 2 puff BID #HLD - f/u lipid panel - Atorvastatin 10mg daily HS #BPH - Finasteride 5mg po daily #Constipation - Lactulose 20mg once #PPX Heparin gtt protonix 20mg daily #FEN Fluids: PO hydration Electrolyte: daily bmps Nutrition: Diabetic diet Plan discussed with attending, Dr. Radha Harding, PGY1 Visit type - Emergency Visit Emergency Visit: Yes ED Registration Date: 09/14/17 Care time: The patient presented to the Emergency Department on the above date and was hospitalized for further evaluation of their emergent condition. - New Patient This patient is new to me today: No - Critical Care Critical Care patient: No
[2017-09-18 07:21] LABS: MCH 27.9 pg (25.7-33.7); MCHC 32.3 g/dl (32.0-35.9); MEAN CELL VOLUME 86.3 fl (80-96); MEAN PLT VOLUME 7.1 fl (7.5-11.1); PLATELET COUNT 531 K/MM3 (134-434); WHITE BLOOD COUNT 14.1 K/mm3 (4.0-10.0)
[2017-09-18 08:02] LABS: ALBUMIN 2.4 g/dl (3.4-5.0); ALK PHOS 87 U/L (45-117); ANION GAP 8 (8-16); BILIRUBIN,TOTAL 0.2 mg/dL (0.2-1.0); CALCIUM 9.4 mg/dL (8.5-10.1); CO2 28 mmol/L (21-32); CREATININE 0.7 mg/dL (0.7-1.3); GLUCOSE,RANDOM 97 mg/dL (74-106); SGOT/AST 10 U/L (15-37); SGPT/ALT 18 U/L (12-78); TOT PROT 5.9 g/dl (6.4-8.2)
[2017-09-18 08:34] LABS: INR 1.24 (0.82-1.09)
[2017-09-18] MEDS: LISINOPRIL 5 MG TABLET (FP) PO SCH (09:11)
[2017-09-18] MEDS: ASPIRIN COATED 81 MG TABLET.EC PO SCH (09:11)
[2017-09-18] MEDS: BUDESONIDE/FORMETEROL FUMARATE 80/4.5 mcg INHALER IH SCH ×2 (09:11→22:02)
[2017-09-18] MEDS: PANTOPRAZOLE 20 MG TABLET (FP) PO SCH (09:11)
[2017-09-18] MEDS: DOCUSATE SODIUM 100 MG CAPSULE (FP) PO SCH ×2 (09:11→22:34)
[2017-09-18] MEDS: FINASTERIDE 5 MG TABLET (FP) PO SCH (09:11)
--- NOTE | 2017-09-18 10:48 | PN ---
Progress Note, Physician Chief Complaint: Not in distress History of Present Illness: Patient was seen and examined. Awake and alert. Chart was reviewed Denies chest pain, SOB or palpitations - Current Medication List Current Medications: Active Medications Albuterol/Ipratropium (Duoneb -) 1 amp NEB Q4H PRN PRN Reason: SHORTNESS OF BREATH Last Admin: 09/15/17 17:56 Dose: 1 amp Aspirin (Ecotrin -) 81 mg PO DAILY [facility] Last Admin: 09/18/17 09:11 Dose: 81 mg Atorvastatin Calcium (Lipitor -) 10 mg PO HS [facility] Last Admin: 09/17/17 21:51 Dose: 10 mg Budesonide/Formoterol Fumarate (Symbicort 80/4.5mcg -) 2 puff IH BID [facility] Last Admin: 09/18/17 09:11 Dose: Not Given Docusate Sodium (Colace -) 100 mg PO BID [facility] Last Admin: 09/18/17 09:11 Dose: 100 mg Finasteride (Proscar -) 5 mg PO DAILY [facility] Last Admin: 09/18/17 09:11 Dose: 5 mg Heparin Sodium (Porcine) (Heparin -) 5,000 unit IVPUSH PRN PRN Last Admin: 09/17/17 10:38 Dose: 5,000 unit Heparin Sodium (Porcine) (Heparin -) 1,000 unit IVPUSH PRN PRN Last Admin: 09/18/17 02:00 Dose: 1,000 unit Heparin Sodium (Porcine) 25, (000 unit/ Sodium Chloride) 500 mls @ 16 mls/hr IV TITR [facility]; 800 UNIT/HR PRN Reason: Protocol Last Titration: 09/18/17 02:00 Dose: 1,450 unit/hr, 29 mls/hr Insulin Aspart (Novolog Vial Sliding Scale -) 1 vial SQ ACHS [facility] PRN Reason: Protocol Last Admin: 09/18/17 06:20 Dose: Not Given Lisinopril (Prinivil) 5 mg PO DAILY [facility] Last Admin: 09/18/17 09:11 Dose: 5 mg Morphine Sulfate (Morphine Sulfate) 1 mg IVPUSH Q4H PRN PRN Reason: PAIN Last Admin: 09/17/17 21:52 Dose: 1 mg Pantoprazole Sodium (Protonix -) 20 mg PO DAILY [facility] Last Admin: 09/18/17 09:11 Dose: 20 mg Warfarin Sodium (Coumadin -) 5 mg PO DAILY@1800 [facility] Last Admin: 09/17/17 17:05 Dose: 5 mg - Objective Vital Signs: Vital Signs Temperature 98.7 F 09/18/17 06:00 Pulse Rate 77 09/18/17 06:00 Respiratory Rate 20 09/18/17 06:00 Blood Pressure 127/69 09/18/17 06:00 O2 Sat by Pulse Oximetry (%) 96 09/17/17 20:56 Eyes: Yes: PERRL HENT: Yes: Atraumatic Neck: Yes: Supple Cardiovascular: Yes: Regular Rate and Rhythm, S1, S2. No: Murmur Respiratory: Yes: CTA Bilaterally Gastrointestinal: Yes: Normal Bowel Sounds, Soft, Tenderness (LUQ slight tenderness) Edema: No Additional Findings/Remarks: - Review of Systems Constitutional: denies: Weakness. denies: Chills, Fever Cardiovascular: denies: Shortness of Breath, denies: Chest Pain, Palpitations Respiratory: denies: SOB, denies: Cough, Hemoptysis, Orthopnea, PND Gastrointestinal: denies: Abdominal Pain, Constipation, Diarrhea, Melena, Nausea , Rectal Bleeding, Vomiting Musculoskeletal: denies: Joint Pain Neurological: denies: Weakness. denies: Confusion, Dizziness, Headache, Seizure , Syncope Labs: CBC, BMP 09/18/17 05:05 09/18/17 05:05 INR, PTT INR 1.24 (0.82-1.09) H 09/18/17 08:00 Problem List - Problems (1) LUQ pain Code(s): R10.12 - LEFT UPPER QUADRANT PAIN (2) Splenic infarction Code(s): D73.5 - INFARCTION OF SPLEEN (3) Thrombocytosis Code(s): D47.3 - ESSENTIAL (HEMORRHAGIC) THROMBOCYTHEMIA (4) Hyperlipidemia Code(s): E78.5 - HYPERLIPIDEMIA, UNSPECIFIED Qualifiers: Hyperlipidemia type: pure hypercholesterolemia Qualified Code(s): E78.00 - Pure hypercholesterolemia, unspecified; E78.0 - Pure hypercholesterolemia (5) Anemia Code(s): D64.9 - ANEMIA, UNSPECIFIED Qualifiers: Anemia type: unspecified type Qualified Code(s): D64.9 - Anemia, unspecified (6) HTN (hypertension) Code(s): I10 - ESSENTIAL (PRIMARY) HYPERTENSION Qualifiers: Hypertension type: essential hypertension Qualified Code(s): I10 - Essential (primary) hypertension (7) Hypercholesterolemia Code(s): E78.00 - PURE HYPERCHOLESTEROLEMIA, UNSPECIFIED (8) Diabetes mellitus Code(s): E11.9 - TYPE 2 DIABETES MELLITUS WITHOUT COMPLICATIONS Qualifiers: Diabetes mellitus type: type 2 Diabetes mellitus complication status: without complication Diabetes mellitus chcf insulin 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 Splenic infarct, r/o splenic embolism, hypercoagulable states, cardioembolic etiologies, hematologic malignancies, etiology to be determined 2. Hypertension 3. Hyperlipidemia 4. Type 2 DM 5. Erectile dysfunction 6. Leukocytosis/Thrombocytosis ? 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 Transthoracic echocardiography reviewed - normal LV systolic function and no valvular regurgitations 3. Hypercoagulable work up, consider Heparin drip and Coumadin per INR 4. Continue ASA 81 qd, Lipitor 10 qhs, Lisinopril 5 qd 5. Continue management as per Hematology Further plans are to follow Tonny Palacio MD
[2017-09-18 11:10] LABS: INR 1.33 (0.82-1.09)
[2017-09-18] MEDS: HEPARIN - 25,000 UNIT in SODIUM CHLORIDE 495 ML IV SCH (11:25)
--- NOTE | 2017-09-18 15:58 | PN ---
Progress Note (short form) - Note Progress Note: Patient seen and examined Denies any complaints multimedia services coordinator used Last Vital Signs Temp Pulse Resp BP Pulse Ox 99.7 F H 88 20 114/67 96 09/18/17 14:15 09/18/17 14:15 09/18/17 14:15 09/18/17 14:15 09/17/17 20:56 Cor: RSR, No murmurs, No gallops Lungs: Clear to P&A Abd: Soft, Normal bowel sounds, No organomegaly Ext:No significant edema CBC, BMP 09/18/17 05:05 09/18/17 05:05 Current Medications Generic Name Dose Route Start Last Admin Trade Name Freq PRN Reason Stop Dose Admin Albuterol/Ipratropium 1 amp 09/14/17 15:07 09/15/17 17:56 Duoneb - NEB 1 amp Q4H PRN Administration SHORTNESS OF BREATH Aspirin 81 mg 09/15/17 10:00 09/18/17 09:11 Ecotrin - PO 81 mg DAILY [facility] Administration Atorvastatin Calcium 10 mg 09/14/17 22:00 09/17/17 21:51 Lipitor - PO 10 mg HS [facility] Administration Budesonide/Formoterol Fumarate 2 puff 09/14/17 22:00 09/18/17 09:11 Symbicort 80/4.5mcg - IH Not Given BID [facility] Docusate Sodium 100 mg 09/16/17 10:00 09/18/17 09:11 Colace - PO 100 mg BID [facility] Administration Finasteride 5 mg 09/14/17 15:15 09/18/17 09:11 Proscar - PO 5 mg DAILY [facility] Administration Heparin Sodium (Porcine) 5,000 unit 09/15/17 03:44 09/17/17 10:38 Heparin - IVPUSH 5,000 unit PRN PRN Administration Heparin Sodium (Porcine) 1,000 unit 09/15/17 03:44 09/18/17 02:00 Heparin - IVPUSH 1,000 unit PRN PRN Administration Heparin Sodium (Porcine) 25, 500 mls @ 16 mls/hr 09/14/17 20:15 09/18/17 11: 25 000 unit/ Sodium Chloride IV 1,450 unit/hr TITR [facility] 29 mls/hr Protocol Administration 800 UNIT/HR Insulin Aspart 1 vial 09/14/17 16:30 09/18/17 11:29 Novolog Vial Sliding Scale - SQ Not Given ACHS [facility] Protocol Lisinopril 5 mg 09/14/17 15:15 09/18/17 09:11 Prinivil PO 5 mg DAILY [facility] Administration Morphine Sulfate 1 mg 09/16/17 09:00 09/17/17 21:52 Morphine Sulfate IVPUSH 1 mg Q4H PRN Administration PAIN Pantoprazole Sodium 20 mg 09/14/17 15:15 09/18/17 09:11 Protonix - PO 20 mg DAILY [facility] Administration Warfarin Sodium 5 mg 09/17/17 18:00 09/17/17 17:05 Coumadin - PO 5 mg DAILY@1800 [facility] Administration 67 y/o patient with leukocytosis/thrombocytosis/splenic infarcts, can not r/o MPN/MPD On heparin drip appreciate cardiology consult await thrombophilia w/u continues to refuse bone marrow biopsy getting bridged to coumadin 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
[2017-09-18 16:30] LABS: BETA-2-GLYCOPROTEIN I IGA <9 (0-25)
[2017-09-18] MEDS: WARFARIN NA 5 MG TABLET (UD) PO SCH (17:06)
[2017-09-18] MEDS: ATORVASTATIN CA 10 MG TABLET (FP) PO SCH (22:31)
--- NOTE | 2017-09-18 23:55 | PN ---
Teaching Attending Note Name of Resident: Edwardo Harding ATTENDING PHYSICIAN STATEMENT I saw and evaluated the patient. I reviewed the resident's note and discussed the case with the resident. I agree with the resident's findings and plan as documented. SUBJECTIVE: Patient has no further pain. no fever or chills OBJECTIVE: Vital Signs Temperature 98.8 F 09/18/17 18:00 Pulse Rate 77 09/18/17 18:00 Respiratory Rate 19 09/18/17 18:00 Blood Pressure 129/65 09/18/17 18:00 O2 Sat by Pulse Oximetry (%) 96 09/17/17 20:56 CBCD WBC 14.1 K/mm3 (4.0-10.0) H 09/18/17 05:05 RBC 3.53 M/mm3 (4.00-5.60) L 09/18/17 05:05 Hgb 9.9 GM/dL (11.7-16.9) L 09/18/17 05:05 Hct 30.5 % (35.4-49) L 09/18/17 05:05 MCV 86.3 fl (80-96) 09/18/17 05:05 MCHC 32.3 g/dl (32.0-35.9) 09/18/17 05:05 RDW 17.0 % (11.9-15.9) H 09/18/17 05:05 Plt Count 531 K/MM3 (134-434) H 09/18/17 05:05 MPV 7.1 fl (7.5-11.1) L 09/18/17 05:05 CMP Sodium 137 mmol/L (136-145) 09/18/17 05:05 Potassium 4.4 mmol/L (3.5-5.1) 09/18/17 05:05 Chloride 101 mmol/L (98-107) 09/18/17 05:05 Carbon Dioxide 28 mmol/L (21-32) 09/18/17 05:05 Anion Gap 8 (8-16) 09/18/17 05:05 BUN 11 mg/dL (7-18) D 09/18/17 05:05 Creatinine 0.7 mg/dL (0.7-1.3) 09/18/17 05:05 Creat Clearance w eGFR > 60 (>60) 09/18/17 05:05 Random Glucose 97 mg/dL (74-106) 09/18/17 05:05 Calcium 9.4 mg/dL (8.5-10.1) 09/18/17 05:05 Total Bilirubin 0.2 mg/dL (0.2-1.0) D 09/18/17 05:05 AST 10 U/L (15-37) L 09/18/17 05:05 ALT 18 U/L (12-78) 09/18/17 05:05 Alkaline Phosphatase 87 U/L (45-117) 09/18/17 05:05 Total Protein 5.9 g/dl (6.4-8.2) L 09/18/17 05:05 Albumin 2.4 g/dl (3.4-5.0) L 09/18/17 05:05 CARDIAC ENZYMES Creatine Kinase Cancelled 09/14/17 11:20 Troponin I Cancelled 09/14/17 11:20 Current Medications Generic Name Dose Route Start Last Admin Trade Name Freq PRN Reason Stop Dose Admin Albuterol/Ipratropium 1 amp 09/14/17 15:07 09/15/17 17:56 Duoneb - NEB 1 amp Q4H PRN Administration SHORTNESS OF BREATH Aspirin 81 mg 09/15/17 10:00 09/18/17 09:11 Ecotrin - PO 81 mg DAILY [facility] Administration Atorvastatin Calcium 10 mg 09/14/17 22:00 09/18/17 22:31 Lipitor - PO 10 mg HS [facility] Administration Budesonide/Formoterol Fumarate 2 puff 09/14/17 22:00 09/18/17 22:02 Symbicort 80/4.5mcg - IH Not Given BID [facility] Docusate Sodium 100 mg 09/16/17 10:00 09/18/17 22:34 Colace - PO 100 mg BID [facility] Administration Finasteride 5 mg 09/14/17 15:15 09/18/17 09:11 Proscar - PO 5 mg DAILY [facility] Administration Heparin Sodium (Porcine) 5,000 unit 09/15/17 03:44 09/17/17 10:38 Heparin - IVPUSH 5,000 unit PRN PRN Administration Heparin Sodium (Porcine) 1,000 unit 09/15/17 03:44 09/18/17 02:00 Heparin - IVPUSH 1,000 unit PRN PRN Administration Heparin Sodium (Porcine) 25, 500 mls @ 16 mls/hr 09/14/17 20:15 09/18/17 11: 25 000 unit/ Sodium Chloride IV 1,450 unit/hr TITR [facility] 29 mls/hr Protocol Administration 800 UNIT/HR Insulin Aspart 1 vial 09/14/17 16:30 09/18/17 22:33 Novolog Vial Sliding Scale - SQ 2 units ACHS [facility] Administration Protocol Lisinopril 5 mg 09/14/17 15:15 09/18/17 09:11 Prinivil PO 5 mg DAILY [facility] Administration Morphine Sulfate 1 mg 09/16/17 09:00 09/17/17 21:52 Morphine Sulfate IVPUSH 1 mg Q4H PRN Administration PAIN Pantoprazole Sodium 20 mg 09/14/17 15:15 09/18/17 09:11 Protonix - PO 20 mg DAILY [facility] Administration Warfarin Sodium 5 mg 09/17/17 18:00 09/18/17 17:06 Coumadin - PO 5 mg DAILY@1800 [facility] Administration Home Medications Medication Instructions Recorded Albuterol Sulfate Inhaler - 1 - 2 inh PO Q4H PRN 08/11/15 [Ventolin HFA Inhaler -] Aspirin [Aspirin EC] 81 mg PO DAILY 08/11/15 Fluticasone/Salmeterol [Advair 1 each IH BID 08/11/15 250-50 Diskus] Omeprazole 20 mg PO DAILY 08/11/15 Simvastatin [Zocor -] 20 mg PO HS 08/11/15 Finasteride 5 mg PO DAILY 06/29/17 Lisinopril [Prinivil] 5 mg PO DAILY 06/29/17 Metformin HCl 500 mg PO DAILY 06/29/17 Tadalafil [Cialis] 5 mg PO DAILY 09/14/17 Laboratory Tests 09/14/17 09/15/17 09/15/17 11:00 05:45 05:45 WBC 17.1 H 14.9 H Plt Count 570 H 497 H Factor V Leiden Factor V Leiden Comment Kxcs-1-Blarfngolxed Ab Pending Beta-2-GPI IgM Ab Pending Anti-Cardiolipin IgG Ab Pending Anti-Cardiolipin IgA Ab Pending Anti-Cardiolipin IgM Ab Pending Prothrombin [id number] Mut Factor II DNA Comment 09/15/17 09/15/17 09/16/17 05:45 05:45 05:48 WBC 13.4 H Plt Count 444 H Factor V Leiden Pending Factor V Leiden Comment Pending Kzxi-8-Diducerbsgvj Ab Beta-2-GPI IgM Ab Anti-Cardiolipin IgG Ab Anti-Cardiolipin IgA Ab Anti-Cardiolipin IgM Ab Prothrombin [id number] Mut Pending Factor II DNA Comment Pending 09/17/17 05:28 WBC 13.7 H Plt Count 486 H Factor V Leiden Factor V Leiden Comment Xmpb-8-Rptbatcsyndu Ab Beta-2-GPI IgM Ab Anti-Cardiolipin IgG Ab Anti-Cardiolipin IgA Ab Anti-Cardiolipin IgM Ab Prothrombin [id number] Mut Factor II DNA Comment PE: per resident's note. LUQ: no tenderness improved ASSESSMENT AND PLAN: Patient is a 67 year old male who presented with LUQ abdominal pain and CT revealed Splenic Infarct. Patient admitted for further monitoring and management. #Acute Splenic Infarct ; Hypercoagulable work up is pending as above ,ON IV heparin bridging with Coumadin, can't give Noac since not recommended for Splenic Infarct. r/o cardioembolic event: echo is negative , r/o malignancy, EBV. monitor in tele. for possible patient is having arrythmia . TTE: mild aortic sclerosis, mild mitral valve thickening, no pericardial effusion, no significant valvular disease, LV function Normal. On Coumadin 5mg with Pt/INR daily. follow INR #Thrombocytosis with Leukocytosis r/o malignancy ; hem/onc on the case for further evaluation and management. will continue to monitor # HTN-Controlled continue home meds # T2DM on ss with coverage # HLD continue meds. # COPD stable at this time # BPH/erectile dysfunction DVt Px: heparin drip/coumdin once INR therapeutic can go home
--- NOTE | 2017-09-19 06:01 | PN ---
Physical Exam: SUBJECTIVE: Patient seen and examined by me this AM - No major overnight events. Pt no longer complaining of LUQ pain. Anxious about being discharged. counseled on importance of finishing his heparin to coumadin bridge. - Denies any fever/chills, PARKER/lightheadness, CP, SOB, cough, N/V, abdominal pain , dysuria, diarrhea, or new neuro symptoms. - Dr. Cordero's office contacted regarding outpt INR monitoring. was informed by nursing staff that this is a service they offer. OBJECTIVE: Vital Signs Intake & Output 09/16/17 09/17/17 09/18/17 09/19/17 23:59 23:59 23:59 23:59 Intake Total 1689 260 330 330 Output Total 3600 1900 700 Balance -1911 -1640 -370 330 Period Temp Pulse Resp BP Sys/Guerrier Pulse Ox Last 24 Hr 97.6 F-99.7 F 74-88 19-20 107-129/58-67 95 GENERAL: A&Ox3, NAD, laying in bed HEAD: NCAT. Alopecia EYES: PERRL, extraocular movements intact, sclera anicteric, conjunctiva clear. No ptosis. ENT: Ears normal, nares patent, oropharynx clear without exudates, moist mucous membranes. Poor dentition. NECK: Trachea midline, full range of motion, supple. LUNGS: Bibasilar crackles, no wheezes or rhonchi no accessory muscle use. HEART: Regular rate and rhythm, S1, S2 without murmur, rub or gallop. pectus excavatum noted, mild ABDOMEN: No longer pain to light or deep palpation in LUQ. Soft, nondistended, normoactive bowel sounds, no guarding, no rebound, no other masses. Negative murphys, negative cullens and loco calvo signs Upper EXTREMITIES: 2+ pulses, warm, well-perfused, no edema. 5/5 strength, 2+ biceps reflexes. Lower EXTREMITIES: 2+ pulses, wwp, no edema. 1+ patellar reflexes, 5/5 strength. Exostosis in R patellar tendon. NEUROLOGICAL: Cranial nerves II through XII grossly intact. Normal speech, gait not observed. Psych: Normal affect, good mood Laboratory Results - last 24 hr CBC, BMP CBC, BMP 09/19/17 06:45 09/18/17 05:05 09/18/17 05:05 09/15/17 09/18/17 09/18/17 05:45 05:05 05:05 WBC 14.1 H RBC 3.53 L Hgb 9.9 L Hct 30.5 L MCV 86.3 MCH 27.9 MCHC 32.3 RDW 17.0 H Plt Count 531 H MPV 7.1 L PT with INR INR PTT (Actin FS) 60.4 H D Sodium Potassium Chloride Carbon Dioxide Anion Gap BUN Creatinine Creat Clearance w eGFR POC Glucometer Random Glucose Calcium Total Bilirubin AST ALT Alkaline Phosphatase Total Protein Albumin Hvpp-4-Ryeqglcosbwo <9 Mbxt-1-Idrxuiyiujnx Ab <9 Beta-2-GPI IgM Ab <9 Monoscreen 09/18/17 09/18/17 09/18/17 05:05 05:58 06:30 WBC RBC Hgb Hct MCV MCH MCHC RDW Plt Count MPV PT with INR INR PTT (Actin FS) Sodium 137 Potassium 4.4 Chloride 101 Carbon Dioxide 28 Anion Gap 8 BUN 11 D Creatinine 0.7 Creat Clearance w eGFR > 60 POC Glucometer 116 Random Glucose 97 Calcium 9.4 Total Bilirubin 0.2 D AST 10 L ALT 18 Alkaline Phosphatase 87 Total Protein 5.9 L Albumin 2.4 L Zrue-7-Hyespnrwrsav Glbu-8-Sbgyahaxnrsg Ab Beta-2-GPI IgM Ab Monoscreen Negative 09/18/17 09/18/17 09/18/17 08:00 08:00 09:35 WBC RBC Hgb Hct MCV MCH MCHC RDW Plt Count MPV PT with INR 14.00 H 15.00 H INR 1.24 H 1.33 H PTT (Actin FS) 53.5 H Sodium Potassium Chloride Carbon Dioxide Anion Gap BUN Creatinine Creat Clearance w eGFR POC Glucometer Random Glucose Calcium Total Bilirubin AST ALT Alkaline Phosphatase Total Protein Albumin Whly-3-Lwqsnwymuxdj Yihq-3-Djkzdpsuqzvk Ab Beta-2-GPI IgM Ab Monoscreen 09/18/17 09/18/17 09/18/17 11:28 16:31 22:33 WBC RBC Hgb Hct MCV MCH MCHC RDW Plt Count MPV PT with INR INR PTT (Actin FS) Sodium Potassium Chloride Carbon Dioxide Anion Gap BUN Creatinine Creat Clearance w eGFR POC Glucometer 146 128 152 Random Glucose Calcium Total Bilirubin AST ALT Alkaline Phosphatase Total Protein Albumin Boqj-9-Bvpctuvchqct Wlin-4-Vncppyhaiumf Ab Beta-2-GPI IgM Ab Monoscreen Active Medications Generic Name Dose Route Start Last Admin Trade Name Freq PRN Reason Stop Dose Admin Albuterol/Ipratropium 1 amp 09/14/17 15:07 09/15/17 17:56 Duoneb - NEB 1 amp Q4H PRN Administration SHORTNESS OF BREATH Aspirin 81 mg 09/15/17 10:00 09/18/17 09:11 Ecotrin - PO 81 mg DAILY [facility] Administration Atorvastatin Calcium 10 mg 09/14/17 22:00 09/18/17 22:31 Lipitor - PO 10 mg HS [facility] Administration Budesonide/Formoterol Fumarate 2 puff 09/14/17 22:00 09/18/17 22:02 Symbicort 80/4.5mcg - IH Not Given BID [facility] Docusate Sodium 100 mg 09/16/17 10:00 09/18/17 22:34 Colace - PO 100 mg BID [facility] Administration Finasteride 5 mg 09/14/17 15:15 09/18/17 09:11 Proscar - PO 5 mg DAILY [facility] Administration Heparin Sodium (Porcine) 5,000 unit 09/15/17 03:44 09/17/17 10:38 Heparin - IVPUSH 5,000 unit PRN PRN Administration Heparin Sodium (Porcine) 1,000 unit 09/15/17 03:44 09/18/17 02:00 Heparin - IVPUSH 1,000 unit PRN PRN Administration Heparin Sodium (Porcine) 25, 500 mls @ 16 mls/hr 09/14/17 20:15 09/18/17 11: 25 000 unit/ Sodium Chloride IV 1,450 unit/hr TITR [facility] 29 mls/hr Protocol Administration 800 UNIT/HR Insulin Aspart 1 vial 09/14/17 16:30 09/18/17 22:33 Novolog Vial Sliding Scale - SQ 2 units ACHS [facility] Administration Protocol Lisinopril 5 mg 09/14/17 15:15 09/18/17 09:11 Prinivil PO 5 mg DAILY [facility] Administration Morphine Sulfate 1 mg 09/16/17 09:00 09/17/17 21:52 Morphine Sulfate IVPUSH 1 mg Q4H PRN Administration PAIN Pantoprazole Sodium 20 mg 09/14/17 15:15 09/18/17 09:11 Protonix - PO 20 mg DAILY [facility] Administration Warfarin Sodium 5 mg 09/17/17 18:00 09/18/17 17:06 Coumadin - PO 5 mg DAILY@1800 [facility] Administration No micro Tele reviewed. No Abnormalities. EKG 09/14 - NSR, 87, NAD, QTC 421, no twi or st abnormalities Imaging: CT abdomen/pelvis 09/14 - Segmental splenic infarctions, likely acute, with adjacent perisplenic fat stranding. These may be arterial or venous. Grossly patent splenic vein. Please correlate clinically Echo 09/17 - Normal LV function, mild MR. no residual clot. ASSESSMENT/PLAN: 67 yo man w/ pmh of HTN, HLD, DM2, COPD, BPH (s/p TURP), alcohol abuse who presented w/ LUQ pain, now with CT confirmed splenic infarct. Pt is hemodynamically stable, no longer complaining of pain in LUQ. Pt still on heparin to coumadin bridge, INR 1.74 this AM. Plan for discharge on coumadin per cardiology/heme recs w/ outpt INR monitoring w/ his PCP, Dr. Cordero. Still with thrombocytosis, leukocystosis, both uptrending, refused bm bx. #Splenic infarct - CT confirmed. LUQ improving pain well controlled on current regimen - Heme/onc consulted. Recs appreciated. - Cardiology following. F/u recs. - Still w/ Heparin gtt - Started on coumadin 09/17 5mg. AM INR 1.74. repeat tomorrow. - Thrombophilia panel pending, negative so far - Anti-cardiolipin IgG, IgM normal. IgA elevated 17. - Monoscreen negative - Echo negative for residual clot - ASA 81mg - d/c morphine IV - Multiple attempts made to contact PCP, Dr. Cordero, for outpt INR monitoring #Anemia of Chronic Disease - Folate/b12 normal. HgB stable, 10.7 today. Baseline ~10. Confirmed ACD on 06/24 - Daily cbc. Monitor H/H - Transfuse at <7 - ESR 80 #Thrombocytosis/leukocytosis - WBC 14.1 -> 15.3 today, stable. Plts continue uptrending 531 -> 567 09/19 - Heme/onc consulted. Will f/u recs - Pt refusing BM biopsy - Trend daily cbcs #HTN - Lisinopril 5mg (home med) - monitor BP #DM2 - BG well controlled since admission - ISS - BGM ACHS - F/u A1c #COPD - Satting >95% on RA. no respiratory symptoms. -Duonebs q4h prn - d/c symbicort. switched to advair #HLD - f/u lipid panel - Atorvastatin 10mg daily HS #BPH - Finasteride 5mg po daily #Constipation - Monitor BMs #PPX Heparin gtt, coumadin protonix 20mg daily #FEN Fluids: PO hydration Electrolyte: daily bmps Nutrition: Diabetic diet Plan discussed with attending, Dr. Richa Harding, PGY1 Visit type - Emergency Visit Emergency Visit: Yes ED Registration Date: 09/14/17 Care time: The patient presented to the Emergency Department on the above date and was hospitalized for further evaluation of their emergent condition. - New Patient This patient is new to me today: No - Critical Care Critical Care patient: No
[2017-09-19] MEDS: INSULIN SLIDING SCALE (NOVOLOG) 1 VIAL SQ SCH ×4 (06:03→23:17)
[2017-09-19] MEDS ORDERED: INSULIN (NOVOLOG) ASPART 100 UNITS/ML 10ML VIAL ONE (07:00)
[2017-09-19 08:26] LABS: MCH 28.2 pg (25.7-33.7); MEAN CELL VOLUME 85.6 fl (80-96); MEAN PLT VOLUME 6.9 fl (7.5-11.1); PLATELET COUNT 567 K/MM3 (134-434); RDW 17.3 % (11.9-15.9); WHITE BLOOD COUNT 15.3 K/mm3 (4.0-10.0)
[2017-09-19 09:36] LABS: ALBUMIN 2.7 g/dl (3.4-5.0); ALK PHOS 85 U/L (45-117); ANION GAP 10 (8-16); BILIRUBIN,TOTAL 0.2 mg/dL (0.2-1.0); CALCIUM 9.5 mg/dL (8.5-10.1); CO2 27 mmol/L (21-32); CREATININE 0.7 mg/dL (0.7-1.3); GLUCOSE,RANDOM 99 mg/dL (74-106); SGOT/AST 12 U/L (15-37); SGPT/ALT 24 U/L (12-78); TOT PROT 6.4 g/dl (6.4-8.2)
[2017-09-19 10:03] LABS: INR 1.74 (0.82-1.09); PROTHROMBIN TIME (PATIENT) 19.7 SEC (9.98-11.88)
[2017-09-19] MEDS: HEPARIN - 25,000 UNIT in SODIUM CHLORIDE 495 ML IV SCH (10:05)
--- NOTE | 2017-09-19 10:05 | PN ---
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 - Current Medication List Current Medications: Active Medications Albuterol/Ipratropium (Duoneb -) 1 amp NEB Q4H PRN PRN Reason: SHORTNESS OF BREATH Last Admin: 09/15/17 17:56 Dose: 1 amp Aspirin (Ecotrin -) 81 mg PO DAILY [facility] Last Admin: 09/18/17 09:11 Dose: 81 mg Atorvastatin Calcium (Lipitor -) 10 mg PO HS [facility] Last Admin: 09/18/17 22:31 Dose: 10 mg Budesonide/Formoterol Fumarate (Symbicort 80/4.5mcg -) 2 puff IH BID [facility] Last Admin: 09/18/17 22:02 Dose: Not Given Docusate Sodium (Colace -) 100 mg PO BID [facility] Last Admin: 09/18/17 22:34 Dose: 100 mg Finasteride (Proscar -) 5 mg PO DAILY [facility] Last Admin: 09/18/17 09:11 Dose: 5 mg Heparin Sodium (Porcine) (Heparin -) 5,000 unit IVPUSH PRN PRN Last Admin: 09/17/17 10:38 Dose: 5,000 unit Heparin Sodium (Porcine) (Heparin -) 1,000 unit IVPUSH PRN PRN Last Admin: 09/18/17 02:00 Dose: 1,000 unit Heparin Sodium (Porcine) 25, (000 unit/ Sodium Chloride) 500 mls @ 16 mls/hr IV TITR [facility]; 800 UNIT/HR PRN Reason: Protocol Last Titration: 09/19/17 06:15 Dose: 1,450 unit/hr, 29 mls/hr Insulin Aspart (Novolog Vial Sliding Scale -) 1 vial SQ ACHS [facility] PRN Reason: Protocol Last Admin: 09/19/17 06:03 Dose: Not Given Lisinopril (Prinivil) 5 mg PO DAILY [facility] Last Admin: 09/18/17 09:11 Dose: 5 mg Morphine Sulfate (Morphine Sulfate) 1 mg IVPUSH Q4H PRN PRN Reason: PAIN Last Admin: 09/17/17 21:52 Dose: 1 mg Pantoprazole Sodium (Protonix -) 20 mg PO DAILY [facility] Last Admin: 09/18/17 09:11 Dose: 20 mg Warfarin Sodium (Coumadin -) 5 mg PO DAILY@1800 [facility] Last Admin: 09/18/17 17:06 Dose: 5 mg - Objective Vital Signs: Vital Signs Temperature 98.4 F 09/19/17 08:00 Pulse Rate 75 09/19/17 08:00 Respiratory Rate 16 09/19/17 08:00 Blood Pressure 108/66 09/19/17 08:00 O2 Sat by Pulse Oximetry (%) 95 09/18/17 21:00 Constitutional: Yes: No Distress, Calm Neck: Yes: Supple Cardiovascular: Yes: Regular Rate and Rhythm Respiratory: Yes: Regular, Diminished Gastrointestinal: Yes: Normal Bowel Sounds, Soft Edema: No Labs: CBC, BMP 09/19/17 06:45 09/19/17 06:45 INR, PTT INR 1.33 (0.82-1.09) H 09/18/17 09:35 - ....Imaging EKG: Report Reviewed (Tele: SR w/o PAF) Problem List - Problems (1) Hypertension Code(s): I10 - ESSENTIAL (PRIMARY) HYPERTENSION Qualifiers: Hypertension type: essential hypertension Qualified Code(s): I10 - Essential (primary) hypertension (2) Hyperlipidemia Code(s): E78.5 - HYPERLIPIDEMIA, UNSPECIFIED Qualifiers: Hyperlipidemia type: pure hypercholesterolemia Qualified Code(s): E78.00 - Pure hypercholesterolemia, unspecified; E78.0 - Pure hypercholesterolemia (3) LUQ pain Code(s): R10.12 - LEFT UPPER QUADRANT PAIN (4) Splenic infarction Code(s): D73.5 - INFARCTION OF SPLEEN (5) Leukocytosis Code(s): D72.829 - ELEVATED WHITE BLOOD CELL COUNT, UNSPECIFIED Qualifiers: Leukocytosis type: unspecified Qualified Code(s): D72.829 - Elevated white blood cell count, unspecified (6) Thrombocytosis Code(s): D47.3 - ESSENTIAL (HEMORRHAGIC) THROMBOCYTHEMIA Assessment/Plan 1. Splenic infarct, r/o splenic embolism, hypercoagulable states, cardioembolic etiologies, hematologic malignancies, etiology to be determined with subtherapeutic INR 2. Hypertension 3. Hyperlipidemia 4. Type 2 DM 5. Erectile dysfunction 6. Leukocytosis/Thrombocytosis ? 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 Transthoracic echocardiography reviewed - normal LV systolic function and no valvular regurgitations 3. Hypercoagulable work up, Heparin drip -> Coumadin per INR 4. Continue Lipitor 10 qhs, Lisinopril 5 qd, ASA 81 qd 5. Declines bone marrow biopsy
[2017-09-19] MEDS: PANTOPRAZOLE 20 MG TABLET (FP) PO SCH (10:06)
[2017-09-19] MEDS: LISINOPRIL 5 MG TABLET (FP) PO SCH (10:06)
[2017-09-19] MEDS: FINASTERIDE 5 MG TABLET (FP) PO SCH (10:06)
[2017-09-19] MEDS: ASPIRIN COATED 81 MG TABLET.EC PO SCH (10:06)
[2017-09-19] MEDS: DOCUSATE SODIUM 100 MG CAPSULE (FP) PO SCH ×2 (10:09→23:13)
[2017-09-19] MEDS: BUDESONIDE/FORMETEROL FUMARATE 80/4.5 mcg INHALER IH SCH (10:09)
[2017-09-19] MEDS: WARFARIN NA 5 MG TABLET (UD) PO SCH (18:06)
--- NOTE | 2017-09-19 19:35 | PN ---
Teaching Attending Note Name of Resident: Edwardo Harding ATTENDING PHYSICIAN STATEMENT I saw and evaluated the patient. I reviewed the resident's note and discussed the case with the resident. I agree with the resident's findings and plan as documented. SUBJECTIVE: No fever or chills. has no bad pain. has no SOB OBJECTIVE: NAD CV : RRR Lungs : bibasilar crackles Abd: sfot, NT, ND , NL BS , no hepato-splenomegaly Ext: no edema ASSESSMENT AND PLAN: 67 y/o man with h/o HTN, DM, HL , COPD and other medical problems who presented with abd painand was found to have splenic infarct 1- Acute splenic infarct: p[ossible hypercoagulable state from a possible BM disorder - cont heparin and bridge to coumadin ( 5 mg tonight ) - cont tomonitor INR - echo reviewed. 2- H/o HTN: cont lisinopril 3- HLP : cont statin 4- chronic lekocytosis : no evidence of infection - cont to refuse BM bx 5- DVT PX on AC
[2017-09-19] MEDS: ATORVASTATIN CA 10 MG TABLET (FP) PO SCH (23:13)
[2017-09-19] MEDS ORDERED: PT OWN MED DRAWER 7, Y5N ONE (23:16)
[2017-09-19] MEDS: FLUTICASONE/SALMETEROL 100 MCG/50 MCG DISKUS IH SCH (23:16)
[2017-09-20] MEDS: INSULIN SLIDING SCALE (NOVOLOG) 1 VIAL SQ SCH ×4 (06:48→21:16)
[2017-09-20 07:28] LABS: MCH 27.8 pg (25.7-33.7); MCHC 32.3 g/dl (32.0-35.9); MEAN CELL VOLUME 85.9 fl (80-96); MEAN PLT VOLUME 6.9 fl (7.5-11.1); PLATELET COUNT 504 K/MM3 (134-434); RDW 17.2 % (11.9-15.9); WHITE BLOOD COUNT 14.9 K/mm3 (4.0-10.0)
[2017-09-20 07:38] LABS: INR 2.45 (0.82-1.09); PROTHROMBIN TIME (PATIENT) 27.7 SEC (9.98-11.88)
--- NOTE | 2017-09-20 07:56 | PN ---
Physical Exam: SUBJECTIVE: Patient seen and examined by me this AM - No further pain. No major overnight events. States he feels "pulling" in his legs BL, but no pain, swelling or change in strength. Denies fever/chills, CP, cough, sob, n/v, abdominal pain, diarrhea/constipation, neuro symptoms. - Eager to leave. Counseled about need for AC and INR. OBJECTIVE: Vital Signs Intake & Output 09/17/17 09/18/17 09/19/17 09/20/17 23:59 23:59 23:59 23:59 Intake Total 266 694 7658 448 Output Total 5009 831 9187 800 Balance -1640 -370 -180 -352 Period Temp Pulse Resp BP Sys/Guerrier Pulse Ox Last 24 Hr 97.8 F-99.0 F 75-93 16-20 102-136/57-86 95-97 GENERAL: A&Ox3, NAD, laying in bed HEAD: NCAT. Alopecia EYES: PERRL, extraocular movements intact, sclera anicteric, conjunctiva clear. No ptosis. ENT: Ears normal, nares patent, oropharynx clear without exudates, moist mucous membranes. Poor dentition. NECK: Trachea midline, full range of motion, supple. LUNGS: Bibasilar crackles, no wheezes or rhonchi no accessory muscle use. HEART: Regular rate and rhythm, S1, S2 without murmur, rub or gallop. pectus excavatum noted, mild ABDOMEN: Soft, nondistended, normoactive bowel sounds, no guarding, no rebound, no other masses. Negative murphys Upper EXTREMITIES: 2+ pulses, warm, well-perfused, no edema. 5/5 strength, 2+ biceps reflexes. Lower EXTREMITIES: 2+ pulses, wwp, no edema. 1+ patellar reflexes, 5/5 strength. Exostosis in R patellar tendon. NEUROLOGICAL: Cranial nerves II through XII grossly intact. Normal speech, gait not observed. Psych: Normal affect, good mood Laboratory Results - last 24 hr CBC, BMP 09/20/17 05:05 09/19/17 06:45 09/15/17 09/19/17 09/19/17 05:45 06:45 06:45 WBC 15.3 H RBC 3.80 L Hgb 10.7 L Hct 32.5 L MCV 85.6 MCH 28.2 MCHC 33.0 RDW 17.3 H Plt Count 567 H MPV 6.9 L PT with INR INR PTT (Actin FS) 58.8 H Factor V Leiden Factor V Leiden Comment Sodium Potassium Chloride Carbon Dioxide Anion Gap BUN Creatinine Creat Clearance w eGFR POC Glucometer Random Glucose Calcium Total Bilirubin AST ALT Alkaline Phosphatase Total Protein Albumin 09/19/17 09/19/17 09/19/17 06:45 07:00 11:52 WBC RBC Hgb Hct MCV MCH MCHC RDW Plt Count MPV PT with INR 19.70 H INR 1.74 H D PTT (Actin FS) Factor V Leiden Factor V Leiden Comment Sodium 138 Potassium 4.1 Chloride 101 Carbon Dioxide 27 Anion Gap 10 BUN 11 Creatinine 0.7 Creat Clearance w eGFR > 60 POC Glucometer 121 Random Glucose 99 Calcium 9.5 Total Bilirubin 0.2 AST 12 L ALT 24 D Alkaline Phosphatase 85 Total Protein 6.4 Albumin 2.7 L 09/19/17 09/19/17 09/20/17 16:51 22:58 05:05 WBC 14.9 H RBC 3.43 L Hgb 9.5 L D Hct 29.5 L MCV 85.9 MCH 27.8 MCHC 32.3 RDW 17.2 H Plt Count 504 H MPV 6.9 L PT with INR INR PTT (Actin FS) Factor V Leiden Factor V Leiden Comment Sodium Potassium Chloride Carbon Dioxide Anion Gap BUN Creatinine Creat Clearance w eGFR POC Glucometer 144 140 Random Glucose Calcium Total Bilirubin AST ALT Alkaline Phosphatase Total Protein Albumin 09/20/17 09/20/17 09/20/17 05:05 05:05 06:11 WBC RBC Hgb Hct MCV MCH MCHC RDW Plt Count MPV PT with INR 27.70 H INR 2.45 H D PTT (Actin FS) 56.3 H Factor V Leiden Factor V Leiden Comment Sodium Potassium Chloride Carbon Dioxide Anion Gap BUN Creatinine Creat Clearance w eGFR POC Glucometer 133 Random Glucose Calcium Total Bilirubin AST ALT Alkaline Phosphatase Total Protein Albumin Active Medications Generic Name Dose Route Start Last Admin Trade Name Freq PRN Reason Stop Dose Admin Aspirin 81 mg 09/15/17 10:00 09/19/17 10:06 Ecotrin - PO 81 mg DAILY [facility] Administration Atorvastatin Calcium 10 mg 09/14/17 22:00 09/19/17 23:13 Lipitor - PO 10 mg HS [facility] Administration Docusate Sodium 100 mg 09/16/17 10:00 09/19/17 23:13 Colace - PO 100 mg BID [facility] Administration Finasteride 5 mg 09/14/17 15:15 09/19/17 10:06 Proscar - PO 5 mg DAILY [facility] Administration Heparin Sodium (Porcine) 5,000 unit 09/15/17 03:44 09/17/17 10:38 Heparin - IVPUSH 5,000 unit PRN PRN Administration Heparin Sodium (Porcine) 1,000 unit 09/15/17 03:44 09/18/17 02:00 Heparin - IVPUSH 1,000 unit PRN PRN Administration Heparin Sodium (Porcine) 25, 500 mls @ 16 mls/hr 09/14/17 20:15 09/19/17 10: 05 000 unit/ Sodium Chloride IV 1,450 unit/hr TITR [facility] 29 mls/hr Protocol Administration 800 UNIT/HR Insulin Aspart 1 vial 09/14/17 16:30 09/20/17 06:48 Novolog Vial Sliding Scale - SQ Not Given ACHS [facility] Protocol Lisinopril 5 mg 09/14/17 15:15 09/19/17 10:06 Prinivil PO 5 mg DAILY [facility] Administration Pantoprazole Sodium 20 mg 09/14/17 15:15 09/19/17 10:06 Protonix - PO 20 mg DAILY [facility] Administration Fluticasone/Salmeterol 1 puff 09/19/17 22:00 09/19/17 23:16 Advair 100mcg/50mcg - IH 1 puff BID [facility] Administration Warfarin Sodium 5 mg 09/17/17 18:00 09/19/17 18:06 Coumadin - PO 5 mg DAILY@1800 [facility] Administration No micro Tele reviewed. No Abnormalities. EKG 09/14 - NSR, 87, NAD, QTC 421, no twi or st abnormalities Imaging: CT abdomen/pelvis 09/14 - Segmental splenic infarctions, likely acute, with adjacent perisplenic fat stranding. These may be arterial or venous. Grossly patent splenic vein. Please correlate clinically Echo 09/17 - Normal LV function, mild MR. no residual clot. ASSESSMENT/PLAN: 67 yo man w/ pmh of HTN, HLD, DM2, COPD, BPH (s/p TURP), alcohol abuse who presented w/ LUQ pain, now with CT confirmed splenic infarct. Pt is hemodynamically stable, no longer complaining of pain in LUQ. Pt still on heparin to coumadin bridge, INR 1.74 this AM. Plan for discharge on coumadin per cardiology/heme recs w/ outpt INR monitoring w/ his PCP, Dr. Cordero. Still with thrombocytosis, leukocystosis, both uptrending, refused bm bx. #Splenic infarct - CT confirmed. LUQ improving pain well controlled on current regimen - Heme/onc consulted. Recs appreciated. - Cardiology following. F/u recs. - INR 2.45 today. COumadin 4mg tonight. Heparin gtt until tomorrow AM. - Thrombophilia panel pending, negative so far - Anti-cardiolipin IgG, IgM normal. IgA elevated 17. - Monoscreen negative - Echo negative for residual clot - ASA 81mg - d/c morphine IV - Dr. Cordero clinic will provide outpt INR monitoring #Thrombocytosis/leukocytosis - WBC 14.9 today, stable. Plts 567-> 504 - Heme/onc consulted. 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 no respiratory symptoms. -Duonebs q4h prn - Advair #HLD - Atorvastatin 10mg daily HS #BPH - Finasteride 5mg po daily #Constipation - Monitor BMs #PPX Heparin gtt, coumadin protonix 20mg daily #FEN Fluids: PO hydration Electrolyte: daily bmps Nutrition: Diabetic diet Dispo: Possible discharge tomorrow. Plan discussed with attending, Dr. Richa Harding, PGY1 Visit type - Emergency Visit Emergency Visit: Yes ED Registration Date: 09/14/17 Care time: The patient presented to the Emergency Department on the above date and was hospitalized for further evaluation of their emergent condition. - New Patient This patient is new to me today: No - Critical Care Critical Care patient: No
[2017-09-20] MEDS ORDERED: PT OWN MED DRAWER 7, Y5N ONE ×2 (08:37→20:19)
[2017-09-20] MEDS: ASPIRIN COATED 81 MG TABLET.EC PO SCH (09:01)
[2017-09-20] MEDS: FINASTERIDE 5 MG TABLET (FP) PO SCH (09:01)
[2017-09-20] MEDS: LISINOPRIL 5 MG TABLET (FP) PO SCH (09:01)
[2017-09-20] MEDS: PANTOPRAZOLE 20 MG TABLET (FP) PO SCH (09:01)
[2017-09-20] MEDS: FLUTICASONE/SALMETEROL 100 MCG/50 MCG DISKUS IH SCH ×2 (09:02→21:16)
[2017-09-20] MEDS: DOCUSATE SODIUM 100 MG CAPSULE (FP) PO SCH ×2 (09:02→21:13)
--- NOTE | 2017-09-20 10:32 | PN ---
Progress Note, Physician History of Present Illness: LUQ discomfort resolved, patient monitor w/o PAF, declines bone marrow biopsy. - Current Medication List Current Medications: Active Medications Aspirin (Ecotrin -) 81 mg PO DAILY [facility] Last Admin: 09/20/17 09:01 Dose: 81 mg Atorvastatin Calcium (Lipitor -) 10 mg PO HS [facility] Last Admin: 09/19/17 23:13 Dose: 10 mg Docusate Sodium (Colace -) 100 mg PO BID [facility] Last Admin: 09/20/17 09:02 Dose: 100 mg Finasteride (Proscar -) 5 mg PO DAILY [facility] Last Admin: 09/20/17 09:01 Dose: 5 mg Heparin Sodium (Porcine) (Heparin -) 5,000 unit IVPUSH PRN PRN Last Admin: 09/17/17 10:38 Dose: 5,000 unit Heparin Sodium (Porcine) (Heparin -) 1,000 unit IVPUSH PRN PRN Last Admin: 09/18/17 02:00 Dose: 1,000 unit Heparin Sodium (Porcine) 25, (000 unit/ Sodium Chloride) 500 mls @ 16 mls/hr IV TITR [facility]; 800 UNIT/HR PRN Reason: Protocol Last Admin: 09/19/17 10:05 Dose: 1,450 unit/hr, 29 mls/hr Insulin Aspart (Novolog Vial Sliding Scale -) 1 vial SQ ACHS [facility] PRN Reason: Protocol Last Admin: 09/20/17 06:48 Dose: Not Given Lisinopril (Prinivil) 5 mg PO DAILY [facility] Last Admin: 09/20/17 09:01 Dose: 5 mg Pantoprazole Sodium (Protonix -) 20 mg PO DAILY [facility] Last Admin: 09/20/17 09:01 Dose: 20 mg Fluticasone/Salmeterol (Advair 100mcg/50mcg -) 1 puff IH BID [facility] Last Admin: 09/20/17 09:02 Dose: Not Given Warfarin Sodium (Coumadin -) 5 mg PO DAILY@1800 [facility] Last Admin: 09/19/17 18:06 Dose: 5 mg - Objective Vital Signs: Vital Signs Temperature 97.8 F 09/20/17 05:28 Pulse Rate 77 09/20/17 05:28 Respiratory Rate 20 09/20/17 05:28 Blood Pressure 111/64 09/20/17 05:28 O2 Sat by Pulse Oximetry (%) 97 09/20/17 09:00 Constitutional: Yes: No Distress, Calm Neck: Yes: Supple Cardiovascular: Yes: Regular Rate and Rhythm Respiratory: Yes: Regular, CTA Bilaterally Gastrointestinal: Yes: Normal Bowel Sounds, Soft Edema: No Labs: CBC, BMP 09/20/17 05:05 09/19/17 06:45 INR, PTT INR 2.45 (0.82-1.09) H D 09/20/17 05:05 - ....Imaging EKG: Report Reviewed (Tele: NSR occ PVC, no PAF) Problem List - Problems (1) Hypertension Code(s): I10 - ESSENTIAL (PRIMARY) HYPERTENSION Qualifiers: Hypertension type: essential hypertension Qualified Code(s): I10 - Essential (primary) hypertension (2) Hyperlipidemia Code(s): E78.5 - HYPERLIPIDEMIA, UNSPECIFIED Qualifiers: Hyperlipidemia type: pure hypercholesterolemia Qualified Code(s): E78.00 - Pure hypercholesterolemia, unspecified; E78.0 - Pure hypercholesterolemia (3) Splenic infarction Code(s): D73.5 - INFARCTION OF SPLEEN (4) Leukocytosis Code(s): D72.829 - ELEVATED WHITE BLOOD CELL COUNT, UNSPECIFIED Qualifiers: Leukocytosis type: unspecified Qualified Code(s): D72.829 - Elevated white blood cell count, unspecified (5) Thrombocytosis Code(s): D47.3 - ESSENTIAL (HEMORRHAGIC) THROMBOCYTHEMIA Assessment/Plan 1. Splenic infarct, suspect hypercoagulable state referable to MPD with therapeutic INR 2. Hypertension 3. Hyperlipidemia 4. Type 2 DM 5. Erectile dysfunction 6. Leukocytosis/Thrombocytosis ? 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 lunchroom monitor w/o PAF- so far no evidence 2. Transthoracic echocardiography reviewed - normal LV systolic function and no valvular regurgitations 3. Hypercoagulable work-up ongoing, d/c heparin drip, continue Coumadin per INR 2-3 4. Continue Lipitor 10 qhs, Lisinopril 5 qd, ASA 81 qd 5. Declines bone marrow biopsy, d/c planning with hematology f/u
--- NOTE | 2017-09-20 13:55 | PN ---
Teaching Attending Note Name of Resident: Edwardo Harding ATTENDING PHYSICIAN STATEMENT I saw and evaluated the patient. I reviewed the resident's note and discussed the case with the resident. I agree with the resident's findings and plan as documented. SUBJECTIVE: No fever or chills. has no abd pain. No CP or SOB OBJECTIVE: NAD CV : RRR Lungs : bibasilar crackles Abd: soft, NT, ND , NL BS , no hepato-splenomegaly Ext: no edema ASSESSMENT AND PLAN: 67 y/o man with h/o HTN, DM, HL , COPD and other medical problems who presented with abd painand was found to have splenic infarct 1- Acute splenic infarct: possible hypercoagulable state from a possible BM disorder. - INR is 2-3 today. due ot the suspected hypercoagulable state, will cont the bridge for 24 hr - If INR is therapeuic in am will dc heparin - give 4 mg of coumadin tonight - anticardiolipin Abs are slightly elevated. f/u with further w/u as out pt 2- H/o HTN: cont lisinopril 3- HLP: cont statin 4- Chronic lekocytosis : no evidence of infection - cont to refuse BM bx 5- DVT PX on AC Possible dc tomorrow
[2017-09-20] MEDS ORDERED: HEPARIN NA (PORCINE) 5,000 UNITS/ML 1ML VIAL IVPUSH PRN ×2 (13:59)
[2017-09-20] MEDS ORDERED: INSULIN (NOVOLOG) ASPART 100 UNITS/ML 10ML VIAL ONE (17:13)
[2017-09-20] MEDS ORDERED: WARFARIN NA 2 MG TABLET (UD) PO SCH (18:00)
[2017-09-20] MEDS: HEPARIN - 25,000 UNIT in SODIUM CHLORIDE 495 ML IV SCH (18:26)
[2017-09-20] MEDS: ATORVASTATIN CA 10 MG TABLET (FP) PO SCH (21:13)
--- NOTE | 2017-09-20 22:40 | PN ---
Progress Note (short form) - Note Progress Note: Patient jessica nd examined Denies any complaints Last Vital Signs Temp Pulse Resp BP Pulse Ox 97.4 F L 74 20 124/68 96 09/17/17 20:58 09/17/17 20:58 09/17/17 20:58 09/17/17 20:58 09/17/17 20:56 Cor: RSR, No murmurs, No gallops Lungs: Clear to P&A Abd: Soft, Normal bowel sounds, No organomegaly Ext:No significant edema Abnormal Lab Results 09/17/17 09/17/17 09/17/17 05:28 05:28 05:28 WBC 13.7 H RBC 3.51 L Hgb 9.7 L Hct 30.0 L RDW 16.8 H Plt Count 486 H MPV 6.9 L PT with INR INR PTT (Actin FS) 40.0 H AST 10 L Total Protein 5.7 L Albumin 2.4 L 09/17/17 09/17/17 05:30 16:00 WBC RBC Hgb Hct RDW Plt Count MPV PT with INR 13.40 H INR 1.19 H PTT (Actin FS) 41.6 H AST Total Protein Albumin Active Medications Albuterol/Ipratropium (Duoneb -) 1 amp NEB Q4H PRN PRN Reason: SHORTNESS OF BREATH Last Admin: 09/15/17 17:56 Dose: 1 amp Aspirin (Ecotrin -) 81 mg PO DAILY [facility] Last Admin: 09/17/17 10:38 Dose: 81 mg Atorvastatin Calcium (Lipitor -) 10 mg PO HS [facility] Last Admin: 09/17/17 21:51 Dose: 10 mg Budesonide/Formoterol Fumarate (Symbicort 80/4.5mcg -) 2 puff IH BID [facility] Last Admin: 09/17/17 21:51 Dose: Not Given Docusate Sodium (Colace -) 100 mg PO BID [facility] Last Admin: 09/17/17 21:51 Dose: 100 mg Finasteride (Proscar -) 5 mg PO DAILY [facility] Last Admin: 09/17/17 10:38 Dose: 5 mg Heparin Sodium (Porcine) (Heparin -) 5,000 unit IVPUSH PRN PRN Last Admin: 09/17/17 10:38 Dose: 5,000 unit Heparin Sodium (Porcine) (Heparin -) 1,000 unit IVPUSH PRN PRN Last Admin: 09/17/17 18:04 Dose: 1,000 unit Heparin Sodium (Porcine) 25, (000 unit/ Sodium Chloride) 500 mls @ 16 mls/hr IV TITR [facility]; 800 UNIT/HR PRN Reason: Protocol Last Admin: 09/17/17 18:04 Dose: 1,350 unit/hr, 27 mls/hr Insulin Aspart (Novolog Vial Sliding Scale -) 1 vial SQ ACHS [facility] PRN Reason: Protocol Last Admin: 09/17/17 22:01 Dose: Not Given Lisinopril (Prinivil) 5 mg PO DAILY [facility] Last Admin: 09/17/17 10:38 Dose: 5 mg Morphine Sulfate (Morphine Sulfate) 1 mg IVPUSH Q4H PRN PRN Reason: PAIN Last Admin: 09/17/17 21:52 Dose: 1 mg Pantoprazole Sodium (Protonix -) 20 mg PO DAILY [facility] Last Admin: 09/17/17 10:38 Dose: 20 mg Warfarin Sodium (Coumadin -) 5 mg PO DAILY@1800 [facility] Last Admin: 09/17/17 17:05 Dose: 5 mg A/P 67 y/o patient with leukocytosis/thrombocytosis/splenic infarcts abdominal pain resolved On heparin drip overlapping heparin/coumadin for 1 more day refusing bmbx needs close f/u with dr. garza team as outpatient
[2017-09-21] MEDS: INSULIN SLIDING SCALE (NOVOLOG) 1 VIAL SQ SCH ×2 (06:27→14:13)
[2017-09-21 08:01] LABS: MCH 27.6 pg (25.7-33.7); MEAN CELL VOLUME 86.1 fl (80-96); MEAN PLT VOLUME 6.8 fl (7.5-11.1); PLATELET COUNT 574 K/MM3 (134-434); WHITE BLOOD COUNT 15.3 K/mm3 (4.0-10.0)
[2017-09-21 08:09] LABS: INR 3.24 (0.82-1.09); PROTHROMBIN TIME (PATIENT) 36.6 SEC (9.98-11.88)
--- NOTE | 2017-09-21 08:48 | PN ---
Physical Exam: SUBJECTIVE: Patient seen and examined OBJECTIVE: Vital Signs Intake & Output 09/18/17 09/19/17 09/20/17 09/21/17 23:59 23:59 23:59 23:59 Intake Total 330 1120 1583 126 Output Total 700 1300 2650 550 Balance -370 -180 -1067 -424 Period Temp Pulse Resp BP Sys/Guerrier Pulse Ox Last 24 Hr 98.0 F-99.4 F 54-90 18-18 109-127/51-72 97-98 GENERAL: A&Ox3, NAD, laying in bed HEAD: NCAT. Alopecia EYES: PERRL, extraocular movements intact, sclera anicteric, conjunctiva clear. No ptosis. ENT: Ears normal, nares patent, oropharynx clear without exudates, moist mucous membranes. Poor dentition. NECK: Trachea midline, full range of motion, supple. LUNGS: Bibasilar crackles, no wheezes or rhonchi no accessory muscle use. HEART: Regular rate and rhythm, S1, S2 without murmur, rub or gallop. pectus excavatum noted, mild ABDOMEN: Soft, nondistended, normoactive bowel sounds, no guarding, no rebound, no other masses. Negative murphys Upper EXTREMITIES: 2+ pulses, warm, well-perfused, no edema. 5/5 strength, 2+ biceps reflexes. Lower EXTREMITIES: 2+ pulses, wwp, no edema. 1+ patellar reflexes, 5/5 strength. Exostosis in R patellar tendon. NEUROLOGICAL: Cranial nerves II through XII grossly intact. Normal speech, gait not observed. Psych: Normal affect, good mood Laboratory Results - last 24 hr CBC, BMP 09/21/17 06:30 09/19/17 06:45 09/15/17 09/20/17 09/20/17 05:45 11:17 15:40 WBC RBC Hgb Hct MCV MCH MCHC RDW Plt Count MPV PT with INR INR PTT (Actin FS) POC Glucometer 115 176 Prothrombin [id number] Mut Factor II DNA Comment 09/20/17 09/20/17 09/21/17 16:00 21:14 00:11 WBC RBC Hgb Hct MCV MCH MCHC RDW Plt Count MPV PT with INR INR PTT (Actin FS) 38.8 H D 43.1 H POC Glucometer 139 Prothrombin [id number] Mut Factor II DNA Comment 09/21/17 09/21/17 09/21/17 06:16 06:30 06:30 WBC 15.3 H RBC 3.62 L Hgb 10.0 L Hct 31.2 L MCV 86.1 MCH 27.6 MCHC 32.0 RDW 17.0 H Plt Count 574 H MPV 6.8 L PT with INR 36.60 H INR 3.24 H D PTT (Actin FS) POC Glucometer 112 Prothrombin [id number] Mut Factor II DNA Comment Active Medications Generic Name Dose Route Start Last Admin Trade Name Freq PRN Reason Stop Dose Admin Aspirin 81 mg 09/15/17 10:00 09/20/17 09:01 Ecotrin - PO 81 mg DAILY MORRIS Administration Atorvastatin Calcium 10 mg 09/14/17 22:00 09/20/17 21:13 Lipitor - PO 10 mg HS M[facility]RIS Administration Docusate Sodium 100 mg 09/16/17 10:00 09/20/17 21:13 Colace - PO 100 mg BID M[facility]RIS Administration Finasteride 5 mg 09/14/17 15:15 09/20/17 09:01 Proscar - PO 5 mg DAILY [facility] Administration Heparin Sodium (Porcine) 1,000 unit 09/20/17 13:59 09/21/17 01:10 Heparin - IVPUSH 1,000 unit PRN PRN Administration Heparin Heparin Sodium (Porcine) 5,000 unit 09/20/17 13:59 09/20/17 18:26 Heparin - IVPUSH 5,000 unit PRN PRN Administration Heparin Heparin Sodium (Porcine) 25, 500 mls @ 16 mls/hr 09/20/17 14:00 09/21/17 01: 09 000 unit/ Sodium Chloride IV 1,050 unit/hr TITR MORRIS 21 mls/hr Protocol Titration 800 UNIT/HR Insulin Aspart 1 vial 09/14/17 16:30 09/21/17 06:27 Novolog Vial Sliding Scale - SQ Not Given ACHS [facility] Protocol Lisinopril 5 mg 09/14/17 15:15 09/20/17 09:01 Prinivil PO 5 mg DAILY M[facility]RIS Administration Pantoprazole Sodium 20 mg 09/14/17 15:15 09/20/17 09:01 Protonix - PO 20 mg DAILY M[facility] Administration Fluticasone/Salmeterol 1 puff 09/19/17 22:00 09/20/17 21:16 Advair 100mcg/50mcg - IH Not Given BID [facility] Warfarin Sodium 4 mg 09/20/17 18:00 09/20/17 17:17 Coumadin - PO 4 mg DAILY@1800 M[facility]RIS Administration No micro Tele reviewed. No Abnormalities. EKG 09/14 - NSR, 87, NAD, QTC 421, no twi or st abnormalities Imaging: CT abdomen/pelvis 09/14 - Segmental splenic infarctions, likely acute, with adjacent perisplenic fat stranding. These may be arterial or venous. Grossly patent splenic vein. Please correlate clinically Echo 09/17 - Normal LV function, mild MR. no residual clot. ASSESSMENT/PLAN: 67 yo man w/ pmh of HTN, HLD, DM2, COPD, BPH (s/p TURP), alcohol abuse who presented w/ LUQ pain, now with CT confirmed splenic infarct. Pt is hemodynamically stable, no longer complaining of pain in LUQ. Pt still on heparin to coumadin bridge, INR 1.74 this AM. Plan for discharge on coumadin per cardiology/heme recs w/ outpt INR monitoring w/ his PCP, Dr. Cordero. Still with thrombocytosis, leukocystosis, both uptrending, refused bm bx. #Splenic infarct - CT confirmed. LUQ improving pain well controlled on current regimen - Heme/onc consulted. Recs appreciated. - Cardiology following. F/u recs. - INR 2.45 today. COumadin 4mg tonight. Heparin gtt until tomorrow AM. - Thrombophilia panel pending, negative so far - Anti-cardiolipin IgG, IgM normal. IgA elevated 17. - Monoscreen negative - Echo negative for residual clot - ASA 81mg - d/c morphine IV - Dr. Cordero clinic will provide outpt INR monitoring #Thrombocytosis/leukocytosis - WBC 14.9 today, stable. Plts 567-> 504 - Heme/onc consulted. 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 Hart - Pt refusing BM biopsy #HTN - Lisinopril 5mg (home med) - monitor BP #DM2 - BG well controlled since admission - ISS - BGM ACHS - F/u A1c #COPD - Satting >95% on RA. no respiratory symptoms. -Duonebs q4h prn - Advair #HLD - Atorvastatin 10mg daily HS #BPH - Finasteride 5mg po daily #Constipation - Monitor BMs #PPX Heparin gtt, coumadin protonix 20mg daily #FEN Fluids: PO hydration Electrolyte: daily bmps Nutrition: Diabetic diet Dispo: Possible discharge tomorrow. Plan discussed with attending, Dr. Richa Harding, PGY1
[2017-09-21] MEDS ORDERED: PT OWN MED DRAWER 7, Y5N ONE (09:56)
[2017-09-21] MEDS: DOCUSATE SODIUM 100 MG CAPSULE (FP) PO SCH (10:05)
[2017-09-21] MEDS: FINASTERIDE 5 MG TABLET (FP) PO SCH (10:05)
[2017-09-21] MEDS: PANTOPRAZOLE 20 MG TABLET (FP) PO SCH (10:05)
[2017-09-21] MEDS: LISINOPRIL 5 MG TABLET (FP) PO SCH (10:05)
[2017-09-21] MEDS: ASPIRIN COATED 81 MG TABLET.EC PO SCH (10:05)
[2017-09-21 11:21] VITALS: BP 101/58; PULSE 77; TEMP 98.6
--- NOTE | 2017-09-21 12:25 | PN ---
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 - Current Medication List Current Medications: Active Medications Aspirin (Ecotrin -) 81 mg PO DAILY [facility] Last Admin: 09/21/17 10:05 Dose: 81 mg Atorvastatin Calcium (Lipitor -) 10 mg PO HS MORRIS Last Admin: 09/20/17 21:13 Dose: 10 mg Docusate Sodium (Colace -) 100 mg PO BID [facility] Last Admin: 09/21/17 10:05 Dose: 100 mg Finasteride (Proscar -) 5 mg PO DAILY [facility] Last Admin: 09/21/17 10:05 Dose: 5 mg Heparin Sodium (Porcine) (Heparin -) 1,000 unit IVPUSH PRN PRN PRN Reason: Heparin Last Admin: 09/21/17 01:10 Dose: 1,000 unit Heparin Sodium (Porcine) (Heparin -) 5,000 unit IVPUSH PRN PRN PRN Reason: Heparin Last Admin: 09/20/17 18:26 Dose: 5,000 unit Heparin Sodium (Porcine) 25, (000 unit/ Sodium Chloride) 500 mls @ 16 mls/hr IV TITR MORRIS; 800 UNIT/HR PRN Reason: Protocol Last Titration: 09/21/17 01:09 Dose: 1,050 unit/hr, 21 mls/hr Insulin Aspart (Novolog Vial Sliding Scale -) 1 vial SQ ACHS M[facility]IS PRN Reason: Protocol Last Admin: 09/21/17 06:27 Dose: Not Given Lisinopril (Prinivil) 5 mg PO DAILY [facility] Last Admin: 09/21/17 10:05 Dose: 5 mg Pantoprazole Sodium (Protonix -) 20 mg PO DAILY [facility] Last Admin: 09/21/17 10:05 Dose: 20 mg Fluticasone/Salmeterol (Advair 100mcg/50mcg -) 1 puff IH BID [facility] Last Admin: 09/20/17 21:16 Dose: Not Given Warfarin Sodium (Coumadin -) 4 mg PO DAILY@1800 [facility] Last Admin: 09/20/17 17:17 Dose: 4 mg - Objective Vital Signs: Vital Signs Temperature 98.6 F 09/21/17 10:00 Pulse Rate 77 09/21/17 10:00 Respiratory Rate 18 09/21/17 10:00 Blood Pressure 101/58 09/21/17 10:00 O2 Sat by Pulse Oximetry (%) 97 09/21/17 09:00 Constitutional: Yes: No Distress, Calm Neck: Yes: Supple Cardiovascular: Yes: Regular Rate and Rhythm Respiratory: Yes: Regular, CTA Bilaterally Gastrointestinal: Yes: Normal Bowel Sounds, Soft Edema: No Labs: CBC, BMP 09/21/17 06:30 09/19/17 06:45 INR, PTT INR 3.24 (0.82-1.09) H D 09/21/17 06:30 - ....Imaging EKG: Report Reviewed (Tele: SR occ PVC no PAF) Problem List - Problems (1) Hypertension Code(s): I10 - ESSENTIAL (PRIMARY) HYPERTENSION Qualifiers: Hypertension type: essential hypertension Qualified Code(s): I10 - Essential (primary) hypertension (2) Hyperlipidemia Code(s): E78.5 - HYPERLIPIDEMIA, UNSPECIFIED Qualifiers: Hyperlipidemia type: pure hypercholesterolemia Qualified Code(s): E78.00 - Pure hypercholesterolemia, unspecified; E78.0 - Pure hypercholesterolemia (3) Splenic infarction Code(s): D73.5 - INFARCTION OF SPLEEN (4) Leukocytosis Code(s): D72.829 - ELEVATED WHITE BLOOD CELL COUNT, UNSPECIFIED Qualifiers: Leukocytosis type: unspecified Qualified Code(s): D72.829 - Elevated white blood cell count, unspecified (5) Thrombocytosis Code(s): D47.3 - ESSENTIAL (HEMORRHAGIC) THROMBOCYTHEMIA Assessment/Plan 1. Splenic infarct, suspect hypercoagulable state referable to MPD with supratherapeutic INR 2. Hypertension 3. Hyperlipidemia 4. Type 2 DM 5. Erectile dysfunction 6. Leukocytosis/Thrombocytosis ? 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 Transthoracic echocardiography reviewed - normal LV systolic function and no valvular regurgitations 3. Hypercoagulable work-up ongoing, d/c heparin drip, continue Coumadin per INR 2-3 4. Continue Lipitor 10 qhs, Lisinopril 5 qd, ASA 81 qd 5. Declines bone marrow biopsy, d/c planning with hematology f/u
[2017-09-21] MEDS: HEPARIN - 25,000 UNIT in SODIUM CHLORIDE 495 ML IV SCH (14:13)
--- NOTE | 2017-09-21 18:22 | PN ---
Teaching Attending Note Name of Resident: Edwardo Harding ATTENDING PHYSICIAN STATEMENT I saw and evaluated the patient. I reviewed the resident's note and discussed the case with the resident. I agree with the resident's findings and plan as documented. SUBJECTIVE: No fever or chills. no abd pain OBJECTIVE: NAD CV : RRR Lungs : CTAB Abd: soft, NT, ND , NL BS , no hepato-splenomegaly Ext: no edema ASSESSMENT AND PLAN: 67 y/o man with h/o HTN, DM, HL , COPD and other medical problems who presented with abd painand was found to have splenic infarct 1- Acute splenic infarct: possible hypercoagulable state from a possible BM disorder. - INR slightly above 3. - dc heparin gt - give 3 mg of coumadin tonight and nex 3 days . INR on Sunday , to fax to PCP - educated about risk of bleed - f/u AC w/u as out pt ( slightly elevated Anticardiolipine Abs, might not be significant per d/w Dr. ram ) 2- H/o HTN: cont lisinopril 3- HLP: cont statin 4- Chronic lekocytosis : no evidence of infection - cont to refuse BM bx 5- DC home
--- NOTE | 2017-09-21 23:01 | DS ---
Physical Exam: SUBJECTIVE: Patient seen and examined by me this AM - No major overnight events. LUQ pain completely resolved. Pt no longer requiring pain control. No other complaints. Denies fever/chills, PARKER, CP, SOB, Cough, N/v, abdominal pain, dysuria, diarrhea, rashes/bruising, new neuro symptoms - No limits on ambulation. Good PO intake, energy, sleep - Eager to leave today. Counseled on discharge regarding need for outpt monitoring of INR w/ Dr. Cordero, dose of coumadin on discharge and dietary consistency given new coumadin rx. Pt acknowledged instructions and confirmed understanding. OBJECTIVE: Vital Signs Intake & Output 09/18/17 09/19/17 09/20/17 09/21/17 23:59 23:59 23:59 23:59 Intake Total 330 1120 1583 126 Output Total 700 1300 2650 550 Balance -370 -180 -1067 -424 Period Temp Pulse Resp BP Sys/Guerrier Pulse Ox Last 24 Hr 98.3 F-98.6 F 54-79 18-18 101-127/54-72 97 PHYSICAL EXAM GENERAL: A&Ox3, NAD, laying in bed HEAD: NCAT. Alopecia EYES: PERRL, extraocular movements intact, sclera anicteric, conjunctiva clear. No ptosis. ENT: Ears normal, nares patent, oropharynx clear without exudates, moist mucous membranes. Poor dentition. NECK: Trachea midline, full range of motion, supple. LUNGS: Bibasilar crackles, no wheezes or rhonchi no accessory muscle use. HEART: Regular rate and rhythm, S1, S2 without murmur, rub or gallop. pectus excavatum noted, mild ABDOMEN: Soft, nondistended, normoactive bowel sounds, no guarding, no rebound, no other masses. Negative murphys Upper EXTREMITIES: 2+ pulses, warm, well-perfused, no edema. 5/5 strength, 2+ biceps reflexes. Lower EXTREMITIES: 2+ pulses, wwp, no edema. 1+ patellar reflexes, 5/5 strength. Exostosis in R patellar tendon. NEUROLOGICAL: Cranial nerves II through XII grossly intact. Normal speech, gait not observed. Psych: Normal affect, good mood LABS Laboratory Results - last 24 hr CBC, BMP 09/21/17 06:30 09/19/17 06:45 09/15/17 09/21/17 09/21/17 05:45 00:11 06:16 WBC RBC Hgb Hct MCV MCH MCHC RDW Plt Count MPV PT with INR INR PTT (Actin FS) 43.1 H POC Glucometer 112 Prothrombin [id number] Mut Factor II DNA Comment 09/21/17 09/21/17 09/21/17 06:30 06:30 12:12 WBC 15.3 H RBC 3.62 L Hgb 10.0 L Hct 31.2 L MCV 86.1 MCH 27.6 MCHC 32.0 RDW 17.0 H Plt Count 574 H MPV 6.8 L PT with INR 36.60 H INR 3.24 H D PTT (Actin FS) POC Glucometer 106 Prothrombin [id number] Mut Factor II DNA Comment No micro Tele reviewed. No Abnormalities. EKG 09/14 - NSR, 87, NAD, QTC 421, no twi or st abnormalities Imaging: CT abdomen/pelvis 09/14 - Segmental splenic infarctions, likely acute, with adjacent perisplenic fat stranding. These may be arterial or venous. Grossly patent splenic vein. Please correlate clinically Echo 09/17 - Normal LV function, mild MR. no residual clot. HOSPITAL COURSE: Date of Admission:09/14/17 Date of Discharge: 09/21/17 67 yo man w/ pmh of HTN, HLD, DM2, COPD, BPH (s/p TURP), alcohol abuse who presented w/ 3-4 days of progressive LUQ pain, found to have multiple segmental splenic infarctions. EKG on admission w/ NSR. Cardiology and Hem/onc were consulted. Per cardiology recommendations, pt started on heparin gtt 09/14 with bridge to coumadin. Pt admission further complicated by elevated WBC, thrombocytosis, however consistent with prior medical record per chart review, as pt follows with outpt overage shortage and damage clerk (Dr. Hart) for unknown lymphoproliferative dz. Pt offered bone marrow bx during this admission, refused multiple times due to apprehension regarding pain. Pt received Echo on 09/17, normal LV function and no residual clot. Pt clinically improved on heparin gtt, reporting improvement in pain and no other symptoms, remaining hemodynamically stable. Thrombophilia panel sent by heme/onc team, notable for elevated IgA. Pt transitioned to coumadin 5mg initially with daily INR. INR 3.24 on 09/21, heparin gtt d/c'ed. Dr. Cordero clinic confirmed for outpt INR monitoring. Pt discharged on 09/21 on coumadin 3mg daily w/ outpt lab-work for INR on 09/24 and follow-up on INR and further dose adjustment w/ Dr. Cordero in clinic on 09/24. Pt counseled on coumadin regimen, diet consistency and importance of frequent INR monitoring. D/c'ed on 09/21. Pt is stable and medically cleared for discharge. Pt scheduled of f/u with PCP Dr. Cordero on Monday 09/24 for further management of outpt INR. Plan for outpt followup with Dr. Hoffman (cardiology) and Dr. Hart (Heme/onc) on discharge. Minutes to complete discharge: 35 Discharge Summary Reason For Visit: INFARCTION OF SPLEEN Condition: Improved - Instructions Diet, Activity, Other Instructions: You were admitted for infarcts (clots) in your spleen. Follow-up with these physicians for further post-hospital evaluation in one week , contact information has been provided, please call the offices for appointments: - Hematology, Dr. Hart - Please return for outpatient follow-up with Dr. Hart in one week upon discharge from the hospital. Call their office to schedule an appointment. blood work for hypercoagulability ( clotting ) needs to be followed - Cardiology, Dr. Hoffman. - Primary care, Dr. Cordero-Rafael Medications: Stop your aspiring until you speak with Dr. Cordero or Dr. Hoffman for continuation of aspiring therapy while on warfarin. Please continue your home medications as prescribed. You are being started on a blood thinner(coumadin), take it every evening , it is important to not miss any doses. You will need to repeat lab work to check your levels on Monday 09/24 and fax it to Dr. Cordero ( your coumadin dose might need to be changed depending on the results ) . You have been provided a prescription for lab work. - report any bleeding , black stool, red stool or any other bleed to your doctor - avoid falls If you develop chest pain, trouble breathing, notice worsening bruises, excessive/prolonged bleeding or any new symptoms, please return to the hospital. - start your coumadin tonight . - steady consistent diet Referrals: Georgia Haynes MD [Primary Care Provider] - 1 Week Greg Hart MD [Staff Physician] - Evan Hoffman MD [Staff Physician] - Disposition: HOME - Home Medications Comprehensive Discharge Medication List: Ambulatory Orders Albuterol Sulfate Inhaler - [Ventolin HFA Inhaler -] 1 - 2 inh PO Q4H PRN Fluticasone/Salmeterol [Advair 250-50 Diskus] 1 each IH BID 08/11/15 Omeprazole 20 mg PO DAILY 08/11/15 Simvastatin [Zocor -] 20 mg PO HS 08/11/15 Finasteride 5 mg PO DAILY 06/29/17 Lisinopril [Prinivil] 5 mg PO DAILY 06/29/17 Metformin HCl 500 mg PO DAILY 06/29/17 Tadalafil [Cialis] 5 mg PO DAILY 09/14/17 Miscellaneous Medical Supply [Outpatient Order] 1 each ASDIR #1 misc Warfarin Na [Coumadin -] 3 mg PO DAILY@1800 #90 tablet 09/21/17 This patient is new to me today: No Emergency Visit: Yes ED Registration Date: 09/14/17 Care time: The patient presented to the Emergency Department on the above date and was hospitalized for further evaluation of their emergent condition. Critical Care patient: No - Discharge Referral Referred to [facility] No
--- NOTE | 2017-09-24 12:37 | PATH ---
Surgical Pathology Report Patient Name: CONRADO FLOR [facility]. Rec. #: [id number] /Age/Gender: 1950 (Age: 67) / M Account: [id number] Location: 4 W TELEMETRY U Taken: 09/15/2017 Received: 09/17/2017 Reported: 09/24/2017 Physicians: Bernadette Recinos M.D. Specimen(s) Received PERIPHERAL BLOOD Clinical History None Provided Final Diagnosis Molecular Pathology Reports received from [facility] in [place], [place] ([id number]. [id number], [id number]) show the following: JAK2 EXON 12 and 13 MUTATION ANALYSIS RESULTS: JAK2 Exon 12 Mutation: NOT DETECTED JAK2 Exon 13 Mutation: NOT DETECTED INTERPRETATION: Negative for JAK2 (Exon 12 and 13) Mutations. MPL MUTATION ANALYSIS RESULTS: MPL Mutation: NOT DETECTED INTERPRETATION: Negative for MPL gene mutations. CALRETICULIN (CALR) RESULTS: No mutation was detected in exon 9 of the calreticulin gene by PCR fragment analysis. INTERPRETATION: CALR MUTATION (exon 9): NOT DETECTED Comment: Also see prior report [id number] for flow cytometry, and JAK2 mutation results. Electronically Signed Jonel Dunn M.D. Gross Description Received are 2 lavender top tubes of blood which are sent to [facility]. 09/17/201709/17/2017
== END 2017-09-21 14:24 | disposition home or self-care (01) | DRG 815 ==
LOC: JER 10:13 → JERBED 13:37 → J4W 16:03
PROVIDERS: ADMIT Internal Medicine; ATTEND Internal Medicine
DX: D73.5 Infarction of spleen (principal); D68.59 Other primary thrombophilia; C94.6 Myelodysplastic disease, not elsewhere classified; E11.9 Type 2 diabetes mellitus without complications; I10 Essential (primary) hypertension; K21.9 Gastro-esophageal reflux disease without esophagitis; Z79.84 Long term (current) use of oral hypoglycemic drugs; E78.5 Hyperlipidemia, unspecified; Z87.891 Personal history of nicotine dependence; N40.0 Benign prostatic hyperplasia without lower urinary tract symptoms; H44.9 Unspecified disorder of globe; D63.8 Anemia in other chronic diseases classified elsewhere; D47.3 Essential (hemorrhagic) thrombocythemia; E83.52 Hypercalcemia; N52.9 Male erectile dysfunction, unspecified; F12.10 Cannabis abuse, uncomplicated; K59.00 Constipation, unspecified
CPT/HCPCS: 36415; 74177-TC; 80053; 80061; 81003; 81240; 81241; 82550; 83036; 83605; 83615; 83690; 83721; 83735; 84100; 84484; 84550; 85025; 85027; 85610; 85651; 85730; 86140; 86146; 86308; 88300-TC; 93005; 93010; 93306-TC; 94640; 97116-GP; 97161-GP; 99284-25; J1644

== ENCOUNTER 2019-09-06 08:12 | Emergency (ER) | payer MEDICARE, OTHER ==
[2019-09-06 08:21] VITALS: BMI 24.7
[2019-09-06] MEDS ORDERED: ALBUTEROL SO4 2.5/IPRATROPIUM 0.5 INH SOL 3 ML VIAL.NEB. NEB ONE ×3 (09:01→09:22)
[2019-09-06] MEDS ORDERED: methylPREDNISolone NA SUCC 125 MG/2 ML VIAL IVPB ONE (09:03)
[2019-09-06] MEDS ORDERED: methylPREDNISolone NA SUCC 125 MG/2 ML VIAL ONE (09:22)
[2019-09-06 09:35] LABS: EOS % 5.7 % (0-4.5); HEMOGLOBIN 14.8 GM/dL (11.7-16.9); LYMPH % 18.6 % (8-40); MCH 33.7 pg (25.7-33.7); MCHC 33.7 g/dl (32.0-35.9); MEAN CELL VOLUME 100.1 fl (80-96); MEAN PLT VOLUME 7.6 fl (7.5-11.1); MONO % 5.4 % (3.8-10.2); NEUT % 69.3 % (42.8-82.8); PLATELET COUNT 291 K/MM3 (134-434); RBC 4.39 M/mm3 (4.00-5.60); RDW 13.5 % (11.9-15.9)
[2019-09-06 09:54] LABS: ALBUMIN 3.8 g/dl (3.4-5.0); BILIRUBIN,TOTAL 0.5 mg/dL (0.2-1); BLOOD UREA NITROGEN 16.7 mg/dL (7-18); CALCIUM 9.4 mg/dL (8.5-10.1); CREATININE 1.2 mg/dL (0.55-1.3); POTASSIUM 4.3 mmol/L (3.5-5.1); TOT PROT 6.8 g/dl (6.4-8.2)
--- NOTE | 2019-09-06 10:24 | PDOC ---
History of Present Illness - General Chief Complaint: Respiratory Stated Complaint: ASTHMA Time Seen by Provider: 09/06/19 08:29 - History of Present Illness Initial Comments: 09/06/19 09:23 HPI: 69 y/o with hx of HTN, HLD, COPD, BPH, GERD presenting with 1 week of SOB. SOB is present at rest. It is not exacerbated with exertion. He also reports wheezing and productive sputum (although prod sputum is chronic and unchanged per patient). He tried all his COPD meds including ipratropium nebs, albuterol inhaler, and advair at home and it had minimal improvement. He denies fever, chills, sore throat, rhinorrhea, chest pain, palpitations, n/v, abd pain, recent travel, sick contacts. PMHx: as noted above ROS: as noted SHx: Denies tobacco use; no alcohol use; no rec drugs Allergies: NKDA ROS: GENERAL/CONSTITUTIONAL: No fever or chills. No weakness. HEAD, EYES, EARS, NOSE AND THROAT: No change in vision. No ear pain or discharge. No sore throat. CARDIOVASCULAR: No chest pain; +shortness of breath RESPIRATORY: +cough, wheezing. GASTROINTESTINAL: No nausea, vomiting, diarrhea or constipation. GENITOURINARY: No dysuria, frequency, or change in urination. MUSCULOSKELETAL: No joint or muscle swelling or pain. No neck or back pain. SKIN: No rash NEUROLOGIC: No headache, vertigo, loss of consciousness, or change in strength/ sensation. ENDOCRINE: No increased thirst. No abnormal weight change HEMATOLOGIC/LYMPHATIC: No anemia, easy bleeding, or history of blood clots. ALLERGIC/IMMUNOLOGIC: No hives or skin allergy. PE: GENERAL: Awake, alert, and fully oriented, no acute distress HEAD: No signs of trauma, normocephalic, atraumatic EYES: EOMI, sclera anicteric, conjunctiva clear ENT: Auricles normal inspection, hearing grossly normal, nares patent, oropharynx clear without exudates. Moist mucosa NECK: Normal ROM, no lymphadenopathy LUNGS: No increased work of breathing, symmetrical chest rise, wheezes and rhonchi present throughout lung cason R>L HEART: Regular rate and rhythm, normal S1 and S2, no murmurs, peripheral pulses 2+ and equal bilaterally. ABDOMEN: Soft, nondistended, nontender, normoactive bowel sounds. No guarding, no rebound. No masses. No CVAT EXTREMITIES: Normal inspection, Normal range of motion, no edema. No clubbing or cyanosis. NEUROLOGICAL: Cranial nerves II through XII grossly intact. Normal speech, normal gait, no focal sensorimotor deficits SKIN: Warm, Dry, normal turgor, no rashes or lesions noted Past History - Past Medical History Allergies/Adverse Reactions: Allergies Allergy/AdvReac Type Severity Reaction Status Date / Time No Known Drug Allergies Allergy Verified 09/06/19 08:17 Home Medications: Ambulatory Orders Albuterol Sulfate Inhaler - [Ventolin HFA Inhaler -] 1 - 2 inh PO Q4H PRN Fluticasone/Salmeterol [Advair 250-50 Diskus] 1 each IH BID 08/11/15 Omeprazole 20 mg PO DAILY 08/11/15 Simvastatin [Zocor -] 20 mg PO HS 08/11/15 Finasteride 5 mg PO DAILY 06/29/17 Lisinopril [Prinivil] 10 mg PO DAILY 06/29/17 metFORMIN HCL [Metformin HCl] 500 mg PO DAILY 06/29/17 Albuterol 2.5/Ipratropium 0.5 [Duoneb -] 1 neb IH QID #1 vial.neb. 09/06/19 Prednisone [Prednisone 50 MG TABLETS] 50 mg PO DAILY #3 tablet 09/06/19 Warfarin Na [Coumadin -] 4 mg PO DAILY@1800 09/06/19 Anemia: No Asthma: Yes COPD: Yes Diabetes: Yes GI Disorders: Yes (GERD) Disorders: Yes (HYDROCELE;TESTICULAR CYST) HTN: Yes Hypercholesterolemia: Yes - Surgical History Abdominal Surgery: Yes (HERNIA REPAIR X 2) Appendectomy: Yes (UNSURE) Cholecystectomy: Yes (UNSURE) - Immunization History Immunization Up to Date: No - Psycho Social/Smoking Cessation Hx Smoking History: Former smoker Have you smoked in the past 12 months: No Number of Cigarettes Smoked Daily: 0 If you are a former smoker, when did you quit?: 2014 Information on smoking cessation initiated: No 'Breaking Loose' booklet given: 08/11/15 Hx Alcohol Use: No Drug/Substance Use Hx: No Substance Use Type: Alcohol, Marijuana Hx Substance Use Treatment: No *Physical Exam - Vital Signs Last Vital Signs Temp Pulse Resp BP Pulse Ox 98.4 F 87 26 H 168/93 100 09/06/19 08:18 09/06/19 08:58 09/06/19 08:18 09/06/19 08:18 09/06/19 08:58 ED Treatment Course - LABORATORY CBC & Chemistry Diagram: 09/06/19 09:17 09/06/19 09:17 - RADIOLOGY Radiology Studies Ordered: Category Date Time Status CHEST PA & LAT [RAD] Stat Radiology 09/06/19 09:02 Ordered Medical Decision Making - Medical Decision Making 09/06/19 11:23 69 y/o with hx of HTN, HLD, COPD, BPH, GERD presenting with 1 week of SOB and wheezing. VSS, AF. PE with rhonchi and wheezing throughout lung cason. DDX includes pna vs COPD exacerbation most likely. Will rule out cardiac etiology -cbc, cmp, cardiac profile, ekg, cxr -duonebs, solumedrol -will reassess 09/06/19 12:00 CXR without any acute pathology mild leukocytosis 12.0; remaining labs unremarkable discussed results with patient as well as return pcxns; patient understands plan and is comfortable with DC home will send steroids and nebs to pharmacy Discharge - Discharge Information Problems reviewed: Yes Clinical Impression/Diagnosis: Shortness of breath, COPD exacerbation Condition: Improved Disposition: HOME - Additional Discharge Information Prescriptions: Albuterol 2.5/Ipratropium 0.5 [Duoneb -] 1 neb IH QID #1 vial.neb. Prednisone [Prednisone 50 MG TABLETS] 50 mg PO DAILY #3 tablet - Follow up/Referral Referrals: Meg Faith NP [Primary Care Provider] - - Patient Discharge Instructions Patient Printed Discharge Instructions: DI for Asthma -- Adult Additional Instructions: Please return to the emergency department with any new or worsening symptoms or concerns. Please follow up with your primary care physician within 72 hours. Please take Inhaled nebulizer treatment every 4-6 hours as needed for symptoms. Please take steroid once daily for 3 days Print Language: SYRIAN - Post Discharge Activity
--- NOTE | 2019-09-06 12:21 | PDOC ---
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 uses his albuterol inhaler, with some effect, every 4-6 hr. No chest pain, fevers or chills, nasal congestion, abdominal pain, nausea vomiting diarrhea, leg pain or swelling, paresthesias or weakness. Denies any particular sick contacts or environmental triggers. 09/06/19 12:18 - Physicial Exam PE: 09/06/19 12:17 Agree with the resident's HPI and PE as documented in the electronic medical record. NAD, well appearing, EOMI, PERRL, nl conjunctiva, anicteric; neck supple. lungs with scant wheezing b/l, RRR, abdomen soft nontender. no rebound, guarding. Back nontender. HENDRICKS x4, no focal neuro deficits. No peripheral edema. normal color for ethnicity, WWP. no calf tenderness. - Medical Decision Making 09/06/19 12:19 Vital Signs Temp Pulse Resp BP Pulse Ox 98.4 F 87 26 H 168/93 100 09/06/19 08:18 09/06/19 08:58 09/06/19 08:18 09/06/19 08:18 09/06/19 08:58 DDx SOB: ACS, PE, PTX, CHF, COPD exac, pulmonary edema, pleurisy, pneumonia, viral syndrome. effusion. anemia, electrolyte/metabolic derangements. Considered but clinically doubt based on HPI and PE: Low suspicion for pulmonary embolism or dissection. Vitals reviewed within normal limits, initially mildly tachypneic has since resolved, SPO2 100% on room air, speaking full sentences. Patient was given duo nebs and steroids with much relief. Wheezing has improved. Chest x-ray appears clear. There is chronic leukocytosis, 12 K today and has been similarly elevated but patient does not have any systemic symptoms, nontoxic and well-appearing, no fevers no antibiotics indicated at this time. Basic labs including troponin is negative, ECG is normal sinus rhythm without ST/T wave derangements. Patient does not have any chest pain, shortness of breath has much improved as well as the wheezing. Will prescribe steroids and albuterol while for every 4-6 hours as needed for the shortness of breath and wheezing. Minimize potential triggers, hand hygiene and adequate hydration. Pt to be discharged in stable condition. Patient and family made aware of clinical impression, treatment recommendations and disposition plan, return precautions discussed (including but not limited to new or persistent/worsening symptoms, pain, fevers, or signs of infection, chest pain, respiratory distress , inability to tolerate oral intake, dehydration, syncope, or neurologic changes ). Follow up with PMD and/or specialist as recommended, follow up information provided, take medications as instructed for duration of time. continue with supportive care, avoid triggers and precipitants. All questions answered to patient's satisfaction and expressed understanding and comfort with this. At the time of discharge, the patient is alert, clinically improved, tolerating po and verbalizes understanding of instructions, satisfied with the care received and felt comfortable with the plan. Patient does not suffer from an acute life- threatening medical condition at this time and is safe for outpatient follow- up. 09/06/19 12:21 Heart Score/ECG Review #1 ECG reviewed & interpreted by me at: 08:25 General ECG Interpretation: Sinus Rhythm, Normal Rate, Normal Intervals Compared to previous ECG there are: No significant change 09/06/19 12:19 EKG normal sinus rhythm at 95 bpm, no interval abnormalities, narrow QRS, ST and T wave segments and morphology normal.
[2019-09-06 12:24] VITALS: BP 148/78; PULSE 84; TEMP 98.2
--- NOTE | 2019-09-08 11:26 | EKG ---
Test Reason : Blood Pressure : / mmHG Vent. Rate : 095 BPM Atrial Rate : 095 BPM P-R Int : 144 ms QRS Dur : 098 ms QT Int : 350 ms P-R-T Axes : 068 086 059 degrees QTc Int : 439 ms NORMAL SINUS RHYTHM POSSIBLE LEFT ATRIAL ENLARGEMENT BORDERLINE ECG WHEN COMPARED WITH ECG OF 21-MAY-2018 08:10, NO SIGNIFICANT CHANGE WAS FOUND Confirmed by MITCH LEA MD ([id number]) on 09/08/2019 11:26:02 AM Referred By: Confirmed By:MITCH LEA MD
== END 2019-09-06 12:25 | disposition home or self-care (01) ==
LOC: JER 08:12
PROC: 3E0F7GC Introduction of Other Therapeutic Substance into Respiratory Tract, Via Natural or Artificial Opening (ICD-10-PCS; principal; 2019-09-06)
PROC: 3E0333Z Introduction of Anti-inflammatory into Peripheral Vein, Percutaneous Approach (ICD-10-PCS; 2019-09-06)
DX: J44.1 Chronic obstructive pulmonary disease with (acute) exacerbation (principal); J45.998 Other asthma; I10 Essential (primary) hypertension; E78.5 Hyperlipidemia, unspecified; E11.9 Type 2 diabetes mellitus without complications; Z79.84 Long term (current) use of oral hypoglycemic drugs; N40.0 Benign prostatic hyperplasia without lower urinary tract symptoms; Z87.891 Personal history of nicotine dependence
CPT/HCPCS: 36415; 71046-TC-FY; 80053; 82550; 82553; 84484; 85025; 93005; 93010; 94640; 96374; 99283-25

== ENCOUNTER 2021-07-14 23:27 | Inpatient (IN) | payer MEDICARE, OTHER ==
[2021-07-15] MEDS ORDERED: methylPREDNISolone NA SUCC 125 MG/2 ML VIAL IVPUSH ONE (00:20)
[2021-07-15] MEDS ORDERED: ALBUTEROL SO4 2.5/IPRATROPIUM 0.5 INH SOL 3 ML VIAL.NEB. NEB ONE (00:24)
[2021-07-15] MEDS ORDERED: methylPREDNISolone NA SUCC 125 MG/2 ML VIAL ONE (00:31)
[2021-07-15] MEDS: ALBUTEROL SO4 2.5/IPRATROPIUM 0.5 INH SOL 3 ML VIAL.NEB. NEB SCH ×2 (00:45→02:15)
[2021-07-15 01:57] LABS: VENOUS O2 SATURATION 96.2 % (70-80); VENOUS PCO2 58.4 mmHg (38-52); VENOUS PH 7.321 (7.310-7.410)
[2021-07-15 01:59] LABS: BASO % 0.8 % (0-2.0); EOS % 6.6 % (0-4.5); HEMATOCRIT 45.4 % (35.4-49); HEMOGLOBIN 15.2 GM/dL (11.7-16.9); LYMPH % 38.9 % (8-40); MCH 32.3 pg (25.7-33.7); MCHC 33.6 g/dl (32.0-35.9); MEAN CELL VOLUME 96.2 fl (80-96); MEAN PLT VOLUME 7.8 fl (7.5-11.1); MONO % 8.1 % (3.8-10.2); NEUT % 45.6 % (42.8-82.8); PLATELET COUNT 282 10^3/uL (134-434); RBC 4.71 M/mm3 (4.00-5.60); RDW 14.5 % (11.9-15.9); WHITE BLOOD COUNT 11.4 K/mm3 (4.0-10.0)
[2021-07-15] MEDS ORDERED: CEFTRIAXONE 1 GM in DEXTROSE 5%-WATER - 100 ML IVPB ONE (02:05)
[2021-07-15] MEDS ORDERED: CEFTRIAXONE 1 GM/50 ML BAG ONE (02:16)
[2021-07-15 02:18] LABS: CHLORIDE 103 mmol/L (98-107); SODIUM 140 mmol/L (136-145)
[2021-07-15 02:20] LABS: ALBUMIN 3.7 g/dl (3.4-5.0); ANION GAP 9 MMOL/L (8-16); BLOOD UREA NITROGEN 20.9 mg/dL (7-18); CALCIUM 9.1 mg/dL (8.5-10.1); CO2 28 mmol/L (21-32); MAGNESIUM 1.6 mg/dL (1.8-2.4)
[2021-07-15 02:23] LABS: SGPT/ALT 58 U/L (13-61)
[2021-07-15 02:24] LABS: CREATININE 1.1 mg/dL (0.55-1.3); SGOT/AST 47 U/L (15-37)
[2021-07-15 02:25] LABS: BILIRUBIN,TOTAL 0.2 mg/dL (0.2-1); TOT PROT 7.2 g/dl (6.4-8.2)
[2021-07-15 02:26] LABS: ALK PHOS 89 U/L (45-117)
[2021-07-15 02:29] LABS: N-TERMINAL BNP 35.7 pg/ml (5-125)
[2021-07-15 02:40] LABS: GLUCOSE,RANDOM 116 mg/dL (74-106)
[2021-07-15] MEDS ORDERED: MAGNESIUM 1GM/D5W - 1 GM/100 ML IVPB IVPB ONE ×2 (03:16→07:52)
[2021-07-15] MEDS ORDERED: ALBUTEROL SO4 2.5/IPRATROPIUM 0.5 INH SOL 3 ML VIAL.NEB. NEB PRN (05:59)
[2021-07-15] MEDS ORDERED: FOLIC ACID 5 MG/1 ML SQ ONE (07:30)
[2021-07-15] MEDS: INSULIN SLIDING SCALE (NOVOLOG) 1 VIAL SQ SCH ×4 (07:45→22:05)
[2021-07-15] MEDS ORDERED: MAGNESIUM SULF 50% (8.12 MEQ/2 ML-1 GM VIAL) ONE (07:51)
[2021-07-15] MEDS ORDERED: THIAMINE HCL 200 MG/2 ML VIAL ONE (07:51)
[2021-07-15 07:59] LABS: MAGNESIUM 2.1 mg/dL (1.8-2.4)
[2021-07-15] MEDS ORDERED: THIAMINE HCL 200 MG/2 ML VIAL IVPB ONE (08:00)
[2021-07-15] MEDS ORDERED: MAGNESIUM SULF 50% (8.12 MEQ/2 ML-1 GM VIAL) IVPB ONE (08:00)
[2021-07-15] MEDS: MULTIVITAMINS (DAILY MVI) TABLET (FP) PO SCH (09:50)
[2021-07-15] MEDS: FOLIC ACID 1 MG TABLET (FP) PO SCH (09:50)
[2021-07-15] MEDS: ZINC SULFATE 220 MG CAPSULE (FP) PO SCH ×2 (09:50→22:04)
[2021-07-15] MEDS: HYDROCHLOROTHIAZIDE 12.5 MG CAPSULE (FP) PO SCH (09:51)
[2021-07-15] MEDS: FINASTERIDE 5 MG TABLET (FP) PO SCH (09:51)
[2021-07-15] MEDS: AZITHROMYCIN 250 MG TABLET PO SCH (09:51)
[2021-07-15] MEDS: PANTOPRAZOLE 20 MG TABLET PO SCH (09:51)
[2021-07-15] MEDS: LISINOPRIL 10 MG TABLET PO SCH (09:52)
[2021-07-15] MEDS: methylPREDNISolone NA SUCC 40 MG/1 ML VIAL IVPUSH SCH ×2 (09:52→18:12)
[2021-07-15] MEDS ORDERED: ENOXAPARIN NA (PORCINE) 40 MG/0.4 ML DISP.SYRIN SQ SCH (10:00)
[2021-07-15] MEDS ORDERED: PT OWN MED DRAWER 7, Y5N ONE (10:38)
[2021-07-15] MEDS: BUDESONIDE/FORMETEROL FUMARATE 160/4.5 mcg INHALER IH SCH ×2 (10:43→22:05)
[2021-07-15] MEDS: NICOTINE 14 MG/24 HOURS TOPICAL PATCH TD SCH (10:43)
[2021-07-15 11:47] LABS: ARTERIAL BLD GAS O2 SATURATION 98.4 % (95-98); ARTERIAL BLOOD GAS BASE EXCESS 3.4 mmol/L (-2-2); ARTERIAL BLOOD GAS PO2 117.8 mmHg (80-100); ARTERIAL BLOOD GAS pH 7.444 (7.350-7.450)
[2021-07-15 11:50] LABS: ALLENS TEST POSITIVE
[2021-07-15] MEDS: ALBUTEROL SO4 0.083% IH SOL 2.5 MG/3 ML VIAL.NEB. NEB PRN (12:00)
[2021-07-15] MEDS: TIOTROPIUM BROMIDE 2.5 MCG (SPIRIVA) RESPIMAT INHALER IH SCH (12:45)
[2021-07-15] MEDS: THIAMINE HCL 100 MG TABLET (FP) PO SCH (22:04)
[2021-07-15] MEDS: ATORVASTATIN CA 10 MG TABLET (FP) PO SCH (22:04)
[2021-07-16] MEDS: methylPREDNISolone NA SUCC 40 MG/1 ML VIAL IVPUSH SCH ×3 (01:56→17:20)
[2021-07-16] MEDS: INSULIN SLIDING SCALE (NOVOLOG) 1 VIAL SQ SCH ×4 (06:17→21:20)
[2021-07-16] MEDS ORDERED: DEXTROSE 5%-WATER 100 ML IVPB ONE (08:49)
[2021-07-16] MEDS: ZINC SULFATE 220 MG CAPSULE (FP) PO SCH ×2 (09:24→21:16)
[2021-07-16] MEDS: FINASTERIDE 5 MG TABLET (FP) PO SCH (09:24)
[2021-07-16] MEDS: LISINOPRIL 10 MG TABLET PO SCH (09:24)
[2021-07-16] MEDS: HYDROCHLOROTHIAZIDE 12.5 MG CAPSULE (FP) PO SCH (09:25)
[2021-07-16] MEDS: CEFTRIAXONE 2 GM in DEXTROSE 5%-WATER 100 ML IVPB SCH (09:25)
[2021-07-16] MEDS: PANTOPRAZOLE 20 MG TABLET PO SCH (09:25)
[2021-07-16] MEDS: FOLIC ACID 1 MG TABLET (FP) PO SCH (09:25)
[2021-07-16] MEDS: AZITHROMYCIN 250 MG TABLET PO SCH (09:26)
[2021-07-16] MEDS: MULTIVITAMINS (DAILY MVI) TABLET (FP) PO SCH (09:26)
[2021-07-16] MEDS: BUDESONIDE/FORMETEROL FUMARATE 160/4.5 mcg INHALER IH SCH ×2 (09:26→21:20)
[2021-07-16] MEDS: TIOTROPIUM BROMIDE 2.5 MCG (SPIRIVA) RESPIMAT INHALER IH SCH (09:27)
[2021-07-16] MEDS: NICOTINE 14 MG/24 HOURS TOPICAL PATCH TD SCH (09:48)
[2021-07-16 10:21] LABS: CALCIUM 9.8 mg/dL (8.5-10.1)
[2021-07-16 10:22] LABS: ALBUMIN 3.8 g/dl (3.4-5.0); BLOOD UREA NITROGEN 30.2 mg/dL (7-18); MAGNESIUM 1.8 mg/dL (1.8-2.4)
[2021-07-16 10:25] LABS: BILIRUBIN,TOTAL 0.3 mg/dL (0.2-1); TOT PROT 7.3 g/dl (6.4-8.2)
[2021-07-16 10:56] LABS: HEMOGLOBIN 15.7 GM/dL (11.7-16.9); MCH 32.1 pg (25.7-33.7); MCHC 33.3 g/dl (32.0-35.9); MEAN CELL VOLUME 96.3 fl (80-96); MEAN PLT VOLUME 7.8 fl (7.5-11.1); PLATELET COUNT 313 10^3/uL (134-434); RBC 4.88 M/mm3 (4.00-5.60); RDW 14.5 % (11.9-15.9); WHITE BLOOD COUNT 21.2 K/mm3 (4.0-10.0)
[2021-07-16 13:18] LABS: ANISOCYTOSIS 0; MACROCYTOSIS 0; PLATELET ESTIMATE NORMAL
[2021-07-16] MEDS: WARFARIN NA 2 MG TABLET PO SCH (17:19)
[2021-07-16] MEDS: THIAMINE HCL 100 MG TABLET (FP) PO SCH (21:16)
[2021-07-16] MEDS: ATORVASTATIN CA 10 MG TABLET (FP) PO SCH (21:16)
[2021-07-17] MEDS: methylPREDNISolone NA SUCC 40 MG/1 ML VIAL IVPUSH SCH ×2 (01:24→09:23)
[2021-07-17] MEDS: ALBUTEROL SO4 0.083% IH SOL 2.5 MG/3 ML VIAL.NEB. NEB PRN (04:16)
[2021-07-17] MEDS: INSULIN SLIDING SCALE (NOVOLOG) 1 VIAL SQ SCH ×4 (06:15→21:34)
[2021-07-17 08:38] LABS: HEMATOCRIT 46.4 % (35.4-49); HEMOGLOBIN 15.8 GM/dL (11.7-16.9); MCH 33.1 pg (25.7-33.7); MCHC 34.1 g/dl (32.0-35.9); MEAN CELL VOLUME 96.8 fl (80-96); MEAN PLT VOLUME 8.3 fl (7.5-11.1); PLATELET COUNT 305 10^3/uL (134-434); RBC 4.79 M/mm3 (4.00-5.60); WHITE BLOOD COUNT 23.4 K/mm3 (4.0-10.0)
[2021-07-17 08:42] LABS: ADD RBC MORPHOLOGY YES
[2021-07-17 08:59] LABS: CALCIUM 10.1 mg/dL (8.5-10.1)
[2021-07-17 09:00] LABS: ALBUMIN 3.8 g/dl (3.4-5.0); BLOOD UREA NITROGEN 40.8 mg/dL (7-18); MAGNESIUM 2.4 mg/dL (1.8-2.4)
[2021-07-17 09:03] LABS: CREATININE 1.2 mg/dL (0.55-1.3)
[2021-07-17 09:04] LABS: BILIRUBIN,TOTAL 0.2 mg/dL (0.2-1)
[2021-07-17] MEDS ORDERED: PT OWN MED DRAWER 7, Y5N ONE (09:04)
[2021-07-17] MEDS ORDERED: DEXTROSE 5%-WATER 100 ML IVPB ONE (09:04)
[2021-07-17 09:05] LABS: TOT PROT 7.2 g/dl (6.4-8.2)
[2021-07-17] MEDS: CEFTRIAXONE 2 GM in DEXTROSE 5%-WATER 100 ML IVPB SCH (09:22)
[2021-07-17] MEDS: AZITHROMYCIN 250 MG TABLET PO SCH (09:22)
[2021-07-17] MEDS: NICOTINE 14 MG/24 HOURS TOPICAL PATCH TD SCH (09:23)
[2021-07-17] MEDS: FOLIC ACID 1 MG TABLET (FP) PO SCH (09:23)
[2021-07-17] MEDS: HYDROCHLOROTHIAZIDE 12.5 MG CAPSULE (FP) PO SCH (09:23)
[2021-07-17] MEDS: ZINC SULFATE 220 MG CAPSULE (FP) PO SCH ×2 (09:24→21:28)
[2021-07-17] MEDS: LISINOPRIL 10 MG TABLET PO SCH (09:24)
[2021-07-17] MEDS: FINASTERIDE 5 MG TABLET (FP) PO SCH (09:24)
[2021-07-17] MEDS: PANTOPRAZOLE 20 MG TABLET PO SCH (09:24)
[2021-07-17] MEDS: MULTIVITAMINS (DAILY MVI) TABLET (FP) PO SCH (09:24)
[2021-07-17] MEDS: TIOTROPIUM BROMIDE 2.5 MCG (SPIRIVA) RESPIMAT INHALER IH SCH (09:25)
[2021-07-17] MEDS: BUDESONIDE/FORMETEROL FUMARATE 160/4.5 mcg INHALER IH SCH ×2 (09:25→21:28)
[2021-07-17 09:43] LABS: ANISOCYTOSIS 0; MACROCYTOSIS 0; PLATELET ESTIMATE NORMAL
[2021-07-17] MEDS: amLODIPine BESYLATE 5 MG TABLET (FP) PO SCH (13:41)
[2021-07-17 13:55] VITALS: BMI 24.7
[2021-07-17 16:48] LABS: INR 2.55 (0.83-1.09); PROTHROMBIN TIME (PATIENT) 31.1 SEC (9.7-13.0)
[2021-07-17] MEDS: WARFARIN NA 2 MG TABLET PO SCH (17:00)
[2021-07-17] MEDS: MELATONIN 1 MG TABLET PO SCH (21:27)
[2021-07-17] MEDS: THIAMINE HCL 100 MG TABLET (FP) PO SCH (21:28)
[2021-07-17] MEDS: ATORVASTATIN CA 10 MG TABLET (FP) PO SCH (21:34)
[2021-07-17] MEDS ORDERED: methylPREDNISolone NA SUCC 40 MG/1 ML VIAL IVPUSH SCH (22:00)
[2021-07-18 06:19] LABS: BASO % 0.2 % (0-2.0); HEMATOCRIT 46.4 % (35.4-49); LYMPH % 10.3 % (8-40); MCH 33.1 pg (25.7-33.7); MCHC 34.6 g/dl (32.0-35.9); MEAN CELL VOLUME 95.6 fl (80-96); MONO % 2.7 % (3.8-10.2); NEUT % 86.8 % (42.8-82.8); PLATELET COUNT 288 10^3/uL (134-434); RBC 4.85 M/mm3 (4.00-5.60); WHITE BLOOD COUNT 23.4 K/mm3 (4.0-10.0)
[2021-07-18 06:29] LABS: INR 2.52 (0.83-1.09); PROTHROMBIN TIME (PATIENT) 30.8 SEC (9.7-13.0)
[2021-07-18] MEDS: INSULIN SLIDING SCALE (NOVOLOG) 1 VIAL SQ SCH ×4 (06:33→21:11)
[2021-07-18 06:44] LABS: ALBUMIN 3.4 g/dl (3.4-5.0); BLOOD UREA NITROGEN 38.3 mg/dL (7-18); CALCIUM 9.3 mg/dL (8.5-10.1); MAGNESIUM 1.9 mg/dL (1.8-2.4)
[2021-07-18 06:46] LABS: BILIRUBIN,TOTAL 0.3 mg/dL (0.2-1)
[2021-07-18 06:48] LABS: CREATININE 1.1 mg/dL (0.55-1.3)
[2021-07-18 06:49] LABS: TOT PROT 6.8 g/dl (6.4-8.2)
[2021-07-18] MEDS ORDERED: DEXTROSE 5%-WATER 100 ML IVPB ONE (08:57)
[2021-07-18] MEDS: CEFTRIAXONE 2 GM in DEXTROSE 5%-WATER 100 ML IVPB SCH (09:02)
[2021-07-18] MEDS: HYDROCHLOROTHIAZIDE 12.5 MG CAPSULE (FP) PO SCH (09:04)
[2021-07-18] MEDS: FOLIC ACID 1 MG TABLET (FP) PO SCH (09:04)
[2021-07-18] MEDS: AZITHROMYCIN 250 MG TABLET PO SCH (09:04)
[2021-07-18] MEDS: ZINC SULFATE 220 MG CAPSULE (FP) PO SCH ×2 (09:04→21:11)
[2021-07-18] MEDS: MULTIVITAMINS (DAILY MVI) TABLET (FP) PO SCH (09:04)
[2021-07-18] MEDS: FINASTERIDE 5 MG TABLET (FP) PO SCH (09:04)
[2021-07-18] MEDS: PANTOPRAZOLE 20 MG TABLET PO SCH (09:04)
[2021-07-18] MEDS: amLODIPine BESYLATE 5 MG TABLET (FP) PO SCH (09:05)
[2021-07-18] MEDS: NICOTINE 14 MG/24 HOURS TOPICAL PATCH TD SCH (09:05)
[2021-07-18] MEDS: LISINOPRIL 10 MG TABLET PO SCH (09:05)
[2021-07-18] MEDS: BUDESONIDE/FORMETEROL FUMARATE 160/4.5 mcg INHALER IH SCH ×2 (09:08→21:10)
[2021-07-18] MEDS: TIOTROPIUM BROMIDE 2.5 MCG (SPIRIVA) RESPIMAT INHALER IH SCH (09:08)
[2021-07-18 09:17] LABS: ANISOCYTOSIS 0; HELMET CELLS 0; HOWELL-JOLLY BODIES 0; MACROCYTOSIS 0; OVALOCYTE 0; PLATELET ESTIMATE NORMAL; ROULEAU 0; SICKELED CELLS 0; TARGET CELLS 0; TEAR DROP CELLS 0; TOXIC GRANULATION 0
[2021-07-18] MEDS ORDERED: methylPREDNISolone NA SUCC 40 MG/1 ML VIAL IVPUSH SCH (10:00)
[2021-07-18] MEDS ORDERED: WARFARIN NA 3 MG TABLET PO SCH (18:00)
[2021-07-18] MEDS: ATORVASTATIN CA 10 MG TABLET (FP) PO SCH (21:11)
[2021-07-18] MEDS: MELATONIN 1 MG TABLET PO SCH (21:11)
[2021-07-18] MEDS: THIAMINE HCL 100 MG TABLET (FP) PO SCH (21:11)
[2021-07-19] MEDS: INSULIN SLIDING SCALE (NOVOLOG) 1 VIAL SQ SCH ×2 (06:17→11:15)
[2021-07-19 06:46] LABS: INR 2.47 (0.83-1.09); PROTHROMBIN TIME (PATIENT) 30.2 SEC (9.7-13.0)
[2021-07-19] MEDS ORDERED: DEXTROSE 5%-WATER 100 ML IVPB ONE (09:15)
[2021-07-19] MEDS ORDERED: PT OWN MED DRAWER 7, Y5N ONE (09:15)
[2021-07-19] MEDS: FINASTERIDE 5 MG TABLET (FP) PO SCH (09:37)
[2021-07-19] MEDS: ZINC SULFATE 220 MG CAPSULE (FP) PO SCH (09:37)
[2021-07-19] MEDS: MULTIVITAMINS (DAILY MVI) TABLET (FP) PO SCH (09:37)
[2021-07-19] MEDS: PANTOPRAZOLE 20 MG TABLET PO SCH (09:37)
[2021-07-19] MEDS: FOLIC ACID 1 MG TABLET (FP) PO SCH (09:37)
[2021-07-19] MEDS: amLODIPine BESYLATE 5 MG TABLET (FP) PO SCH (09:37)
[2021-07-19] MEDS: CEFTRIAXONE 2 GM in DEXTROSE 5%-WATER 100 ML IVPB SCH (09:39)
[2021-07-19] MEDS: NICOTINE 14 MG/24 HOURS TOPICAL PATCH TD SCH (09:40)
[2021-07-19] MEDS: HYDROCHLOROTHIAZIDE 12.5 MG CAPSULE (FP) PO SCH (09:40)
[2021-07-19] MEDS: LISINOPRIL 10 MG TABLET PO SCH (09:40)
[2021-07-19] MEDS: AZITHROMYCIN 250 MG TABLET PO SCH (09:41)
[2021-07-19] MEDS: BUDESONIDE/FORMETEROL FUMARATE 160/4.5 mcg INHALER IH SCH (09:41)
[2021-07-19] MEDS: TIOTROPIUM BROMIDE 2.5 MCG (SPIRIVA) RESPIMAT INHALER IH SCH (09:41)
[2021-07-19] MEDS ORDERED: predniSONE 20 MG TABLET (UD) PO SCH (10:00)
[2021-07-19 13:55] VITALS: BP 136/57; PULSE 59; TEMP 98.2
== END 2021-07-19 16:53 | disposition home or self-care (01) | DRG 191 ==
LOC: JER 23:27 → INTOOBSV 07-15 02:40 → JERBED 07-15 02:40 → J4S 07-15 08:58 → OBSVTOIN 07-15 09:49
PROVIDERS: ADMIT Internal Medicine; ATTEND Nurse Practitioner Family
DX: J44.1 Chronic obstructive pulmonary disease with (acute) exacerbation (principal); J45.901 Unspecified asthma with (acute) exacerbation; F10.239 Alcohol dependence with withdrawal, unspecified; E11.8 Type 2 diabetes mellitus with unspecified complications; E78.5 Hyperlipidemia, unspecified; K21.9 Gastro-esophageal reflux disease without esophagitis; I10 Essential (primary) hypertension; E78.00 Pure hypercholesterolemia, unspecified; F12.90 Cannabis use, unspecified, uncomplicated; I44.7 Left bundle-branch block, unspecified; D72.829 Elevated white blood cell count, unspecified; E83.42 Hypomagnesemia; F17.210 Nicotine dependence, cigarettes, uncomplicated; N40.0 Benign prostatic hyperplasia without lower urinary tract symptoms
CPT/HCPCS: 36415; 36600; 71046-TC-FY; 71250-TC; 80053; 82550; 82803; 82962; 83036; 83735; 83880; 84484; 85025; 85610; 93005; 93010; 94010; 94640; 94761; 99285-25; C9803; G0378; U0003; U0005

== ENCOUNTER → 2021-11-14 | Emergency (ER) | payer MEDICARE, OTHER ==
[~2021-11-14] MED LIST: ALBUTEROL SO4 2.5/IPRATROPIUM 0.5 INH SOL 3 ML VIAL.NEB. NEB ONE; MAGNESIUM SULF 50% (8.12 MEQ/2 ML-1 GM VIAL) IVPB ONE; MAGNESIUM SULFATE IN WATER 2 GM/50 ML IVPB IVPB ONE; methylPREDNISolone NA SUCC 125 MG/2 ML VIAL IVPUSH ONE; methylPREDNISolone NA SUCC 125 MG/2 ML VIAL ONE
[2021-11-14 13:51] VITALS: BP 138/92; PULSE 95; TEMP 97.8; BMI 26.6
[2021-11-14 18:19] LABS: BASO % 0.5 % (0-2.0); EOS % 1.6 % (0-4.5); HEMATOCRIT 47.1 % (35.4-49); LYMPH % 36.9 % (8-40); MCH 32.6 pg (25.7-33.7); MEAN PLT VOLUME 7.2 fl (7.5-11.1); MONO % 7.5 % (3.8-10.2); NEUT % 53.5 % (42.8-82.8); PLATELET COUNT 310 10^3/uL (134-434); RBC 4.91 M/mm3 (4.00-5.60); RDW 14.1 % (11.9-15.9); WHITE BLOOD COUNT 15.2 K/mm3 (4.0-10.0)
[2021-11-14 18:44] LABS: ALBUMIN 4.2 g/dl (3.4-5.0); BLOOD UREA NITROGEN 23.3 mg/dL (7-18)
[2021-11-14 18:47] LABS: CREATININE 1.5 mg/dL (0.55-1.3)
[2021-11-14 18:48] LABS: BILIRUBIN,TOTAL 0.6 mg/dL (0.2-1); TOT PROT 7.5 g/dl (6.4-8.2)
[2021-11-14 21:36] LABS: EPI CELLS 24 /uL (0-25.1); HYALINE CASTS 24 /uL (0-3.1); URINE APPEARANCE CLOUDY; URINE BACTERIA 14 /uL (0-1359); URINE BILIRUBIN NEGATIVE (NEGATIVE); URINE COLOR DK YELLOW; URINE GLUCOSE (UA) NEGATIVE (NEGATIVE); URINE KETONE TRACE (NEGATIVE); URINE LEUK ESTERASE TRACE (NEGATIVE); URINE NITRITE NEGATIVE (NEGATIVE); URINE PROTEIN 2+ (NEGATIVE); URINE RBC 7 /uL (0-23.9); URINE UROBILINOGEN 0.2 mg/dL (0.2-1.0); URINE WBC 22 /uL (0-25.8)
== END | disposition home or self-care (01) ==
LOC: JER 13:35
PROC: 3E0F7GC Introduction of Other Therapeutic Substance into Respiratory Tract, Via Natural or Artificial Opening (ICD-10-PCS; principal; 2021-11-14)
PROC: 3E033GC Introduction of Other Therapeutic Substance into Peripheral Vein, Percutaneous Approach (ICD-10-PCS; 2021-11-14)
PROC: 3E033GC Introduction of Other Therapeutic Substance into Peripheral Vein, Percutaneous Approach (ICD-10-PCS; 2021-11-14)
DX: R06.02 Shortness of breath (principal)
CPT/HCPCS: 36415; 71046-TC-FY; 80053; 81003; 82550; 82553; 84484; 85025; 87086; 93005; 93010; 99285-25; C9803; U0003; U0005

== ENCOUNTER 2022-01-18 09:38 | Inpatient (IN) | payer MEDICARE, OTHER ==
[2022-01-18 09:43] VITALS: BMI 26.9
[2022-01-18] MEDS ORDERED: ALBUTEROL SO4 2.5/IPRATROPIUM 0.5 INH SOL 3 ML VIAL.NEB. NEB ONE ×3 (10:41→18:14)
[2022-01-18 11:37] LABS: BASO % 0.6 % (0-2.0); EOS % 1.2 % (0-4.5); HEMATOCRIT 41.4 % (35.4-49); HEMOGLOBIN 14.1 GM/dL (11.7-16.9); LYMPH % 17.9 % (8-40); MCH 32.6 pg (25.7-33.7); MEAN CELL VOLUME 95.8 fl (80-96); MEAN PLT VOLUME 7.3 fl (7.5-11.1); MONO % 11.9 % (3.8-10.2); NEUT % 68.4 % (42.8-82.8); PLATELET COUNT 300 10^3/uL (134-434); RBC 4.33 M/mm3 (4.00-5.60); RDW 14.6 % (11.9-15.9); WHITE BLOOD COUNT 14.3 K/mm3 (4.0-10.0)
[2022-01-18 11:43] LABS: PROTHROMBIN TIME (PATIENT) 79.2 SEC (9.7-13.0)
[2022-01-18 11:52] LABS: INR 6.76 (0.83-1.09)
[2022-01-18 12:01] LABS: BLOOD UREA NITROGEN 18.1 mg/dL (7-18); CALCIUM 8.4 mg/dL (8.5-10.1)
[2022-01-18 12:02] LABS: ALBUMIN 3.2 g/dl (3.4-5.0)
[2022-01-18 12:03] LABS: EPI CELLS 10 /uL (0-25.1); HYALINE CASTS 2 /uL (0-3.1); URINE APPEARANCE CLEAR; URINE BACTERIA 0 /uL (0-1359); URINE BILIRUBIN NEGATIVE (NEGATIVE); URINE COLOR YELLOW; URINE GLUCOSE (UA) NEGATIVE (NEGATIVE); URINE KETONE TRACE (NEGATIVE); URINE LEUK ESTERASE NEGATIVE (NEGATIVE); URINE NITRITE NEGATIVE (NEGATIVE); URINE PROTEIN 2+ (NEGATIVE); URINE RBC 27 /uL (0-23.9); URINE WBC 7 /uL (0-25.8)
[2022-01-18 12:05] LABS: CREATININE 1.2 mg/dL (0.55-1.3)
[2022-01-18 12:06] LABS: BILIRUBIN,TOTAL 0.5 mg/dL (0.2-1); TOT PROT 6.6 g/dl (6.4-8.2)
[2022-01-18] MEDS ORDERED: methylPREDNISolone NA SUCC 125 MG/2 ML VIAL IVPUSH ONE (12:41)
[2022-01-18] MEDS ORDERED: ALBUTEROL SO4 0.083% IH SOL 2.5 MG/3 ML VIAL.NEB. NEB ONE ×2 (12:41→12:51)
[2022-01-18] MEDS ORDERED: CEFTRIAXONE 1,000 MG in DEXTROSE 5%-WATER - 50 ML IVPB ONE (12:42)
[2022-01-18] MEDS ORDERED: AZITHROMYCIN IVPB 500 MG in DEXTROSE 5%-WATER - 250 ML IVPB ONE (12:43)
[2022-01-18] MEDS ORDERED: CEFTRIAXONE 1 GM/50 ML BAG ONE (12:50)
[2022-01-18] MEDS ORDERED: methylPREDNISolone NA SUCC 125 MG/2 ML VIAL ONE (12:50)
[2022-01-18] MEDS ORDERED: AZITHROMYCIN IVPB 500 MG/250 ML BAG IVPB ONE (12:50)
[2022-01-18] MEDS ORDERED: ALBUTEROL SO4 HFA INHALER IH PRN (17:06)
[2022-01-18] MEDS: ALBUTEROL SO4 2.5/IPRATROPIUM 0.5 INH SOL 3 ML VIAL.NEB. NEB SCH (18:00)
[2022-01-18] MEDS ORDERED: methylPREDNISolone NA SUCC 40 MG/1 ML VIAL ONE (18:14)
[2022-01-18] MEDS: methylPREDNISolone NA SUCC 40 MG/1 ML VIAL IVPUSH SCH (18:19)
[2022-01-18] MEDS: ATORVASTATIN CA 20 MG TABLET (FP) PO SCH (21:57)
[2022-01-19] MEDS: methylPREDNISolone NA SUCC 40 MG/1 ML VIAL IVPUSH SCH ×3 (01:50→21:32)
[2022-01-19 08:32] LABS: HEMATOCRIT 41.8 % (35.4-49); MCHC 33.6 g/dl (32.0-35.9); MEAN CELL VOLUME 95.4 fl (80-96); MEAN PLT VOLUME 7.6 fl (7.5-11.1); PLATELET COUNT 343 10^3/uL (134-434); RBC 4.38 M/mm3 (4.00-5.60)
[2022-01-19 08:38] LABS: PROTHROMBIN TIME (PATIENT) 60.5 SEC (9.7-13.0)
[2022-01-19 08:45] LABS: BLOOD UREA NITROGEN 17.9 mg/dL (7-18); CALCIUM 8.9 mg/dL (8.5-10.1)
[2022-01-19 08:46] LABS: ALBUMIN 2.9 g/dl (3.4-5.0)
[2022-01-19 08:49] LABS: CREATININE 0.8 mg/dL (0.55-1.3)
[2022-01-19 08:50] LABS: BILIRUBIN,TOTAL 0.4 mg/dL (0.2-1); TOT PROT 6.4 g/dl (6.4-8.2)
[2022-01-19] MEDS: ALBUTEROL SO4 2.5/IPRATROPIUM 0.5 INH SOL 3 ML VIAL.NEB. NEB SCH ×3 (08:52→19:48)
[2022-01-19 08:54] LABS: INR 5.17 (0.83-1.09)
[2022-01-19] MEDS ORDERED: DEXTROSE 5%-WATER - 50 ML IVPB ONE (10:23)
[2022-01-19] MEDS ORDERED: cefTRIAXone SODIUM 1 GM VIAL ONE (10:23)
[2022-01-19] MEDS: amLODIPine BESYLATE 5 MG TABLET (FP) PO SCH (10:47)
[2022-01-19] MEDS: FOLIC ACID 1 MG TABLET (FP) PO SCH (10:47)
[2022-01-19] MEDS: THIAMINE HCL 100 MG TABLET (FP) PO SCH (10:47)
[2022-01-19] MEDS: FINASTERIDE 5 MG TABLET (FP) PO SCH (10:47)
[2022-01-19] MEDS: CEFTRIAXONE 1 GM in DEXTROSE 5%-WATER - 50 ML IVPB SCH (10:48)
[2022-01-19] MEDS: AZITHROMYCIN IVPB 500 MG/250 ML BAG IVPB SCH (11:33)
[2022-01-19] MEDS: ATORVASTATIN CA 20 MG TABLET (FP) PO SCH (21:32)
[2022-01-20 07:25] LABS: PROTHROMBIN TIME (PATIENT) 47.2 SEC (9.7-13.0)
[2022-01-20 08:06] LABS: INR 4.05 (0.83-1.09)
[2022-01-20] MEDS: ALBUTEROL SO4 2.5/IPRATROPIUM 0.5 INH SOL 3 ML VIAL.NEB. NEB SCH ×4 (08:22→19:50)
[2022-01-20] MEDS: methylPREDNISolone NA SUCC 40 MG/1 ML VIAL IVPUSH SCH (09:34)
[2022-01-20] MEDS: THIAMINE HCL 100 MG TABLET (FP) PO SCH (09:34)
[2022-01-20] MEDS: FINASTERIDE 5 MG TABLET (FP) PO SCH (09:34)
[2022-01-20] MEDS: FOLIC ACID 1 MG TABLET (FP) PO SCH (09:34)
[2022-01-20] MEDS: amLODIPine BESYLATE 5 MG TABLET (FP) PO SCH (09:34)
[2022-01-20] MEDS: AZITHROMYCIN IVPB 500 MG/250 ML BAG IVPB SCH (09:35)
[2022-01-20] MEDS ORDERED: methylPREDNISolone NA SUCC 40 MG/1 ML VIAL IVPUSH SCH (10:00)
[2022-01-20] MEDS ORDERED: cefTRIAXone SODIUM 1 GM VIAL ONE (10:02)
[2022-01-20] MEDS ORDERED: DEXTROSE 5%-WATER - 50 ML IVPB ONE (10:02)
[2022-01-20] MEDS: CEFTRIAXONE 1 GM in DEXTROSE 5%-WATER - 50 ML IVPB SCH (10:09)
[2022-01-20 10:12] LABS: HEMATOCRIT 40.4 % (35.4-49); HEMOGLOBIN 13.8 GM/dL (11.7-16.9); MCH 32.6 pg (25.7-33.7); MCHC 34.1 g/dl (32.0-35.9); MEAN CELL VOLUME 95.5 fl (80-96); MEAN PLT VOLUME 7.3 fl (7.5-11.1); PLATELET COUNT 363 10^3/uL (134-434); RBC 4.23 M/mm3 (4.00-5.60); RDW 14.2 % (11.9-15.9); WHITE BLOOD COUNT 24.3 K/mm3 (4.0-10.0)
[2022-01-20 10:31] LABS: ALBUMIN 3.1 g/dl (3.4-5.0); BLOOD UREA NITROGEN 21.7 mg/dL (7-18); CALCIUM 9.1 mg/dL (8.5-10.1)
[2022-01-20 10:36] LABS: BILIRUBIN,TOTAL 0.2 mg/dL (0.2-1); TOT PROT 6.2 g/dl (6.4-8.2)
[2022-01-20 12:08] LABS: SARS-CoV-2 NAA Not Detected (Not Detected)
[2022-01-20 12:18] LABS: ANISOCYTOSIS 0; MACROCYTOSIS 0
[2022-01-20] MEDS: ATORVASTATIN CA 20 MG TABLET (FP) PO SCH (22:11)
[2022-01-21] MEDS: ALBUTEROL SO4 2.5/IPRATROPIUM 0.5 INH SOL 3 ML VIAL.NEB. NEB SCH ×3 (08:56→12:21)
[2022-01-21] MEDS ORDERED: methylPREDNISolone NA SUCC 40 MG/1 ML VIAL IVPUSH SCH (10:00)
[2022-01-21] MEDS: CEFTRIAXONE 1 GM in DEXTROSE 5%-WATER - 50 ML IVPB SCH (10:24)
[2022-01-21] MEDS ORDERED: cefTRIAXone SODIUM 1 GM VIAL ONE (10:24)
[2022-01-21] MEDS ORDERED: DEXTROSE 5%-WATER - 50 ML IVPB ONE (10:24)
[2022-01-21 10:30] LABS: INR 2.35 (0.83-1.09); PROTHROMBIN TIME (PATIENT) 27.3 SEC (9.7-13.0)
[2022-01-21] MEDS: THIAMINE HCL 100 MG TABLET (FP) PO SCH (10:30)
[2022-01-21] MEDS: FOLIC ACID 1 MG TABLET (FP) PO SCH (10:30)
[2022-01-21] MEDS: amLODIPine BESYLATE 5 MG TABLET (FP) PO SCH (10:30)
[2022-01-21] MEDS: FINASTERIDE 5 MG TABLET (FP) PO SCH (10:30)
[2022-01-21 10:32] LABS: BASO % 0.3 % (0-2.0); EOS % 0.1 % (0-4.5); HEMATOCRIT 42.3 % (35.4-49); HEMOGLOBIN 14.4 GM/dL (11.7-16.9); LYMPH % 28.4 % (8-40); MCH 32.5 pg (25.7-33.7); MCHC 34.1 g/dl (32.0-35.9); MEAN CELL VOLUME 95.3 fl (80-96); MEAN PLT VOLUME 6.9 fl (7.5-11.1); MONO % 6.6 % (3.8-10.2); NEUT % 64.6 % (42.8-82.8); PLATELET COUNT 374 10^3/uL (134-434); RBC 4.44 M/mm3 (4.00-5.60); WHITE BLOOD COUNT 19.4 K/mm3 (4.0-10.0)
[2022-01-21 10:35] VITALS: BP 126/83; PULSE 85; TEMP 98.3
[2022-01-21 10:49] LABS: CALCIUM 9.6 mg/dL (8.5-10.1)
[2022-01-21 10:53] LABS: CREATININE 1.1 mg/dL (0.55-1.3)
[2022-01-21] MEDS: AZITHROMYCIN IVPB 500 MG/250 ML BAG IVPB SCH (10:57)
== END 2022-01-21 13:56 | disposition home or self-care (01) | DRG 190 ==
LOC: JER 09:38 → JERBED 16:13 → J6S 20:27
PROVIDERS: ADMIT Internal Medicine; ATTEND Internal Medicine
DX: J44.0 Chronic obstructive pulmonary disease with (acute) lower respiratory infection (principal); J18.9 Pneumonia, unspecified organism; D47.9 Neoplasm of uncertain behavior of lymphoid, hematopoietic and related tissue, unspecified; J44.1 Chronic obstructive pulmonary disease with (acute) exacerbation; R79.1 Abnormal coagulation profile; I10 Essential (primary) hypertension; E78.5 Hyperlipidemia, unspecified; N40.0 Benign prostatic hyperplasia without lower urinary tract symptoms
CPT/HCPCS: 36415; 71046-TC-FY; 80048; 80053; 81003; 85025; 85027; 85610; 87040; 87070; 87205; 87804; 93005; 93010; 94640; 94761; 97116-GP; 97161-GP; 99285-25; C9803-CS; U0003; U0005

== ENCOUNTER 2022-04-11 04:33 | Day surgery (SDC) | payer MEDICARE, OTHER ==
[2022-04-06 12:06] VITALS: BMI 25.4
[2022-04-11] MEDS ORDERED: ONABOTULINUMTOXINA 200 UNIT/VIAL VIAL NR ONE (10:30)
[2022-04-11] MEDS ORDERED: LIDOCAINE HCL 2% 100 MG/5 ML DISP.SYRIN ONE (12:03)
[2022-04-11] MEDS ORDERED: PROPOFOL 20 ML ONE (12:04)
[2022-04-11] MEDS ORDERED: MIDAZOLAM HCL 2 MG/2 ML SINGLE DOSE VIAL ONE (12:04)
[2022-04-11] MEDS ORDERED: ceFAZolin SODIUM 1 GM VIAL IVPB ONE (12:10)
[2022-04-11] MEDS ORDERED: ceFAZolin SODIUM 1 GM VIAL ONE (12:14)
[2022-04-11] MEDS ORDERED: ONABOTULINUMTOXINA 200 UNIT/VIAL VIAL IM ONE (12:27)
[2022-04-11] MEDS ORDERED: oxyCODONE HCL 5 MG TABLET PO PRN ×2 (12:45)
[2022-04-11] MEDS ORDERED: PROMETHAZINE HCL 25 MG/1 ML VIAL IVPB PRN (12:45)
[2022-04-11] MEDS ORDERED: ONDANSETRON 4 MG/2 ML VIAL IVPUSH PRN (12:45)
[2022-04-11] MEDS ORDERED: LACTATED RINGERS SOLUTION 1,000 ML IV SCH (12:45)
[2022-04-11 17:42] VITALS: BP 142/79; PULSE 78; TEMP 97.4
== END 2022-04-11 15:30 | disposition home or self-care (01) ==
LOC: JASU-SURG 04:33
PROVIDERS: ATTEND Urology
PROC: 3E0K8GC Introduction of Other Therapeutic Substance into Genitourinary Tract, Via Natural or Artificial Opening Endoscopic (ICD-10-PCS; principal; 2022-04-11 12:00)
DX: N32.81 Overactive bladder (principal)
CPT/HCPCS: 87086; 94760; J0585

== ENCOUNTER 2022-04-21 08:13 | Emergency (ER) | payer MEDICARE, OTHER ==
[2022-04-21 08:21] VITALS: TEMP 98.2; BMI 27.3
[2022-04-21] MEDS ORDERED: morphine SULFATE 4 MG/ML VIAL IVPUSH ONE (09:20)
[2022-04-21] MEDS ORDERED: SODIUM CHLORIDE 1,000 ML IV ONE (09:20)
[2022-04-21] MEDS ORDERED: morphine SULFATE 4 MG/ML VIAL ONE (09:32)
[2022-04-21 10:33] LABS: HEMATOCRIT 46.4 % (35.4-49); HEMOGLOBIN 15.8 GM/dL (11.7-16.9); MCH 32.3 pg (25.7-33.7); MEAN PLT VOLUME 7.4 fl (7.5-11.1); PLATELET COUNT 353 10^3/uL (134-434); RBC 4.89 M/mm3 (4.00-5.60); WHITE BLOOD COUNT 20.1 K/mm3 (4.0-10.0)
[2022-04-21 10:40] LABS: INR 1.02 (0.83-1.09); PROTHROMBIN TIME (PATIENT) 11.7 SEC (9.7-13.0)
[2022-04-21 10:43] LABS: ACTIVATED PTT 29.9 SECONDS (25.2-36.5)
[2022-04-21 10:53] LABS: LACTIC ACID 2.1 mmol/L (0.4-2.0)
[2022-04-21 11:20] LABS: ANISOCYTOSIS 0; HELMET CELLS 0; HOWELL-JOLLY BODIES 0; MACROCYTOSIS 0; OVALOCYTE 0; ROULEAU 0; SICKELED CELLS 0; TARGET CELLS 0; TEAR DROP CELLS 0; TOXIC GRANULATION 0
[2022-04-21 13:20] LABS: ALBUMIN 4.2 g/dl (3.4-5.0); BILIRUBIN,TOTAL 0.8 mg/dL (0.2-1); BLOOD UREA NITROGEN 21.1 mg/dL (7-18); CALCIUM 10.3 mg/dL (8.5-10.1); CREATININE 1.3 mg/dL (0.55-1.3); TOT PROT 7.7 g/dl (6.4-8.2)
[2022-04-21 14:38] LABS: EPI CELLS 1 /uL (0-25.1); HYALINE CASTS 0 /uL (0-3.1); PH,URINE 7.5 (5.0-8.0); URINE APPEARANCE CLEAR; URINE BACTERIA 137 /uL (0-1359); URINE BILIRUBIN NEGATIVE (NEGATIVE); URINE COLOR YELLOW; URINE GLUCOSE (UA) NEGATIVE (NEGATIVE); URINE KETONE NEGATIVE (NEGATIVE); URINE LEUK ESTERASE TRACE (NEGATIVE); URINE NITRITE NEGATIVE (NEGATIVE); URINE PROTEIN TRACE (NEGATIVE); URINE RBC 107 /uL (0-23.9); URINE UROBILINOGEN 0.2 mg/dL (0.2-1.0); URINE WBC 7 /uL (0-25.8)
[2022-04-21] MEDS ORDERED: MINERAL OIL ENEMA 133 ML ENEMA PR ONE (15:35)
[2022-04-21] MEDS ORDERED: POLYETHYLENE GLYCOL (HEALTHYLAX) 3350 17 GM PACKET ONE (19:00)
[2022-04-21 20:29] VITALS: BP 141/80; PULSE 75
[2022-04-22] MEDS ORDERED: POLYETHYLENE GLYCOL (HEALTHYLAX) 3350 17 GM PACKET PO SCH (10:00)
== END 2022-04-21 20:30 | disposition home or self-care (01) ==
LOC: JER 08:13
PROC: 3E033NZ Introduction of Analgesics, Hypnotics, Sedatives into Peripheral Vein, Percutaneous Approach (ICD-10-PCS; principal; 2022-04-21)
PROC: 3E0337Z Introduction of Electrolytic and Water Balance Substance into Peripheral Vein, Percutaneous Approach (ICD-10-PCS; 2022-04-21)
DX: K59.00 Constipation, unspecified (principal); R10.9 Unspecified abdominal pain
CPT/HCPCS: 36415; 74174-TC; 80053; 81003; 83605; 83690; 85025; 85610; 85730; 86140; 87086; 87186; 96361; 96374; 99284-25; C9803-CS; Q9967; U0003; U0005

== ENCOUNTER 2022-05-14 09:22 | Inpatient (IN) | payer MEDICARE, OTHER ==
[2022-05-14] MEDS ORDERED: ALBUTEROL SO4 2.5/IPRATROPIUM 0.5 INH SOL 3 ML VIAL.NEB. NEB ONE (09:34)
[2022-05-14] MEDS ORDERED: ACETAMINOPHEN INJECTION 100 ML IVPB ONE (09:35)
[2022-05-14] MEDS ORDERED: methylPREDNISolone NA SUCC 125 MG/2 ML VIAL ONE (09:36)
[2022-05-14] MEDS ORDERED: SODIUM CHLORIDE 0.9% 500 ML INFUS.BAG IV ONE (09:57)
[2022-05-14] MEDS ORDERED: methylPREDNISolone NA SUCC 125 MG/2 ML VIAL IVPUSH ONE (09:57)
[2022-05-14] MEDS ORDERED: ACETAMINOPHEN 1000 MG/100 ML BAG IVPB ONE (10:02)
[2022-05-14] MEDS: ALBUTEROL SO4 2.5/IPRATROPIUM 0.5 INH SOL 3 ML VIAL.NEB. NEB SCH ×5 (10:04→20:05)
[2022-05-14 10:30] LABS: BASO % 0.5 % (0-2.0); EOS % 3.3 % (0-4.5); HEMATOCRIT 44.5 % (35.4-49); HEMOGLOBIN 14.8 GM/dL (11.7-16.9); LYMPH % 20.8 % (8-40); MCH 30.5 pg (25.7-33.7); MCHC 33.2 g/dl (32.0-35.9); MEAN CELL VOLUME 91.9 fl (80-96); MEAN PLT VOLUME 7.2 fl (7.5-11.1); MONO % 11.2 % (3.8-10.2); NEUT % 64.2 % (42.8-82.8); PLATELET COUNT 405 10^3/uL (134-434); RBC 4.85 M/mm3 (4.00-5.60); RDW 13.7 % (11.9-15.9); WHITE BLOOD COUNT 12.7 K/mm3 (4.0-10.0)
[2022-05-14 10:38] LABS: ALBUMIN 3.4 g/dl (3.4-5.0)
[2022-05-14 10:39] LABS: BLOOD UREA NITROGEN 10.7 mg/dL (7-18)
[2022-05-14 10:43] LABS: BILIRUBIN,TOTAL 0.5 mg/dL (0.2-1); TOT PROT 6.9 g/dl (6.4-8.2)
[2022-05-14] MEDS ORDERED: ALBUTEROL SO4 0.5 % INH SOLN 2.5 MG/0.5 ML VIAL.NEB. NEB ONE ×2 (11:35→11:39)
[2022-05-14] MEDS ORDERED: AZITHROMYCIN IVPB 500 MG in DEXTROSE 5%-WATER - 250 ML IVPB ONE (12:10)
[2022-05-14] MEDS ORDERED: AZITHROMYCIN IVPB 500 MG/250 ML BAG IVPB ONE (12:14)
[2022-05-14] MEDS ORDERED: ALBUTEROL SO4 2.5/IPRATROPIUM 0.5 INH SOL 3 ML VIAL.NEB. NEB SCH (15:00)
[2022-05-14 15:02] VITALS: BMI 27.3
[2022-05-14] MEDS ORDERED: CEFTRIAXONE 1,000 MG in DEXTROSE 5%-WATER - 50 ML IVPB SCH (15:15)
[2022-05-14] MEDS: CEFTRIAXONE 1 GM in DEXTROSE 5%-WATER - 50 ML IVPB SCH (17:34)
[2022-05-14] MEDS ORDERED: LORazepam 2 MG/ML SDV VIAL IVPUSH PRN (20:51)
[2022-05-14] MEDS ORDERED: BUDESONIDE/FORMETEROL FUMARATE 160/4.5 mcg INHALER IH SCH (22:00)
[2022-05-14] MEDS ORDERED: ATORVASTATIN CA 40 MG TABLET (FP) PO SCH (22:00)
[2022-05-14] MEDS ORDERED: POLYETHYLENE GLYCOL (HEALTHYLAX) 3350 17 GM PACKET PO PRN (22:03)
[2022-05-14] MEDS ORDERED: ALBUTEROL SO4 HFA INHALER IH PRN (22:03)
[2022-05-14] MEDS ORDERED: BISACODYL 5 MG TABLET.DR (FP) PO PRN (22:18)
[2022-05-15] MEDS: ALBUTEROL SO4 2.5/IPRATROPIUM 0.5 INH SOL 3 ML VIAL.NEB. NEB SCH ×6 (04:00→21:05)
[2022-05-15 09:12] LABS: BASO % 0.1 % (0-2.0); LYMPH % 9.9 % (8-40); MCHC 33.4 g/dl (32.0-35.9); MEAN CELL VOLUME 92.8 fl (80-96); MEAN PLT VOLUME 7.4 fl (7.5-11.1); MONO % 5.2 % (3.8-10.2); NEUT % 84.8 % (42.8-82.8); PLATELET COUNT 385 10^3/uL (134-434); RBC 4.52 M/mm3 (4.00-5.60); RDW 13.9 % (11.9-15.9); WHITE BLOOD COUNT 16.3 K/mm3 (4.0-10.0)
[2022-05-15] MEDS: BUDESONIDE/FORMETEROL FUMARATE 160/4.5 mcg INHALER IH SCH ×2 (09:27→23:08)
[2022-05-15] MEDS: PANTOPRAZOLE 40 MG TABLET PO SCH (09:28)
[2022-05-15] MEDS: THIAMINE HCL 100 MG TABLET (FP) PO SCH (09:28)
[2022-05-15] MEDS: amLODIPine BESYLATE 10 MG TABLET (FP) PO SCH (09:28)
[2022-05-15] MEDS: TAMSULOSIN HCL 0.4 MG CAP PO SCH (09:28)
[2022-05-15] MEDS: methylPREDNISolone NA SUCC 40 MG/1 ML VIAL IVPUSH SCH (09:29)
[2022-05-15] MEDS: FOLIC ACID 1 MG TABLET (FP) PO SCH (09:29)
[2022-05-15] MEDS: CEFTRIAXONE 1 GM in DEXTROSE 5%-WATER - 50 ML IVPB SCH (09:29)
[2022-05-15 09:32] LABS: CALCIUM 10.2 mg/dL (8.5-10.1)
[2022-05-15 09:33] LABS: ALBUMIN 3.1 g/dl (3.4-5.0); BLOOD UREA NITROGEN 14.2 mg/dL (7-18); MAGNESIUM 1.9 mg/dL (1.8-2.4)
[2022-05-15 09:36] LABS: CREATININE 0.9 mg/dL (0.55-1.3); PHOSPHOROUS 3.3 mg/dL (2.5-4.9)
[2022-05-15 09:37] LABS: BILIRUBIN,TOTAL 0.2 mg/dL (0.2-1); TOT PROT 6.6 g/dl (6.4-8.2)
[2022-05-15] MEDS ORDERED: LOSARTAN POTASSIUM 50 MG TABLET PO SCH (10:00)
[2022-05-15] MEDS ORDERED: amLODIPine BESYLATE 5 MG TABLET (FP) PO SCH (10:00)
[2022-05-15] MEDS ORDERED: ENOXAPARIN NA (PORCINE) 40 MG/0.4 ML DISP.SYRIN SQ SCH (10:00)
[2022-05-15] MEDS ORDERED: TIOTROPIUM BROMIDE 2.5 MCG (SPIRIVA) RESPIMAT INHALER IH SCH ×2 (10:00)
[2022-05-15] MEDS ORDERED: APIXABAN 5 MG TABLET PO SCH (10:00)
[2022-05-15] MEDS: AZITHROMYCIN IVPB 500 MG/250 ML BAG IVPB SCH (11:20)
[2022-05-15] MEDS ORDERED: SODIUM CHLORIDE 1,000 ML IV SCH (19:15)
[2022-05-15] MEDS ORDERED: FINASTERIDE 5 MG TABLET (FP) PO SCH (22:00)
[2022-05-15] MEDS ORDERED: ATORVASTATIN CA 20 MG TABLET (FP) PO SCH (22:00)
[2022-05-15] MEDS: APIXABAN 5 MG TABLET PO SCH (22:33)
[2022-05-16] MEDS: ALBUTEROL SO4 2.5/IPRATROPIUM 0.5 INH SOL 3 ML VIAL.NEB. NEB SCH ×5 (00:22→15:02)
[2022-05-16] MEDS: TAMSULOSIN HCL 0.4 MG CAP PO SCH (09:52)
[2022-05-16] MEDS: APIXABAN 5 MG TABLET PO SCH (09:53)
[2022-05-16] MEDS: FOLIC ACID 1 MG TABLET (FP) PO SCH (09:54)
[2022-05-16] MEDS: amLODIPine BESYLATE 10 MG TABLET (FP) PO SCH (09:55)
[2022-05-16] MEDS: PANTOPRAZOLE 40 MG TABLET PO SCH (09:55)
[2022-05-16] MEDS: CEFTRIAXONE 1 GM in DEXTROSE 5%-WATER - 50 ML IVPB SCH (09:56)
[2022-05-16] MEDS: methylPREDNISolone NA SUCC 40 MG/1 ML VIAL IVPUSH SCH (09:58)
[2022-05-16] MEDS: THIAMINE HCL 100 MG TABLET (FP) PO SCH (10:00)
[2022-05-16] MEDS: BUDESONIDE/FORMETEROL FUMARATE 160/4.5 mcg INHALER IH SCH (10:07)
[2022-05-16] MEDS: AZITHROMYCIN IVPB 500 MG/250 ML BAG IVPB SCH (10:07)
[2022-05-16 11:49] LABS: HEMATOCRIT 41.2 % (35.4-49); HEMOGLOBIN 13.8 GM/dL (11.7-16.9); MCH 30.7 pg (25.7-33.7); MCHC 33.5 g/dl (32.0-35.9); MEAN CELL VOLUME 91.6 fl (80-96); MEAN PLT VOLUME 7.3 fl (7.5-11.1); PLATELET COUNT 423 10^3/uL (134-434); RDW 13.7 % (11.9-15.9); WHITE BLOOD COUNT 23.4 K/mm3 (4.0-10.0)
[2022-05-16 12:03] LABS: BLOOD UREA NITROGEN 15.9 mg/dL (7-18); CALCIUM 10.1 mg/dL (8.5-10.1)
[2022-05-16 12:07] LABS: CREATININE 0.9 mg/dL (0.55-1.3)
[2022-05-16 12:08] LABS: BILIRUBIN,TOTAL 0.2 mg/dL (0.2-1); TOT PROT 6.4 g/dl (6.4-8.2)
[2022-05-16 15:17] VITALS: BP 139/68; PULSE 78; RESP 20; TEMP 98.1
[2022-05-17] MEDS ORDERED: methylPREDNISolone NA SUCC 40 MG/1 ML VIAL IVPUSH SCH (10:00)
== END 2022-05-16 16:07 | disposition home or self-care (01) | DRG 192 ==
LOC: JER 09:22 → JERBED 12:56 → J8W 15:33
PROVIDERS: ADMIT Internal Medicine; ATTEND Internal Medicine
DX: J44.1 Chronic obstructive pulmonary disease with (acute) exacerbation (principal); J44.9 Chronic obstructive pulmonary disease, unspecified; R09.02 Hypoxemia; I10 Essential (primary) hypertension; E78.5 Hyperlipidemia, unspecified; E87.5 Hyperkalemia; E83.52 Hypercalcemia; N40.0 Benign prostatic hyperplasia without lower urinary tract symptoms
CPT/HCPCS: 0241U-QW; 36415; 71045-TC-FY; 80053; 83735; 83970; 84100; 84132; 85025; 85027; 87040; 93005; 93010; 94640; 94761; 97116-GP; 97161-GP; 99285-25

== ENCOUNTER 2022-08-22 09:49 | Emergency (ER) | payer MEDICARE, OTHER ==
[2022-08-22 10:21] VITALS: BP 142/70; PULSE 91; RESP 16; TEMP 98.9; BMI 26.6
== END 2022-08-22 10:32 | disposition left against medical advice (07) ==
LOC: JER 09:49
DX: R05.1 Acute cough (principal); R06.02 Shortness of breath
CPT/HCPCS: 99281-25

== ENCOUNTER 2022-09-01 05:37 | Emergency (ER) | payer MEDICARE, OTHER ==
[2022-09-01 06:06] VITALS: BMI 26.6
[2022-09-01 07:19] LABS: BASO % 0.4 % (0-2.0); EOS % 0.5 % (0-4.5); HEMATOCRIT 44.9 % (35.4-49); HEMOGLOBIN 14.9 GM/dL (11.7-16.9); LYMPH % 9.1 % (8-40); MCHC 33.1 g/dl (32.0-35.9); MEAN CELL VOLUME 90.5 fl (80-96); MEAN PLT VOLUME 7.9 fl (7.5-11.1); PLATELET COUNT 297 10^3/uL (134-434); RBC 4.96 M/mm3 (4.00-5.60); RDW 15.9 % (11.9-15.9); WHITE BLOOD COUNT 12.1 K/mm3 (4.0-10.0)
[2022-09-01 07:26] LABS: INR 1.64 (0.83-1.09)
[2022-09-01] MEDS ORDERED: ASPIRIN 81 MG CHEWABLE TABLETS PO ONE (07:27)
[2022-09-01 07:29] LABS: ACTIVATED PTT 38.4 SECONDS (25.2-36.5)
[2022-09-01 07:39] LABS: CALCIUM 9.6 mg/dL (8.5-10.1)
[2022-09-01 07:40] LABS: ALBUMIN 3.9 g/dl (3.4-5.0); BLOOD UREA NITROGEN 17.8 mg/dL (7-18)
[2022-09-01] MEDS ORDERED: ALBUTEROL SO4 2.5/IPRATROPIUM 0.5 INH SOL 3 ML VIAL.NEB. NEB ONE ×3 (07:41→07:53)
[2022-09-01 07:43] LABS: CREATININE 1.3 mg/dL (0.55-1.3)
[2022-09-01 07:44] LABS: BILIRUBIN,TOTAL 0.4 mg/dL (0.2-1)
[2022-09-01] MEDS ORDERED: ASPIRIN 81 MG CHEWABLE TABLETS ONE (08:14)
[2022-09-01] MEDS ORDERED: DEXAMETHASONE SOD PHOSPHATE 10 MG/1 ML VIAL IVPUSH ONE (08:22)
[2022-09-01 08:24] VITALS: BP 133/72; PULSE 108; RESP 23; TEMP 99.7
[2022-09-01] MEDS ORDERED: DEXAMETHASONE SOD PHOSPHATE 10 MG/1 ML VIAL ONE (08:51)
[2022-09-01] MEDS ORDERED: REMDESIVIR 200 MG in SODIUM CHLORIDE 250 ML IVPB ONE (12:00)
[2022-09-02] MEDS ORDERED: DEXAMETHASONE SOD PHOSPHATE 4 MG/1 ML VIAL IVPUSH SCH (10:00)
== END 2022-09-01 11:00 | disposition left against medical advice (07) ==
LOC: JER 05:37
PROC: 3E033GC Introduction of Other Therapeutic Substance into Peripheral Vein, Percutaneous Approach (ICD-10-PCS; principal; 2022-09-01)
PROC: 3E0F7GC Introduction of Other Therapeutic Substance into Respiratory Tract, Via Natural or Artificial Opening (ICD-10-PCS; 2022-09-01)
DX: R07.9 Chest pain, unspecified (principal); R06.02 Shortness of breath; M79.10 Myalgia, unspecified site
CPT/HCPCS: 0241U-QW; 36415; 71045-TC-FY; 80053; 84484; 85025; 85610; 85730; 86850; 86900; 86901; 93005; 93010; 94640; 96365; 96375; 99285-25; J1100

== ENCOUNTER 2022-10-31 10:02 | Emergency (ER) | payer MEDICARE, OTHER ==
[2022-10-31 10:20] VITALS: TEMP 98.4; BMI 26.9
[2022-10-31 10:50] VITALS: BP 161/88; PULSE 91; RESP 22
[2022-10-31] MEDS ORDERED: methylPREDNISolone NA SUCC 125 MG/2 ML VIAL IVPB ONE (11:09)
[2022-10-31] MEDS ORDERED: AZITHROMYCIN IVPB 500 MG in DEXTROSE 5%-WATER - 250 ML IVPB ONE (11:11)
[2022-10-31] MEDS ORDERED: ALBUTEROL SO4 2.5/IPRATROPIUM 0.5 INH SOL 3 ML VIAL.NEB. NEB ONE (11:16)
[2022-10-31] MEDS ORDERED: methylPREDNISolone NA SUCC 125 MG/2 ML VIAL ONE (11:16)
[2022-10-31] MEDS ORDERED: AZITHROMYCIN IVPB 500 MG/250 ML BAG IVPB ONE (11:16)
[2022-10-31] MEDS: ALBUTEROL SO4 2.5/IPRATROPIUM 0.5 INH SOL 3 ML VIAL.NEB. NEB SCH ×3 (11:20→11:45)
[2022-10-31 12:01] LABS: BASO % 1.2 % (0-2.0); EOS % 3.1 % (0-4.5); HEMATOCRIT 45.2 % (35.4-49); HEMOGLOBIN 14.8 GM/dL (11.7-16.9); LYMPH % 21.6 % (8-40); MCH 30.3 pg (25.7-33.7); MCHC 32.7 g/dl (32.0-35.9); MEAN CELL VOLUME 92.7 fl (80-96); MEAN PLT VOLUME 7.6 fl (7.5-11.1); NEUT % 67.1 % (42.8-82.8); PLATELET COUNT 408 10^3/uL (134-434); RBC 4.88 M/mm3 (4.00-5.60); RDW 15.6 % (11.9-15.9); WHITE BLOOD COUNT 11.8 K/mm3 (4.0-10.0)
[2022-10-31 12:07] LABS: INR 1.52 (0.83-1.09); PROTHROMBIN TIME (PATIENT) 17.6 SEC (9.7-13.0)
[2022-10-31 12:10] LABS: ACTIVATED PTT 38.8 SECONDS (25.2-36.5)
[2022-10-31 12:26] LABS: ALBUMIN 3.6 g/dl (3.4-5.0); BLOOD UREA NITROGEN 17.3 mg/dL (7-18); CALCIUM 9.5 mg/dL (8.5-10.1)
[2022-10-31 12:29] LABS: CREATININE 1.2 mg/dL (0.55-1.3)
[2022-10-31 12:31] LABS: BILIRUBIN,TOTAL 0.5 mg/dL (0.2-1); TOT PROT 7.2 g/dl (6.4-8.2)
[2022-10-31 12:34] LABS: N-TERMINAL BNP 55.1 pg/ml (5-125)
== END 2022-10-31 14:39 | disposition home or self-care (01) ==
LOC: JER 10:02
PROC: 3E0F7GC Introduction of Other Therapeutic Substance into Respiratory Tract, Via Natural or Artificial Opening (ICD-10-PCS; principal; 2022-10-31)
PROC: 3E03329 Introduction of Other Anti-infective into Peripheral Vein, Percutaneous Approach (ICD-10-PCS; 2022-10-31)
PROC: 3E033GC Introduction of Other Therapeutic Substance into Peripheral Vein, Percutaneous Approach (ICD-10-PCS; 2022-10-31)
DX: J44.1 Chronic obstructive pulmonary disease with (acute) exacerbation (principal); R06.02 Shortness of breath
CPT/HCPCS: 0241U-QW; 36415; 71046-TC-FY; 80053; 83880; 84484; 85025; 85610; 85730; 93005; 93010; 99285-25

== ENCOUNTER 2023-09-05 09:58 | Emergency (ER) | payer MEDICARE, OTHER ==
[2023-09-05 10:20] VITALS: BMI 28.6
[2023-09-05] MEDS ORDERED: ACETAMINOPHEN 1000 MG/100 ML BAG IVPB ONE (10:40)
[2023-09-05] MEDS ORDERED: ACETAMINOPHEN INJECTION 100 ML IVPB ONE (11:06)
[2023-09-05 11:47] LABS: VENOUS BASE EXCESS -3.3 mmol/L (-2-2); VENOUS O2 SATURATION 62.6 % (70-80); VENOUS PCO2 39.3 mmHg (38-52); VENOUS PH 7.36 (7.310-7.410)
[2023-09-05 11:52] LABS: INR 1.82 (0.83-1.09)
[2023-09-05 11:53] LABS: BASO % 0.2 % (0-2.0); HEMATOCRIT 50.1 % (35.4-49); HEMOGLOBIN 16.5 GM/dL (11.7-16.9); LYMPH % 7.4 % (8-40); MCH 31.5 pg (25.7-33.7); MCHC 32.9 g/dl (32.0-35.9); MEAN CELL VOLUME 95.8 fl (80-96); MEAN PLT VOLUME 8.3 fl (7.5-11.1); MONO % 7.8 % (3.8-10.2); NEUT % 84.6 % (42.8-82.8); PLATELET COUNT 232 10^3/uL (134-434); RBC 5.23 M/mm3 (4.00-5.60); RDW 15.5 % (11.9-15.9)
[2023-09-05 11:55] LABS: ACTIVATED PTT 39.5 SECONDS (25.2-36.5)
[2023-09-05 12:41] LABS: EPI CELLS 4 /uL (0-25.1); HYALINE CASTS 0 /uL (0-3.1); URINE APPEARANCE CLEAR; URINE BACTERIA 3 /uL (0-1359); URINE BILIRUBIN NEGATIVE (NEGATIVE); URINE COLOR YELLOW; URINE GLUCOSE (UA) NEGATIVE (NEGATIVE); URINE KETONE TRACE (NEGATIVE); URINE LEUK ESTERASE NEGATIVE (NEGATIVE); URINE NITRITE NEGATIVE (NEGATIVE); URINE PROTEIN 3+ (NEGATIVE); URINE RBC 8 /uL (0-23.9); URINE UROBILINOGEN 0.2 mg/dL (0.2-1.0); URINE WBC 7 /uL (0-25.8)
[2023-09-05 12:41] LABS: POTASSIUM 4.2 mmol/L (3.5-5.1)
[2023-09-05 12:42] LABS: ALBUMIN 3.9 g/dl (3.4-5.0); BLOOD UREA NITROGEN 17.2 mg/dL (7-18)
[2023-09-05 12:45] LABS: CREATININE 1.3 mg/dL (0.55-1.3)
[2023-09-05 12:47] LABS: BILIRUBIN,TOTAL 0.4 mg/dL (0.2-1); TOT PROT 7.8 g/dl (6.4-8.2)
[2023-09-05 13:06] LABS: THROAT:GRP A STREP NOT DETECTED (NOTDETECTED)
[2023-09-05 13:54] VITALS: RESP 20
[2023-09-05] MEDS ORDERED: OSELTAMIVIR PHOSPHATE 75 MG CAPSULE PO ONE (15:28)
[2023-09-05] MEDS ORDERED: OSELTAMIVIR PHOSPHATE 75 MG CAPSULE ONE (16:37)
[2023-09-05 16:56] VITALS: BP 132/72; PULSE 92; TEMP 99
== END 2023-09-05 16:58 | disposition home or self-care (01) ==
LOC: JER 09:58
PROC: 3E033NZ Introduction of Analgesics, Hypnotics, Sedatives into Peripheral Vein, Percutaneous Approach (ICD-10-PCS; principal; 2023-09-05)
DX: R06.02 Shortness of breath (principal); R05.9 Cough, unspecified; R68.83 Chills (without fever); R00.2 Palpitations; R11.0 Nausea; J10.1 Influenza due to other identified influenza virus with other respiratory manifestations; Z20.822 Contact with and (suspected) exposure to COVID-19
CPT/HCPCS: 0241U-QW; 36415; 71046-TC-FY; 80053; 81003; 82553; 82803; 84484; 85025; 85610; 85730; 87040; 87070; 87086; 87651; 93005; 93010; 99285-25

== ENCOUNTER 2023-09-12 12:31 | Inpatient (IN) | payer MEDICARE, OTHER ==
[2023-09-12] MEDS ORDERED: ALBUTEROL SO4 2.5/IPRATROPIUM 0.5 INH SOL 3 ML VIAL.NEB. NEB ONE ×2 (13:41→13:50)
[2023-09-12] MEDS ORDERED: ACETAMINOPHEN 1000 MG/100 ML BAG IVPB ONE (13:41)
[2023-09-12] MEDS ORDERED: methylPREDNISolone NA SUCC 125 MG/2 ML VIAL IVPB ONE (13:42)
[2023-09-12] MEDS ORDERED: methylPREDNISolone NA SUCC 125 MG/2 ML VIAL ONE (13:50)
[2023-09-12] MEDS ORDERED: ACETAMINOPHEN INJECTION 100 ML IVPB ONE (13:50)
[2023-09-12 14:22] LABS: HEMATOCRIT 43.7 % (35.4-49); HEMOGLOBIN 14.8 GM/dL (11.7-16.9); MCHC 33.8 g/dl (32.0-35.9); MEAN CELL VOLUME 94.7 fl (80-96); MEAN PLT VOLUME 7.5 fl (7.5-11.1); PLATELET COUNT 516 10^3/uL (134-434); RBC 4.61 M/mm3 (4.00-5.60); RDW 14.9 % (11.9-15.9); WHITE BLOOD COUNT 21.3 K/mm3 (4.0-10.0)
[2023-09-12 14:55] LABS: POTASSIUM 4.2 mmol/L (3.5-5.1)
[2023-09-12 14:57] LABS: BLOOD UREA NITROGEN 16.4 mg/dL (7-18); MAGNESIUM 1.3 mg/dL (1.8-2.4)
[2023-09-12 14:58] LABS: ANISOCYTOSIS 0; MACROCYTOSIS 0
[2023-09-12 15:02] LABS: BILIRUBIN,TOTAL 0.5 mg/dL (0.2-1)
[2023-09-12] MEDS ORDERED: MAGNESIUM SULF 50% (8.12 MEQ/2 ML-1 GM VIAL) IVPB ONE (15:04)
[2023-09-12 15:11] LABS: ALBUMIN 2.7 g/dl (3.4-5.0); CREATININE 1.2 mg/dL (0.55-1.3)
[2023-09-12] MEDS ORDERED: MAGNESIUM SULFATE IN WATER 2 GM/50 ML IVPB IVPB ONE (15:19)
[2023-09-12] MEDS ORDERED: ALBUTEROL SO4 0.083% IH SOL 2.5 MG/3 ML VIAL.NEB. NEB PRN (16:39)
[2023-09-12] MEDS ORDERED: ALBUTEROL SO4 HFA INHALER IH PRN (16:40)
[2023-09-12] MEDS ORDERED: AZITHROMYCIN IVPB 500 MG in DEXTROSE 5%-WATER - 250 ML IVPB ONE (16:48)
[2023-09-12] MEDS ORDERED: ACETAMINOPHEN 325 MG TABLET (FP) PO PRN (16:57)
[2023-09-12] MEDS ORDERED: AZITHROMYCIN IVPB 500 MG/250 ML BAG IVPB ONE (17:17)
[2023-09-12] MEDS: ALBUTEROL SO4 0.083% IH SOL 2.5 MG/3 ML VIAL.NEB. NEB SCH (21:00)
[2023-09-12] MEDS ORDERED: ALBUTEROL SO4 0.083% IH SOL 2.5 MG/3 ML VIAL.NEB. NEB ONE (21:47)
[2023-09-12] MEDS ORDERED: MONTELUKAST NA 10 MG TABLET ONE (21:47)
[2023-09-12] MEDS ORDERED: ATORVASTATIN CA 20 MG TABLET (FP) ONE (21:47)
[2023-09-12] MEDS ORDERED: APIXABAN 5 MG TABLET ONE (21:47)
[2023-09-12] MEDS: APIXABAN 5 MG TABLET PO SCH (21:55)
[2023-09-12] MEDS: MONTELUKAST NA 10 MG TABLET PO SCH (21:55)
[2023-09-12] MEDS: ATORVASTATIN CA 20 MG TABLET (FP) PO SCH (21:55)
[2023-09-13] MEDS: ALBUTEROL SO4 0.083% IH SOL 2.5 MG/3 ML VIAL.NEB. NEB SCH ×6 (00:13→20:39)
[2023-09-13] MEDS ORDERED: ALBUTEROL SO4 0.083% IH SOL 2.5 MG/3 ML VIAL.NEB. NEB ONE (04:21)
[2023-09-13 06:31] LABS: HEMATOCRIT 40.6 % (35.4-49); MCH 32.7 pg (25.7-33.7); MCHC 34.5 g/dl (32.0-35.9); MEAN PLT VOLUME 7.4 fl (7.5-11.1); PLATELET COUNT 512 10^3/uL (134-434); RBC 4.27 M/mm3 (4.00-5.60); RDW 14.6 % (11.9-15.9); WHITE BLOOD COUNT 16.2 K/mm3 (4.0-10.0)
[2023-09-13 06:35] LABS: POTASSIUM 3.7 mmol/L (3.5-5.1)
[2023-09-13 06:39] LABS: ALBUMIN 2.5 g/dl (3.4-5.0); BLOOD UREA NITROGEN 19.9 mg/dL (7-18); CALCIUM 8.6 mg/dL (8.5-10.1); MAGNESIUM 1.9 mg/dL (1.8-2.4)
[2023-09-13] MEDS: INSULIN SLIDING SCALE (NOVOLOG) 1 VIAL SQ SCH ×4 (06:41→21:14)
[2023-09-13 06:42] LABS: CREATININE 1.1 mg/dL (0.55-1.3)
[2023-09-13 06:44] LABS: BILIRUBIN,TOTAL 0.3 mg/dL (0.2-1); TOT PROT 6.5 g/dl (6.4-8.2)
[2023-09-13 07:10] VITALS: BMI 26.4
[2023-09-13] MEDS: methylPREDNISolone NA SUCC 40 MG/1 ML VIAL IVPUSH SCH ×3 (09:00→21:14)
[2023-09-13] MEDS: APIXABAN 5 MG TABLET PO SCH ×2 (09:19→21:14)
[2023-09-13] MEDS: amLODIPine BESYLATE 10 MG TABLET (FP) PO SCH (09:19)
[2023-09-13] MEDS: FINASTERIDE 5 MG TABLET (FP) PO SCH (09:19)
[2023-09-13] MEDS ORDERED: ENOXAPARIN NA (PORCINE) 40 MG/0.4 ML DISP.SYRIN SQ SCH (10:00)
[2023-09-13] MEDS ORDERED: AZITHROMYCIN IVPB 250 MG in DEXTROSE 5%-WATER - 250 ML IVPB SCH (10:00)
[2023-09-13] MEDS ORDERED: predniSONE 20 MG TABLET (UD) PO SCH (10:00)
[2023-09-13] MEDS: FLUTICASONE/UMECLIDIN/VILANTER(100-62.5-25 TRELEGY ELLIPTA) INAHLER IH SCH (13:12)
[2023-09-13] MEDS: MONTELUKAST NA 10 MG TABLET PO SCH (21:14)
[2023-09-13] MEDS: ATORVASTATIN CA 20 MG TABLET (FP) PO SCH (21:14)
[2023-09-14] MEDS: ALBUTEROL SO4 0.083% IH SOL 2.5 MG/3 ML VIAL.NEB. NEB SCH ×5 (04:00→15:43)
[2023-09-14] MEDS: INSULIN SLIDING SCALE (NOVOLOG) 1 VIAL SQ SCH ×3 (06:54→16:41)
[2023-09-14 08:03] VITALS: RESP 16
[2023-09-14] MEDS: amLODIPine BESYLATE 10 MG TABLET (FP) PO SCH (09:00)
[2023-09-14] MEDS: APIXABAN 5 MG TABLET PO SCH (09:00)
[2023-09-14] MEDS: methylPREDNISolone NA SUCC 40 MG/1 ML VIAL IVPUSH SCH (09:00)
[2023-09-14] MEDS: FINASTERIDE 5 MG TABLET (FP) PO SCH (09:00)
[2023-09-14] MEDS: FLUTICASONE/UMECLIDIN/VILANTER(100-62.5-25 TRELEGY ELLIPTA) INAHLER IH SCH (09:06)
[2023-09-14 09:33] LABS: HEMATOCRIT 39.9 % (35.4-49); HEMOGLOBIN 13.4 GM/dL (11.7-16.9); MCH 31.5 pg (25.7-33.7); MCHC 33.6 g/dl (32.0-35.9); MEAN CELL VOLUME 93.7 fl (80-96); MEAN PLT VOLUME 7.5 fl (7.5-11.1); PLATELET COUNT 637 10^3/uL (134-434); RBC 4.25 M/mm3 (4.00-5.60); RDW 14.7 % (11.9-15.9); WHITE BLOOD COUNT 28.6 K/mm3 (4.0-10.0)
[2023-09-14 09:44] LABS: POTASSIUM 4.3 mmol/L (3.5-5.1)
[2023-09-14 09:48] LABS: CALCIUM 8.7 mg/dL (8.5-10.1)
[2023-09-14 09:50] LABS: ALBUMIN 2.5 g/dl (3.4-5.0); BLOOD UREA NITROGEN 31.9 mg/dL (7-18); MAGNESIUM 1.8 mg/dL (1.8-2.4)
[2023-09-14 09:52] LABS: CREATININE 1.3 mg/dL (0.55-1.3)
[2023-09-14 09:53] LABS: BILIRUBIN,TOTAL 0.6 mg/dL (0.2-1); PHOSPHOROUS 2.2 mg/dL (2.5-4.9); TOT PROT 6.6 g/dl (6.4-8.2)
[2023-09-14] MEDS ORDERED: AZITHROMYCIN 250 MG TABLET PO SCH (10:00)
[2023-09-14 10:02] LABS: ANISOCYTOSIS 0; MACROCYTOSIS 0
[2023-09-14 14:03] VITALS: BP 127/67; PULSE 80; TEMP 97.9
== END 2023-09-14 18:00 | disposition home or self-care (01) | DRG 192 ==
LOC: JER 12:31 → JERBED 15:05 → J6S 09-13 06:25
PROVIDERS: ADMIT Internal Medicine; ATTEND Internal Medicine
DX: J44.1 Chronic obstructive pulmonary disease with (acute) exacerbation (principal); I10 Essential (primary) hypertension; E78.5 Hyperlipidemia, unspecified; F10.10 Alcohol abuse, uncomplicated; D73.5 Infarction of spleen; R09.02 Hypoxemia; K21.9 Gastro-esophageal reflux disease without esophagitis; N43.3 Hydrocele, unspecified
CPT/HCPCS: 0241U-QW; 36415; 71045-TC-FY; 80053; 82962; 83735; 84100; 84484; 85025; 85027; 87040; 87070; 87107; 87205; 87899; 93005; 93010; 94640; 94761; 99285-25

== ENCOUNTER 2024-02-10 06:37 | Observation (INO) | payer MEDICARE, OTHER ==
[2024-02-10] MEDS ORDERED: ACETAMINOPHEN INJECTION 100 ML IVPB ONE (07:50)
[2024-02-10] MEDS ORDERED: methylPREDNISolone NA SUCC 125 MG/2 ML VIAL ONE (07:50)
[2024-02-10] MEDS: ACETAMINOPHEN 1000 MG/100 ML BAG IVPB ONE (08:02)
[2024-02-10] MEDS: methylPREDNISolone NA SUCC 125 MG/2 ML VIAL IVPB ONE (08:02)
[2024-02-10] MEDS: ALBUTEROL SO4 2.5/IPRATROPIUM 0.5 INH SOL 3 ML VIAL.NEB. NEB SCH (08:06)
[2024-02-10 08:09] LABS: EPI CELLS 27 /uL (0-25.1); HYALINE CASTS 5 /uL (0-3.1); PH,URINE 5.5 (5.0-8.0); URINE APPEARANCE CLEAR; URINE BACTERIA 9 /uL (0-1359); URINE BILIRUBIN 2+ (NEGATIVE); URINE COLOR DK YELLOW; URINE GLUCOSE (UA) TRACE (NEGATIVE); URINE KETONE TRACE (NEGATIVE); URINE LEUK ESTERASE 1+ (NEGATIVE); URINE NITRITE NEGATIVE (NEGATIVE); URINE PROTEIN 2+ (NEGATIVE); URINE RBC 22 /uL (0-23.9); URINE WBC 115 /uL (0-25.8)
[2024-02-10 08:16] LABS: INR 1.96 (0.83-1.09); PROTHROMBIN TIME (PATIENT) 21.7 SEC (9.7-13.0)
[2024-02-10 08:17] LABS: POTASSIUM 3.5 mmol/L (3.5-5.1)
[2024-02-10 08:19] LABS: ACTIVATED PTT 40.3 SECONDS (25.2-36.5)
[2024-02-10 08:21] LABS: CALCIUM 9.4 mg/dL (8.5-10.1)
[2024-02-10 08:22] LABS: ALBUMIN 3.6 g/dl (3.4-5.0); BLOOD UREA NITROGEN 17.8 mg/dL (7-18)
[2024-02-10 08:24] LABS: HEMOGLOBIN 15.7 GM/dL (11.7-16.9); MCH 33.4 pg (25.7-33.7); MCHC 34.1 g/dl (32.0-35.9); MEAN CELL VOLUME 97.8 fl (80-96); PLATELET COUNT 317 10^3/uL (134-434); RDW 13.2 % (11.9-15.9); WHITE BLOOD COUNT 25.4 K/mm3 (4.0-10.0)
[2024-02-10 08:25] LABS: CREATININE 1.3 mg/dL (0.55-1.3)
[2024-02-10 08:26] LABS: BILIRUBIN,TOTAL 1.1 mg/dL (0.2-1)
[2024-02-10 09:11] LABS: ANISOCYTOSIS 0; MACROCYTOSIS 0
[2024-02-10] MEDS ORDERED: morphine SULFATE 4 MG/ML VIAL ONE (09:47)
[2024-02-10] MEDS: morphine CARPU-JECT 4 MG/1 ML DISP.SYRIN IVPUSH ONE (09:48)
[2024-02-10] MEDS ORDERED: PIPERACILLIN/TAZOB 4.5 GM 4.5 GM/100 ML BAG IVPB ONE (11:41)
[2024-02-10] MEDS: PIPERACILLIN/TAZOB 4.5 GM 4.5 GM in DEXTROSE 5%-WATER 100 ML IVPB ONE (11:41)
[2024-02-10] MEDS ORDERED: ALBUTEROL SO4 2.5/IPRATROPIUM 0.5 INH SOL 3 ML VIAL.NEB. NEB PRN ×2 (13:35→23:40)
[2024-02-10 16:06] VITALS: BMI 26.2
[2024-02-10] MEDS: PIPERACILLIN/TAZOB 3.375 GM 3.375 GM in DEXTROSE 5%-WATER - 50 ML IVPB SCH ×2 (17:13→23:45)
[2024-02-10] MEDS: ACETAMINOPHEN 325 MG TABLET (FP) PO PRN (17:13)
[2024-02-10] MEDS: HEPARIN NA (PORCINE) 5,000 UNITS/ML 1ML VIAL SQ SCH (21:52)
[2024-02-11] MEDS ORDERED: ALBUTEROL SO4 2.5/IPRATROPIUM 0.5 INH SOL 3 ML VIAL.NEB. NEB PRN (00:23)
[2024-02-11] MEDS: AMPICILLIN NA/SULBACTAM NA 3 GM in DEXTROSE 5%-WATER 100 ML IVPB SCH (01:13)
[2024-02-11] MEDS: INSULIN ASPART SLIDING SCALE (NOVOLOG) 1 VIAL SQ SCH (06:08)
[2024-02-11] MEDS ORDERED: ALBUTEROL SO4 HFA INHALER IH PRN ×2 (09:40→09:50)
[2024-02-11] MEDS: APIXABAN 5 MG TABLET PO SCH (09:46)
[2024-02-11] MEDS: amLODIPine BESYLATE 10 MG TABLET (FP) PO SCH (09:46)
[2024-02-11] MEDS: FINASTERIDE 5 MG TABLET (FP) PO SCH (09:46)
[2024-02-11] MEDS ORDERED: FLUTICASONE/UMECLIDIN/VILANTER(100-62.5-25 TRELEGY ELLIPTA) INAHLER IH SCH (10:00)
[2024-02-11] MEDS ORDERED: PANTOPRAZOLE 40 MG TABLET PO SCH (10:00)
[2024-02-11 10:13] LABS: HEMATOCRIT 41.1 % (35.4-49); HEMOGLOBIN 14.2 GM/dL (11.7-16.9); MCH 33.7 pg (25.7-33.7); MCHC 34.5 g/dl (32.0-35.9); MEAN CELL VOLUME 97.8 fl (80-96); MEAN PLT VOLUME 7.9 fl (7.5-11.1); PLATELET COUNT 284 10^3/uL (134-434); RDW 13.1 % (11.9-15.9); WHITE BLOOD COUNT 26.8 K/mm3 (4.0-10.0)
[2024-02-11] MEDS: TAMSULOSIN HCL 0.4 MG CAP PO SCH (10:23)
[2024-02-11] MEDS: FLUTICASONE/UMECLIDIN/VILANTER(200-62.5-25 TRELEGY ELLIPTA) INAHLER IH SCH (10:23)
[2024-02-11] MEDS: PATIENT'S OWN MEDICATION (NON-FORMULARY) (Linaclotide [Linzess] 290 MCG Capsule) PO SCH (10:23)
[2024-02-11 10:26] LABS: POTASSIUM 3.6 mmol/L (3.5-5.1)
[2024-02-11 10:35] LABS: BLOOD UREA NITROGEN 17.3 mg/dL (7-18)
[2024-02-11 10:38] LABS: CREATININE 1.1 mg/dL (0.55-1.3)
[2024-02-11 10:39] LABS: CALCIUM 9.1 mg/dL (8.5-10.1)
[2024-02-11 10:40] LABS: BILIRUBIN,TOTAL 0.7 mg/dL (0.2-1); TOT PROT 6.1 g/dl (6.4-8.2)
[2024-02-11 10:48] VITALS: RESP 18
[2024-02-11 10:48] LABS: ALBUMIN 2.8 g/dl (3.4-5.0)
[2024-02-11 11:31] LABS: ANISOCYTOSIS 0; HELMET CELLS 0; HOWELL-JOLLY BODIES 0; MACROCYTOSIS 0; OVALOCYTE 0; ROULEAU 0; SICKELED CELLS 0; TARGET CELLS 0; TEAR DROP CELLS 0; TOXIC GRANULATION 0
[2024-02-11] MEDS: PANTOPRAZOLE 40 MG TABLET PO SCH (12:20)
[2024-02-11 15:26] LABS: HEMATOCRIT 41.2 % (35.4-49); MCH 33.3 pg (25.7-33.7); MCHC 34.1 g/dl (32.0-35.9); MEAN CELL VOLUME 97.7 fl (80-96); PLATELET COUNT 297 10^3/uL (134-434); RBC 4.22 M/mm3 (4.00-5.60); RDW 13.2 % (11.9-15.9)
[2024-02-11 16:00] LABS: ANISOCYTOSIS 0; MACROCYTOSIS 0
[2024-02-11] MEDS: MONTELUKAST NA 10 MG TABLET PO SCH (21:45)
[2024-02-11] MEDS: ATORVASTATIN CA 20 MG TABLET (FP) PO SCH (21:45)
[2024-02-11] MEDS ORDERED: MONTELUKAST NA 10 MG TABLET PO SCH (22:00)
[2024-02-12 08:07] LABS: HEMATOCRIT 44.6 % (35.4-49); MCH 33.3 pg (25.7-33.7); MCHC 33.6 g/dl (32.0-35.9); PLATELET COUNT 297 10^3/uL (134-434); RBC 4.51 M/mm3 (4.00-5.60); RDW 13.2 % (11.9-15.9); WHITE BLOOD COUNT 21.5 K/mm3 (4.0-10.0)
[2024-02-12 08:19] LABS: POTASSIUM 3.5 mmol/L (3.5-5.1)
[2024-02-12 08:31] LABS: BLOOD UREA NITROGEN 20.1 mg/dL (7-18); CALCIUM 9.1 mg/dL (8.5-10.1)
[2024-02-12 08:36] LABS: BILIRUBIN,TOTAL 0.7 mg/dL (0.2-1); TOT PROT 6.2 g/dl (6.4-8.2)
[2024-02-12 14:32] VITALS: BP 124/69; PULSE 71; TEMP 98.4
== END 2024-02-12 15:13 | disposition home or self-care (01) ==
LOC: JER 06:37 → JERBED 12:26 → UNDOADMOB 12:26 → INTOOBSV 12:26 → JERBED 13:37 → J5S 13:37 → JERBED 13:57
PROVIDERS: ADMIT Internal Medicine
PROC: 3E03329 Introduction of Other Anti-infective into Peripheral Vein, Percutaneous Approach (ICD-10-PCS; principal; 2024-02-10)
PROC: 3E033NZ Introduction of Analgesics, Hypnotics, Sedatives into Peripheral Vein, Percutaneous Approach (ICD-10-PCS; 2024-02-10)
PROC: 3E0F7GC Introduction of Other Therapeutic Substance into Respiratory Tract, Via Natural or Artificial Opening (ICD-10-PCS; 2024-02-10)
PROC: 3E023GC Introduction of Other Therapeutic Substance into Muscle, Percutaneous Approach (ICD-10-PCS; 2024-02-10)
PROC: 3E033GC Introduction of Other Therapeutic Substance into Peripheral Vein, Percutaneous Approach (ICD-10-PCS; 2024-02-10)
DX: K52.9 Noninfective gastroenteritis and colitis, unspecified (principal); K82.4 Cholesterolosis of gallbladder; K76.0 Fatty (change of) liver, not elsewhere classified; I10 Essential (primary) hypertension; E11.9 Type 2 diabetes mellitus without complications; D47.9 Neoplasm of uncertain behavior of lymphoid, hematopoietic and related tissue, unspecified; D72.829 Elevated white blood cell count, unspecified; E78.5 Hyperlipidemia, unspecified; D73.5 Infarction of spleen; R79.9 Abnormal finding of blood chemistry, unspecified; Z79.01 Long term (current) use of anticoagulants; J44.9 Chronic obstructive pulmonary disease, unspecified; Z99.81 Dependence on supplemental oxygen; F10.99 Alcohol use, unspecified with unspecified alcohol-induced disorder; R10.30 Lower abdominal pain, unspecified
CPT/HCPCS: 0241U-QW; 36415; 71045-TC-FY; 74177-TC; 76705-TC; 80053; 81003; 82962; 83036; 84484; 85025; 85027; 85610; 85730; 86850; 86900; 86901; 87086; 93005; 93010; 94010; 94640; 96365; 96366; 96367; 96372; 96375; 99285-25; G0378; J0131; J1644; Q9967

== ENCOUNTER 2024-08-27 11:15 | Observation (INO) | payer MEDICARE, OTHER ==
[2024-08-27 11:52] VITALS: BMI 24.3
[2024-08-27 12:48] LABS: BASO % 0.5 % (0-2.0); EOS % 0.1 % (0-4.5); HEMATOCRIT 46.9 % (35.4-49); LYMPH % 14.5 % (8-40); MCH 33.6 pg (25.7-33.7); MCHC 34.2 g/dl (32.0-35.9); MEAN CELL VOLUME 98.2 fl (80-96); MEAN PLT VOLUME 7.1 fl (7.5-11.1); MONO % 10.4 % (3.8-10.2); NEUT % 74.5 % (42.8-82.8); PLATELET COUNT 233 10^3/uL (134-434); RBC 4.77 M/mm3 (4.00-5.60); WHITE BLOOD COUNT 14.9 K/mm3 (4.0-10.0)
[2024-08-27] MEDS ORDERED: KETOROLAC TROMETHAMINE 15 MG/ML VIAL ONE (13:22)
[2024-08-27] MEDS ORDERED: LIDOCAINE 4% PATCH TP ONE (13:22)
[2024-08-27 13:23] LABS: POTASSIUM 3.8 mmol/L (3.5-5.1)
[2024-08-27 13:26] LABS: CALCIUM 9.6 mg/dL (8.5-10.1)
[2024-08-27 13:27] LABS: ALBUMIN 3.6 g/dl (3.4-5.0); BLOOD UREA NITROGEN 19.9 mg/dL (7-18); MAGNESIUM 1.1 mg/dL (1.8-2.4)
[2024-08-27] MEDS: KETOROLAC TROMETHAMINE 15 MG/ML VIAL IVPUSH ONE (13:29)
[2024-08-27] MEDS: LIDOCAINE 5% TOPICAL PATCH TP ONE (13:30)
[2024-08-27 13:32] LABS: BILIRUBIN,TOTAL 0.7 mg/dL (0.2-1); TOT PROT 6.9 g/dl (6.4-8.2)
[2024-08-27] MEDS ORDERED: MAGNESIUM SULFATE IN WATER 2 GM/50 ML IVPB IVPB ONE (14:56)
[2024-08-27] MEDS: MAGNESIUM SULF 50% (8.12 MEQ/2 ML-1 GM VIAL) IVPB ONE (15:00)
[2024-08-27 15:40] VITALS: RESP 18
[2024-08-27] MEDS: ACETAMINOPHEN 1000 MG/100 ML BAG IVPB ONE (16:12)
[2024-08-27] MEDS ORDERED: LORazepam 2 MG TABLET PO SCH (17:00)
[2024-08-27 17:24] LABS: BASO % 0.7 % (0-2.0); EOS % 0.1 % (0-4.5); HEMATOCRIT 43.8 % (35.4-49); HEMOGLOBIN 15.2 GM/dL (11.7-16.9); LYMPH % 20.1 % (8-40); MCH 34.3 pg (25.7-33.7); MCHC 34.6 g/dl (32.0-35.9); MEAN CELL VOLUME 98.9 fl (80-96); MEAN PLT VOLUME 7.2 fl (7.5-11.1); MONO % 9.1 % (3.8-10.2); PLATELET COUNT 240 10^3/uL (134-434); RBC 4.43 M/mm3 (4.00-5.60); RDW 15.1 % (11.9-15.9); WHITE BLOOD COUNT 14.7 K/mm3 (4.0-10.0)
[2024-08-27] MEDS ORDERED: LORazepam 1 MG TABLET PO PRN (17:30)
[2024-08-27 17:36] LABS: ACTIVATED PTT 36.5 SECONDS (25.2-36.5); INR 1.07 (0.83-1.09); PROTHROMBIN TIME (PATIENT) 12.3 SEC (9.7-13.0)
[2024-08-27 17:44] LABS: POTASSIUM 3.3 mmol/L (3.5-5.1)
[2024-08-27 17:48] LABS: BLOOD UREA NITROGEN 17.9 mg/dL (7-18); CALCIUM 9.3 mg/dL (8.5-10.1)
[2024-08-27 17:49] LABS: ALBUMIN 3.4 g/dl (3.4-5.0); MAGNESIUM 1.9 mg/dL (1.8-2.4)
[2024-08-27 17:53] LABS: BILIRUBIN,TOTAL 0.7 mg/dL (0.2-1); TOT PROT 6.5 g/dl (6.4-8.2)
[2024-08-27] MEDS: morphine CARPU-JECT 2 MG/1 ML DISP.SYRIN IVPUSH ONE (18:10)
[2024-08-27] MEDS ORDERED: MORPHINE SULFATE 2 MG/ML SYRINGE ONE (18:10)
[2024-08-27] MEDS ORDERED: oxyCODONE HCL 5 MG TABLET PO PRN (18:58)
[2024-08-27] MEDS ORDERED: ACETAMINOPHEN 500 MG TABLET (FP) PO SCH (19:00)
[2024-08-27] MEDS ORDERED: KETOROLAC TROMETHAMINE 30 MG/1 ML VIAL IVPUSH PRN (19:06)
[2024-08-27] MEDS: LORazepam 2 MG/ML SDV VIAL IVPUSH PRN (21:39)
[2024-08-27] MEDS: LIDOCAINE PATCH REMOVAL MC ONE (21:40)
[2024-08-27] MEDS: INSULIN ASPART SLIDING SCALE (NOVOLOG) 1 VIAL SQ SCH (21:42)
[2024-08-28] MEDS ORDERED: LORazepam 2 MG/ML SDV VIAL IVPUSH PRN (08:12)
[2024-08-28] MEDS ORDERED: ALBUTEROL SO4 2.5/IPRATROPIUM 0.5 INH SOL 3 ML VIAL.NEB. NEB PRN (09:07)
[2024-08-28] MEDS: LIDOCAINE 5% TOPICAL PATCH TP SCH (09:21)
[2024-08-28] MEDS: THIAMINE 100 MG TABLET PO SCH (09:21)
[2024-08-28] MEDS: MULTIVITAMINS (DAILY MVI) TABLET (FP) PO SCH (09:21)
[2024-08-28] MEDS: ACETAMINOPHEN 500 MG TABLET (FP) PO SCH (09:21)
[2024-08-28 09:42] LABS: BASO % 0.8 % (0-2.0); EOS % 0.8 % (0-4.5); HEMATOCRIT 45.4 % (35.4-49); HEMOGLOBIN 15.4 GM/dL (11.7-16.9); LYMPH % 26.2 % (8-40); MCHC 33.9 g/dl (32.0-35.9); MEAN CELL VOLUME 100.1 fl (80-96); MEAN PLT VOLUME 7.9 fl (7.5-11.1); MONO % 10.2 % (3.8-10.2); PLATELET COUNT 236 10^3/uL (134-434); RBC 4.53 M/mm3 (4.00-5.60); WHITE BLOOD COUNT 14.1 K/mm3 (4.0-10.0)
[2024-08-28] MEDS ORDERED: POLYETHYLENE GLYCOL (HEALTHYLAX) 3350 17 GM PACKET PO SCH (10:00)
[2024-08-28] MEDS: KETOROLAC TROMETHAMINE 15 MG/ML VIAL IVPUSH SCH (10:04)
[2024-08-28] MEDS: PANTOPRAZOLE 40 MG TABLET PO SCH (10:05)
[2024-08-28 10:12] LABS: POTASSIUM 3.4 mmol/L (3.5-5.1)
[2024-08-28 10:18] LABS: CALCIUM 8.9 mg/dL (8.5-10.1)
[2024-08-28 10:19] LABS: ALBUMIN 3.2 g/dl (3.4-5.0); BLOOD UREA NITROGEN 17.4 mg/dL (7-18); MAGNESIUM 1.8 mg/dL (1.8-2.4)
[2024-08-28 10:22] LABS: CREATININE 0.8 mg/dL (0.55-1.3)
[2024-08-28 10:23] LABS: BILIRUBIN,TOTAL 0.8 mg/dL (0.2-1); TOT PROT 6.2 g/dl (6.4-8.2)
[2024-08-28] MEDS: LACTULOSE 20 GM/30 ML UDC (FOR ORAL USE ONLY) PO SCH (11:11)
[2024-08-28] MEDS: ALBUTEROL SO4 HFA INHALER IH PRN (11:11)
[2024-08-28] MEDS ORDERED: LORazepam 1 MG TABLET PO PRN (15:07)
[2024-08-28 17:12] LABS: EPI CELLS 15 /uL (0-25.1); HYALINE CASTS 0 /uL (0-3.1); URINE APPEARANCE CLEAR; URINE BACTERIA >9,000 /uL (0-1359); URINE BILIRUBIN NEGATIVE (NEGATIVE); URINE COLOR YELLOW; URINE GLUCOSE (UA) 3+ (NEGATIVE); URINE KETONE TRACE (NEGATIVE); URINE LEUK ESTERASE NEGATIVE (NEGATIVE); URINE NITRITE NEGATIVE (NEGATIVE); URINE PROTEIN 2+ (NEGATIVE); URINE RBC 3 /uL (0-23.9); URINE WBC 8 /uL (0-25.8)
[2024-08-28] MEDS: LORazepam 1 MG TABLET PO SCH (17:25)
[2024-08-28] MEDS: LIDOCAINE PATCH REMOVAL MC SCH (21:14)
[2024-08-29] MEDS ORDERED: LORazepam 1 MG TABLET PO SCH (05:00)
[2024-08-29] MEDS ORDERED: LORazepam 0.5 MG TABLET ONE (05:22)
[2024-08-29 09:35] LABS: ALBUMIN 2.9 g/dl (3.4-5.0)
[2024-08-29 09:36] LABS: BLOOD UREA NITROGEN 20.3 mg/dL (7-18); MAGNESIUM 1.7 mg/dL (1.8-2.4)
[2024-08-29 09:38] LABS: CREATININE 0.9 mg/dL (0.55-1.3)
[2024-08-29 09:39] LABS: PHOSPHOROUS 2.7 mg/dL (2.5-4.9)
[2024-08-29 09:40] LABS: BILIRUBIN,TOTAL 0.5 mg/dL (0.2-1); TOT PROT 5.9 g/dl (6.4-8.2)
[2024-08-29 11:02] LABS: BASO % 0.5 % (0-2.0); EOS % 2.3 % (0-4.5); HEMATOCRIT 43.1 % (35.4-49); HEMOGLOBIN 14.6 GM/dL (11.7-16.9); LYMPH % 29.3 % (8-40); MCH 34.4 pg (25.7-33.7); MCHC 33.8 g/dl (32.0-35.9); MEAN CELL VOLUME 101.5 fl (80-96); MONO % 8.6 % (3.8-10.2); NEUT % 59.3 % (42.8-82.8); PLATELET COUNT 230 10^3/uL (134-434); RBC 4.25 M/mm3 (4.00-5.60); RDW 14.5 % (11.9-15.9); WHITE BLOOD COUNT 11.3 K/mm3 (4.0-10.0)
[2024-08-29 11:33] VITALS: BP 135/69; PULSE 71; TEMP 98.6
[2024-08-29] MEDS: LORazepam 1 MG TABLET PO SCH (11:35)
[2024-08-30] MEDS ORDERED: LORazepam 0.5 MG TABLET PO PRN ×2
[2024-08-30] MEDS ORDERED: LORazepam 0.5 MG TABLET PO SCH (05:00)
[2024-08-31] MEDS ORDERED: LORazepam 0.5 MG TABLET PO PRN
[2024-08-31] MEDS ORDERED: LORazepam 0.5 MG TABLET PO ONE (05:00)
[2024-08-31] MEDS ORDERED: LORazepam 0.5 MG TABLET PO SCH (05:00)
[2024-09-01] MEDS ORDERED: LORazepam 0.5 MG TABLET PO ONE (05:00)
== END 2024-08-29 12:07 | disposition other institution (70) ==
LOC: JER 11:15 → JERBED 16:41 → J6S 20:09
PROVIDERS: ADMIT Internal Medicine
PROC: 3E033NZ Introduction of Analgesics, Hypnotics, Sedatives into Peripheral Vein, Percutaneous Approach (ICD-10-PCS; principal; 2024-08-27)
PROC: 3E0333Z Introduction of Anti-inflammatory into Peripheral Vein, Percutaneous Approach (ICD-10-PCS; 2024-08-27)
PROC: 3E033GC Introduction of Other Therapeutic Substance into Peripheral Vein, Percutaneous Approach (ICD-10-PCS; 2024-08-27)
DX: M25.512 Pain in left shoulder (principal); R79.89 Other specified abnormal findings of blood chemistry; R74.01 Elevation of levels of liver transaminase levels; E11.9 Type 2 diabetes mellitus without complications; N40.0 Benign prostatic hyperplasia without lower urinary tract symptoms; J44.9 Chronic obstructive pulmonary disease, unspecified; I10 Essential (primary) hypertension; E78.5 Hyperlipidemia, unspecified; Z99.81 Dependence on supplemental oxygen; D47.9 Neoplasm of uncertain behavior of lymphoid, hematopoietic and related tissue, unspecified; K21.9 Gastro-esophageal reflux disease without esophagitis; Z87.891 Personal history of nicotine dependence; Z87.738 Personal history of other specified (corrected) congenital malformations of digestive system; Z29.9 Encounter for prophylactic measures, unspecified
CPT/HCPCS: 36415; 71046-TC-FY; 73030-TC-LT-FY; 76705-TC; 80048; 80053; 81003; 82962; 83735; 84100; 84484; 85025; 85610; 85730; 86705; 86708; 86709; 86850; 86900; 86901; 87340; 87517; 87522; 93005; 93010; 96374; 96375; 96376; 97116-GP; 97161-GP; 99285-25; G0378; J0131

== ENCOUNTER 2024-09-23 17:46 | Inpatient (IN) | payer MEDICARE, OTHER ==
[2024-09-23] MEDS ORDERED: VANCOMYCIN 1 GM PREMIX (F) 1 GM/200 ML BAG ONE (18:18)
[2024-09-23] MEDS ORDERED: PIPERACILLIN/TAZOB 4.5 GM 4.5 GM/100 ML BAG IVPB ONE (18:18)
[2024-09-23] MEDS ORDERED: ACETAMINOPHEN INJECTION 100 ML ONE (18:18)
[2024-09-23] MEDS: SODIUM CHLORIDE 0.9% 500 ML INFUS.BAG IV ONE ×2 (18:46→20:28)
[2024-09-23] MEDS: ACETAMINOPHEN 1000 MG/100 ML BAG IVPB ONE (18:46)
[2024-09-23] MEDS: PIPERACILLIN/TAZOB 4.5 GM 3.375 GM in DEXTROSE 5%-WATER 100 ML IVPB ONE (19:36)
[2024-09-23] MEDS ORDERED: PIPERACILLIN/TAZOB 3.375 GM 3.375 GM/50 ML BAG IVPB ONE (19:38)
[2024-09-23] MEDS ORDERED: LEVALBUTEROL HCL 0.63 MG/3 ML VIAL.NEB. IH ONE (19:43)
[2024-09-23 19:45] LABS: BASO % 0.3 % (0-2.0); HEMATOCRIT 46.1 % (35.4-49); HEMOGLOBIN 15.9 GM/dL (11.7-16.9); MCH 33.9 pg (25.7-33.7); MCHC 34.5 g/dl (32.0-35.9); MEAN CELL VOLUME 98.2 fl (80-96); MEAN PLT VOLUME 7.3 fl (7.5-11.1); MONO % 7.2 % (3.8-10.2); NEUT % 78.5 % (42.8-82.8); PLATELET COUNT 233 10^3/uL (134-434); RBC 4.69 M/mm3 (4.00-5.60); RDW 14.9 % (11.9-15.9); WHITE BLOOD COUNT 9.9 K/mm3 (4.0-10.0)
[2024-09-23] MEDS: LEVALBUTEROL HCL 0.63 MG/3 ML VIAL.NEB. IH ONE (19:47)
[2024-09-23 19:49] LABS: PH,URINE 7.5 (5.0-8.0); URINE APPEARANCE CLEAR; URINE BILIRUBIN NEGATIVE (NEGATIVE); URINE COLOR YELLOW; URINE GLUCOSE (UA) 3+ (NEGATIVE); URINE KETONE NEGATIVE (NEGATIVE); URINE LEUK ESTERASE NEGATIVE (NEGATIVE); URINE NITRITE NEGATIVE (NEGATIVE); URINE PROTEIN 2+ (NEGATIVE); URINE UROBILINOGEN 0.2 mg/dL (0.2-1.0)
[2024-09-23 19:51] LABS: INR 1.21 (0.83-1.09); PROTHROMBIN TIME (PATIENT) 13.8 SEC (9.7-13.0)
[2024-09-23 19:54] LABS: ACTIVATED PTT 33.6 SECONDS (25.2-36.5)
[2024-09-23 19:55] LABS: VENOUS BASE EXCESS 6.9 mmol/L (-2-2); VENOUS O2 SATURATION 90.1 % (70-80); VENOUS PCO2 38.1 mmHg (38-52); VENOUS PH 7.517 (7.310-7.410)
[2024-09-23 20:02] LABS: URINE RBC 7.6 /uL (0-23.9); URINE WBC 4.1 /uL (0-25.8)
[2024-09-23 20:03] LABS: HYALINE CASTS 0.27 /uL (0-3.1); URINE BACTERIA 19.8 /uL (0-1359)
[2024-09-23 20:08] LABS: CHLORIDE 92 mmol/L (98-107); SODIUM 134 mmol/L (136-145)
[2024-09-23 20:10] LABS: ALBUMIN 3.4 g/dl (3.4-5.0); BLOOD UREA NITROGEN 12.7 mg/dL (7-18); CO2 31 mmol/L (21-32); GLUCOSE,RANDOM 158 mg/dL (74-106)
[2024-09-23 20:13] LABS: CREATININE 1.2 mg/dL (0.55-1.3); SGPT/ALT 39 U/L (13-61)
[2024-09-23 20:15] LABS: BILIRUBIN,TOTAL 0.3 mg/dL (0.2-1); TOT PROT 6.6 g/dl (6.4-8.2)
[2024-09-23 20:16] LABS: ALK PHOS 97 U/L (45-117); ANION GAP 12 mmol/L (4-13); POTASSIUM 2.9 mmol/L (3.5-5.1)
[2024-09-23 20:19] LABS: SGOT/AST 25 U/L (15-37)
[2024-09-23 20:21] LABS: LACTIC ACID 3.3 mmol/L (0.4-2.0)
[2024-09-23] MEDS ORDERED: POTASSIUM CHLORIDE ORAL LIQUID 20 MEQ/15 ML ONE (20:36)
[2024-09-23] MEDS: POTASSIUM CHLORIDE ORAL LIQUID 20 MEQ/15 ML PO ONE (20:45)
[2024-09-23] MEDS ORDERED: MAGNESIUM 1GM/D5W - 1 GM/100 ML IVPB IVPB ONE (21:31)
[2024-09-23] MEDS: MAGNESIUM 1GM/D5W - 1 GM/100 ML IVPB IVPB ONE (21:37)
[2024-09-23 21:39] LABS: MAGNESIUM 0.9 mg/dL (1.8-2.4)
[2024-09-23] MEDS: KCL 10 MEQ IVPB 10 MEQ/100 ML INFUS.BAG IVPB SCH (22:01)
[2024-09-24] MEDS: MAGNESIUM SULFATE IN WATER 2 GM/50 ML IVPB IVPB ONE (00:20)
[2024-09-24] MEDS ORDERED: MAGNESIUM SULFATE IN WATER 2 GM/50 ML IVPB IVPB ONE (00:20)
[2024-09-24 00:36] LABS: LACTIC ACID 2.3 mmol/L (0.4-2.0)
[2024-09-24] MEDS: morphine CARPU-JECT 4 MG/1 ML DISP.SYRIN IVPUSH ONE (01:15)
[2024-09-24] MEDS ORDERED: morphine SULFATE 4 MG/ML VIAL ONE (01:34)
[2024-09-24 04:21] LABS: LACTIC ACID 2.3 mmol/L (0.4-2.0)
[2024-09-24 04:22] LABS: POTASSIUM 3.7 mmol/L (3.5-5.1)
[2024-09-24 04:24] LABS: CALCIUM 8.3 mg/dL (8.5-10.1)
[2024-09-24 04:25] LABS: ALBUMIN 3.2 g/dl (3.4-5.0); BLOOD UREA NITROGEN 10.4 mg/dL (7-18); MAGNESIUM 1.9 mg/dL (1.8-2.4)
[2024-09-24 04:28] LABS: PHOSPHOROUS 2.7 mg/dL (2.5-4.9)
[2024-09-24 04:29] LABS: BILIRUBIN,TOTAL 0.3 mg/dL (0.2-1)
[2024-09-24 04:30] LABS: TOT PROT 6.3 g/dl (6.4-8.2)
[2024-09-24] MEDS ORDERED: ALBUTEROL SO4 2.5/IPRATROPIUM 0.5 INH SOL 3 ML VIAL.NEB. NEB PRN (04:30)
[2024-09-24] MEDS ORDERED: ALBUTEROL SO4 HFA INHALER IH PRN (04:30)
[2024-09-24] MEDS: POTASSIUM CHLORIDE ORAL LIQUID 20 MEQ/15 ML PO ONE (04:43)
[2024-09-24] MEDS: MAGNESIUM SULF 50% (8.12 MEQ/2 ML-1 GM VIAL) IVPB ONE (04:43)
[2024-09-24] MEDS: KCL 10 MEQ IVPB 10 MEQ/100 ML INFUS.BAG IVPB SCH (04:43)
[2024-09-24 06:12] LABS: BASO % 0.5 % (0-2.0); HEMATOCRIT 45.5 % (35.4-49); HEMOGLOBIN 15.6 GM/dL (11.7-16.9); LYMPH % 18.3 % (8-40); MCH 34.1 pg (25.7-33.7); MCHC 34.3 g/dl (32.0-35.9); MEAN CELL VOLUME 99.4 fl (80-96); MEAN PLT VOLUME 7.3 fl (7.5-11.1); MONO % 7.8 % (3.8-10.2); NEUT % 73.4 % (42.8-82.8); PLATELET COUNT 229 10^3/uL (134-434); RBC 4.58 M/mm3 (4.00-5.60); RDW 15.1 % (11.9-15.9); WHITE BLOOD COUNT 7.8 K/mm3 (4.0-10.0)
[2024-09-24] MEDS: metroNIDAZOLE 250 MG TABLET PO SCH (06:16)
[2024-09-24 06:27] LABS: POTASSIUM 4.3 mmol/L (3.5-5.1)
[2024-09-24 06:30] LABS: ALBUMIN 3.4 g/dl (3.4-5.0); BLOOD UREA NITROGEN 10.5 mg/dL (7-18); CALCIUM 8.6 mg/dL (8.5-10.1)
[2024-09-24 06:32] LABS: MAGNESIUM 1.7 mg/dL (1.8-2.4)
[2024-09-24 06:33] LABS: CREATININE 1.1 mg/dL (0.55-1.3); PHOSPHOROUS 2.7 mg/dL (2.5-4.9)
[2024-09-24 06:34] LABS: BILIRUBIN,TOTAL 0.4 mg/dL (0.2-1); TOT PROT 6.6 g/dl (6.4-8.2)
[2024-09-24] MEDS: INSULIN ASPART SLIDING SCALE (NOVOLOG) 1 VIAL SQ SCH (09:15)
[2024-09-24] MEDS ORDERED: APIXABAN 5 MG TABLET ONE (09:28)
[2024-09-24] MEDS ORDERED: TAMSULOSIN HCL 0.4 MG CAP ONE (09:28)
[2024-09-24] MEDS: APIXABAN 5 MG TABLET PO SCH (09:38)
[2024-09-24] MEDS: FLUTICASONE/UMECLIDIN/VILANTER(200-62.5-25 TRELEGY ELLIPTA) INAHLER IH SCH (09:38)
[2024-09-24] MEDS: TAMSULOSIN HCL 0.4 MG CAP PO SCH (09:38)
[2024-09-24] MEDS: amLODIPine BESYLATE 10 MG TABLET (FP) PO SCH (09:38)
[2024-09-24] MEDS: FINASTERIDE 5 MG TABLET (FP) PO SCH (09:38)
[2024-09-24] MEDS ORDERED: NICOTINE 14 MG/24 HOURS TOPICAL PATCH TD SCH (10:00)
[2024-09-24 12:01] VITALS: BMI 25.4
[2024-09-24] MEDS: ACETAMINOPHEN 1000 MG/100 ML BAG IVPB PRN (14:01)
[2024-09-24] MEDS: MAGNESIUM 1GM/D5W 100ML - 100 ML IVPB IVPB ONE (14:07)
[2024-09-24] MEDS: MONTELUKAST NA 10 MG TABLET PO SCH (21:59)
[2024-09-25 08:05] LABS: BASO % 0.7 % (0-2.0); EOS % 0.3 % (0-4.5); HEMATOCRIT 46.7 % (35.4-49); HEMOGLOBIN 15.9 GM/dL (11.7-16.9); LYMPH % 29.3 % (8-40); MCHC 34.1 g/dl (32.0-35.9); MEAN CELL VOLUME 99.6 fl (80-96); MEAN PLT VOLUME 7.4 fl (7.5-11.1); NEUT % 56.7 % (42.8-82.8); PLATELET COUNT 225 10^3/uL (134-434); RBC 4.69 M/mm3 (4.00-5.60); RDW 14.4 % (11.9-15.9); WHITE BLOOD COUNT 4.8 K/mm3 (4.0-10.0)
[2024-09-25 08:17] LABS: POTASSIUM 3.6 mmol/L (3.5-5.1)
[2024-09-25 08:21] LABS: ALBUMIN 3.1 g/dl (3.4-5.0); BLOOD UREA NITROGEN 13.9 mg/dL (7-18); CALCIUM 9.3 mg/dL (8.5-10.1); MAGNESIUM 1.8 mg/dL (1.8-2.4)
[2024-09-25 08:26] LABS: BILIRUBIN,TOTAL 0.3 mg/dL (0.2-1); TOT PROT 6.2 g/dl (6.4-8.2)
[2024-09-25] MEDS: THIAMINE 100 MG TABLET PO SCH (13:57)
[2024-09-25] MEDS: FOLIC ACID 1 MG TABLET (FP) PO SCH (13:57)
[2024-09-25] MEDS: MULTIVITAMINS (DAILY MVI) TABLET (FP) PO SCH (13:57)
[2024-09-26 03:40] VITALS: RESP 18
[2024-09-26 05:58] VITALS: BP 117/80; PULSE 74; TEMP 98.1
[2024-09-26 08:01] LABS: BASO % 0.5 % (0-2.0); EOS % 0.9 % (0-4.5); HEMATOCRIT 43.6 % (35.4-49); HEMOGLOBIN 15.5 GM/dL (11.7-16.9); LYMPH % 36.7 % (8-40); MCH 34.6 pg (25.7-33.7); MCHC 35.5 g/dl (32.0-35.9); MEAN CELL VOLUME 97.6 fl (80-96); MEAN PLT VOLUME 7.3 fl (7.5-11.1); NEUT % 44.9 % (42.8-82.8); PLATELET COUNT 245 10^3/uL (134-434); RBC 4.47 M/mm3 (4.00-5.60); RDW 14.6 % (11.9-15.9); WHITE BLOOD COUNT 6.5 K/mm3 (4.0-10.0)
[2024-09-26 08:20] LABS: POTASSIUM 3.5 mmol/L (3.5-5.1)
[2024-09-26 08:36] LABS: CALCIUM 9.3 mg/dL (8.5-10.1)
[2024-09-26 08:37] LABS: BLOOD UREA NITROGEN 14.9 mg/dL (7-18)
[2024-09-26 08:39] LABS: CREATININE 0.9 mg/dL (0.55-1.3)
[2024-09-26 08:41] LABS: BILIRUBIN,TOTAL 0.3 mg/dL (0.2-1); TOT PROT 5.9 g/dl (6.4-8.2)
[2024-09-26] MEDS: MAGNESIUM 1GM/D5W 100ML - 100 ML IVPB IVPB ONE (12:17)
== END 2024-09-26 14:47 | disposition home or self-care (01) | DRG 872 ==
LOC: JER 17:46 → JERBED 21:48 → J4W 09-24 10:05
PROVIDERS: ADMIT Internal Medicine; ATTEND Registered Nurse
DX: A41.9 Sepsis, unspecified organism (principal); A09 Infectious gastroenteritis and colitis, unspecified; E11.9 Type 2 diabetes mellitus without complications; E87.6 Hypokalemia; J45.909 Unspecified asthma, uncomplicated; I10 Essential (primary) hypertension; N40.0 Benign prostatic hyperplasia without lower urinary tract symptoms; E83.42 Hypomagnesemia; J44.9 Chronic obstructive pulmonary disease, unspecified; E78.5 Hyperlipidemia, unspecified; N45.1 Epididymitis
CPT/HCPCS: 0241U-QW; 36415; 71045-TC-FY; 74177-TC; 76870-TC; 80053; 81003; 82803; 82962; 83605; 83690; 83735; 84100; 84484; 85025; 85610; 85730; 86140; 87040; 87045; 87046; 87086; 87186; 87209; 87324; 87449; 93005; 93010; 99285-25; J0131; Q9967

== ENCOUNTER 2025-04-13 03:21 | Observation (INO) | payer OTHER ==
[2025-04-13] MEDS ORDERED: ASPIRIN 81 MG CHEWABLE TABLETS ONE (03:50)
[2025-04-13] MEDS ORDERED: diazePAM CARPU-JECT 10 MG/2 ML DISP.SYRIN ONE (04:00)
[2025-04-13] MEDS: ASPIRIN 81 MG CHEWABLE TABLETS PO ONE (04:02)
[2025-04-13] MEDS: diazePAM CARPU-JECT 10 MG/2 ML DISP.SYRIN IVPUSH ONE (04:02)
[2025-04-13 04:36] LABS: ABSOLUTE IMMATURE GRANULOCYTES 0.05 x10^3/uL (0.0-0.031); BASOPHILS # 0.11 x10^3/uL (0.01-0.08); EOSINOPHIL % 1.1 % (0.8-7.0); EOSINOPHILS # 0.12 x10^3/uL (0.04-0.54); MCHC 35.1 g/dl (32.3-36.5); MEAN CELL VOLUME 97.2 fl (79.0-92.2); MEAN PLT VOLUME 9.7 fl (9.4-12.4); MONOCYTE # 0.96 x10^3/uL (0.30-0.82); MONOCYTE % 9.1 % (5.3-12.2); RDW 14.0 % (12.2-16.6)
[2025-04-13 04:48] LABS: INR 1.03 (0.83-1.09); PROTHROMBIN TIME (PATIENT) 11.2 SEC (9.7-13.0)
[2025-04-13 05:01] LABS: GLUCOSE,RANDOM 134.0 mg/dL (74-106)
[2025-04-13 05:02] LABS: CO2 26.0 mmol/L (21-32)
[2025-04-13 05:05] LABS: CREATININE 0.8 mg/dL (0.55-1.3); SGOT/AST 276.0 U/L (15-37); SGPT/ALT 252.0 U/L (13-61)
[2025-04-13 05:06] LABS: TOT PROT 7.6 g/dl (6.4-8.2)
[2025-04-13 05:07] LABS: ALK PHOS 182.0 U/L (45-117)
[2025-04-13 05:57] LABS: HCV DIAGNOSTIC IN-HOUSE W/RFLX NON-REACTIVE (NONREACTIVE); HIV INTERPRETATION NEGATIVE (NEGATIVE)
[2025-04-13] MEDS ORDERED: ALBUTEROL SO4 2.5/IPRATROPIUM 0.5 INH SOL 3 ML VIAL.NEB. NEB PRN (08:18)
[2025-04-13] MEDS ORDERED: APIXABAN 5 MG TABLET ONE (09:02)
[2025-04-13] MEDS ORDERED: amLODIPine BESYLATE 10 MG TABLET (FP) ONE (09:02)
[2025-04-13] MEDS ORDERED: THIAMINE 100 MG TABLET ONE (09:02)
[2025-04-13] MEDS ORDERED: POLYETHYLENE GLYCOL (HEALTHYLAX) 3350 17 GM PACKET ONE (09:02)
[2025-04-13] MEDS ORDERED: FOLIC ACID 1 MG TABLET (FP) ONE (09:02)
[2025-04-13] MEDS ORDERED: TAMSULOSIN HCL 0.4 MG CAP ONE (09:03)
[2025-04-13] MEDS: TAMSULOSIN HCL 0.4 MG CAP PO SCH (09:11)
[2025-04-13] MEDS: THIAMINE 100 MG TABLET PO SCH (10:24)
[2025-04-13] MEDS: FOLIC ACID 1 MG TABLET (FP) PO SCH (10:24)
[2025-04-13] MEDS: APIXABAN 5 MG TABLET PO SCH (10:24)
[2025-04-13] MEDS: FINASTERIDE 5 MG TABLET (FP) PO SCH (10:24)
[2025-04-13] MEDS: FLUTICASONE/UMECLIDIN/VILANTER(200-62.5-25 TRELEGY ELLIPTA) INAHLER IH SCH (10:24)
[2025-04-13] MEDS: amLODIPine BESYLATE 10 MG TABLET (FP) PO SCH (10:24)
[2025-04-13] MEDS: SODIUM CHLORIDE 1,000 ML IV SCH (10:30)
[2025-04-13] MEDS ORDERED: PANTOPRAZOLE SODIUM 40 MG VIAL ONE (10:40)
[2025-04-13] MEDS: PANTOPRAZOLE 40 MG TABLET PO SCH (11:30)
[2025-04-13] MEDS: INSULIN ASPART SLIDING SCALE (NOVOLOG) 1 VIAL SQ SCH (12:03)
[2025-04-13 18:15] VITALS: BMI 21.1
[2025-04-13] MEDS: POLYETHYLENE GLYCOL (HEALTHYLAX) 3350 17 GM PACKET PO SCH ×2 (18:34→21:20)
[2025-04-13 20:35] VITALS: RESP 18
[2025-04-13] MEDS: MONTELUKAST NA 10 MG TABLET PO SCH (21:20)
[2025-04-13] MEDS ORDERED: SENNOSIDES 8.8 MG/5 ML SYRUP PO SCH (22:00)
[2025-04-14 09:22] LABS: ABSOLUTE IMMATURE GRANULOCYTES 0.04 x10^3/uL (0.0-0.031); BASOPHILS # 0.06 x10^3/uL (0.01-0.08); EOSINOPHIL % 3.0 % (0.8-7.0); EOSINOPHILS # 0.28 x10^3/uL (0.04-0.54); MCHC 34.6 g/dl (32.3-36.5); MEAN CELL VOLUME 98.0 fl (79.0-92.2); MEAN PLT VOLUME 10.0 fl (9.4-12.4); MONOCYTE # 0.76 x10^3/uL (0.30-0.82); MONOCYTE % 8.0 % (5.3-12.2); RDW 13.3 % (12.2-16.6)
[2025-04-14 10:01] LABS: CO2 33.0 mmol/L (21-32); GLUCOSE,RANDOM 62.0 mg/dL (74-106)
[2025-04-14 10:03] LABS: CREATININE 0.7 mg/dL (0.55-1.3)
[2025-04-14 10:04] LABS: SGOT/AST 136.0 U/L (15-37); SGPT/ALT 161.0 U/L (13-61)
[2025-04-14 10:05] LABS: TOT PROT 6.0 g/dl (6.4-8.2)
[2025-04-14 10:06] LABS: ALK PHOS 174.0 U/L (45-117)
[2025-04-14] MEDS: NAPH,MB-DB/K PH,MBDB POWDER PACKET PO ONE (16:45)
[2025-04-15 10:28] LABS: ABSOLUTE IMMATURE GRANULOCYTES 0.04 x10^3/uL (0.0-0.031); BASOPHILS # 0.06 x10^3/uL (0.01-0.08); EOSINOPHIL % 2.5 % (0.8-7.0); EOSINOPHILS # 0.25 x10^3/uL (0.04-0.54); MCHC 34.8 g/dl (32.3-36.5); MEAN CELL VOLUME 98.9 fl (79.0-92.2); MEAN PLT VOLUME 10.2 fl (9.4-12.4); MONOCYTE # 0.77 x10^3/uL (0.30-0.82); MONOCYTE % 7.7 % (5.3-12.2); RDW 13.5 % (12.2-16.6)
[2025-04-15 10:58] LABS: CO2 32.0 mmol/L (21-32)
[2025-04-15 10:59] LABS: GLUCOSE,RANDOM 202.0 mg/dL (74-106)
[2025-04-15 11:02] LABS: CREATININE 0.7 mg/dL (0.55-1.3)
[2025-04-15 12:24] LABS: SGOT/AST 121.0 U/L (15-37); SGPT/ALT 159.0 U/L (13-61)
[2025-04-15 12:25] LABS: TOT PROT 6.0 g/dl (6.4-8.2)
[2025-04-15 12:27] LABS: ALK PHOS 165.0 U/L (45-117)
[2025-04-15] MEDS: MAGNESIUM 2GM/50ML STERILE WATER IVPB IVPB ONE (13:49)
[2025-04-15 14:06] LABS: HEPATITIS B SURF AG NON-MATERN NON-REACTIVE (NONREACTIVE)
[2025-04-15 14:55] LABS: EPI CELLS 7 /uL (0-25.1); HYALINE CASTS 0 /uL (0-3.1); URINE APPEARANCE CLEAR; URINE BACTERIA 17 /uL (0-1359); URINE BILIRUBIN NEGATIVE (NEGATIVE); URINE COLOR YELLOW; URINE GLUCOSE (UA) NEGATIVE (NEGATIVE); URINE KETONE NEGATIVE (NEGATIVE); URINE LEUK ESTERASE TRACE (NEGATIVE); URINE NITRITE NEGATIVE (NEGATIVE); URINE PROTEIN 1+ (NEGATIVE); URINE RBC 13 /uL (0-23.9); URINE UROBILINOGEN 1.0 mg/dL (0.2-1.0); URINE WBC 22 /uL (0-25.8)
[2025-04-15 15:53] VITALS: BP 120/79; PULSE 83; TEMP 97.7
== END 2025-04-15 18:37 | disposition home or self-care (01) ==
LOC: JER 03:21 → INTOOBSV 06:40 → UNDOADMOB 06:40 → JERBED 06:40 → J5S 17:38
PROVIDERS: ADMIT Internal Medicine; ATTEND Internal Medicine
PROC: 3E033NZ Introduction of Analgesics, Hypnotics, Sedatives into Peripheral Vein, Percutaneous Approach (ICD-10-PCS; principal; 2025-04-13)
PROC: 3E013VG Introduction of Insulin into Subcutaneous Tissue, Percutaneous Approach (ICD-10-PCS; 2025-04-13)
PROC: 3E033GC Introduction of Other Therapeutic Substance into Peripheral Vein, Percutaneous Approach (ICD-10-PCS; 2025-04-13)
PROC: 3E0337Z Introduction of Electrolytic and Water Balance Substance into Peripheral Vein, Percutaneous Approach (ICD-10-PCS; 2025-04-13)
DX: F10.239 Alcohol dependence with withdrawal, unspecified (principal); R07.89 Other chest pain; R10.13 Epigastric pain; D73.5 Infarction of spleen; D72.829 Elevated white blood cell count, unspecified; D47.9 Neoplasm of uncertain behavior of lymphoid, hematopoietic and related tissue, unspecified; I10 Essential (primary) hypertension; N40.0 Benign prostatic hyperplasia without lower urinary tract symptoms; J44.9 Chronic obstructive pulmonary disease, unspecified; Z79.01 Long term (current) use of anticoagulants; Z90.49 Acquired absence of other specified parts of digestive tract; Z87.891 Personal history of nicotine dependence; E11.9 Type 2 diabetes mellitus without complications
CPT/HCPCS: 36415; 71045-TC-FY; 71275-TC; 74174-TC; 74181-TC; 76705-TC; 80048; 80053; 80076; 81003; 82248; 82550; 82962; 83036; 83690; 83735; 84100; 84484; 85025; 85610; 86704; 86709; 86803; 87086; 87340; 87389; 87517; 93005; 93010; 96361; 96372; 96374; 96375; 97116-GP; 97161-GP; 99285-25; G0378; Q9967